=== PATIENT | female | born 1955 | race Caucasian/White ===

== ENCOUNTER 2017-05-06 10:00 | Outpatient (RCR) | payer OTHER, SELFPAY ==
--- NOTE | 2017-04-10 12:00 | HP.PTEVAL ---
Patient's Visit Information NOHEMI LAGUNA is a 62 year old F referred to Physical Therapy by Jean Marie De La Fuente with a diagnosis of CERV FORAMINAL STENOSIS, L ARM PAIN/TRICEP TENDERNESS, POSTUREAL HYPOTENTIO. Date of Evaluation: 04/10/17 Physical Therapist: Blaire Weathers - Visit Plan Frequency: 2-3x /Week Duration: 4-6 Weeks Plan: POSTURE CORRECTION/STRENGTHENING, INSTRUCTION IN APPROPRIATE BODY MECHANICS AND ACTIVITY MODIFICATIONS. CERVICAL ISOMETRICS. CERVICAL MANUAL OR MECHANICAL TX. TRUMAN UE ROM, STRETCHING AND STRENGTHENING. HEP INSTRUCTION. 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 Disability: NO. Present symptoms: LEFT SCAPULA, LEFT NECK, LEFT ARM AND ELBOW, LEFT FOREARMARM AND LEFT HAND NUMBNESS. Present since: ABOUT 5 YEARS BUT LEFT ELBOW MORE RECENT. Pain Scale: WORST 7/10, LEAST 3/10. Currently: SHOULDER BLADE 4/10, ELBOW 4/10. Commenced as a result of: NO APPARENT REASON. Symptoms at onset: SHOULDER BLADE. Worse: USING IPAD, USING A PILLOW, WORK, COMPUTER USE. Better: TRYING TO KEEP ARM STRAIGHT. TRYING NOT TO USE ELBOW. Disturbed sleep: YES - FALLING ASLEEP. Previous history/Previous treatment: PT AND MASSAGE IN 2013. NO CHIRO. NO SURGERY. NO INJECTIONS. AGE 21 LEFT SHOULDER DISLOCATION. AGE 41 FELL AND BROKE LEFT RADIAL HEAD FX AND POSSIBLE TORN MUSCLE. DIZZINESS - POSITIVE. Gait: NORMAL. Accidents: NO. Unexplained weight loss: NO. Imaging: DDD C34. RIGHT FORMAINAL STENOSIS C45, C56. PMH: LOW BACK PAIN. ORTHOSTATIC HYPOTENSION. Recent major surgery: NONE RECENT. OTHER: PATIENT IS LEFT HAND DOMINANT. - Objective Sitting Posture: POOR. Standing Posture: FAIR. Active Correction of posture: WORSE. 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 Sensory deficit: ROM deficit: Reflexes: Dural Signs: Cervical Mvmt Loss: Flex: MIN. Pro: NIL. Ext: MOD. Ret: RJ. RSB: MOD. LSB: MOD. R Rot: MIN TO MOD. L Rot: MOD. Postural strength: FAIR. Palpation: - Goals Goal 1:: DECREASE C/O NECK AND LEFT UE SX'S Goal Time Frame: 4-6 Weeks Goal 2:: IMPROVE LIFTING, PUSHING, PULLING, REACHING, ADL AND WORK FUNCTION Goal Time Frame: 4-6 Weeks Goal 3:: INSTRUCT IN PROPHYLAXIS Goal Time Frame: 4-6 Weeks - Rehabilitation Potential Rehabilitation Potential: Good - Anticipated Interventions Patient/Client Instruction: Educate patient on: Condition, Plan of Care, Risk Factors, Benefits of Fitness Program For the Purpose of:: To improve self management Therapeutic Exercise to Include: Strength training, Body mechanics, Postural training, Flexibilty training, Scapular Strength/Stabilization For the Purpose of:: To improve ability of physical actions for home/community/work/leisure TENS: Yes IF ES: Yes Cryotherapy (ice pack, ice massage): Yes Thermo therapy (hot pack): Yes Ultrasound (thermal/non thermal): Yes Intermittent cervical traction: Yes For the Purpose of:: To decrease pain, To decrease swelling/inflammation Thank you for the opportunity to evaluate your patient. For Medicare and Medicare HMO plans, please review the plan of care and approve it. It will need to be FAXED BACK to us at [phone] for Medicare purposes. Please let me know if there are questions or concerns regarding this plan of care. Physician Signature: Date:
--- NOTE | 2017-05-06 13:15 | HP.PTDCSUM_ITS ---
HP - PT D/C Summary It has been my pleasure to treat NOHEMI LAGUNA under orders from Jean Marie De La Fuente , for the diagnosis of CERV FORAMINAL STENOSIS, L ARM PAIN/TRICEP TENDERNESS, POSTUREAL HYPOTENTIO for a total of 9 visit(s). Discharge Date: 05/06/17 Please see the following information for a summary of their discharge status. - Subjective Subjective: PATIENT REPORTS SHE REALLY ISN'T ANY BETTER OR ANY WORSE OVER-ALL. ABLE TO DO EXERCISE WITH NE OVER-ALL. THE EXERCISES FEEL GOOD WHILE SHE IS DONG THEM. - Pain Upper Trap Pain Intensity (Out of 10): 4 - Overall Improvement % Improvement: 40 - Objective Objective/Function: PATIENT DOES NOT APPEAR TO BE BENEFITING FROM TX. POSITIVE LEFT ROTATOR CUFF TEST AND POSITIVE EPICONDYLITIS TEST LEFT UE. FEELS A LITTLE BETTER AFTER BAND EX'S. REP RET IS - NE. DIFFICULT TO DECIFER BETWEEN NECK, LEFT SHOULDER AND LEFT ELBOW SX'S. MAIN PROBLEM APPEARS TO BE THE LEFT SHOULDER AT THIS TIME. PATIENT MAY BENEFIT FROM MORE IMAGING OF LEFT SHOULDER AND/OR NECK - Goals Goal 1:: DECREASE C/O NECK AND LEFT UE SX'S Goal 2:: IMPROVE LIFTING, PUSHING, PULLING, REACHING, ADL AND WORK FUNCTION Goal 3:: INSTRUCT IN PROPHYLAXIS - Plan Plan: D/C DUE TO LACK OF PROGRESS. PATIENT IS INDEP WITH A HEP THAT GIVES HER TEMPORARY RELIEF. - D/C Information If there are questions or concerns regarding this patient's physical therapy, please feel free to call me at [phone]. Thank you for the referral of this patient. Sincerely, Blaire Weathers
== END 2017-05-06 19:00 | disposition home or self-care (01) ==
LOC: PT 10:00
PROVIDERS: Family Provider Family Medicine; PCP Family Medicine; Visit Provider Family Medicine
DX: M48.02 Spinal stenosis, cervical region (principal); M79.602 Pain in left arm; I95.1 Orthostatic hypotension
CPT/HCPCS: 97012; 97110; 97140; 97162; 97530

== ENCOUNTER → 2017-06-03 08:51 | Outpatient (CLI) | payer OTHER, SELFPAY ==
--- NOTE | 2017-06-03 08:56 | RAD_ITS ---
STUDY: X-RAY - LEFT SHOULDER REASON FOR EXAM: Female, 62 years old. Pain. TECHNIQUE: 3 view(s) of the shoulder. COMPARISON: None. FINDINGS: Normal glenohumeral articulation. Normal acromioclavicular joint. Normal acromion. Normal humeral head and visualized proximal humerus. The soft tissue structures are unremarkable. Normal visualized pulmonary apex. RAD/Shoulder min 2 Views IMPRESSION: Normal x-ray examination of the shoulder. Electronically Signed: Romeo Brownlee MD at 15:00 EST Tel [phone], Service support ,
== END ==
PROVIDERS: Family Provider Family Medicine; PCP Family Medicine; Visit Provider Orthopaedic Surgery
DX: M25.512 Pain in left shoulder (principal)
CPT/HCPCS: 73030

== ENCOUNTER 2017-06-10 09:20 | Outpatient (RCR) | payer OTHER, SELFPAY | END 2017-06-10 19:00 | disposition home or self-care (01) | LOC: PT 09:20 | PROVIDERS: Family Provider Family Medicine; PCP Family Medicine; Visit Provider Orthopaedic Surgery | DX: M25.512 Pain in left shoulder (principal); M77.12 Lateral epicondylitis, left elbow; G56.32 Lesion of radial nerve, left upper limb ==

== ENCOUNTER → 2017-07-22 13:09 | Outpatient (CLI) | payer OTHER, SELFPAY ==
--- NOTE | 2017-07-22 13:20 | MRI_ITS ---
STUDY: MRI CERVICAL SPINE WITHOUT CONTRAST REASON FOR EXAM: Female, 62 years old. Left-sided radiculopathy with hand and arm numbness and pain TECHNIQUE: Standardized fat and water weighted pulse sequences were obtained in the sagittal and axial planes. COMPARISON: None FINDINGS: Normal foramen magnum and brainstem-cervical cord junction. Normal craniovertebral junction. Normal anterior atlantoaxial articulation. Normal odontoid process. Normal cervical lordosis. Normal vertebral bodies and posterior osseous elements. C2-3: Normal endplates. Normal disc height, signal and morphology. Normal central canal and intervertebral neural foramina. C3-4: Disc osteophyte complex and right uncovertebral joint hypertrophy with mild to moderate central canal stenosis and moderate right foraminal stenosis. C4-5: Disc osteophyte complex and bilateral uncovertebral joint hypertrophy with moderate central canal stenosis and moderate to severe bilateral foraminal stenoses. C5-6: Disc osteophyte complex with severe central canal stenosis and severe right and moderate left foraminal stenoses. Mild cord compression. Moderate C6-7: Disc osteophyte complex with mild to moderate central canal stenosis and moderate to severe left and moderate right foraminal stenoses. C7-T1: Normal endplates. Normal disc height, signal and morphology. Normal central canal and intervertebral neural foramina. Normal cervical cord. Normal visualized soft tissue structures. MRI/Spine Cervical (Routine) IMPRESSION: Multilevel degenerative disc disease as described. Significant central canal stenosis with underlying cord compression at the C5-6 level. However, no intrinsic cord signal abnormalities are seen at this time. Severe foraminal stenoses bilaterally at C4-5 and on the right at C5-6. Electronically Signed: Floyd Morales MD at 6:48 EDT Tel , Service support ,
== END ==
PROVIDERS: Family Provider Family Medicine; PCP Family Medicine; Visit Provider Family Medicine
DX: M54.2 Cervicalgia (principal)
CPT/HCPCS: 72141

== ENCOUNTER → 2018-09-24 | Outpatient (CLI) | payer OTHER, SELFPAY ==
[2017-06-03 09:05] VITALS: BMI 26.6
== END | disposition home or self-care (01) ==
LOC: LABSPEC 16:49
PROVIDERS: Visit Provider Obstetrics & Gynecology
DX: N39.0 Urinary tract infection, site not specified (principal)
CPT/HCPCS: 87086; 87088

== ENCOUNTER → 2018-10-01 10:19 | Outpatient (CLI) | payer OTHER, SELFPAY ==
[2018-10-01 10:47] LABS: Absolute Lymphocyte Count 2.07 X10^3/ul (0.83-4.51); Absolute Neutrophil Count 2.5 X10^3/uL (2.0-7.7); Basophil# 0.02 X10^3/uL; Basophil% 0.4 % (0-1); Eosinophil# 0.13 X10^3/uL; Eosinophils% 2.5 % (0-5); Hemoglobin 12.7 g/dl (12.0-15.0); Lymphocyte # 2.07 X10^3/ul (4.0); Lymphocyte % 39.4 % (19-41); Mean Corp Hgb Conc 32.6 g/gl (32-36); Mean Corpuscular Hgb 29.7 pg (27.0-32.0); Mean Corpuscular Volume 91.1 fL (81-99); Monocyte# 0.51 X10^3/uL; Monocyte% 9.7 % (0-10); Neutrophil # 2.52 X10^3/uL (2.7-7.7); Platelet Count 335 K/mm3 (150-450); RBC Distribution Width CV 13.4 % (11.6-14.6); RBC Distribution Width SD 44.2 fl (35.1-43.9); Red Blood Count 4.28 M/mm3 (4.2-5.4); White Blood Count 5.3 K/mm3 (4.4-11.0)
[2018-10-01 10:49] LABS: POSITIVE COUNT NO; POSITIVE DIFFERENTIAL NO; POSITIVE MORPHOLOGY NO
--- NOTE | 2018-10-01 11:05 | CT_ITS ---
STUDY: CT ABDOMEN AND PELVIS WITHOUT CONTRAST REASON FOR EXAM: Female, 63 years old. RADIATION DOSAGE (If Supplied By Facility): CTDIvol = ( 11.05 ) mGy, DLP = ( 541.24 ) mGycm TECHNIQUE: Transaxial images were obtained from the dome of the diaphragm to the symphysis pubis with oral contrast, and without intravenous contrast. Sagittal and coronal images were reconstructed. Individualized dose optimization techniques were used for this CT. COMPARISON: October 10, 2049 FINDINGS: The visualized lung bases are unremarkable. The visualized portions of the heart are within normal limits. Normal liver. Normal gallbladder and extrahepatic biliary system. Normal spleen. Normal pancreas. Normal bilateral adrenal glands. Normal right kidney. Normal left kidney. Normal visualized stomach. Normal small intestine. Normal colon. The appendix is visualized and appears normal. Normal abdominal aorta. Normal inferior vena cava. Normal retroperitoneum. Normal urinary bladder. There is tubal ligation on the left Normal abdominal wall. Normal osseous structures. CT/Abdomen/Pelvis without Cont IMPRESSION: Negative unenhanced CT of the abdomen and pelvis. No dilatation of small bowel in today's examination when compared to the previous study. Electronically Signed: Swetha Greene, at 12:48 EDT Tel , Service support ,
[2018-10-01 11:12] LABS: AST(SGOT) 23 U/L (15-37); Alanine Aminotransfer ALT/SGPT 27 U/L (13-56); Albumin, Serum 3.6 g/dL (3.2-5.0); Alkaline Phosphatase 100 U/L (45-117); Anion Gap 7 (5-15); BUN 7 mg/dL (7-18); BUN/Creat Ratio 9.1 RATIO (10-20); CRP 5.43 mg/L (0.0-3.0); Calcium,Total 9.1 mg/dL (8.5-10.1); Chloride 107 mmol/L (98-107); Creatinine, Serum 0.77 mg/dL (0.55-1.02); EST Glomerular Filtration Rate 81 mL/min (>60); Est Glom Filt Rate - Afr Amer 98 mL/min (>60); Globulin 3.7 g/dL (2.2-4.2); Glucose 97 mg/dL (74-106); Lipase 237 U/L (73-393); Potassium 4.2 mmol/L (3.5-5.1); Protein, Total 7.3 g/dL (6.4-8.2); Sodium Level 142 mmol/L (136-145)
== END ==
PROVIDERS: Family Provider Family Medicine; PCP Family Medicine; Referring Provider Family Medicine; Visit Provider Family Medicine
DX: R19.03 Right lower quadrant abdominal swelling, mass and lump (principal)
CPT/HCPCS: 36415; 74176; 80053; 83690; 85025; 86140

== ENCOUNTER → 2018-10-15 08:06 | Outpatient (CLI) | payer OTHER, SELFPAY ==
--- NOTE | 2018-10-15 08:20 | RAD_ITS ---
STUDY: Air CONTRAST UPPER GI SERIES AND SMALL BOWEL FOLLOW-THROUGH EXAMINATION. REASON FOR EXAM: Female, 63 years old. One month history of abdominal pain and back pain. History of prior small bowel obstructions. FLUOROSCOPY TIME (if supplied): (1:05) minutes/seconds. TECHNIQUE: The patient ingested barium. Multiple images of the esophagus, stomach and duodenum were obtained. Following this, the small bowel follow-through examination was performed. COMPARISON: None. FINDINGS: The esophagus is unremarkable. There is no evidence of obstruction. No mass lesion is seen. The stomach and duodenum are unremarkable. No evidence of ulceration. No mass lesion is present. A small bowel follow-through examination was done obtained. The small bowel transit is normal. No evidence of intrinsic or extrinsic small bowel disease. The terminal ileum is unremarkable. RAD/Upper GI/w Small Bowel IMPRESSION: Unremarkable examination. Electronically Signed: Romeo Brownlee, at 15:03 EDT , Service support ,
== END ==
PROVIDERS: Family Provider Family Medicine; PCP Family Medicine; Referring Provider Family Medicine; Visit Provider Family Medicine
DX: R11.0 Nausea (principal)
CPT/HCPCS: 74249

== ENCOUNTER → 2018-12-17 12:31 | Outpatient (CLI) | payer OTHER, SELFPAY ==
--- NOTE | 2018-12-17 12:32 | BI_ITS ---
MAMMOGRAPHY - BILATERAL SCREENING REASON FOR EXAM: Female, 63 years old. Routine annual screening examination. PERTINENT HISTORY: Non-contributory. Remote left excisional breast biopsy. TECHNIQUE: Digital bilateral breast bigg (3D mammographic acquisition) in the CC and MLO projections. 2-D mediolateral oblique (MLO) and craniocaudad (CC) views of both breasts were obtained. CAD: Full Field Digital Mammography with Computer Added Detection was performed. COMPARISON: Comparison is made with prior study dated August 22, 2016 and February 28, 2015. FINDINGS: Breast Composition: The breasts are almost entirely fatty. There are no dominant masses or suspicious calcifications. No other significant abnormalities are identified. There has been no significant change since the prior study. BI/SCREEN MAMM (CAD) W/BIGG BILAT IMPRESSION: Stable bilateral screening mammogram. Yearly follow-up mammogram recommended. (A) ASSESSMENT CATEGORY: BIRADS Category 1: Negative. A letter regarding these results will be sent to the patient by the facility within 30 days. Approximately 10% of breast cancers are not detected by mammography. A normal mammogram should not delay biopsy of a clinically suspicious abnormality. [id number] Electronically Signed: Romeo Brownlee, at 15:52 EDT , Service support ,
== END ==
PROVIDERS: Family Provider Family Medicine; PCP Family Medicine; Referring Provider Obstetrics & Gynecology; Visit Provider Obstetrics & Gynecology
DX: Z12.31 Encounter for screening mammogram for malignant neoplasm of breast (principal)
CPT/HCPCS: 77063; 77067

== ENCOUNTER → 2019-04-23 15:34 | Outpatient (CLI) | payer OTHER, SELFPAY ==
--- NOTE | 2019-04-23 09:35 | FORE_PTH ---
PATIENT: NOHEMI LAGUNA LOC: [facility] U#:[id number] AGE/SX: 70/F ROOM: RE04/23/[address]: Dr. Brennen Kim MD : [id number] BED: DIS: SPEC #: [id number] RECD: 04/23/19 15:22 STATUS: MARIELY EDUARDA #: [id number] COLEEN: 04/23/19 09:[address]: Brennen Kim DEPT: SURGICAL PATHOLOGY RECD BY: Mia García ENTERED: 04/24/19 09:29 SP TYPE: FOREIGN B ROYER DR: Dr. Jean Marie De La Fuente MD Tissues: FOREIGN BODY Procedures: Surgery Specimen Level IV HEADER OPERATION: Excision foreign body right heel PRE-OP DIAGNOSIS: Foreign body right heel TISSUE SUBMITTED: Right heel tissue MICROSCOPIC DIAGNOSIS Skin of right heel, biopsy: Hyperkeratosis. Minimal chronic inflammation. See comment. AM:anna 04/27/19 COMMENT A foreign body is not present. Polarized light microscopy is negative for polarizable foreign material. Clinical correlation is necessary. MICROSCOPIC DESCRIPTION Slides are reviewed. GROSS DESCRIPTION Received in fixative is one container labeled with the patient's name and designated right heel. The specimen consists of a piece of skin with underlying tissue measuring 1 x 0.4 x 0.5 cm. The specimen is inked, serially sectioned and submitted entirely in one cassette. / SJ:rg 04/24/19 TC:3 CPT: 78870
[2019-04-23 09:47] VITALS: BMI 26.6
== END ==
PROVIDERS: PCP Family Medicine; Referring Provider Surgery; Visit Provider Surgery
DX: S90.851A Superficial foreign body, right foot, initial encounter (principal)
CPT/HCPCS: 88300; 88305

== ENCOUNTER → 2020-03-11 10:24 | Outpatient (CLI) | payer OTHER, SELFPAY ==
[2019-04-23 09:47] VITALS: BMI 26.6
[2020-03-11 12:47] LABS: Absolute Lymphocyte Count 1.77 X10^3/uL (0.83-4.51); Absolute Neutrophil Count 2.8 X10^3/uL (2.0-7.7); Basophil# 0.03 X10^3/uL; Basophil% 0.6 % (0-1); Eosinophil# 0.08 X10^3/uL; Eosinophils% 1.5 % (0-5); Hematocrit 40.8 % (37-47); Lymphocyte # 1.77 X10^3/ul (4.0); Lymphocyte % 33.5 % (19-41); Mean Corp Hgb Conc 31.9 g/dL (32-36); Mean Corpuscular Hgb 29.8 pg (27.0-32.0); Mean Corpuscular Volume 93.6 fL (81-99); Mean Platelet Vol. 11.2 fl (6.2-12.0); Monocyte# 0.56 X10^3/uL; Monocyte% 10.6 % (0-10); NRBC Flagged by Analyzer 0 % (0-5); Neutrophil # 2.83 X10^3/uL (2.7-7.7); Neutrophil % 53.6 % (47-70); Platelet Count 271 K/mm3 (150-450); RBC Distribution Width CV 13.1 % (11.6-14.6); RBC Distribution Width SD 44.9 fl (35.1-43.9); Red Blood Count 4.36 M/mm3 (4.2-5.4); White Blood Count 5.3 K/mm3 (4.4-11.0)
[2020-03-11 13:12] LABS: AST(SGOT) 28 U/L (15-37); Alanine Aminotransfer ALT/SGPT 36 U/L (13-56); Albumin, Serum 3.5 g/dL (3.2-5.0); Alkaline Phosphatase 86 U/L (45-117); Anion Gap 7 (5-15); BUN 11 mg/dL (7-18); BUN/Creat Ratio 13.9 RATIO (10-20); Calcium,Total 8.9 mg/dL (8.5-10.1); Chloride 106 mmol/L (98-107); Creatinine, Serum 0.79 mg/dL (0.55-1.02); EST Glomerular Filtration Rate 78 mL/min (>60); Est Glom Filt Rate - Afr Amer 94 mL/min (>60); Globulin 3.4 g/dL (2.2-4.2); Glucose 91 mg/dL (74-106); Magnesium 2.3 mg/dL (1.6-2.6); Protein, Total 6.9 g/dL (6.4-8.2); Sodium Level 140 mmol/L (136-145); Thyroid Stim Hormone (TSH) 1.46 uIU/mL (0.358-3.74)
[2020-03-14 13:01] LABS: ANTINUCLEAR ANTIBODIES DIRECT Positive (Negative)
[2020-03-14 16:12] LABS: Rheumatoid Factor < 10.0 IU/mL (<15)
== END ==
PROVIDERS: PCP Family Medicine; Referring Provider Family Medicine; Visit Provider Family Medicine
DX: R00.2 Palpitations (principal)
CPT/HCPCS: 36415; 80053; 83735; 84443; 85025; 86038; 86225; 86235; 86431

== ENCOUNTER → 2020-04-06 10:12 | Outpatient (CLI) | payer OTHER, SELFPAY ==
[2020-03-31 10:57] VITALS: BMI 27.4
--- NOTE | 2020-04-06 10:15 | RAD_ITS ---
STUDY: X-RAY CHEST REASON FOR EXAM: Female, 65 years old. DYSPNEA, TACHYCARDIA, CP AND JAW PAIN INTERMITTENTLY X1 YR, POSITIVE [place] TECHNIQUE: PA and lateral views of the chest. COMPARISON: 12/02/2013 FINDINGS: The lungs are clear and expanded. There is no demonstrated pleural abnormality. Normal size heart. Normal mediastinum and christ. Normal visualized pulmonary arteries. Normal visualized aortic arch and descending thoracic aorta. There are diffuse degenerative changes of the visualized thoracic spine. Normal visualized ribs, clavicles, and shoulders. There is no demonstrated abnormality of the visualized soft tissue structures of the upper abdomen. RAD/Chest PA and Lateral IMPRESSION: No acute cardiopulmonary process. Stable exam. Electronically Signed: Dionisio Pepe MD ([place]) at 12:22 EST , Service support ,
== END ==
PROVIDERS: PCP Family Medicine; Referring Provider Internal Medicine Cardiovascular Disease; Visit Provider Internal Medicine Cardiovascular Disease
DX: R00.2 Palpitations (principal); R06.00 Dyspnea, unspecified; R07.9 Chest pain, unspecified; R42 Dizziness and giddiness
CPT/HCPCS: 71046

== ENCOUNTER → 2020-04-06 11:56 | Outpatient (CLI) | payer OTHER, SELFPAY ==
[2019-04-23 09:47] VITALS: BMI 26.6
[2020-03-31 10:57] VITALS: BMI 27.4
--- NOTE | 2020-04-06 11:58 | BI_ITS ---
MAMMOGRAPHY - BILATERAL SCREENING REASON FOR EXAM: Female, 65 years old. Routine annual screening examination. PERTINENT HISTORY: Non-contributory. Remote left excisional breast biopsy. TECHNIQUE: Digital bilateral breast bigg (3D mammographic acquisition) in the CC and MLO projections. 2-D mediolateral oblique (MLO) and craniocaudad (CC) views of both breasts were obtained. CAD: Full Field Digital Mammography with Computer Added Detection was performed. COMPARISON: Comparison is made with prior study dated 12/17/2018 and 08/22/2016 FINDINGS: Breast Composition: The breasts are almost entirely fatty. There are no dominant masses or suspicious calcifications. No other significant abnormalities are identified. There has been no significant change since the prior study. BI/SCREEN MAMM (CAD) W/BIGG BILAT IMPRESSION: Stable bilateral screening mammogram. Yearly follow-up mammogram recommended. (A) ASSESSMENT CATEGORY: BIRADS Category 1: Negative. A letter regarding these results will be sent to the patient by the facility within 30 days. Approximately 10% of breast cancers are not detected by mammography. A normal mammogram should not delay biopsy of a clinically suspicious abnormality. [id number] Electronically Signed: Romeo Brownlee, at 11:08 EST , Service support ,
== END ==
PROVIDERS: PCP Family Medicine; Referring Provider Family Medicine; Visit Provider Family Medicine
DX: Z12.31 Encounter for screening mammogram for malignant neoplasm of breast (principal)
CPT/HCPCS: 77063; 77067

== ENCOUNTER → 2020-04-15 06:11 | Outpatient (CLI) | payer OTHER, SELFPAY ==
[2020-03-31 10:57] VITALS: BMI 27.4
--- NOTE | 2020-04-15 06:22 | ECHOCS_ITS ---
Reason For Study: Dyspnea/SOB Procedure This was a 2D Doppler, Color Flow transthoracic echocardiogram. The study was technically difficult. Contrast injection was performed. Exam performed in department. Left Ventricle Normal LV size. Left ventricular systolic function is normal. The estimated ejection fraction is 65 %. No evidence for diastolic dysfunction. No regional wall motion abnormalities noted. Right Ventricle Normal RV size. Normal systolic function. Atria The left atrium is mildly enlarged. Normal right atrium. No doppler evidence for ASD. Bubble contrast study negative for right to left interatrial shunt. Mitral Valve There is no mitral annular calcification. Normal mitral valve. Mild (1+) mitral valve insufficiency. Tricuspid Valve Normal tricuspid valve. Mild tricuspid valve insufficiency. Right ventricular systolic pressure estimated to be 16 mmHg. Aortic Valve Trisinus/trileaflet aortic valve. Normal aortic valve. Pulmonic Valve The pulmonic valve is not well visualized. Great Vessels Normal sized aortic root. Pericardium/Pleural No pericardial effusion. Medication 22 gauge I.V. with prn adaptor inserted into right arm. Diluted definity 3ml given slow IV push to enhance endocardial definition. Performed a rapid injection of agitated mix of 9 cc saline and 1cc air to assess for atrial septal defect. MMode/2D Measurements & Calculations LVIDd: 5.0 cm IVSd: 0.82 cm LA dimension: 3.4 cm LVIDs: 2.9 cm LVPWd: 0.95 cm RVDd: 3.2 cm FS: 42.0 % LAV(MOD-bp): 55.0 ml LA A4 area: 16.9 cm2 RA A4 area: 15.0 cm2 LAV(MOD-bp) Indexed: 28.8 ml/m2 LAV(MOD-sp2): 62.6 ml LAV(MOD-sp4): 45.4 ml Time Measurements MV dec time: 0.23 sec Doppler Measurements & Calculations MV E max luciano: 70.1 cm/sec Lat Peak E' Luciano: 11.1 cm/sec Med Peak E' Luciano: 10.3 cm/sec MV A max luciano: 52.0 cm/sec E/E' lat: 6.3 E/E' med: 6.8 MV E/A: 1.3 MV V2 max: 63.1 cm/sec MV P1/2t max luciano: 63.4 cm/sec Ao V2 max: 88.0 cm/sec MV max P.6 mmHg MV P1/2t: 62.0 msec Ao max P.1 mmHg MV V2 mean: 34.1 cm/sec MV dec slope: 299.1 cm/sec2 MV mean P.57 mmHg MV V2 VTI: 19.4 cm MVA(P1/2t): 3.5 cm2 LV V1 max: 68.2 cm/sec PA V2 max: 67.3 cm/sec TR max luciano: 183.0 cm/sec LV V1 max P.9 mmHg TR max P.4 mmHg Interpretation Summary The study was technically difficult. Contrast injection was performed. Left ventricular systolic function is normal. The estimated ejection fraction is 65 %. The left atrium is mildly enlarged. Mild (1+) mitral valve insufficiency. Mild tricuspid valve insufficiency. Right ventricular systolic pressure estimated to be 16 mmHg. No evidence for diastolic dysfunction. Ordering Physician: Willam Woodall Referring Physician: Willam Woodall Performed By: Luis Manuel Agarwal RCS
--- NOTE | 2020-04-15 12:05 | STRESSREP_ITS ---
Stress Test Report Date: 04-15-2020 Procedure: Exercise tolerance test/imaging study Indications: Chest pain; shortness of breath/dyspnea on exertion Consent: Per the patient Procedure: The patient exercised on a Marcelino protocol for 6 minutes and 25 seconds completing Stage II and 25 seconds of Stage III achieving a peak heart rate of 157 bpm (100% predicted maximal heart rate) with a peak blood pressure 188/88 mmHg and a peak MET capacity of 7 METs. The baseline ECG demonstrated normal sinus rhythm. The peak exercise ECG demonstrated approximately 0.5 to 1.[address] segment depression in leads II, III, aVF, and V4 through V6 with resolution towards baseline beginning less than 1 minute in recovery. There was a rare PAC during exercise and an isolated PVC in recovery. The functional capacity was considered average. There was slight chest discomfort/dyspnea during exercise with spontaneous improvement in recovery. The examination was discontinued secondary to dyspnea. Impression: 1. Technically adequate (percent predicted maximal heart rate greater than 85%) exercise tolerance test 2. Peak exercise ECG with approximately 0.5 to 1.[address] segment depression in leads II, III, aVF, and V4 through V6 with resolution towards baseline beginning less than 1 minute in recovery 3. There was a rare PAC during exercise and an isolated PVC in recovery 4. Nuclear images pending Myocardial perfusion imaging study: Technique: The patient was injected with 11.4 mCi of technetium 99m Cardiolite and subsequently rest SPECT Cardiolite nuclear imaging was obtained in the horizontal long, vertical long, and short axis views. The patient exercised on a Marcelino protocol for 6 minutes and 25 seconds completing Stage II and 25 seconds of Stage III achieving a peak heart rate of 157 bpm (100% predicted maximal heart rate) with a peak blood pressure 188/88 mmHg and a peak MET capacity of 7 METs. The patient was injected with 34.0 mCi of technetium 99m Cardiolite and subsequently stress SPECT Cardiolite nuclear imaging was obtained in the horizontal long, vertical long, and short axis views. A gated Cardiolite study at peak stress was obtained. Interpretation: Rest and stress SPECT Cardiolite nuclear imaging status post realignment, normalization, and attenuation correction, demonstrates the appearance of relative uniform tracer uptake and myocardial perfusion appearing within normal limits. There is end systolic thickening and brightening. The gated Cardiolite study demonstrates myocardial thickening and inward wall motion. The reported LVEF is 63%. Impression: 1. Rest and stress SPECT Cardiolite nuclear imaging demonstrate relative uniform tracer uptake and myocardial perfusion appearing within normal limits. 2. The gated Cardiolite study reports an LVEF of 63%. This note was generated with [employer] dictation software. It may contain incorrect words, spelling, and punctuation that were not noted in checking the note before signing.
== END ==
PROVIDERS: PCP Family Medicine; Referring Provider Internal Medicine Cardiovascular Disease; Visit Provider Internal Medicine Cardiovascular Disease
DX: R07.9 Chest pain, unspecified (principal); R06.00 Dyspnea, unspecified; R00.2 Palpitations; R42 Dizziness and giddiness; R06.02 Shortness of breath
CPT/HCPCS: 78452; 93017; 93306; A9500; Q9957; A4216; C8929

== ENCOUNTER → 2020-07-11 16:03 | Outpatient (CLI) | payer OTHER, SELFPAY ==
[2020-06-16 13:14] VITALS: BMI 27.6
== END ==
PROVIDERS: PCP Family Medicine; Visit Provider Internal Medicine Rheumatology
DX: R21 Rash and other nonspecific skin eruption (principal); R76.8 Other specified abnormal immunological findings in serum
CPT/HCPCS: 36415; 86038

== ENCOUNTER 2020-10-10 21:42 | Emergency (ER) | payer OTHER, SELFPAY ==
[2020-06-16 13:14] VITALS: BMI 27.6
[2020-10-10 21:42] VITALS: BP 129/86; PULSE 77; RESP 18; TEMP 35.6; O2SAT 96; BMI 28.0
--- NOTE | 2020-10-10 22:07 | CT_ITS ---
STUDY: CT ABDOMEN AND PELVIS WITH CONTRAST REASON FOR EXAM: Female, 65 years old. SBO -- IV PO Contrast RADIATION DOSAGE (If Supplied By Facility): CTDIvol = ( 14.13 ) mGy, DLP = ( 968.55 ) mGycm TECHNIQUE: Transaxial images were obtained from the dome of the diaphragm to the symphysis pubis with oral contrast. Oral and amp; IV Gastrografin and amp; 100mL Isovue-300 was administered. Sagittal and coronal images were reconstructed. Individualized dose optimization techniques were used for this CT. COMPARISON: None. FINDINGS: The visualized lung bases are unremarkable. The visualized portions of the heart are within normal limits. Small cyst in the liver dome measuring 10 mm. Otherwise, unremarkable liver. Normal gallbladder and extrahepatic biliary system. Normal spleen. Normal pancreas. Normal bilateral adrenal glands. Normal right kidney. Normal left kidney. Normal visualized stomach. Multiple loops of small bowel in the central abdomen demonstrating wall thickening with edema as well as mild fluid distention with air-fluid levels. Likely enteritis and less likely obstruction. No evidence of abnormal dilation. There are multiple colonic diverticula consistent with diverticulosis. The appendix is visualized and appears normal. Normal abdominal aorta. Normal inferior vena cava. Normal retroperitoneum. Normal urinary bladder. Normal visualized uterus. Normal abdominal wall. Normal osseous structures. CT/Abdomen/Pelvis WITH Contrast IMPRESSION: Multiple loops of small bowel in the central abdomen demonstrating wall thickening with edema suggesting enteritis. No definite evidence of small bowel obstruction however; however, not fully excluded at this time Electronically Signed: Edson Abbasi DO at 0:42 EDT Tel , Service support ,
[2020-10-10 22:16] LABS: Absolute Neutrophil Count 6.2 X10^3/uL (2.0-7.7); Basophil# 0.03 X10^3/uL; Basophil% 0.3 % (0-1); Eosinophil# 0.12 X10^3/uL; Eosinophils% 1.2 % (0-5); Hemoglobin 12.1 g/dL (12.0-15.0); Lymphocyte % 30.1 % (19-41); Mean Corp Hgb Conc 32.7 g/dL (32-36); Mean Corpuscular Hgb 29.8 pg (27.0-32.0); Mean Corpuscular Volume 91.1 fL (81-99); Mean Platelet Vol. 10.2 fl (6.2-12.0); Monocyte# 0.81 X10^3/uL; Monocyte% 7.9 % (0-10); NRBC Flagged by Analyzer 0 % (0-5); Neutrophil % 60.2 % (47-70); Platelet Count 291 K/mm3 (150-450); RBC Distribution Width CV 13.1 % (11.6-14.6); RBC Distribution Width SD 43.4 fl (35.1-43.9); Red Blood Count 4.06 M/mm3 (4.2-5.4); White Blood Count 10.3 K/mm3 (4.4-11.0)
[2020-10-10 22:34] LABS: AST(SGOT) 26 U/L (15-37); Alanine Aminotransfer ALT/SGPT 38 U/L (13-56); Albumin, Serum 3.5 g/dL (3.2-5.0); Alkaline Phosphatase 95 U/L (45-117); Anion Gap 5 (5-15); BUN 11 mg/dL (7-18); BUN/Creat Ratio 13.2 RATIO (10-20); Calcium,Total 9.1 mg/dL (8.5-10.1); Chloride 108 mmol/L (98-107); Creatinine, Serum 0.83 mg/dL (0.55-1.02); EST Glomerular Filtration Rate 73 mL/min (>60); Est Glom Filt Rate - Afr Amer 88 mL/min (>60); Estimated Creatinine Clearance 66.59 ml/min; Globulin 3.6 g/dL (2.2-4.2); Glucose 94 mg/dL (74-106); Lipase 129 U/L (73-393); Potassium 4.2 mmol/L (3.5-5.1); Protein, Total 7.1 g/dL (6.4-8.2); Sodium Level 140 mmol/L (136-145)
[2020-10-10] MEDS: Ondansetron 4 MG/2 ML Vial IV (22:57)
[2020-10-10] MEDS: Morphine 4 MG/ML Syringe IV (22:57)
[2020-10-10] MEDS: 0.9% Normal Saline 1,000 ML 125 ML IV (22:57)
--- NOTE | 2020-10-10 23:02 | ED.VIS.GI ---
HPI HPI - GI History of Present Illness Chief Complaint: Abd Pain Narrative Narrative: Patient presenting for evaluation secondary to abdominal pain. Patient states that she has a past history of a unilateral nephrectomy, and hernia surgery. Patient does have a past history of bowel obstructions. Patient states that at about 4 PM she started to have symptoms that she was concerned were consistent with a bowel obstruction. She does report that she moved her bowels, but she has had decreased flatus. She has had intermittent waxing and waning periumbilical pain that has no real exacerbating relieving factors. She has had decreased appetite. She denies any fevers. She denies any nausea or vomiting. She denies any other recent illnesses. Review of systems otherwise negative. [facility] Medical History Chest pain Foreign body in soft tissue IBD (inflammatory bowel disease) Overweight (BMI 25.0-29.9) Palpitations Personal history of retained foreign body fully removed (~04/2019) SBO (small bowel obstruction) Vasovagal syncope Home Medications aspirin 325 mg tablet 325 mg PO DAILY #30 tab 06/01/20 [Rx Last Taken Unknown] metoprolol succinate 25 mg tablet,extended release 24 hr 25 mg PO DAILY #30 tab 06/01/20 [Rx Last Taken Unknown] hydrocodone-acetaminophen 1 tab PO Q8H PRN 3 Days #9 tab 10/11/20 [Rx Last Taken Unknown] Allergy/AdvReac Type Severity Reaction Status Date / Time escitalopram [From Lexapro] Allergy Hives,Sedat Verified 10/10/20 21:45 ion Penicillins Allergy Rash Verified 10/10/20 21:45 venlafaxine [From Effexor] AdvReac Constipatio Verified 10/10/20 21:45 n Family History Father CAD (coronary artery disease) Hypertension Mother Heart disease Atrial fibrillation Brother Hypertension Surgical History H/O breast biopsy H/O hemorrhoidectomy History of bladder suspension procedure History of right oophorectomy Social History Smoking Status: Never smoker alcohol intake: current details: occasional substance use type: does not use caffeine: Yes Type: coffee Number of servings: 3 ROS ROS ED Constitutional Constitutional ED: Denies chills or fever(s) ENT ENT ED: Denies sore throat Cardiovascular Cardiovascular: Denies chest pain Respiratory/Chest Respiratory/Chest: Denies cough or dyspnea Gastrointestinal Gastrointestinal: Reports abdominal pain Genitourinary Genitourinary ED: Denies dysuria, hematuria or urinary frequency Musculoskeletal Musculoskeletal: Denies myalgias Integumentary Denies rash Neurologic Neurologic: Denies paresthesias or weakness Psychiatric Psychiatric: Denies depression Endocrine Endocrinology: Denies polyuria Hematologic/Lymphatic Hematologic/Lymphatic: Denies easy bleeding or easy bruising Allergic/Immunologic Allergic/Immunologic ED: Denies urticaria EXAM Physical Exam Const Vital Signs: 10/10/20 21:42 Temperature 96.1 F L Temperature Source Oral Pulse Rate 77 Respiratory Rate 18 Blood Pressure 129/86 H Blood Pressure Mean 100 Pulse Ox 96 Oxygen Delivery Method Room Air Positive well nourished and well developed General Appearance ED: well developed and NAD HEENT normocephalic and atraumatic Eyes EOMs intact bilaterally General Eye ED: Negative for pale conjunctiva or scleral icterus Neck no lymphadenopathy and supple Resp normal respiratory effort and clear to auscultation bilaterally Cardio regular rate, regular rhythm, no murmurs and peripheral pulses 2+ throughout GI non-tender, non-distended and no masses GI Narrative: Epigastric and periumbilical tenderness no guarding or rebound noted. No evidence of increased bowel sounds. Palpation: soft and tender; Negative for guarding, rigid or rebound tenderness present Back/Spine no CVA tenderness Extremity full ROM General Extremety ED: Negative for edema General Extremity: Negative for edema Neuro moves all extremities and no sensory deficits noted Sensorium / Orientation: alert, oriented to person, oriented to place and oriented to time Motor Exam: strength 5/5 throughout Psych mental status grossly normal Skin Rashes: no rashes MDM MDM MDM Narrative Medical decision making narrative: Patient presented secondary to abdominal pain in the setting of a history of small bowel obstructions in the past. IV was established patient was given morphine Zofran as well as IV fluids. CBC does not demonstrate evidence of a leukocytosis or shift, chemistry including liver panel and lipase was found to be unremarkable. CT abdomen and pelvis with p.o. and IV contrast was performed. Per radiology this demonstrates multiple loops of small bowel in the central abdomen demonstrating some wall thickening with edema suggestive more of enteritis. They stated that there was no evidence of small bowel obstruction, although it is not fully excluded at this time. Repeat evaluation of the patient at 0 115 shows her to have some symptomatic improvement. Had a discussion with the patient that her imaging at this time is not indicative of small bowel obstruction. Likewise, the patient does not have a presentation that would seem consistent with a ischemic colitis or other serious etiology that requires admission. Patient is very reliable, she will return if she has worsening symptoms. Patient sees Dr. Kim as her surgeon, I recommended that she call the office there tomorrow for acute follow-up. Patient will be discharged with a short course of [place] for treatment of pain. Patient is discharged in stable condition. Lab Data Labs: Laboratory Results - last 24 hr 10/10/20 10/10/20 22:08 22:08 WBC 10.3 RBC 4.06 L Hgb 12.1 Hct 37.0 MCV 91.1 MCH 29.8 MCHC 32.7 RDW Std Deviation 43.4 RDW Coeff of Charles 13.1 Plt Count 291 MPV 10.2 Immature Gran % (Auto) 0.300 Neut % (Auto) 60.2 Lymph % (Auto) 30.1 [place] % (Auto) 7.9 Eos % (Auto) 1.2 Baso % (Auto) 0.3 Absolute Neuts (auto) 6.2 Absolute Lymphs (auto) 3.10 Nucleated RBC % 0 Sodium 140 Potassium 4.2 Chloride 108 H Carbon Dioxide 27.0 Anion Gap 5 BUN 11 Creatinine 0.83 Estim Creat Clear Calc 66.59 Est GFR (MDRD) Af Amer 88 Est GFR (MDRD) Non-Af 73 BUN/Creatinine Ratio 13.2 Glucose 94 Calcium 9.1 Total Bilirubin 0.50 AST 26 ALT 38 Alkaline Phosphatase 95 Total Protein 7.1 Albumin 3.5 Globulin 3.6 Albumin/Globulin Ratio 1.0 Lipase 129 Radiography Diagnostic Testing: Radiology Impression Abdomen/Pelvis CT 10/10/20 22:07 IMPRESSION: Multiple loops of small bowel in the central abdomen demonstrating wall thickening with edema suggesting enteritis. No definite evidence of small bowel obstruction however; however, not fully excluded at this time Electronically Signed: Edson Abbasi DO at 0:42 EDT Tel , Service support , Discharge Plan Triage Chief Complaint: Abd Pain ED Provider: Eduard Marks Dx/Rx/DC Orders Clinical Impression: Enteritis Instructions: ED Abdominal Pain Unkn Cause Fem Prescriptions: New hydrocodone-acetaminophen 5-325 mg tablet 1 tab PO Q8H PRN (Reason: pain) 3 Days Qty: 9 RF: 0 No Action metoprolol succinate 25 mg tablet extended release 24 hr 25 mg PO DAILY Qty: 30 RF: 6 aspirin 325 mg tablet 325 mg PO DAILY Qty: 30 RF: 6 Primary Care Provider: Jean Marie De La Fuente Referrals: Jean Marie De La Fuente MD [Primary Care Provider] - Brennen Kim MD [STAFF PHYSICIAN] - 1 Day for another exam Disposition Disposition: Home, Self Care
[2020-10-11] MEDS: HYDROcodone Bitartrate/Apap 5/325 Tablet PO (01:25)
[2020-10-11 01:32] VITALS: PULSE 68; RESP 16; O2SAT 98
== END 2020-10-11 02:01 | disposition home or self-care (01) ==
PROVIDERS: Emergency Provider Emergency Medicine; PCP Family Medicine
DX: K52.9 Noninfective gastroenteritis and colitis, unspecified (principal)
CPT/HCPCS: 74177; 80053; 83690; 85025; 96361; 96374; 96375; 99284; J7030; Q9967; J2405

== ENCOUNTER → 2020-10-14 09:06 | Outpatient (CLI) | payer OTHER, SELFPAY ==
[2020-10-12 10:55] VITALS: BMI 28.0
--- NOTE | 2020-10-13 09:04 | RAD_ITS ---
STUDY: X-RAY - ABDOMEN/PELVIS REASON FOR EXAM: Female, 65 years old. Abdominal pain. Screening examination for small bowel examination. TECHNIQUE: Single AP view of the abdomen / pelvis. COMPARISON: None. FINDINGS: Residual contrast is seen in the transverse colon and left hemicolon. RAD/Abdomen Single View IMPRESSION: Residual contrast is seen in the colon. Electronically Signed: Romeo Brownlee MD at 11:00 EDT , Service support ,
--- NOTE | 2020-10-14 09:10 | RAD_ITS ---
PROCEDURE: SMALL BOWEL SERIES DATE OF EXAMINATION: 10/14/2020. INDICATION: Female, 65 years old. Abdominal pain/colitis. PHYSICIAN: Romeo Brownlee M.D. FLUOROSCOPY TIME (if supplied): (0:12) minutes/seconds. 12 images were obtained. TECHNIQUE: Radiographic and fluoroscopic images were taken of the small intestine following the ingestion of barium. COMPARISON: None. FINDINGS: A preliminary supine KUB was obtained. There is an unremarkable bowel gas pattern. Fecal material is present throughout the colon. Phleboliths are present within the pelvis. Tubal ligation clips are seen in the pelvis. The lung bases are unremarkable. The osseous structures are normal. The patient orally ingested approximately 12 ounces of thin barium Normal visualized fundus, body, and antrum of the stomach. Normal duodenal bulb, C-loop, and proximal jejunum. Normal visualized mucosal folds of the jejunum and ileum. There are no demonstrated dilatations, strictures, or masses of the small intestine. There is no mass displacement of the loops of small intestine. There is a normal motor pattern with barium reaching the colon within approximately 60 minutes. Spot films under fluoroscopic observation demonstrated a normal terminal ileum and ileocecal valve. RAD/Small Bowel Series Only IMPRESSION: Normal small bowel series. Electronically Signed: Romeo Brownlee MD at 13:45 EDT , Service support ,
[2020-10-14 10:15] LABS: Erythrocyte Sedimentation Rate 10 mm/hr (0-30)
== END ==
PROVIDERS: PCP Family Medicine; Referring Provider Surgery; Visit Provider Surgery
DX: K52.9 Noninfective gastroenteritis and colitis, unspecified (principal); R10.9 Unspecified abdominal pain
CPT/HCPCS: 36415; 74018; 74250; 85652

== ENCOUNTER → 2020-12-21 14:03 | Outpatient (CLI) | payer MEDICARE, BC, SELFPAY | PROVIDERS: PCP Family Medicine; Visit Provider Internal Medicine Gastroenterology | DX: R10.84 Generalized abdominal pain (principal) | CPT/HCPCS: 36415 ==

== ENCOUNTER → 2021-01-06 12:21 | Outpatient (CLI) | payer MEDICARE, BC, SELFPAY ==
--- NOTE | 2021-01-06 12:31 | CT_ITS ---
STUDY: CT ABDOMEN AND PELVIS WITHOUT CONTRAST REASON FOR EXAM: Female, 66 years old. URINARY RETENTION. Microscopic hematuria and right flank pain. RADIATION DOSAGE (If Supplied By Facility): CTDIvol = ( 14.71 ) mGy, DLP = ( 743.04 ) mGycm TECHNIQUE: Transaxial images were obtained from the dome of the diaphragm to the symphysis pubis without oral contrast, and without intravenous contrast. Sagittal and coronal images were reconstructed. Individualized dose optimization techniques were used for this CT. COMPARISON: Comparison is made with prior study 10/10/2020. FINDINGS: The visualized lung bases are unremarkable. The visualized portions of the heart are within normal limits. Normal liver. Normal gallbladder and extrahepatic biliary system. Normal spleen. Normal pancreas. Normal bilateral adrenal glands. Normal right kidney. Normal left kidney. Normal visualized stomach. Normal small intestine. Normal colon. The appendix is visualized and appears normal. Normal abdominal aorta. Normal inferior vena cava. Normal retroperitoneum. Normal urinary bladder. Calcified phleboliths are seen within the pelvis. There is evidence of prior bilateral tubal ligation. Normal abdominal wall. Osteopenia of the vertebrae. CT/Abdomen/Pelvis without Cont IMPRESSION: No acute abnormality is seen. Electronically Signed: Romeo Brownlee MD at 13:06 EDT , Service support ,
== END ==
PROVIDERS: PCP Family Medicine; Visit Provider Family Medicine
DX: R31.9 Hematuria, unspecified (principal); R10.9 Unspecified abdominal pain; R33.9 Retention of urine, unspecified
CPT/HCPCS: 74176

== ENCOUNTER → 2021-01-10 11:20 | Outpatient (CLI) | payer MEDICARE, BC, SELFPAY ==
--- NOTE | 2021-01-10 11:20 | MRI_ITS ---
MR Abdomen WO/W Contrast 01/10/2021 1:34 PM COMPARISON: CT 10/10/2020 CLINICAL HISTORY: enteritis -- enterography TECHNIQUE: Following oral administration of enteric contrast and administration of glucagon, multiplanar T1 and T2 weighted images along with dynamic post-gadolinium images were obtained through the abdomen and pelvis. FINDINGS: GI Tract: Normal caliber. No wall thickening or mucosal hyperenhancement. No stricture, fistula, or obstruction. No drainable fluid collections. Liver: Unremarkable Gallbladder: Unremarkable Spleen: Unremarkable Pancreas: Unremarkable Adrenal Glands: Unremarkable Kidneys: Unremarkable Bladder: Unremarkable Reproductive organs: Unremarkable Lymphadenopathy: Absent Ascites: Absent Bones: No suspicious lesions MRI/MRI Abd WITH and W/O Contrast IMPRESSION: Unremarkable MR enterography. Electronically Signed: Marco Antonio uZluaga MD at 21:59 EDT Tel , Service support ,
[2021-01-10 12:06] LABS: CREATININE FINGERSTICK 0.9 mg/dL (0.55-1.02); EGFR FINGERSTICK > 60.0000 mL/min (>60)
[2021-01-10 12:56] VITALS: BP 142/77; PULSE 66; RESP 16; O2SAT 100; BMI 27.3
[2021-01-10] MEDS: Glucagon 1 MG/ML Syringe IV (14:16)
== END ==
PROVIDERS: PCP Family Medicine; Referring Provider Internal Medicine Gastroenterology; Visit Provider Internal Medicine Gastroenterology
DX: K52.9 Noninfective gastroenteritis and colitis, unspecified (principal)
CPT/HCPCS: 74183; A9575; A4216; J1610

== ENCOUNTER → 2021-02-27 14:55 | Outpatient (CLI) | payer MEDICARE, BC, SELFPAY ==
--- NOTE | 2021-02-27 15:05 | RAD_ITS ---
STUDY: X-RAY - THORACIC SPINE REASON FOR EXAM: Female, 66 years old. pain -- to be done in 1-2 weeks TECHNIQUE: 3 view(s) of the thoracic spine were obtained. COMPARISON: 01/26/2021 FINDINGS: Normal kyphosis of the thoracic spine. There is no substantial scoliosis. There is demineralization of the thoracic spine with endplate spondylosis. There is multilevel disc space narrowing of the thoracic spine. Stable midthoracic vertebral body compression fracture. The soft tissue structures are unremarkable. RAD/Thoracic Spine 2 Views IMPRESSION: No acute compression fracture. Stable chronic/degenerative changes. Electronically Signed: Dionisio Pepe MD ([place]) at 18:01 EST , Service support ,
== END ==
PROVIDERS: PCP Family Medicine; Referring Provider Physician Assistant; Visit Provider Physician Assistant
DX: M54.6 Pain in thoracic spine (principal)
CPT/HCPCS: 72070

== ENCOUNTER → 2021-03-06 10:32 | Outpatient (CLI) | payer MEDICARE, BC, SELFPAY ==
--- NOTE | 2021-03-06 10:34 | MRI_ITS ---
EXAM: MR THORACIC SPINE WITHOUT INTRAVENOUS CONTRAST CLINICAL INDICATION: pain, injury TECHNIQUE: Multiplanar and multisequence MR images of the thoracic spine without intravenous contrast. This report was created using [employer] report generation technology. COMPARISON: xr 02.27.21 FINDINGS: VERTEBRAE: T6. Abnormal increased T2 signal suggesting an acute on chronic compression fracture. There are no retropulsed fragments. There is no spinal stenosis. T1 to T12: Loss of intervertebral disc height. There is endplate spondylosis of the vertebral body. Normal central canal and intervertebral neuroforamina. There is bilateral facet arthropathy. There is preservation of the normal thoracic kyphosis. No scoliosis. DISCS/SPINAL CANAL/NEURAL FORAMINA: Unremarkable. Normal disc height and morphology. Normal spinal canal and neuroforamina. SPINAL CORD: Unremarkable. Normal in signal and morphology. Normal conus medullaris. SOFT TISSUES: Unremarkable. MRI/Spine Thoracic (Routine) IMPRESSION: T6. Abnormal increased T2 signal suggesting an acute on chronic compression fracture. There are no retropulsed fragments. There is no spinal stenosis. Electronically Signed: Matt Stanton MD at 18:08 EST , Service support ,
== END ==
PROVIDERS: PCP Family Medicine; Visit Provider Orthopaedic Surgery
DX: S22.000A Wedge compression fracture of unspecified thoracic vertebra, initial encounter for closed fracture (principal)
CPT/HCPCS: 72146

== ENCOUNTER 2021-04-12 07:00 | Day surgery (SDC) | payer MEDICARE, BC, SELFPAY ==
--- NOTE | 2021-04-06 12:26 | RAD_ITS ---
INDICATION: chest pain EXAMINATION/TECHNIQUE: X-RAY - XR Chest 2 Views COMPARISON:02/27/2021.. FINDINGS: LINES/DEVICES: None. LUNGS: No consolidation, edema or effusion. No pneumothorax. MEDIASTINUM AND CARDIOVASCULAR STRUCTURES: Cardiac silhouette not enlarged. Central airways and mediastinal contour are unremarkable. BONES AND SOFT TISSUES: Unremarkable. RAD/Chest PA and Lateral IMPRESSION: No radiographic evidence of acute cardiopulmonary disease. Electronically Signed: Henry Wynn MD at 16:23 EST Tel , Service support ,
[2021-04-06 13:00] LABS: Absolute Lymphocyte Count 2.36 X10^3/uL (0.83-4.51); Basophil# 0.03 X10^3/uL; Basophil% 0.4 % (0-1); Eosinophil# 0.09 X10^3/uL; Eosinophils% 1.1 % (0-5); Hematocrit 36.5 % (37-47); Hemoglobin 11.7 g/dL (12.0-15.0); Lymphocyte # 2.36 X10^3/ul (0.83-4.51); Mean Corp Hgb Conc 32.1 g/dL (32-36); Mean Corpuscular Volume 90.6 fL (81-99); Mean Platelet Vol. 10.2 fl (6.2-12.0); Monocyte# 0.66 X10^3/uL; Monocyte% 8.1 % (0-10); NRBC Flagged by Analyzer 0 % (0-5); Neutrophil # 4.98 X10^3/uL (2.7-7.7); Platelet Count 313 K/mm3 (150-450); RBC Distribution Width CV 13.8 % (11.6-14.6); RBC Distribution Width SD 46.5 fl (35.1-43.9); Red Blood Count 4.03 M/mm3 (4.2-5.4); White Blood Count 8.2 K/mm3 (4.4-11.0)
[2021-04-06 13:06] LABS: Prothrombin Time (Protime)PT. 12.4 SECONDS (11.7-14.9)
[2021-04-06 13:07] LABS: Partial Thromboplast Time 28.1 Seconds (24.1-36.2)
[2021-04-06 13:35] LABS: Anion Gap 6 (5-15); BUN 9 mg/dL (7-18); BUN/Creat Ratio 12.2 RATIO (10-20); Calcium,Total 8.9 mg/dL (8.5-10.1); Chloride 107 mmol/L (98-107); Creatinine, Serum 0.74 mg/dL (0.55-1.02); EST Glomerular Filtration Rate 84 mL/min (>60); Est Glom Filt Rate - Afr Amer 102 mL/min (>60); Glucose 93 mg/dL (74-106); Sodium Level 141 mmol/L (136-145)
--- NOTE | 2021-04-10 16:53 | PCM.HP.BLA ---
History and Physical Date of Admission: 04/12/21 [facility] [id number] [place], [place] [id number] OFFICE VISITDate of Service: 02/23/21 MR#:[id number]:[id number]: NOHEMI LAGUNA ANNRep #:[id number] Provider:Armin Fletcher/Sex: 66/F Location:[facility] [place]:Signed HPI HPI History of Present Illness Surgical H&P: Yes Details: This is a 66-year-old white female who presents today for outpatient cardiovascular follow-up based upon concerns of ongoing left upper extremity discomfort and shortness of breath/dyspnea on exertion-concerning for angina pectoris, palpitations, with a history of paroxysmal atrial fibrillation (previously noted on a 30-day outpatient ambulatory event monitor). She has undergone previous noninvasive and invasive valuation as noted below. She has remained on her aspirin therapy and her metoprolol therapy. She believes she may have had 2 brief episodes where she felt her heart rate go up. It is unclear whether this was truly related to atrial fibrillation or not. She did not have any loss of consciousness episodes. She states that when she exerts herself she gets left upper extremity discomfort as well as shortness of breath and dyspnea. She is not necessarily had associated nausea, emesis, or diaphoresis. Again there is been no loss of consciousness. She is also very concerned about the possibility of having CAD similar to her father had. As noted below she has undergone noninvasive studies in the past. She has been noted to have on her most recent exercise tolerance test her ECG portion demonstrating approximately 0.5 to 1.[address] segment depression in leads II, III, aVF and V4 through V6. However her myocardial perfusion study appeared to be unremarkable at the time. Thus she did not proceed with additional invasive evaluation at the time. She did have an ECG in the office. She was noted to remain in sinus rhythm/sinus bradycardia with no acute ECG changes. Intake Vital Signs 02/23/21 15:11 Height 5 ft 7 in Weight: 177 lb BP 112/60 Blood Pressure Location Lt brachial Position Sitting Respiration 16 Pulse 68 Pulse Source Auscultation Intake Visit Reasons: 6 m Supervisor Drying And Winding Required: No Accompanied by: Self Allergies escitalopram [From Lexapro] Allergy (Verified 02/23/21 15:14) Hives,Sedation Penicillins Allergy (Verified 02/23/21 15:14) Rash ciprofloxacin Adverse Reaction (Verified 02/23/21 15:14) Dizziness venlafaxine [From Effexor] Adverse Reaction (Verified 02/23/21 15:14) Constipation Medications aspirin 325 mg tablet 325 mg PO DAILY #30 tab 06/01/20 [Rx Confirmed 02/23/21] metoprolol succinate 25 mg tablet,extended release 24 hr 25 mg PO DAILY #30 tab 01/05/21 [Rx Confirmed 02/23/21] lactobacillus combination no.9 4 billion cell capsule 4,000 mmu cells PO DAILY 02/23/21 [History Confirmed 02/23/21] [facility] Medical History Atrial fibrillation Back pain BCC (basal cell carcinoma), face Cervical stenosis of spine Chest pain Foreign body in soft tissue IBD (inflammatory bowel disease) Overweight (BMI 25.0-29.9) Palpitations Paroxysmal atrial fibrillation Personal history of retained foreign body fully removed (~04/2019) Positive PHOENIX (antinuclear antibody) SBO (small bowel obstruction) Vasovagal syncope Surgical History H/O breast biopsy H/O hemorrhoidectomy History of bladder suspension procedure History of right oophorectomy History of tubal ligation Hx of vein stripping Family History Father CAD (coronary artery disease) Hypertension Atrial fibrillation Arthritis Mother Heart disease Atrial fibrillation Arthritis Brother Hypertension Social History household members: spouse and children housing: house current occupational status: employed current occupation: [employer] de[employer] Smoking Status: Never smoker alcohol intake: current alcohol intake frequency: 0-2 drinks per day substance use type: does not use caffeine: Yes Type: coffee Number of servings: 3 what type of physical activity do you participate in: walking frequency: daily do you feel safe at home: Yes ROS Const Const: Negative for fatigue, weakness, frequent falls, excessive sweating, weight gain or weight loss Eyes Eyes: Negative for transient loss of vision, blurry vision or change in vision ENT ENT: Negative for dizziness or balance problems Cardio Chest Pain: Yes (continues with occasional chest tightness/SOB/pain Lt arm) Character: tightness Onset: exercise Location: mid sternal Duration: brief Relieving: rest Palpitations: Yes (couple episodes) feels like its: fast Edema: None Muscle aches with walking: None Resp Respiratory: Positive for SOB with activity (x2 different spells one goes along with chest tightness; alma upstaiars); Negative for SOB at rest GI GI: Negative vomiting or vomiting blood/hematemesis : Negative for hematuria Musc Musc: Negative for muscle aches/ myalgia, muscle weakness, joint pain or balance problems Skin Skin: Negative non-healing lesions or rash Neuro Neuro: Positive for lightheadedness (with afib); Negative for dizziness, orthostatic symptoms, frequent falls, weakness or blurry vision Jomar Hematologic/Lymphatic: Negative for easy bleeding Endo Endo: Negative for fatigue or excessive sweating Psych Psych: Negative for anxiety or depression Allergy Allergy/Immunology: Negative for hives and Negative for rash Cardiology Exam Const Appearance: cooperative, healthy appearing, comfortable, no acute distress, well developed and well groomed Nutritional Appearance: average body habitus Orientation: alert, awake and oriented x3 Head Head: normal to inspection, normocephalic and atraumatic Ears: hearing grossly normal bilaterally Nose: external nose normal Face and Sinus: face symmetric Eyes Eyelids: eyelids normal Conjunctivae: conjunctivae normal Pupils: PERRL EOM: EOM intact bilaterally Neck Neck: normal visual inspection and full ROM Carotids: normal carotid upstroke Chest Chest inspection: normal inspection of the chest, symmetric chest movement and normal respiratory effort Auscultation: Bilateral: Clear to Auscultation Cardio Palpation: normal PMI Rate: regular rate Rhythm: regular rhythm Heart sounds: S1 normal and S2 normal GI GI: normal to inspection, soft and bowel sounds present Neuro General: patient alert, patient awake, patient oriented x3 and moves all extremities Skin Skin: no rashes or lesions noted Extremities Pulses: Normal: Right Radial Pulse and Left Radial Pulse Lower Extremity Edema: None: Bilateral Psych Psychological: normal affect Supplemental Info Supplemental Information Supplemental Information Echocardiogram: 04-15-2020 Interpretation Summary The study was technically difficult. Contrast injection was performed. Left ventricular systolic function is normal. The estimated ejection fraction is 65 %. The left atrium is mildly enlarged. Mild (1+) mitral valve insufficiency. Mild tricuspid valve insufficiency. Right ventricular systolic pressure estimated to be 16 mmHg. No evidence for diastolic dysfunction. EXERCISE TOLERANCE TEST: 12-03-2013 The patient exercised on a Marcelino protocol for 10 minutes 45 seconds achieving a peak heart rate of 179 beats per minute (109% predicted maximum heart rate) with a peak blood pressure of 180/80 mmHg and a peak MET capacity of approximately 13 METS. The baseline ECG demonstrated normal sinus rhythm. The peak exercise ECG demonstrated somatic/motion artifact with no obvious ECG changes. There was no cardiac dysrhythmias pretest, during exercise, or recovery. The functional capacity was considered good. The patient had no chest discomfort during exercise or recovery. The examination was discontinued secondary to dyspnea. IMPRESSION: 1. Technically adequate (percent predicted maximum heart rate greater than 85%) exercise tolerance test. 2. Peak exercise ECG with somatic/motion artifact with no obvious ECG changes. 3. Nuclear images pending. MYOCARDIAL PERFUSION IMAGING STUDY: TECHNIQUE: The patient was injected with 11.7 mCi of Tc99m Cardiolite and subsequently rest SPECT Cardiolite nuclear imaging was obtained in the horizontal long, vertical long, and short axes views. The patient exercised on a Marcelino protocol for 10 minutes 45 seconds achieving a peak heart rate of 179 beats per minute (109% predicted maximum heart rate) with a peak blood pressure of 180/80 mmHg and a peak MET capacity of approximately 13 METS. The patient was injected with 33.6 mCi of Tc99m Cardiolite and subsequently stress SPECT Cardiolite nuclear imaging was obtained in the horizontal long, vertical long, and short axes views. A gated Cardiolite study at peak stress was obtained. INTERPRETATION: Rest SPECT Cardiolite nuclear imaging demonstrates an element of extracardiac/hepatic and gastrointestinal tracer uptake noted near the inferior segments. This seems to be somewhat less noticeable following stress. Both images demonstrate areas of diminished tracer uptake in portions of the basal interventricular septum/basal inferior segments without significant change. Both demonstrate a small area of subtle decreased tracer uptake near the distal anteroseptal segments, which appears to be somewhat more prominent at rest as opposed to stress. There was end systolic thickening and brightening. The gated Cardiolite study demonstrates myocardial thickening and inward wall motion. The reported LVEF is 61%. The aforementioned changes appear compatible with the effects of imaging through the basal portions of the interventricular septum/cardiac structures as well as shifting soft tissue attenuation/artifact being somewhat more prominent at rest as opposed to stress with no myocardial perfusion changes considered diagnostic for stress induced myocardial ischemia or previous myocardial injury/infarction. IMPRESSION: 1. Rest and stress SPECT Cardiolite nuclear imaging demonstrate myocardial perfusion changes appearing compatible with the effects of imaging through the basal interventricular septum/cardiac structures as well as shifting soft tissue attenuation/artifact being somewhat more prominent at rest as opposed to stress with no myocardial perfusion changes considered diagnostic for stress induced myocardial ischemia or previous myocardial injury/infarction.. 2. The gated Cardiolite study reports an LVEF of 61%. Stress Test Report Date: 04-15-2020 Procedure: Exercise tolerance test/imaging study Indications: Chest pain; shortness of breath/dyspnea on exertion Consent: Per the patient Procedure: The patient exercised on a Marcelino protocol for 6 minutes and 25 seconds completing Stage II and 25 seconds of Stage III achieving a peak heart rate of 157 bpm (100% predicted maximal heart rate) with a peak blood pressure 188/88 mmHg and a peak MET capacity of 7 METs. The baseline ECG demonstrated normal sinus rhythm. The peak exercise ECG demonstrated approximately 0.5 to 1.[address] segment depression in leads II, III, aVF, and V4 through V6 with resolution towards baseline beginning less than 1 minute in recovery. There was a rare PAC during exercise and an isolated PVC in recovery. The functional capacity was considered average. There was slight chest discomfort/dyspnea during exercise with spontaneous improvement in recovery. The examination was discontinued secondary to dyspnea. Impression: 1. Technically adequate (percent predicted maximal heart rate greater than 85%) exercise tolerance test 2. Peak exercise ECG with approximately 0.5 to 1.[address] segment depression in leads II, III, aVF, and V4 through V6 with resolution towards baseline beginning less than 1 minute in recovery 3. There was a rare PAC during exercise and an isolated PVC in recovery 4. Nuclear images pending Myocardial perfusion imaging study: Technique: The patient was injected with 11.4 mCi of technetium 99m Cardiolite and subsequently rest SPECT Cardiolite nuclear imaging was obtained in the horizontal long, vertical long, and short axis views. The patient exercised on a Marcelino protocol for 6 minutes and 25 seconds completing Stage II and 25 seconds of Stage III achieving a peak heart rate of 157 bpm (100% predicted maximal heart rate) with a peak blood pressure 188/88 mmHg and a peak MET capacity of 7 METs. The patient was injected with 34.0 mCi of technetium 99m Cardiolite and subsequently stress SPECT Cardiolite nuclear imaging was obtained in the horizontal long, vertical long, and short axis views. A gated Cardiolite study at peak stress was obtained. Interpretation: Rest and stress SPECT Cardiolite nuclear imaging status post realignment, normalization, and attenuation correction, demonstrates the appearance of relative uniform tracer uptake and myocardial perfusion appearing within normal limits. There is end systolic thickening and brightening. The gated Cardiolite study demonstrates myocardial thickening and inward wall motion. The reported LVEF is 63%. Impression: 1. Rest and stress SPECT Cardiolite nuclear imaging demonstrate relative uniform tracer uptake and myocardial perfusion appearing within normal limits. 2. The gated Cardiolite study reports an LVEF of 63%. Tilt Table: 03-14-2017 - Summary Pre Test Resting HR: 65 - Alert and oriented: Warm and dry Pre Test Resting BP: 132/76 - Alert and oriented: Warm and dry Minimum Test HR: 56 - Alert and oriented: Clammy Maximum Test HR: 101 - Alert and oriented: Clammy Minimum Test BP: 0/0 - Unresponsive Maximum Test BP: 132/82 - And oriented: Warm and dry Reason for Test Termination: Syncope Physician Tilt Table Report - Patient's Physicians Primary Care Physician: Jean Marie De La Fuente Professor Of Nursing: Willam Woodall Indications/Diagnosis: Syncope Procedure Comments: The patient was brought to the tilt table laboratory. The patient was alert and oriented and warm and dry. The resting heart rate was 65 bpm with a resting blood pressure of 132/76 mmHg. The cardiac rhythm was sinus rhythm. The patient was placed in the 70? upright tilt table position for approximately 20 minutes. The patient remained alert and oriented and warm and dry. The minimal heart rate was 76 bpm with a minimal blood pressure of 110/75 mmHg and a maximal heart rate of 84 bpm with a maximal blood pressure of 124/76 mmHg. The cardiac rhythm remained sinus rhythm. The patient complained of cool hands. The patient did not lose consciousness. The patient was placed in the supine position and administered nitroglycerin 0.4 mg sublingual ?1. The patient was returned to the 70? upright tilt table position for approximately 5 minutes. The patient was initially alert and oriented and warm and dry. However the patient subsequently proceeded to lose consciousness. During this time the minimal heart rate was 56 bpm with a minimal blood pressure of being undetectable. The cardiac rhythm demonstrated sinus rhythm with a rare PVC, as well as, the appearance of a transient junctional rhythm with subsequent spontaneous return to sinus rhythm with a rare PAC. The patient was returned to the supine position. The patient was returned to the supine position. The patient was awake and alert and became warm and dry. The patient was monitored with her concluding heart rate of 76 bpm and a concluding blood pressure 110/64 mmHg. The cardiac rhythm remained sinus rhythm. Summary: 70? upright tilt table study status post nitroglycerin sublingual challenge considered positive for reproducible vasovagal/neurocardiogenic (combined cardioinhibitory and vasodepressor) syncope. Labs: LDL Cholesterol 92 mg/dL (0-130) HDL Cholesterol 94 mg/dL (40-) Triglycerides 61 mg/dL (-199) VLDL Cholesterol 12 mg/dL (5-40) Diagnostics: Electrocardiogram Cardiac Tilt Table Test Echocardiogram Stress Test NM Stress Test Chest X-Ray Pulmonary: No Data to Display Assessment and Plan Assessment and Plan (1) Palpitations: Status: Acute Orders: Orders: 12 Lead EKG performed by BMS Today Left Heart Cath/COR/LV Percut Today Basic Metabolic Profile (BMP) Today Partial Thromboplast Time Today Prothrombin Time w/INR Today CBC W/Diff, Automated Today Chest PA and Lateral Today Plan - Dr. Willam Woodall MD: The patient does have intermittent episodes of palpitations. As noted above she believes she has had 2 episodes of the tachycardia sensation that was very brief. It is unclear whether this was truly atrial fibrillation or not. She is going to continue her aspirin therapy and her beta-vivienne therapy at this time. She states she would like to avoid anticoagulant therapy. (2) Chest pain: Status: Acute Qualifiers: Chest pain type: precordial pain Qualified Code(s): R07.2 - Precordial pain Orders: Orders: 12 Lead EKG performed by BMS Today Left Heart Cath/COR/LV Percut Today Basic Metabolic Profile (BMP) Today Partial Thromboplast Time Today Prothrombin Time w/INR Today CBC W/Diff, Automated Today Chest PA and Lateral Today Plan - Dr. Willam Woodall MD: She does have exertional related left arm discomfort and shortness of breath and dyspnea. This is concerning for an angina pectoris equivalent. As she is gone through noninvasive studies including more than one exercise tolerance test, with ongoing symptoms, and no other explanation, it would not be unreasonable to further evaluate her with a diagnostic cardiac catheterization taking into consideration her cardiovascular risk/family history as well. The procedure and risk were discussed with her. She was agreeable to this approach. (3) Paroxysmal atrial fibrillation: Status: Acute Orders: Orders: 12 Lead EKG performed by BMS Today Left Heart Cath/COR/LV Percut Today Basic Metabolic Profile (BMP) Today Partial Thromboplast Time Today Prothrombin Time w/INR Today CBC W/Diff, Automated Today Chest PA and Lateral Today Plan - Dr. Willam Woodall MD: She does have based upon her previous 30-day ambulatory event monitor history of an episode of paroxysmal atrial fibrillation. She has been on aspirin therapy and beta-vivienne therapy. Depending upon her future clinical course and findings she may need to be considered for alteration of medications and/or addition of anticoagulant therapy. Plan Details Other Orders: Orders: Partial Thromboplast Time Today R10.84 Additional Comments: Thank you for allowing me to participate in the care of your patient. Please don't hesitate to call if any issues arise. This note was generated using a voice recognition system and there may be incorrect words, spelling or punctuation that were not noted when reviewing the office note prior to saving. COVID (Procedure Consent) Procedure Criteria Procedure Criteria: Yes Elective The surgeon/proceduralist and patient have discussed in detail the risk of exposure to and/or potential harm posed by the COVID-19 virus with having a surgery/procedure at this time versus the risk of delaying the surgery/procedure. It is not possible to know either the risk of delaying the surgery or procedure or chance of getting an infection with perfect accuracy, but a joint decision was made between the patient and the surgeon/proceduralist to proceed at this time with the scheduled surgery/procedure as indicated on the consent form. Coding Level of Care Code Off vis,est,level 5 Diagnoses Palpitations R00.2 Chest pain R07.2 Chest pain type: precordial pain Paroxysmal atrial fibrillation I48.0 Coding Level of Care Code Off vis,est,level 5 Diagnoses Palpitations R00.2 Chest pain R07.2 Chest pain type: precordial pain Paroxysmal atrial fibrillation I48.0 02/23/21 [id number]<Electronically signed by Willam Woodall MD>Date Willam Villegas Signature:Date (if applicable) CC: Dr. Jean Marie De La Fuente MD ~ Assessment & Plan Addt'l Comments I have re-examined the patient. There are no clinical changes since date of exam
[2021-04-11 07:13] VITALS: BMI 27.7
--- NOTE | 2021-04-12 09:29 | CL.D_ITS ---
Patient Name: NOHEMI LAGUNA Study Date: 04/12/2021 Performing: Willam Woodall MD Ht: 66.92 inches 170 cm : 1955 Wt: 176.37 lbs 80 kg Age: 66 Gender: female BSA: 1.92 PROCEDURE(S) PERFORMED DC01-([id number])LHC/COR/LV CLINICAL PROFILE AND INDICATIONS Indications: Worsening Angina, Suspected CAD Heart Failure: None Stress/Imaging Date: 04/15/2020tress Test with SPECT MPI: Positive Intermediate Risk (abnormal E CG portion / negative myocardial portion) Angina Classification Anginal Classification w/in 2 Weeks: CCS III CAD Presentations: Other: worsening angina CONCLUSIONS Elevated Left Ventricular End Diastolic Pressure Normal LV size, wall motion,and systolic function LVEF: by LV gram 70 % Normal coronary arteries Mitral Valve Insufficiency Mild (partially catheter / PAC-PVC induced) RECOMMENDATIONS Risk factor modification Medical therapy DESCRIPTION OF PROCEDURE The patient arrived to the procedure lab. The risks and benefits of the procedure as well as a full d escription of our services here and current unavailability of surgical backup were fully explained to the patient and/or their significant other prior to the catheterization. The Timeout was completed, verifying the correct patient and procedure. The patient's procedural site was prepped and draped in the usual fashion. Local anesthetic was given subcutaneously to right radial region with Lidocaine 2% . Using a modified Seldinger technique, arterial access was obtained via the right radial artery, a 6 Fr sheath was inserted. Left Coronary Artery selective angiography was performed in multiple views u sing a 5 Fr. 4.0 Brethren catheter. Right Coronary Artery selective angiography was then performed in mu ltiple views using a 5 Fr. 4.0 Brethren catheter. Left Ventriculography was performed in GORDON projection using a 5 Fr. Pigtail catheter. LV to AO pullback pressures were then recorded.The arterial sheath was pulled and a TR Band was applied for hemostasis-14cc air CORONARY ANGIOGRAPHY DOMINANCE: Right Dominant LEFT HEART ASSESSMENT Left Ventricular Ejection Fraction: by LV Gram 70 % Normal LV wall motion Elevated Left Ventricular End Diastolic Pressure LVEDP: 18 mmHg LEFT MAIN: Angiographically normal LEFT ANTERIOR DESCENDING ARTERY: Angiographically normal CIRCUMFLEX ARTERY: Angiographically normal RIGHT CORONARY ARTERY: Angiographically normal VALVE FINDINGS: Mitral Valve Insufficiency - Grade 1 (partially catheter / PAC-PVC induced) AORTIC ROOT: Angiographically normal COMPLICATIONS No Complications PROCEDURE MEDICATIONS Fentanyl 50 mcg IV Versed 1 mg IV Versed 1 mg IV Fentanyl 50 mcg IV Oxygen: 2 L/min via nasal cannula Heparin given IA 04/12/2021 08:52:39 Verapamil 2.5mg, Ntg 100mcgs, 3000 units of Heparin given IA 04/12/2021 08:52:39 SUMMARY OF HEMODYNAMIC DATA Time AIR REST ECG 07:13:29 Art 148/70 (99) 08:41:21 AO 124/75 (95) SA 08:54:57 LV 138/-4, 20 09:01:16 LV 136/-4, 18 09:01:24 LV 132/2, 18 09:02:12 LVp 127/7, 16 09:02:33 AOp 144/79 (108) 09:02:38 Signed By Willam Woodall MD On 04/12/2021 09:28:38 Willam Woodall MD
== END 2021-04-12 23:59 | disposition home or self-care (01) ==
PROVIDERS: PCP Family Medicine; Referring Provider Internal Medicine Cardiovascular Disease; Visit Provider Internal Medicine Cardiovascular Disease
DX: I48.0 Paroxysmal atrial fibrillation (principal); M48.02 Spinal stenosis, cervical region; Z85.828 Personal history of other malignant neoplasm of skin; Z87.19 Personal history of other diseases of the digestive system; Z79.82 Long term (current) use of aspirin; Z79.899 Other long term (current) drug therapy; I34.0 Nonrheumatic mitral (valve) insufficiency
CPT/HCPCS: 36415; 71046; 80048; 85025; 85610; 85730; 93458; 99152; 99153; J7040; C1769; C1894; Q9967

== ENCOUNTER → 2021-08-09 | Outpatient (CLI) | payer MEDICARE, BC, SELFPAY ==
[2021-08-09 08:05] LABS: Anion Gap 5 (5-15); BUN 12 mg/dL (7-18); BUN/Creat Ratio 13.8 RATIO (10-20); Calcium,Total 8.5 mg/dL (8.5-10.1); Chloride 109 mmol/L (98-107); Cholesterol 201 mg/dL (200); Creatinine, Serum 0.87 mg/dL (0.55-1.02); EST Glomerular Filtration Rate 69 mL/min (>60); Est Glom Filt Rate - Afr Amer 84 mL/min (>60); Glucose 98 mg/dL (74-106); High Density Lipoprotein 87 mg/dL; Potassium 3.9 mmol/L (3.5-5.1); Sodium Level 141 mmol/L (136-145); Triglycerides 53 mg/dL; Very Low Density Lipoprotein 11 mg/dL (5-40)
--- NOTE | 2021-08-09 10:52 | BD_ITS ---
STUDY: DUAL ENERGY X-RAY ABSORPTIOMETRY / DXA REASON FOR EXAM: Female, 66 years old. M810. Patient is postmenopausal. TECHNIQUE: Bone Mineral Density (BMD) measurements of lumbar spine and bilateral hips were obtained. COMPARISON: None. FINDINGS: Lumbar Spine (L1-L4): g/cm2 (0.813) / T-score (-2.1) / Z-score (-0.3) Findings are suggestive of osteopenia with a high fracture risk. Left Femur Total: g/cm2 (0.700) / T-score (-2.0) / Z-score (-0.7) Left Femoral Neck: g/cm2 (0.527) / T-score (-2.9) / Z-score (-1.4) Right Femur Total: g/cm2 (0.742) / T-score (-1.6) / Z-score (-0.4) Right Femoral Neck: g/cm2 (0.507) / T-score (-3.1) / Z-score (-1.5) BD/Dexa Bone Density Study IMPRESSION: The patient is considered osteoporotic as outlined below according to World Terence Organization (WHO) criteria with a high fracture risk. Reference Information: The T-score is the number of standard deviations above or below the standard which is normal for young adults at their peak bone mineral density. The World Health Organization (WHO) interprets the T-scores as follows: Above -1 Normal bone density Between -1 and -2.5 Osteopenia Equal to / or below -2.5 Osteoporosis As a practical clinical guideline, osteopenia may be graded as follows: Mild -1 through -1.5 Moderate -1.6 through -2.0 Severe -2.1 through -2.4 The Z-score is the number of standard deviations above or below age-matched controls. A Z-score of less than -1.5 would be considered abnormal. References: 1. NIH Osteoporosis and Related Bone Diseases www osteo.org 2. International Society for Clinical Densitometry www iscd.org 3. National Osteoporosis Foundation www nof.org Electronically Signed: Romeo Brownlee MD at 8:10 EDT ,
== END | disposition home or self-care (01) ==
LOC: OPBD 10:44
PROVIDERS: PCP Family Medicine; Referring Provider Nurse Practitioner Family; Visit Provider Nurse Practitioner Family
DX: M81.0 Age-related osteoporosis without current pathological fracture (principal); Z13.820 Encounter for screening for osteoporosis; Z13.1 Encounter for screening for diabetes mellitus; Z13.220 Encounter for screening for lipoid disorders
CPT/HCPCS: 36415; 77080; 80048; 80061

== ENCOUNTER → 2021-08-21 | Outpatient (CLI) | payer MEDICARE, BC, SELFPAY ==
[2021-08-21 15:19] LABS: Absolute Neutrophil Count 3.7 X10^3/uL (2.0-7.7); Basophil# 0.03 X10^3/uL; Basophil% 0.5 % (0-1); Eosinophil# 0.12 X10^3/uL; Eosinophils% 1.8 % (0-5); Hemoglobin 12.1 g/dL (12.0-15.0); Lymphocyte % 34.7 % (19-41); Mean Corp Hgb Conc 31.8 g/dL (32-36); Mean Corpuscular Hgb 28.7 pg (27.0-32.0); Mean Platelet Vol. 10.7 fl (6.2-12.0); Monocyte% 7.5 % (0-10); NRBC Flagged by Analyzer 0 % (0-5); Neutrophil # 3.65 X10^3/uL (2.7-7.7); Platelet Count 288 K/mm3 (150-450); RBC Distribution Width CV 14.2 % (11.6-14.6); RBC Distribution Width SD 46.8 fl (35.1-43.9); Red Blood Count 4.22 M/mm3 (4.2-5.4); White Blood Count 6.6 K/mm3 (4.4-11.0)
[2021-08-21 15:53] LABS: Anion Gap 6 (5-15); BUN 12 mg/dL (7-18); BUN/Creat Ratio 15.1 RATIO (10-20); Calcium,Total 8.9 mg/dL (8.5-10.1); Chloride 105 mmol/L (98-107); EST Glomerular Filtration Rate 77 mL/min (>60); Est Glom Filt Rate - Afr Amer 93 mL/min (>60); Glucose 137 mg/dL (74-106); Magnesium 2.1 mg/dL (1.6-2.6); Potassium 3.6 mmol/L (3.5-5.1); Sodium Level 139 mmol/L (136-145)
[2021-08-22 08:20] LABS: Vitamin D,25 Hydroxy 52.9 ng/mL
== END | disposition home or self-care (01) ==
LOC: LAB 14:42
PROVIDERS: PCP Family Medicine; Visit Provider Family Medicine
DX: M81.0 Age-related osteoporosis without current pathological fracture (principal); R10.84 Generalized abdominal pain
CPT/HCPCS: 36415; 80048; 82306; 83735; 85025

== ENCOUNTER → 2021-12-27 | Outpatient (CLI) | payer MEDICARE, BC, SELFPAY ==
[2022-01-04 16:17] LABS: HPV APTIMA, High Risk Negative (Negative)
== END | disposition home or self-care (01) ==
PROVIDERS: PCP Family Medicine; Visit Provider Nurse Practitioner Women's Health
DX: Z12.4 Encounter for screening for malignant neoplasm of cervix (principal)
CPT/HCPCS: 87624; 88175; G0145

== ENCOUNTER → 2022-02-07 | Outpatient (CLI) | payer MEDICARE, BC, SELFPAY ==
--- NOTE | 2022-02-07 12:05 | BI_ITS ---
MAMMOGRAPHY - BILATERAL SCREENING REASON FOR EXAM: Female, 67 years old. Routine annual screening examination. PERTINENT HISTORY: Non-contributory. Remote left excisional breast biopsy. TECHNIQUE: Digital bilateral breast bigg (3D mammographic acquisition) in the CC and MLO projections. 2-D mediolateral oblique (MLO) and craniocaudad (CC) views of both breasts were obtained. CAD: Full Field Digital Mammography with Computer Added Detection was performed. COMPARISON: Comparison is made with prior study dated 04/06/2020 and 12/17/2018. FINDINGS: Breast Composition: The breasts are almost entirely fatty. There are no dominant masses or suspicious calcifications. No other significant abnormalities are identified. There has been no significant change since the prior study. BI/SCRN MAMM (CAD)W/BIGG BILAT IMPRESSION: Stable bilateral screening mammogram. Yearly follow-up mammogram recommended. (A) ASSESSMENT CATEGORY: BIRADS Category 1: Negative. A letter regarding these results will be sent to the patient by the facility within 30 days. Approximately 10% of breast cancers are not detected by mammography. A normal mammogram should not delay biopsy of a clinically suspicious abnormality. [id number] Electronically Signed: Romeo Brownlee MD at 12:58 EDT ,
== END | disposition home or self-care (01) ==
LOC: OPBI 12:04
PROVIDERS: PCP Family Medicine; Referring Provider Nurse Practitioner Women's Health; Visit Provider Nurse Practitioner Women's Health
DX: Z12.31 Encounter for screening mammogram for malignant neoplasm of breast (principal)
CPT/HCPCS: 77063; 77067

== ENCOUNTER → 2022-08-15 | Outpatient (CLI) | payer MEDICARE, BC, SELFPAY | END | disposition home or self-care (01) | LOC: CT 14:43 | PROVIDERS: PCP Family Medicine; Referring Provider Family Medicine; Visit Provider Family Medicine | DX: J31.0 Chronic rhinitis (principal); J32.9 Chronic sinusitis, unspecified ==

== ENCOUNTER → 2022-08-22 | Outpatient (CLI) | payer MEDICARE, BC, SELFPAY ==
--- NOTE | 2022-08-22 10:50 | CT_ITS ---
STUDY: CT MAXILLOFACIAL SINUSES REASON FOR EXAM: Female, 67 years old. CHRONIC RHINOSINUSITIS RADIATION DOSAGE (If Supplied By Facility): CTDIvol = ( 33.06 ) mGy, DLP = ( 804.92 ) mGycm TECHNIQUE: The patient was scanned in a multi detector CT scanner. High resolution axial imaging was performed without the administration of intravenous contrast material. Sagittal and coronal images were reconstructed. Individualized dose optimization techniques were used for this CT. COMPARISON: None. FINDINGS: FRONTAL SINUSES: Normal aeration, without mucosal inflammatory disease. ETHMOIDAL SINUSES: Normal aeration, without mucosal inflammatory disease. MAXILLARY SINUSES: Normal aeration, without mucosal inflammatory disease. SPHENOIDAL SINUSES: Normal aeration, without mucosal inflammatory disease. There is patency of the bilateral maxillary infundibuli with normal uncinate processes, ethmoid bullae, and hiatus semilunaris. The visualized osseous structures are normal. The visualized bilateral orbital contents are normal. CT/Sinus/Facial Bone IMPRESSION: Normal CT examination of the maxillofacial sinuses. Electronically Signed: Romeo Brownlee MD at 12:36 EDT ,
== END | disposition home or self-care (01) ==
LOC: CT 10:45
PROVIDERS: PCP Family Medicine; Referring Provider Family Medicine; Visit Provider Family Medicine
DX: J31.0 Chronic rhinitis (principal); J32.9 Chronic sinusitis, unspecified
CPT/HCPCS: 70486

== ENCOUNTER → 2022-08-24 | Outpatient (CLI) | payer MEDICARE, BC, SELFPAY ==
[2022-08-24 07:30] LABS: Absolute Lymphocyte Count 2.45 X10^3/uL (0.83-4.51); Absolute Neutrophil Count 2.9 X10^3/uL (2.0-7.7); Basophil# 0.03 X10^3/uL; Basophil% 0.5 % (0-1); Eosinophil# 0.16 X10^3/uL; Eosinophils% 2.6 % (0-5); Hematocrit 36.4 % (37-47); Hemoglobin 11.8 g/dL (12.0-15.0); Lymphocyte # 2.45 X10^3/ul (0.83-4.51); Lymphocyte % 40.5 % (19-41); Mean Corp Hgb Conc 32.4 g/dL (32-36); Mean Corpuscular Hgb 29.5 pg (27.0-32.0); Mean Platelet Vol. 10.1 fl (6.2-12.0); Monocyte# 0.54 X10^3/uL; Monocyte% 8.9 % (0-10); NRBC Flagged by Analyzer 0 % (0-5); Neutrophil # 2.86 X10^3/uL (2.7-7.7); Neutrophil % 47.3 % (47-70); Platelet Count 271 K/mm3 (150-450); RBC Distribution Width CV 14.2 % (11.6-14.6); RBC Distribution Width SD 48.2 fl (35.1-43.9); White Blood Count 6.1 K/mm3 (4.4-11.0)
[2022-08-24 07:49] LABS: AST(SGOT) 25 U/L (15-37); Alanine Aminotransfer ALT/SGPT 31 U/L (13-56); Albumin, Serum 3.2 g/dL (3.2-5.0); Alkaline Phosphatase 70 U/L (45-117); Anion Gap 4 (5-15); BUN 16 mg/dL (7-18); BUN/Creat Ratio 21.5 RATIO (10-20); Calcium,Total 8.9 mg/dL (8.5-10.1); Chloride 111 mmol/L (98-107); Cholesterol 190 mg/dL (200); Creatinine, Serum 0.74 mg/dL (0.55-1.02); EST Glomerular Filtration Rate 83 mL/min (>60); Est Glom Filt Rate - Afr Amer 100 mL/min (>60); Globulin 3.1 g/dL (2.2-4.2); Glucose 97 mg/dL (74-106); High Density Lipoprotein 87 mg/dL; Magnesium 2.3 mg/dL (1.6-2.6); Potassium 4.3 mmol/L (3.5-5.1); Protein, Total 6.3 g/dL (6.4-8.2); Sodium Level 142 mmol/L (136-145); Triglycerides 46 mg/dL; Very Low Density Lipoprotein 9 mg/dL (5-40)
== END | disposition home or self-care (01) ==
LOC: LAB 07:04
PROVIDERS: PCP Family Medicine; Referring Provider Family Medicine; Visit Provider Family Medicine
DX: R19.7 Diarrhea, unspecified (principal); I48.91 Unspecified atrial fibrillation; Z13.220 Encounter for screening for lipoid disorders
CPT/HCPCS: 36415; 80053; 80061; 83735; 85025

== ENCOUNTER 2022-11-26 16:11 | Outpatient (CLI) | payer MEDICARE, BC, SELFPAY ==
[2022-11-26 16:45] LABS: Absolute Lymphocyte Count 2.43 X10^3/uL (0.83-4.51); Absolute Neutrophil Count 3.3 X10^3/uL (2.0-7.7); Basophil# 0.02 X10^3/uL; Basophil% 0.3 % (0-1); Eosinophil# 0.11 X10^3/uL; Eosinophils% 1.7 % (0-5); Hematocrit 36.5 % (37-47); Hemoglobin 11.9 g/dL (12.0-15.0); Lymphocyte # 2.43 X10^3/ul (0.83-4.51); Lymphocyte % 37.6 % (19-41); Mean Corp Hgb Conc 32.6 g/dL (32-36); Mean Corpuscular Hgb 29.8 pg (27.0-32.0); Mean Corpuscular Volume 91.3 fL (81-99); Mean Platelet Vol. 9.8 fl (6.2-12.0); Monocyte# 0.57 X10^3/uL; Monocyte% 8.8 % (0-10); NRBC Flagged by Analyzer 0 % (0-5); Neutrophil # 3.31 X10^3/uL (2.7-7.7); Neutrophil % 51.3 % (47-70); Platelet Count 295 K/mm3 (150-450); RBC Distribution Width CV 13.9 % (11.6-14.6); RBC Distribution Width SD 46.8 fl (35.1-43.9); White Blood Count 6.5 K/mm3 (4.4-11.0)
[2022-11-26 17:21] LABS: AST(SGOT) 44 U/L (15-37); Alanine Aminotransfer ALT/SGPT 102 U/L (13-56); Albumin, Serum 3.4 g/dL (3.2-5.0); Alkaline Phosphatase 100 U/L (45-117); Anion Gap 4 (5-15); BUN 10 mg/dL (7-18); BUN/Creat Ratio 13.4 RATIO (10-20); Calcium,Total 8.9 mg/dL (8.5-10.1); Chloride 106 mmol/L (98-107); Creatinine, Serum 0.75 mg/dL (0.55-1.02); EST Glomerular Filtration Rate 83 mL/min (>60); Est Glom Filt Rate - Afr Amer 100 mL/min (>60); Ferritin 53 ng/mL (8-252); Globulin 3.5 g/dL (2.2-4.2); Glucose 82 mg/dL (74-106); Potassium 3.5 mmol/L (3.5-5.1); Protein, Total 6.9 g/dL (6.4-8.2); Sodium Level 138 mmol/L (136-145)
[2022-11-26 20:49] LABS: Vitamin B12 270 pg/mL (211-911)
[2022-11-28 15:08] LABS: PROEL- A/G Ratio 1.2 (0.7-1.7); PROEL- Albumin 3.5 g/dL (2.9-4.4); PROEL- Alpha-1 Globulin 0.3 g/dL (0.0-0.4); PROEL- Alpha-2 Globulin 0.8 g/dL (0.4-1.0); PROEL- Gamma Globulin 0.8 g/dL (0.4-1.8); PROEL- Globulin, Total 2.9 g/dL (2.2-3.9); PROEL- TOTAL PROTEIN 6.4 g/dL (6.0-8.5)
== END 2022-11-26 23:59 | disposition home or self-care (01) ==
PROVIDERS: PCP Family Medicine; Referring Provider Family Medicine; Visit Provider Family Medicine
DX: R53.83 Other fatigue (principal)
CPT/HCPCS: 36415; 80053; 82607; 82728; 82746; 84165; 85025

== ENCOUNTER 2022-11-30 12:22 | Outpatient (CLI) | payer MEDICARE, BC, SELFPAY ==
[2022-11-30 15:16] LABS: Homocysteine 9.9 umol/L (3.2-10.7)
[2022-12-05 06:09] LABS: Methylmalonic Acid Bld 142 nmol/L (0-378)
== END 2022-11-30 23:59 | disposition home or self-care (01) ==
LOC: LAB 12:25
PROVIDERS: PCP Family Medicine; Referring Provider Family Medicine; Visit Provider Family Medicine
DX: E53.8 Deficiency of other specified B group vitamins (principal)
CPT/HCPCS: 36415; 83090; 83921

== ENCOUNTER → 2023-07-03 | Outpatient (CLI) | payer MEDICARE, BC, SELFPAY ==
[2023-07-03 17:31] LABS: Erythrocyte Sedimentation Rate 5 mm/hr (0-30)
[2023-07-03 18:10] LABS: ALB/GLOB Ratio 1.1 RATIO (0.9-2.4); AST(SGOT) 16 U/L (15-37); Alanine Aminotransfer ALT/SGPT 21 U/L (13-56); Albumin, Serum 3.5 g/dL (3.2-5.0); Alkaline Phosphatase 71 U/L (45-117); Anion Gap 6 (5-15); BUN 11 mg/dL (7-18); BUN/Creat Ratio 14.9 RATIO (10-20); CRP 3.63 mg/L (0.0-3.0); Chloride 105 mmol/L (98-107); Creatinine, Serum 0.74 mg/dL (0.55-1.02); EST Glomerular Filtration Rate 84 mL/min (>60); Est Glom Filt Rate - Afr Amer 101 mL/min (>60); Ferritin 27 ng/mL (8-252); Free T3 2.1 pg/mL (2.18-3.98); Globulin 3.1 g/dL (2.2-4.2); Glucose 94 mg/dL (74-106); Iron Binding Capacity,Total 310 ug/dL (250-450); LDH 171 U/L (84-246); Potassium 3.8 mmol/L (3.5-5.1); Protein, Total 6.6 g/dL (6.4-8.2); Sodium Level 139 mmol/L (136-145); T4 Free Direct 1.31 ng/dL (0.76-1.46); Thyroid Stim Hormone (TSH) 1.47 uIU/mL (0.358-3.74)
[2023-07-03 18:11] LABS: Progesterone Level < 0.21 ng/mL (See Comment)
[2023-07-12 01:07] LABS: Beef <0.10 kU/L (Class 0); Chocolate <0.10 kU/L (Class 0); Codfish <0.10 kU/L (Class 0); Corn <0.10 kU/L (Class 0); Egg, Whole <0.10 kU/L (Class 0); Milk (Cow) <0.10 kU/L (Class 0); Mussels <0.10 kU/L (Class 0); Peanut <0.10 kU/L (Class 0); Pork <0.10 kU/L (Class 0); Salmon <0.10 kU/L (Class 0); Shrimp <0.10 kU/L (Class 0); Soybean <0.10 kU/L (Class 0); Tuna <0.10 kU/L (Class 0); Wheat <0.10 kU/L (Class 0)
[2023-07-12 05:07] LABS: ACCA 25 units (0-90); ALCA 7 units (0-60); AMCA 8 units (0-100); Albumin 3.4 g/dL (2.9-4.4); Alpha-1-Globulins 0.2 g/dL (0.0-0.4); Alpha-2-Globulins 0.7 g/dL (0.4-1.0); Anti-Parietal Cell AB, QN 2.1 Units (0.0-20.0); Chromogranin A 44.5 ng/mL (0.0-101.8); Cytoplasmic Ab (C-ANCA) <1:20 titer (Neg:<1:20); Endomysial Antibody IgA Negative (Negative); Estrogen, Total, Serum 71 pg/mL (40-244); Gamma Globulin 0.8 g/dL (0.4-1.8); Gastrin, Serum 16 pg/mL (0-115); IgG, Quant 887 mg/dL (586-1602); Immunoglobulin A 151 mg/dL (87-352); Immunoglobulin E 15 IU/mL (6-495); Immunoglobulin G, Subclass 1 528 mg/dL (248-810); Immunoglobulin G, Subclass 2 235 mg/dL (130-555); Immunoglobulin G, Subclass 3 43 mg/dL (15-102); Immunoglobulin G, Subclass 4 11 mg/dL (2-96); Immunoglobulin M 86 mg/dL (26-217); PROEL- TOTAL PROTEIN 6.2 g/dL (6.0-8.5); Perinuclear Ab (P-ANCA) <1:20 titer (Neg:<1:20); QNTFERON TB Mitogen Value > 10.00 IU/mL (.); QNTFERON TB Nil Value 0.06 IU/mL (.); QNTFERON TB1+ Ag Value 0.06 IU/mL (.); QNTFERON TB2+ Ag Value 0.05 IU/mL (.); QNTIFERON TB Positive Criteria Negative (Negative); gASCA 13 units (0-50); t-Transglutaminase IgA <2 U/mL (0-3)
== END | disposition home or self-care (01) ==
LOC: LAB 16:11
PROVIDERS: Referring Provider Internal Medicine Gastroenterology; Visit Provider Internal Medicine Gastroenterology
DX: R10.9 Unspecified abdominal pain (principal); I48.0 Paroxysmal atrial fibrillation; K52.9 Noninfective gastroenteritis and colitis, unspecified; R00.2 Palpitations
CPT/HCPCS: 80053; 82653; 82672; 82728; 82784; 82785; 82787; 82941; 83516; 83550; 83615; 84144; 84165; 84439; 84443; 84481; 85652; 86003; 86005; 86036; 86140; 86255; 86256; 86316; 86334; 86340; 86480; 86671

== ENCOUNTER → 2023-07-04 | Outpatient (CLI) | payer MEDICARE, BC, SELFPAY ==
[2023-07-09 00:06] LABS: Calprotectin, Stool 304 ug/g (0-120)
[2023-07-10 13:08] LABS: Giardia Lamblia, Stool EIA Negative (Negative); Pancreatic Elastase, Fecal 144 (>200)
== END | disposition home or self-care (01) ==
LOC: LAB 09:32 → LABSPEC 09:39
PROVIDERS: Referring Provider Internal Medicine Gastroenterology; Visit Provider Internal Medicine Gastroenterology
DX: K58.9 Irritable bowel syndrome, unspecified (principal)
CPT/HCPCS: 82653; 83630; 83993; 87329

== ENCOUNTER 2023-07-16 12:12 | Day surgery (SDC) | payer MEDICARE, BC, SELFPAY ==
--- NOTE | 2023-07-16 12:33 | HP.PCM_ITS ---
History and Physical Date of Admission: 07/16/23 History of small bowel obstruction with new Dx of inflammatory bowel diseas Details: NOHEMI LAGUNA, is a 68 F who presents to the office today for follow up. Prior workup: ?Colonoscopy 01.17.12?erythema of ascending colon Colonoscopy 07.21.14?prominent ICV, ?ileal prolapse. Remaining exam without acute/chronic concern. Pathology melanosis coli with increased eosin; ICV focal acute colitis with cryptitis and early granulation of impending ulcer [facility] ED 7 with abdominal pain ? concern for SBO that was r/o with radiology. Recommend OV with surgeon. ?CT abd/pel .08.26?hepatic cyst; multiple small bowel loops with wall thickening and edema, likely enteritis WSA OV .10.26 recommending establishment with GI. ?Small bowel Xray 10.14.20?without acute/chronic finding *BGI established 12.16.20 for further investigation of IBD with history of multiple abdominal surgeries and ED visits for abdominal pain. [employer] workup up lupus erythematosus versus discoid lupus without positive diagnosis of either. ?Biochemical 12.21.20?IBD WNL ?CT abd/pel .04.28 (PCP)?without acute/chronic finding ?MREnterography 01.10.21?without acute/chronic finding OV 01.26.21 with ongoing loose stools without urgency of incontinence. Recommend capsule endoscopy with preceding agile capsule.?Start doxycycline OV 3.24- Pt states history of bowel obstructions. States she last had an episode where she though she had an obstruction last January. Here to follow up. States BM are irregular and have changed in diameter. Will have thin formed stools and then sometimes diarrhea. Daily bloating. No nausea or vomiting. ? ? ROS Const Constitutional: No fatigue ENT ENT: No difficulty swallowing Gastro GI: Positive for abdominal pain; No belching, bloating, change in bowel habits, change in stool character, coffee ground emesis, constipation, cramping, diarrhea, heartburn, difficulty swallowing, feeling full early, excessive flatus, incontinent of stools, Vomiting blood/hematemesis, Blood in stool, loose stools, Black,tarry stools, nausea/dyspepsia, pain with swallowing, vomiting or other Musc Musculoskeletal: No joint pain Skin Skin: No yellowing of the eye or itchy eyes Psych Psychiatric: No anxiety and No depression Endo Endocrine: No fatigue Aller/Imm Allergy/Immunologic: No itchy eyes Jomar/Lymp Hematologic/Lymphatic: No easy bleeding or easy bruising Exam Const General: cooperative and comfortable Nutritional Appearance: average body habitus and well nourished [facility] Head: normal to inspection Ears: hearing grossly normal bilaterally Nose: external nose normal Face and sinus: normal facial exam Mouth: oral mucosae normal Throat: posterior oropharynx normal Eyes General: appearance normal, both eyes and all related structures Neck Neck: normal visual inspection Chest Chest palpation & inspection: normal inspection of the chest and normal palpation of entire chest wall Resp Effort & Inspection: normal respiratory effort Auscultation: Bilateral: Clear to Auscultation Cardio Palpation: normal PMI Rate: regular rate Rhythm: regular rhythm GI Inspection: normal to inspection Auscultation: normal bowel sounds Percussion: normal to percussion Palpation: no hepatosplenomegaly Skin General: no rashes or lesions noted Neuro General: patient alert Extrem General: normal to inspection Psych Affect: normal affect Quality Reporting Tobacco Screening ([facility] 138) Smoking Status: Never smoker Assessment and Plan Assessment and Plan (1) Abdominal pain: Status: Acute Qualifiers: Abdominal location: generalized Qualified Code(s): R10.84 - Generalized abdominal pain (2) Enteritis: Status: Acute (3) IBD (inflammatory bowel disease): Plan: NOHEMI LAGUNA, is a 65 F who presents to the office today for surgical follow-up regarding an episode of abdominal pain. The patient was seen in the emergency room on October 10, 2020. She presented with complaints similar to when she had a previous small bowel obstruction. Her most recent obstructive symptoms were 2014. Her current laboratory was unremarkable. A CT scan was obtained suggesting multiple loops of small bowel in the central abdomen demonstrating wall thickening with edema suggesting enteritis. No definitive evidence of small bowel obstruction however cannot be fully excluded. However upon my review of the films there appeared to be loops of very decompressed small bowel in the pelvis. The patient notified me that she felt better after drinking the contrast material and had some diarrhea. She did not require hospitalization was discharged home. Records demonstrate that Dr. Jayson Lakhani did a colonoscopy on her July 21. That suggested mild abnormal appearing ileocecal valve otherwise clinically unremarkable. Random biopsies showed melanosis coli. The ileocecal valve showed focal acute colitis. The patient states she received no treatment at that time. A small bowel follow-through however was obtained at that time and was felt to be normal. She states that for 3 to 4 months she has had looser almost diarrheal stools. No fever chills sweats nausea or vomiting. She states that March 2020 she was evaluated by Dr. De La Fuente was noted to have cardiac arrhythmia determined to be A. fib she has had problems with diffuse joint pain she has had some significant low back and mid back pain. Apparently Dr. Linda Grijalva dermatology has questioned over the years whether she might of had psoriatic arthritis but has never been able to prove it. On July 11, 2020 Dr. Jean Marie De La Fuente obtained an [place] result on the patient which was a speckled pattern high at 1-1 60. The [place] direct was positive. The patient was seen by a split and drum room supervisor who did not feel that she had joint disorder. the findings suggest focal enteritis with mesenteric thickening this is felt to be consistent with a focal inflammatory change. We will perform an upper and lower endoscopy to evaluate the upper or lower GI tract to see if there are any signs of Crohn's disease. Orders: Orders JEWEL + Protein Elect, Serum 07/03/23 K52.9 - Noninfective gastroenteritis and colitis, unspecified, R10.9 - Unspecified abdominal pain Celiac Disease Profile 07/03/23 K52.9 - Noninfective gastroenteritis and colitis, unspecified, R10.9 - Unspecified abdominal pain Ferritin 07/03/23 I48.0 - Paroxysmal atrial fibrillation, K52.9 - Noninfective gastroenteritis and colitis, unspecified, R10.9 - Unspecified abdominal pain Iron Binding Capacity,Total 07/03/23 I48.0 - Paroxysmal atrial fibrillation, K52.9 - Noninfective gastroenteritis and colitis, unspecified, R10.9 - Unspecified abdominal pain LDH 07/03/23 K52.9 - Noninfective gastroenteritis and colitis, unspecified, R10.9 - Unspecified abdominal pain ANCA 07/03/23 K52.9 - Noninfective gastroenteritis and colitis, unspecified, R10.9 - Unspecified abdominal pain Comprehensive Metabolic Profil 07/03/23 K52.9 - Noninfective gastroenteritis and colitis, unspecified, R10.9 - Unspecified abdominal pain CRP 07/03/23 K52.9 - Noninfective gastroenteritis and colitis, unspecified, R10.9 - Unspecified abdominal pain Erythrocyte Sed Rate 07/03/23 K52.9 - Noninfective gastroenteritis and colitis, unspecified, R10.9 - Unspecified abdominal pain Allergen, Food Profile 14 07/03/23 K52.9 - Noninfective gastroenteritis and colitis, unspecified, R10.9 - Unspecified abdominal pain Immunoglobulins G/A/M/E 07/03/23 K52.9 - Noninfective gastroenteritis and colitis, unspecified, R10.9 - Unspecified abdominal pain Stool Lactoferrin/WBC Today K52.9 - Noninfective gastroenteritis and colitis, unspecified, K58.9 - Irritable bowel syndrome without diarrhea, R10.9 - Unspecified abdominal pain Giardia Lamblia, Stool EIA Today K52.9 - Noninfective gastroenteritis and colitis, unspecified, R10.9 - Unspecified abdominal pain IBD Expanded Profile 07/03/23 K52.9 - Noninfective gastroenteritis and colitis, unspecified, R10.9 - Unspecified abdominal pain Thyroid Stim Hormone (TSH) 07/03/23 K52.9 - Noninfective gastroenteritis and colitis, unspecified, R00.2 - Palpitations, R10.9 - Unspecified abdominal pain T4 Free Direct 07/03/23 K52.9 - Noninfective gastroenteritis and colitis, unspecified, R00.2 - Palpitations, R10.9 - Unspecified abdominal pain Free T3 07/03/23 K52.9 - Noninfective gastroenteritis and colitis, unspecified, R10.9 - Unspecified abdominal pain Quantiferon TB-Gold+ 07/03/23 K52.9 - Noninfective gastroenteritis and colitis, unspecified, R10.9 - Unspecified abdominal pain IgG Subclasses 07/03/23 K52.9 - Noninfective gastroenteritis and colitis, unspecified, R10.9 - Unspecified abdominal pain Gastrin, Serum 07/03/23 K52.9 - Noninfective gastroenteritis and colitis, unspecified, R10.9 - Unspecified abdominal pain Anti-Parietal Cell AB, QN 07/03/23 K52.9 - Noninfective gastroenteritis and colitis, unspecified, R10.9 - Unspecified abdominal pain Intrinsic Factor Ab 07/03/23 K52.9 - Noninfective gastroenteritis and colitis, unspecified, R10.9 - Unspecified abdominal pain Estrogen, Total, Serum 07/03/23 K52.9 - Noninfective gastroenteritis and colitis, unspecified, R10.9 - Unspecified abdominal pain Progesterone Level 07/03/23 K52.9 - Noninfective gastroenteritis and colitis, un specified, R10.9 - Unspecified abdominal pain Chromogranin A 07/03/23 K50.00 - Crohn's disease of small intestine without complications, K52.9 - Noninfective gastroenteritis and colitis, unspecified, R10.9 - Unspecified abdominal pain Calprotectin, Stool Today K52.9 - Noninfective gastroenteritis and colitis, unspecified, R10.9 - Unspecified abdominal pain EGD 07/16/23 K52.9 - Noninfective gastroenteritis and colitis, unspecified, R10.9 - Unspecified abdominal pain Colonoscopy 07/16/23 K52.9 - Noninfective gastroenteritis and colitis, unspecified, R10.9 - Unspecified abdominal pain I have examined the patient and the H&P has been reviewed. There are no clinical changes since date of exam.
[2023-07-16 12:36] VITALS: BP 109/60; PULSE 69; RESP 16; TEMP 36.6; O2SAT 97; BMI 29.2
[2023-07-16] MEDS: Lactated Ringers 1,000 ML 15 ML IV (12:39)
--- NOTE | 2023-07-16 13:15 | IMM_PTH ---
PATIENT: NOHEMI LAGUNA LOC: EN U#:[id number] AGE/SX: 68/F ROOM: RE07/16/[address]: Dr. Jun Marin DO : 1955 BED: DIS: 07/16/2023 SPEC #: [id number] RECD: 07/16/23 15:35 STATUS: MARIELY REQ #: [id number] COLEEN: 07/16/23 13:[address]: Jun Marin DEPT: IMMUNOHISTOCHEMISTRY RECD BY: Asaf Stuart ENTERED: 07/16/23 15:36 SP TYPE: IMMUNO OTHR DR: Dr. Jean Marie De La Fuente MD Tissues: B - Stomach, NOS Procedures: H Pylori (initial) PHYSICIAN & INSTITUTION [place] [id number] SPECIMEN INFORMATION: Tissue Source: B- Gastric body Clinical Info: Abdominal pain, Enteritis, Irritable bowel syndrome Specimen Number: [id number] CPT code: 54226 METHODOLOGY: Deparaffinized sections of prefer/formalin-fixed tissue or PAP/DQ stained slides are incubated with monoclonal/polyclonal antibodies/oligonucleotide probes. Localization is made via biotin free immunoperoxidase method. Appropriate controls are performed and reacted as expected. Results on target cell population are indicated in the following table: RESULTS: ANTIBODY / CLONE RESULT Block B H Pylori (polyclonal) negative These tests were developed and their performance characteristics determined by [facility]. They may not have been cleared or approved by the U.S. Food and Drug Administration. The FDA has determined that such clearance or approval is not necessary. The above immunohistochemical/dualISH markers are ordered and reviewed by the Pathologist. INTERPRETATION: B. Gastric body, biopsy: Negative for Helicobacter pylori organisms. CHRISTIANA/ 07/17/23
--- NOTE | 2023-07-16 13:15 | EGD_PTH ---
PATIENT: NOHEMI LAGUNA LOC: EN U#:[id number] AGE/SX: 68/F ROOM: RE07/16/[address]: Dr. Jun Marin DO : 1955 BED: DIS: 07/16/2023 SPEC #: [id number] RECD: 07/16/23 13:56 STATUS: MARIELY REDamian #: [id number] COLEEN: 07/16/23 13:[address]: Jun Marin DEPT: SURGICAL PATHOLOGY RECD BY: Clarita Jackson ENTERED: 07/16/23 14:19 SP TYPE: EGD BIOPSY OT DR: Dr. Jean Marie De La Fuente MD Tissues: A - Duodenum, NOS B - Gastric mucous membrane C - Esophagus, NOS D - Cecum, NOS E - COLON BIOPSY Procedures: Special Stain Group II Surgery Specimen Level IV Alcian Blue/PAS (control) HEADER OPERATION: Colonoscopy with biopsies, EGD with biopsies PRE-OP DIAGNOSIS: Abdominal pain, Enteritis, Inflammatory bowel disease TISSUE SUBMITTED: A- Duodenum biopsy, B- Gastric body biopsy, C- Distal esophagus biopsy, D- Cecal polyp biopsy, E- Hepatic flexure biopsy MICROSCOPIC DIAGNOSIS A. Duodenum, biopsy: Fragments of duodenal mucosa, no pathologic diagnosis. B. Gastric body, biopsy: Mild gastritis. See microscopic description and comment. C. Distal esophagus, biopsy: Fragments of gastroesophageal mucosa with chronic inflammation. Intestinal metaplasia (goblet cell metaplasia) not identified. See comment. D. Cecal polyp, biopsy: Fragments of hyperplastic polyp. E. Hepatic flexure, biopsy: Moderate chronic active colitis. See microscopic description and comment. CHRISTIANA/ 07/17/23 COMMENT B. The results of immunohistochemistry for Helicobacter pylori will be reported separately ([id number]). C. Alcian blue/PAS stain with matched control is used in the evaluation of the specimen. Specimen predominantly consists of gastric mucosa. E. The findings are consistent with inflammatory bowel disease. Correlation with clinical, endoscopic findings and appropriate follow up are necessary. MICROSCOPIC DESCRIPTION Slides are reviewed. B. The specimen shows fragments of gastric mucosa with chronic inflammatory cell infiltrates in the lamina propria consisting of lymphocytes and plasma cells, consistent with mild chronic gastritis. E. Specimen shows fragments of colonic mucosa with focal ulceration, acute and chronic inflammation and granulation tissue reaction, cryptitis and crypt abscesses. Glandular distortion is minimal. Granulomas are not seen. No evidence of dysplasia. GROSS DESCRIPTION A. Received in fixative is one container labeled with the patient's name and designated Duodenum biopsy. The specimen consists of multiple irregular fragments of light west soft tissue that in aggregate measure 1.0 x 0.5 x 0.1 cm. The specimen is totally submitted in one cassette. B. Received in fixative is one container labeled with the patient's name and designated Gastric body biopsy. The specimen consists of multiple irregular fragments of light west soft tissue that in aggregate measure 1.5 x 0.4 x 0.1 cm. The specimen is totally submitted in one cassette. C. Received in fixative is one container labeled with the patient's name and designated Distal esophagus biopsy. The specimen consists of two irregular fragments of light west soft tissue that in aggregate measure 0.8 x 0.4 x 0.1 cm. The specimen is totally submitted in one cassette. D. Received in fixative is one container labeled with the patient's name and designated Cecal polyp biopsy. The specimen consists of multiple irregular fragments of light west soft tissue that in aggregate measure 0.9 x 0.3 x 0.1 cm. The specimen is totally submitted in one cassette. E. Received in fixative is one container labeled with the patient's name and designated Hepatic flexure biopsy. The specimen consists of multiple irregular fragments of light west soft tissue that in aggregate measure 1.0 x 0.5 x 0.1 cm. The specimen is totally submitted in one cassette. Mary Lou 07/16/23 TC:2 CPT:52581a8
[2023-07-16 13:41] VITALS: BP 109/60; BP 87/45; PULSE 57; RESP 16; TEMP 36.5; O2SAT 99
[2023-07-16 13:45] VITALS: BP 109/60; BP 87/54; PULSE 63; RESP 16; O2SAT 99
--- NOTE | 2023-07-16 13:47 | OP.CCLET_ITS ---
07/16/2023 Jean Marie De La Fuente [address] [place] [address] Re : Upper GI endoscopy procedure for Kadie Morales Dear Dr. De La Fuente This procedure was performed on Sunday, July 16, 2023. My impressions and recommendations are as follows: Impressions : - Z-line irregular, 39 cm from the incisors. Biopsied. - Erythematous mucosa in the gastric body. Biopsied. - Erythematous duodenopathy. Biopsied. Recommendations : - Discharge patient to home. - Resume previous diet. - Continue present medications. - Await pathology results. My findings are described in the full procedure note, which is enclosed. If I can be of further assistance, please feel free to contact me at . Sincerely, Jun Marin, 07/16/2023 1:46:58 PM This report has been signed electronically.
--- NOTE | 2023-07-16 13:47 | OP.EGD_ITS ---
Patient Name: Kadie Morales Procedure Date: 07/16/2023 1:06 PM Date of : 1955 Age: 68 Procedure: Upper GI endoscopy Indications: Epigastric abdominal pain Providers: Jun Marin DO Referring MD: Jean Marie De La Fuente Medicines: Monitored Anesthesia Care Patient Profile: This is a 68 year old female. Refer to note in patient chart for documentation of history and physical. Patient has symptoms of chronic epigastric abdominal pain. Complications: No immediate complications. Procedure: Pre-Anesthesia Assessment: - Prior to the procedure, a History and Physical was performed, and patient medications and allergies were reviewed. The patient is competent. The risks and benefits of the procedure and the sedation options and risks were discussed with the patient. All questions were answered and informed consent was obtained. Patient identification and proposed procedure were verified by the physician in the pre-procedure area. Mental Status Examination: alert and oriented. Prophylactic Antibiotics: The patient does not require prophylactic antibiotics. Prior Anticoagulants: The patient has taken no anticoagulant or antiplatelet agents. ASA Grade Assessment: II - A patient with mild systemic disease. After reviewing the risks and benefits, the patient was deemed in satisfactory condition to undergo the procedure. The anesthesia plan was to use monitored anesthesia care (MAC). Immediately prior to administration of medications, the patient was re-assessed for adequacy to receive sedatives. The heart rate, respiratory rate, oxygen saturations, blood pressure, adequacy of pulmonary ventilation, and response to care were monitored throughout the procedure. The physical status of the patient was re-assessed after the procedure. After obtaining informed consent, the endoscope was passed under direct vision. Throughout the procedure, the patient's blood pressure, pulse, and oxygen saturations were monitored continuously. The pediatric colonoscope was introduced through the mouth, and advanced to the second part of duodenum. The upper GI endoscopy was accomplished without difficulty. The patient tolerated the procedure well. Scope In: 1:14:18 PM Scope Out: 1:20:45 PM Total Procedure Duration Time 0 hours 6 minutes 27 seconds Findings: The Z-line was irregular and was found 39 cm from the incisors. Biopsies were taken with a cold forceps for histology. Verification of patient identification for the specimen was done. Estimated blood loss was minimal. Patchy mildly erythematous mucosa without bleeding was found in the gastric body. Biopsies were taken with a cold forceps for histology. Verification of patient identification for the specimen was done. Estimated blood loss was minimal. Biopsies were taken with a cold forceps for Helicobacter pylori testing. Verification of patient identification for the specimen was done. Estimated blood loss was minimal. Patchy mildly erythematous mucosa without active bleeding and with no stigmata of bleeding was found in the duodenal bulb and in the first portion of the duodenum. Biopsies were taken with a cold forceps for histology. Verification of patient identification for the specimen was done. Estimated blood loss was minimal. Impression: - Z-line irregular, 39 cm from the incisors. Biopsied. - Erythematous mucosa in the gastric body. Biopsied. - Erythematous duodenopathy. Biopsied. Recommendation: - Discharge patient to home. - Resume previous diet. - Continue present medications. - Await pathology results. Procedure Code(s): --- Professional --- 03956, Esophagogastroduodenoscopy, flexible, transoral; with biopsy, single or multiple CPT copyright 2021 [employer]. All rights reserved. The codes documented in this report are preliminary and upon computer language coder review may be revised to meet current compliance requirements. Jun Marin DO 07/16/2023 1:46:58 PM This report has been signed electronically. Number of Addenda: 0 Note Initiated On: 07/16/2023 1:06 PM
[2023-07-16 13:50] VITALS: BP 109/60; BP 84/55; PULSE 61; RESP 16; O2SAT 99
--- NOTE | 2023-07-16 13:51 | OP.COLON_ITS ---
Patient Name: Kadie Morales Procedure Date: 07/16/2023 1:20 PM Date of : 1955 Age: 68 Procedure: Colonoscopy Indications: Abdominal pain in the left lower quadrant, Abdominal pain in the left upper quadrant, Abdominal pain in the right lower quadrant, Abdominal pain in the right upper quadrant, Clinically significant diarrhea of unexplained origin Providers: Jun Marin DO Referring MD: Jean Marie De La Fuente Patient Profile: This is a 68 year old female. Refer to note in patient chart for documentation of history and physical. Patient has symptoms of chronic epigastric abdominal pain. Last Colonoscopy: date unknown. Unable to locate last colonoscopy report. Complications: No immediate complications. Procedure: Pre-Anesthesia Assessment: - Prior to the procedure, a History and Physical was performed, and patient medications and allergies were reviewed. The patient is competent. The risks and benefits of the procedure and the sedation options and risks were discussed with the patient. All questions were answered and informed consent was obtained. Patient identification and proposed procedure were verified by the physician in the pre-procedure area. Mental Status Examination: alert and oriented. Prophylactic Antibiotics: The patient does not require prophylactic antibiotics. Prior Anticoagulants: The patient has taken no anticoagulant or antiplatelet agents. ASA Grade Assessment: II - A patient with mild systemic disease. After reviewing the risks and benefits, the patient was deemed in satisfactory condition to undergo the procedure. The anesthesia plan was to use monitored anesthesia care (MAC). Immediately prior to administration of medications, the patient was re-assessed for adequacy to receive sedatives. The heart rate, respiratory rate, oxygen saturations, blood pressure, adequacy of pulmonary ventilation, and response to care were monitored throughout the procedure. The physical status of the patient was re-assessed after the procedure. After I obtained informed consent, the scope was passed under direct vision. Throughout the procedure, the patient's blood pressure, pulse, and oxygen saturations were monitored continuously. The pediatric colonoscope was introduced through the anus and advanced to the terminal ileum. The terminal ileum, ileocecal valve, appendiceal orifice, and rectum were photographed. Scope In: 1:22:12 PM Scope Withdrawal Time 0 hours 9 minutes 21 seconds Scope Out: 1:37:14 PM Total Procedure Duration Time 0 hours 15 minutes 2 seconds Findings: The perianal and digital rectal examinations were normal. A 5 mm polyp was found in the cecum. The polyp was sessile. The polyp was removed with a cold snare. Resection and retrieval were complete. Verification of patient identification for the specimen was done. Estimated blood loss was minimal. The Simple Endoscopic Score for Crohn's Disease was determined based on the endoscopic appearance of the mucosa in the following segments: - Ileum: Findings include no ulcers present, no ulcerated surfaces, no affected surfaces and no narrowings. Segment score: 0. - Right Colon: Findings include large ulcers 0.5 - 2 cm in size, greater than 30% ulcerated surfaces, 50-75% of surfaces affected and multiple narrowings that can be passed. Segment score: 9. - Transverse Colon: Findings include large ulcers 0.5-2 cm in size, less than 10% ulcerated surfaces, less than 50% of surfaces affected and no narrowings. Segment score: 4. - Left Colon: Findings include no ulcers present, no ulcerated surfaces, no affected surfaces and no narrowings. Segment score: 0. - Rectum: Findings include no ulcers present, no ulcerated surfaces, no affected surfaces and no narrowings. Segment score: 0. - Total SES-CD aggregate score: 13. Biopsies were taken with a cold forceps for histology. Verification of patient identification for the specimen was done. Estimated blood loss was minimal. Impression: - One 5 mm polyp in the cecum, removed with a cold snare. Resected and retrieved. - Simple Endoscopic Score for Crohn's Disease: 13, mucosal inflammatory changes secondary to Crohn's disease with colonic involvement. Biopsied. Recommendation: - Discharge patient to home. - Resume previous diet. - Continue present medications. - Await pathology results. - Repeat colonoscopy in 1 year for surveillance based on pathology results. Procedure Code(s): --- Professional --- 20608, Colonoscopy, flexible; with removal of tumor(s), polyp(s), or other lesion(s) by snare technique 40049, 59, Colonoscopy, flexible; with biopsy, single or multiple CPT copyright 2021 [employer]. All rights reserved. The codes documented in this report are preliminary and upon jute bag clipper review may be revised to meet current compliance requirements. Jun Marin DO 07/16/2023 1:50:57 PM This report has been signed electronically. Number of Addenda: 0 Note Initiated On: 07/16/2023 1:20 PM
--- NOTE | 2023-07-16 13:51 | OP.CCLET_ITS ---
07/16/2023 Jean Marie De La Fuente [address] [place] [address] Re : Colonoscopy procedure for Kadie Morales Dear Dr. De La Fuente This procedure was performed on Sunday, July 16, 2023. My impressions and recommendations are as follows: Impressions : - One 5 mm polyp in the cecum, removed with a cold snare. Resected and retrieved. - Simple Endoscopic Score for Crohn's Disease: 13, mucosal inflammatory changes secondary to Crohn's disease with colonic involvement. Biopsied. Recommendations : - Discharge patient to home. - Resume previous diet. - Continue present medications. - Await pathology results. - Repeat colonoscopy in 1 year for surveillance based on pathology results. My findings are described in the full procedure note, which is enclosed. If I can be of further assistance, please feel free to contact me at . Sincerely, Jun Marin, 07/16/2023 1:50:57 PM This report has been signed electronically.
[2023-07-16 13:59] VITALS: BP 109/60; BP 93/55; PULSE 58; RESP 16; TEMP 36.9; O2SAT 97
[2023-07-16 14:12] VITALS: BP 109/60
== END 2023-07-16 14:38 | disposition home or self-care (01) ==
LOC: EN 12:13 → AC 12:13
PROVIDERS: PCP Family Medicine; Referring Provider Family Medicine; Visit Provider Internal Medicine Gastroenterology
PROC: 0DJD8ZZ Inspection of Lower Intestinal Tract, Via Natural or Artificial Opening Endoscopic (ICD-10-PCS; CPT 45378; principal; 2023-07-16 13:10)
DX: K50.00 Crohn's disease of small intestine without complications (principal); K63.5 Polyp of colon; K29.70 Gastritis, unspecified, without bleeding; K21.00 Gastro-esophageal reflux disease with esophagitis, without bleeding; Z79.82 Long term (current) use of aspirin
CPT/HCPCS: 45385; 43239; 45380; 88305; 88313; 88342; J7120; J2405

== ENCOUNTER → 2023-08-26 | Outpatient (CLI) | payer MEDICARE, BC, SELFPAY ==
--- NOTE | 2023-08-26 12:27 | BI_ITS ---
MAMMOGRAPHY - BILATERAL SCREENING 3-D TOMOSYNTHESIS REASON FOR EXAM: Female, 68 years old. SCREENING PERTINENT HISTORY: No significant family history. TECHNIQUE: 2-D mammograms and 3-D Tomosynthesis of the breast (s) were performed. CAD was performed. COMPARISON: 02/07/2022 FINDINGS: The breast composition is composed of scattered fibroglandular density. Scattered benign calcifications are seen. No dense spiculated masses or suspicious microcalcifications are identified. No architectural distortion is identified. There is no skin thickening or retraction. There has been no significant change since the prior study. BI/SCRN MAMM (CAD)W/BIGG BILAT IMPRESSION: No mammographic signs of malignancy. Routine yearly mammograms recommended. ASSESSMENT CATEGORY: BIRADS Category 1: Negative. A letter regarding these results will be sent to the patient by the facility within 30 days. FOLLOW UP RECOMMENDATION: Yearly follow up mammogram recommended. (A) Approximately 10% of breast cancers are not detected by mammography. A normal mammogram should not delay biopsy of a clinically suspicious abnormality. Electronically Signed: Nabil Spicer MD at 14:27 EDT ,
== END | disposition home or self-care (01) ==
LOC: OPBD 12:26
PROVIDERS: PCP Family Medicine; Referring Provider Family Medicine; Visit Provider Family Medicine
DX: Z12.31 Encounter for screening mammogram for malignant neoplasm of breast (principal)
CPT/HCPCS: 77063; 77067

== ENCOUNTER → 2023-08-28 | Outpatient (CLI) | payer MEDICARE, BC, SELFPAY ==
--- NOTE | 2023-08-28 10:12 | BD_ITS ---
STUDY: DUAL ENERGY X-RAY ABSORPTIOMETRY / DXA REASON FOR EXAM: Female, 68 years old. M810 TECHNIQUE: Bone Mineral Density (BMD) measurements of lumbar spine and bilateral hips were obtained. COMPARISON: Comparison is made with prior study of August 09, 2021. FINDINGS: Lumbar Spine (L1-L4): g/cm2 (0.827) / T-score (-2.0) / Z-score (-0.1) Findings are suggestive of osteopenia with a moderate fracture risk. Left Femur Total: g/cm2 (0.753) / T-score (-1.5) / Z-score (-0.2) Left Femoral Neck: g/cm2 (0.551) / T-score (-2.7) / Z-score (-1.0) Right Femur Total: g/cm2 (0.750) / T-score (-1.6) / Z-score (-0.2) Right Femoral Neck: g/cm2 (0.523) / T-score (-2.9) / Z-score (-1.3) The T-Scores on the most recent prior examination were: Lumbar Spine (L1-L4): There has been improvement of bone density since the previous examination. Left Femur Total: which represents an improvement of 7.6%. Right Femur Total: which represents an improvement of 1.1%. BD/Dexa Bone Density Study IMPRESSION: The patient is considered osteoporotic as outlined below according to World [employer] Organization (WHO) criteria with a high fracture risk. There has been improvement of bone density since the previous examination. Reference Information: The T-score is the number of standard deviations above or below the standard which is normal for young adults at their peak bone mineral density. The World Health Organization (WHO) interprets the T-scores as follows: Above -1 Normal bone density Between -1 and -2.5 Osteopenia Equal to / or below -2.5 Osteoporosis As a practical clinical guideline, osteopenia may be graded as follows: Mild -1 through -1.5 Moderate -1.6 through -2.0 Severe -2.1 through -2.4 The Z-score is the number of standard deviations above or below age-matched controls. A Z-score of less than -1.5 would be considered abnormal. References: 1. NIH Osteoporosis and Related Bone Diseases www osteo.org 2. International Society for Clinical Densitometry www iscd.org 3. National Osteoporosis Foundation www nof.org Electronically Signed: Romeo Brownlee MD at 13:38 EDT ,
== END | disposition home or self-care (01) ==
LOC: OPBD 10:11
PROVIDERS: PCP Family Medicine; Referring Provider Family Medicine; Visit Provider Family Medicine
DX: M81.0 Age-related osteoporosis without current pathological fracture (principal)
CPT/HCPCS: 77080

== ENCOUNTER 2023-09-06 10:41 | Outpatient (CLI) | payer MEDICARE, BC, SELFPAY ==
[2023-09-06 10:52] VITALS: BP 127/80; PULSE 58; RESP 16; TEMP 35.9; O2SAT 100; BMI 29.5
[2023-09-06] MEDS: Ustekinumab 390 MG in 0.9% Normal Saline (250mL Bag) 172 ML 250 MG IV (11:39)
[2023-09-06] MEDS: 0.9% NaCl IVPB Med Flush (250 mL) 15 ML IV (11:39)
[2023-09-06] MEDS: 0.9% NaCl Peripheral Flush Adult/Peds IV (11:39)
[2023-09-06 13:08] VITALS: BP 113/68; PULSE 53; RESP 16; TEMP 35.9; O2SAT 98
== END 2023-09-06 23:59 | disposition home or self-care (01) ==
LOC: MEDOUTP 10:42
PROVIDERS: PCP Family Medicine; Referring Provider Internal Medicine Gastroenterology; Visit Provider Internal Medicine Gastroenterology
DX: K50.90 Crohn's disease, unspecified, without complications (principal)
CPT/HCPCS: 96365; 96366; J7050; A4216; J3358

== ENCOUNTER → 2024-02-10 | Outpatient (CLI) | payer MEDICARE, BC, SELFPAY | END | disposition home or self-care (01) | PROVIDERS: PCP Family Medicine; Referring Provider Internal Medicine Gastroenterology; Visit Provider Internal Medicine Gastroenterology | DX: R10.84 Generalized abdominal pain (principal); K52.9 Noninfective gastroenteritis and colitis, unspecified | CPT/HCPCS: 36415 ==

== ENCOUNTER 2024-05-19 08:53 | Day surgery (SDC) | payer MEDICARE, BC, SELFPAY ==
--- NOTE | 2024-05-05 20:21 | PAT.ANE_ITS ---
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 When Was Last Pacemaker Check QUESTION #4 FULL TEXT: You/Your Family Experience fever (hyperthermia) with Anesthesia Last Oral Intake Last Oral intake: Last Oral Intake NPO since Meds taken in AM with sips of water? Meds patient instructed to take am of surgery PONV PONV - customer supply chain analyst: PONV - customer supply chain analyst Female Yes 05/05/24 10:22 HX of Motion Sickness Yes 05/05/24 10:22 HX of N/V After Surgery No 05/05/24 10:22 Non-Smoker Yes 05/05/24 10:22 Duration of Surgery greater Yes 05/05/24 10:22 than 60 minutes Number of Risk Factors 4 05/05/24 10:22 PONV Score Severe Risk 05/05/24 10:22 Height & Weight Height & Weight: Anesthesia: Height & Weight Height 5 ft 7 in 04/18/24 11:45 Respiratory Assessment Respiratory Assessment - customer supply chain analyst: Respiratory Tract Infection Hx - customer supply chain analyst Hx Respiratory Tract Infection No 05/05/24 10:22 STOP Sleep Apnea STOP Sleep Apnea - customer supply chain analyst: STOP Sleep Apnea - customer supply chain analyst Hx Hypertension No 05/05/24 10:22 Hx Sleep Apnea No 05/05/24 10:22 CPAP No 05/05/24 10:22 BIPAP No 05/05/24 10:22 Do you snore loudly (louder No 05/05/24 10:22 than talking or can be heard Do you often feel tired/ No 05/05/24 10:22 fatigued/ sleepy during daytime? Has anyone observed you stop No 05/05/24 10:22 breathing during sleep? STOP Results Negative 05/05/24 10:22 QUESTION #5 FULL TEXT : Do you snore loudly (louder than talking or can be heard through closed doors)? 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 Specify any problems Hx of Preganancy in last 3 No 05/05/24 10:22 Months Nurse Filling Out Transfusion VCHRISTIN 05/05/24 10:22 & Questions: Date: 05/05/24 05/05/24 10:22 Time: 10:24 05/05/24 10:22 Patient unable to answer at this time (ie. confused, unrespo /Reproduction History /Reproductive History - customer supply chain analyst: /Reproductive Hx- customer supply chain analyst Hx Now Gestational Age (in weeks): EDC: Hx Hx Para [facility] Medical History (Updated 05/05/24 @ 10:22 by Tabitha Posey) History of Crohn's disease Wears contact lenses Wears glasses Alcohol use Arthritis Injury of back Gastric reflux Non-smoker History of Holter monitoring History of echocardiogram History of stress test Cardiology follow-up encounter Paroxysmal atrial fibrillation Cervical stenosis of spine Positive [place] (antinuclear antibody) BCC (basal cell carcinoma), face Atrial fibrillation Back pain SBO (small bowel obstruction) Chest pain Palpitations Foreign body in soft tissue Personal history of retained foreign body fully removed (~04/2019) Vasovagal syncope IBD (inflammatory bowel disease) Overweight (BMI 25.0-29.9) Home Medications ?Medication ?Instructions ?Recorded ?Last Taken ?Type cholecalciferol (vitamin D3) 125 125 mcg PO DAILY 08/25/21 07/15/23 History mcg (5,000 unit) capsule aspirin 81 mg capsule 81 mg PO DAILY 07/12/23 07/11/23 History atenolol 25 mg tablet 25 mg PO DAILY #90 tabs 11/27/23 Unknown Rx ascorbic acid (vitamin C) 500 mg 500 mg PO DAILY 05/05/24 Unknown History tablet (C-500) calcium 600 mg (as 1 tab PO DAILY 05/05/24 Unknown History carbonate)-vitamin D3 5 mcg (200 unit) tablet (Calcium 600 + D(3)) cyanocobalamin (vitamin B-12) 1,000 mcg PO DAILY 05/05/24 Unknown History 1,000 mcg tablet (Vitamin B-12) famotidine 20 mg tablet (Acid 40 mg PO DAILY 05/05/24 Unknown History Controller) ustekinumab 90 mg/mL subcutaneous 90 mg subcut .Q8 WEEKS 05/05/24 Unknown History syringe (Stelara) Allergy/AdvReac Type Severity Reaction Status Date / Time escitalopram (From Lexapro) Allergy Hives,Sedat Verified 05/05/24 10:13 ion Penicillins Allergy Rash Verified 05/05/24 10:13 meperidine (From Demerol) AdvReac Mild Nausea Verified 05/05/24 10:13 ciprofloxacin AdvReac Dizziness Verified 05/05/24 10:13 venlafaxine (From Effexor) AdvReac Constipatio Verified 05/05/24 10:13 n Family History Father CAD (coronary artery disease) Hypertension Atrial fibrillation Arthritis Mother Heart disease Atrial fibrillation Arthritis Brother Hypertension Surgical History (Updated 05/05/24 @ 10:22 by Tabitha Posey) History of esophagogastroduodenoscopy (EGD) Hx of colonoscopy History of left heart catheterization (LHC) (~04/12/21) History of tubal ligation Hx of vein stripping History of right oophorectomy H/O hemorrhoidectomy History of bladder suspension procedure H/O breast biopsy Social History household members: spouse and children housing: house current occupational status: employed current occupation: [employer] de[employer]. Smoking Status: Never smoker alcohol intake: current alcohol intake frequency: 0-2 drinks per day substance use type: does not use caffeine: Yes Type: coffee Number of servings: 3 what type of physical activity do you participate in: walking frequency: daily do you feel safe at home: Yes Audit: Pertinent Findings Pertinent Findings EKG Perinent findings: February 23, 2021. Sinus bradycardia at 55 bpm Stress test pertinent findings: April 15, 2020. Ejection fraction is 63%. No ischemia or infarct noted on studies. Echo (EF%) pertinent findings: April 2020. Ejection fraction 65%. Right ventricular systolic pressure is 16 mmHg. No aortic stenosis is noted. Heart catheterization pertinent findings: April 12, 2021. Left ventricular ejection fraction is 70%. Normal coronary arteries. Consult pertinent findings: March 17, 2024. Erik MUNOZ 1. Paroxysmal atrial fibrillation-patient has not had any recent episodes of atrial fibrillation. She will continue her atenolol and aspirin for. She is aware that if she has any recurrence then she would need anticoagulation. 2. Chest pain-pain is atypical probably related to the vomiting the night before. Heart cath from 2021 was reviewed. It was normal. Recommendation Anesthesia Recommendation Anesthesia recommendation: OPTIMIZED for anesthesia
[2024-05-19] VITALS (9 sets, daily range): BP systolic 96–129; BP diastolic 66–82; PULSE 69–79; RESP 16; TEMP 35.8–36.2; O2SAT 96–100; BMI 29.3
--- NOTE | 2024-05-19 08:54 | EKG12_ITS ---
Test Reason : PREOP Blood Pressure : */* mmHG Vent. Rate : 62 BPM Atrial Rate : 62 BPM P-R Int : 142 ms QRS Dur : 88 ms QT Int : 416 ms P-R-T Axes : 29 15 -6 degrees QTcB Int : 422 ms Normal sinus rhythm Normal ECG When compared with ECG of 10-Oct-2014 02:35, No significant change was found Confirmed by Eduard Maravilla ([id number]), television news video editor DAVID VÁZQUEZ ([id number]) on 05/21/2024 8:01:52 AM Referred By: Marco Antonio Tapia Confirmed By: Eduard Maravilla
[2024-05-19] MEDS: 0.9% Normal Saline (1000mL) 1,000 ML 15 ML IV (09:26)
[2024-05-19 09:39] LABS: Anion Gap 2 (5-15); BUN 11 mg/dL (7-18); BUN/Creat Ratio 14.5 RATIO (10-20); Calcium,Total 9.2 mg/dL (8.5-10.1); Chloride 109 mmol/L (98-107); Creatinine, Serum 0.76 mg/dL (0.55-1.02); EST Glomerular Filtration Rate 81 mL/min (>60); Est Glom Filt Rate - Afr Amer 98 mL/min (>60); Glucose 95 mg/dL (74-106); Potassium 3.9 mmol/L (3.5-5.1); Sodium Level 141 mmol/L (136-145)
--- NOTE | 2024-05-19 09:44 | PCM.PRE.AN2 ---
ASA Classification* ASA Classification ASA Classification: 3 Assessment & Plan Anesthesia* Anesthesia Assessment Anesthesia Assessment: Discussed sedation and/or anesthesia options, risks, benefits, and alternatives with patient/parents/legal guardian/POA. Questions invited. The patient/parents/legal guardian/POA seems to understand and agrees to proceed with anesthesia plan. Reviewed the physical assessment, medical history, allergy history and patient home medications list prior to surgery/procedure/anesthetic and documented any changes. Performed airway and anesthesia risk assessments. Anesthesia Type Anesthesia Type: General History Source History Obtained from:: Patient and Chart Anesthesia Focused Assessment* Temperature: 97.1 F Pulse Rate: 69 Blood Pressure: 129/78 Respiratory Rate: 16 Pulse Ox: 97 Oxygen Delivery Method: Room Air Airway Assessment Mouth opens: 2 cm Mallampati Score: IV Teeth Condition: Intact Neck Range of motion (ROM): Full ROM Focused Labs Anesthesia Preop lab: CBC WBC 6.5 K/mm3 (4.4-11.0) 11/26/22 16:15 11/26/22 RBC 4.00 M/mm3 (4.2-5.4) L 11/26/22 16:15 11/26/22 Hgb 11.9 g/dL (12.0-15.0) L 11/26/22 16:15 11/26/22 Hct 36.5 % (37-47) L 11/26/22 16:15 11/26/22 Plt Count 295 K/mm3 (150-450) 11/26/22 16:15 11/26/22 CHEMISTRY Potassium 3.9 mmol/L (3.5-5.1) 05/19/24 09:10 05/19/24 Sodium 141 mmol/L (136-145) 05/19/24 09:10 05/19/24 Magnesium 2.3 mg/dL (1.6-2.6) 08/24/22 07:07 08/24/22 BUN 11 mg/dL (7-18) 05/19/24 09:10 05/19/24 Creatinine 0.76 mg/dL (0.55-1.02) 05/19/24 09:10 05/19/24 Glucose 95 mg/dL (74-106) 05/19/24 09:10 05/19/24 TSH 1.47 uIU/mL (0.358-3.74) 07/03/23 16:43 07/03/23 COAG PT 12.4 SECONDS (11.7-14.9) 04/06/21 12:17 04/06/21 Pre-Assessment Diagnosis/Proposed Procedure Planned Operative Procedure(s): (L) Excision, Lesion Left Ear, frozen section with skin graft Anesthesia History 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 When Was Last Pacemaker Check QUESTION #4 FULL TEXT: You/Your Family Experience fever (hyperthermia) with Anesthesia Last Oral Intake Last Oral intake: Last Oral Intake NPO since 19:30 05/19/24 09:20 Meds taken in AM with sips of Yes 05/19/24 09:20 water? 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 Female Yes 05/05/24 10:22 HX of Motion Sickness Yes 05/05/24 10:22 HX of N/V After Surgery No 05/05/24 10:22 Non-Smoker Yes 05/05/24 10:22 Duration of Surgery greater Yes 05/05/24 10:22 than 60 minutes Number of Risk Factors 4 05/05/24 10:22 PONV Score Severe Risk 05/05/24 10:22 Height & Weight Height & Weight: Anesthesia: Height & Weight Height 5 ft 7 in 05/19/24 09:20 Weight: 85 kg 05/19/24 09:20 Body Mass Index (BMI) 29.3 05/19/24 09:20 Respiratory Assessment Respiratory Assessment - 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 Has anyone observed you stop No 05/05/24 10:22 breathing during sleep? STOP Results Negative 05/05/24 10:22 QUESTION #5 FULL TEXT : Do you snore loudly (louder than talking or can be heard through closed doors)? 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 Specify any problems Hx of Preganancy in last 3 No 05/05/24 10:22 Months Nurse Filling Out Transfusion VCHRISTIN 05/05/24 10:22 & Questions: Date: 05/05/24 05/05/24 10:22 Time: 10:24 05/05/24 10:22 Patient unable to answer at this time (ie. 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: /Reproductive Hx- bottle capping machine operator Hx Now Gestational Age (in weeks): EDC: Hx Hx Para Hx Section SAB Active Medications Active Medications: Current Medications Generic Name Dose Route Start Last Admin Trade Name Freq PRN Reason Stop Dose Admin Sodium Chloride 1,000 mls @ 15 mls/hr 05/19/24 09:25 05/19/24 09:26 IV 05/24/24 22:44 15 mls/hr .Q48H ALLISON Administration Protocol [facility] Medical History History of Crohn's disease Wears contact lenses Wears glasses Alcohol use Arthritis Injury of back Gastric reflux Non-smoker History of Holter monitoring History of echocardiogram History of stress test Cardiology follow-up encounter Paroxysmal atrial fibrillation Cervical stenosis of spine Positive [place] (antinuclear antibody) BCC (basal cell carcinoma), face Atrial fibrillation Back pain SBO (small bowel obstruction) Chest pain Palpitations Foreign body in soft tissue Personal history of retained foreign body fully removed (~04/2019) Vasovagal syncope IBD (inflammatory bowel disease) Overweight (BMI 25.0-29.9) Home Medications ?Medication ?Instructions ?Recorded ?Last Taken ?Type cholecalciferol (vitamin D3) 125 125 mcg PO DAILY 08/25/21 07/15/23 History mcg (5,000 unit) capsule aspirin 81 mg capsule 81 mg PO DAILY 07/12/23 07/11/23 History atenolol 25 mg tablet 25 mg PO DAILY #90 tabs 11/27/23 05/19/24 Rx ascorbic acid (vitamin C) 500 mg 500 mg PO DAILY 05/05/24 Unknown History tablet (C-500) calcium 600 mg (as 1 tab PO DAILY 05/05/24 Unknown History carbonate)-vitamin D3 5 mcg (200 unit) tablet (Calcium 600 + D(3)) cyanocobalamin (vitamin B-12) 1,000 mcg PO DAILY 05/05/24 Unknown History 1,000 mcg tablet (Vitamin B-12) famotidine 20 mg tablet (Acid 40 mg PO DAILY 05/05/24 Unknown History Controller) ustekinumab 90 mg/mL subcutaneous 90 mg subcut .Q8 WEEKS 05/05/24 Unknown History syringe (Stelara) Allergy/AdvReac Type Severity Reaction Status Date / Time escitalopram (From Lexapro) Allergy Hives,Sedat Verified 05/19/24 09:19 ion Penicillins Allergy Rash Verified 05/19/24 09:19 meperidine (From Demerol) AdvReac Mild Nausea Verified 05/19/24 09:19 ciprofloxacin AdvReac Dizziness Verified 05/19/24 09:19 venlafaxine (From Effexor) AdvReac Constipatio Verified 05/19/24 09:19 n Family History Father CAD (coronary artery disease) Hypertension Atrial fibrillation Arthritis Mother Heart disease Atrial fibrillation Arthritis Brother Hypertension Surgical History History of esophagogastroduodenoscopy (EGD) Hx of colonoscopy History of left heart catheterization (LHC) (~04/12/21) History of tubal ligation Hx of vein stripping History of right oophorectomy H/O hemorrhoidectomy History of bladder suspension procedure H/O breast biopsy Social History household members: spouse and children housing: house current occupational status: employed current occupation: [employer] Smoking Status: Never smoker alcohol intake: current alcohol intake frequency: 0-2 drinks per day substance use type: does not use caffeine: Yes Type: coffee Number of servings: 3 what type of physical activity do you participate in: walking frequency: daily do you feel safe at home: Yes Review of Systems (Anesthesia) ROS Narrative System reviewed and no additional complaints, except as documented.
--- NOTE | 2024-05-19 10:30 | LES_PTH ---
PATIENT: NOHEMI LAGUNA LOC: [facility] [place] U#:[id number] AGE/SX: 69/F ROOM: RE05/19/[address]: Dr. Marco Antonio Tapia MD : [id number] BED: DIS: 05/19/2024 SPEC #: [id number] RECD: 05/19/24 11:52 STATUS: MARIELY LERNER #: [id number] COLEEN: 05/19/24 10:[address]: Marco Antonio Tapia DEPT: SURGICAL PATHOLOGY RECD BY: Asaf Stuart ENTERED: 05/19/24 11:54 SP TYPE: Lesion OTHR DR: Dr. Jean Marie De La Fuente MD Tissues: A - Skin of external ear, NOS Procedures: Frozen Section (charge) Surgery Specimen Level IV HEADER OPERATION: Excision, lesion left ear, frozen section with skin graft PRE-OP DIAGNOSIS: Basal cell carcinoma of skin of left ear TISSUE SUBMITTED: Left ear mass for frozen section FROZEN SECTION DIAGNOSIS Left ear mass, excisional biopsy: Negative for carcinoma. Changes consistent with previous biopsy site. Case has been reviewed in consultation with Dr. Wood who concurs with the above diagnosis. IDC:TURNER GANT 05/19/2024 MICROSCOPIC DIAGNOSIS Left ear mass, excisional biopsy: Negative for carcinoma. Dermal chronic inflammation and changes consistent with previous biopsy site. CHRISTIANAVivek 05/20/2024 MICROSCOPIC DESCRIPTION Slides are reviewed. GROSS DESCRIPTION Received fresh for frozen section diagnosis labeled with the patient's name is a specimen designated Left ear mass. The specimen consists of a round piece of west-white skin measuring 0.5 x 0.5 x 0.1cm. The specimen is inked, bisected and submitted for frozen section diagnosis in one cassette. 05/19/2024 TC:3 CPT:12432,64776
--- NOTE | 2024-05-19 10:59 | DCINST_ITS ---
Discharge Instructions Diet Discharge Diet: No restrictions DC O2, CPAP, BIPAP needs Home O2 Discharge instructions: No Dressing / Incision Discharge Activity: Return to Normal Activity Dressing / Incision Call your doctor if your incision/area has: Increased Pain/ Swelling Additional Dressing/Incision Instructions:: keep ear dressing dry. mupirocin oi ntment to neck incision three times daily Follow Up Care Please Follow Up With: Marco Antonio Tapia MD When: 1 week Test Results: Test results from this visit will be discussed in further detail at your follow- up appointment, if applicable. Discharge Plan Admission Attending Provider: Marco Antonio Tapia Primary Care Provider: Jean Marie De La Fuente Instructions Print Language: American Discharge Orders/Prescriptions Prescriptions: No Action cholecalciferol (vitamin D3) 125 mcg (5,000 unit) capsule 125 mcg PO DAILY aspirin 81 mg capsule 81 mg PO DAILY calcium carbonate-vitamin D3 [Calcium 600 + D(3)] 600 mg-5 mcg (200 unit) tablet 1 tab PO DAILY famotidine [Acid Controller] 20 mg tablet 40 mg PO DAILY ascorbic acid (vitamin C) [C-500] 500 mg tablet 500 mg PO DAILY cyanocobalamin (vitamin B-12) [Vitamin B-12] 1,000 mcg tablet 1,000 mcg PO DAILY Stelara 90 mg/mL syringe 90 mg subcut .Q8 WEEKS Patient Comments: LAST DOSE 04/17/23 atenolol 25 mg tablet 25 mg PO DAILY Qty: 90 3RF Referrals / Follow Up: Jean Marie De La Fuente MD [Primary Care Provider] - Disposition Disposition (needs filled in before D/C Order can be placed): Home, Self Care
--- NOTE | 2024-05-19 11:01 | OP.PCM_ITS ---
Problems Associated Problem List Diagnoses (1) Basal cell carcinoma, ear: Operative Report (Standard) Operative Information Date of Procedure: 05/19/24 Pre-Operative Diagnosis: basal cell carcinoma, left pinna Post-Operative Diagnosis: basal cell carcinoma, left pinna Surgery/Procedure Performed: 1. excision left ear basal cell carcinoma, 1x1 cm 2. full thickness skin graft, neck; 1x1 cm budget examiner: No Type of Anesthesia: General RN Documented Start/Stop Times: Operation Date: 05/19/24 10:35 Case Time Into Pre-Op 05/19/24 09:00 Out of Pre-Op 05/19/24 10:52 Procedure Start Time: 11:03 Procedure Stop Time: 12:30 Select all DRAINS/GRAFTS/IMPLANTS that apply: None Estimated Blood Loss: 0 Specimen collected: Yes Description of specimen(s) removed: left ear lesion Description of surgery: on the day of the procedure, after appropriate informed consent was obtained, the patient was brought to the operating room and placed in supine position on the operating table. she was placed under general anesthesia by the anesthesiologist. the tube was secured, the eyes were taped. the left ear and neck were prepped and draped in sterile fashion. the macular lesion was roughly 1cm x 1cm. this was in the inferior leobardo cavum. this was injected with lidocaine/epinephrine. the lesion was excised in full with a twenty-nine palms blade. this was sent for frozen section. this was an area of previous biopsy-proven basal cell carcinoma. pathologic analysis was reportedly negative for any carcinoma. given this, additional margins were not taken. the defect was 1cm x 1cm. the left neck was injected with lidocaine/epinephrine, and a 1 x 1 cm elliptical graft was taken with a twenty-nine palms blade. the surrounding tissue was undermined with an iris scissor, and closed with 4-0 vicryl and 5-0 fast gut. the graft was inserted into the defect and sutured with 4-0 PDS and 5-0 fast gut. the patient was awoken from anesthesia and transferred to the PACU in stable condition. Surgical Findings: n/a Complications Complications: No
[2024-05-19] MEDS: Lidocaine 1% /Epi 1:100 (20ml) 20 ML Vial (11:32)
[2024-05-19] MEDS: Mupirocin Ointment 22gm Tube 1 APPLIC (11:33)
--- NOTE | 2024-05-19 12:23 | PCM.POST.ANE ---
Anesthesia: Postop Eval I Current Vital Signs Temperature: 97.1 F Pulse Rate: 79 Blood Pressure: 96/82 Respiratory Rate: 16 Pulse Ox: 100 Oxygen Delivery Method: Room Air Assessment Airway patent: Yes Spontaneous unlabored respirations: Yes Mental status: Awake and Calm nausea: No Vomiting: No Anesthesia Complication: No Fluid Hydration Crystalloid volume administer (ml): 1,000 Total IV fluid infused: 1,000 Progress Note Anesthesia document: Postop Eval 1 completed: Yes
[2024-05-19] MEDS: HYDROcodone Bitartrate/Apap 5/325 Tablet PO (13:12)
--- NOTE | 2024-05-19 13:21 | POSTOPAN2_ITS ---
Anesthesia Postop Eval I Sum Postop Eval Completion status Anesthesia document: Postop Eval 1 completed: Yes Anesthesia Postop Eval I Summary Anesthesia Postop Eval I Summary: Anesthesia Postop Eval I: Assessment Summary Airway patent Yes 05/19/24 12:23 [email or web address] Spontaneous unlabored Yes 05/19/24 12:23 [email or web address] respirations Mental status Awake,Calm 05/19/24 12:23 [email or web address] nausea No 05/19/24 12:23 [email or web address] Vomiting No 05/19/24 12:23 [email or web address] Anesthesia Postop Eval I: Fluid Summary Crystalloid volume administer 1,000 05/19/24 12:23 [email or web address] (ml) Colloids volume administered ( ml) Blood Product volume administered (ml) Total IV fluid infused 1,000 05/19/24 12:23 [email or web address] Anesthesia Postop Eval I: Summary Notes Anesthesia Complication No 05/19/24 12:23 [email or web address] Anesthesia Complication Comment: Post-operative progress note Anesthesia: Postop Eval II Evaluation Mental status: Awake and Calm Pain Level: 1 nausea: No Vomiting: No Complications Anesthesia Complication: No
--- NOTE | 2024-05-19 13:21 | PCM.POSTANE2 ---
Anesthesia Postop Eval I Sum Postop Eval Completion status Anesthesia document: Postop Eval 1 completed: Yes Anesthesia Postop Eval I Summary Anesthesia Postop Eval I Summary: Anesthesia Postop Eval I: Assessment Summary Airway patent Yes 05/19/24 12:23 STRATEGIC PARTNERSHIP [email or web address] Spontaneous unlabored Yes 05/19/24 12:23 STRATEGIC PARTNERSHIP MANAGER.[email or web address] respirations Mental status Awake,Calm 05/19/24 12:23 STRATEGIC PARTNERSHIP MANAGER.[email or web address] nausea No 05/19/24 12:23 STRATEGIC PARTNERSHIP MANAGER.[email or web address] Vomiting No 05/19/24 12:23 STRATEGIC PARTNERSHIP MANAGER.[email or web address] Anesthesia Postop Eval I: Fluid Summary Crystalloid volume administer 1,000 05/19/24 12:23 STRATEGIC PARTNERSHIP MANAGER.GDOTT (ml) Colloids volume administered ( ml) Blood Product volume administered (ml) Total IV fluid infused 1,000 05/19/24 12:23 STRATEGIC PARTNERSHIP MANAGER.[email or web address] Anesthesia Postop Eval I: Summary Notes Anesthesia Complication No 05/19/24 12:23 STRATEGIC PARTNERSHIP MANAGER.[email or web address] Anesthesia Complication Comment: Post-operative progress note Anesthesia: Postop Eval II Evaluation Mental status: Awake and Calm Pain Level: 1 nausea: No Vomiting: No Complications Anesthesia Complication: No
== END 2024-05-19 14:04 | disposition home or self-care (01) ==
LOC: SDC 08:53 → AC 08:53
PROVIDERS: PCP Family Medicine; Referring Provider Otolaryngology; Visit Provider Otolaryngology
PROC: (CPT 69145; principal; 2024-05-19 10:25)
DX: H61.892 Other specified disorders of left external ear (principal); K21.9 Gastro-esophageal reflux disease without esophagitis; Z79.899 Other long term (current) drug therapy
CPT/HCPCS: 69145; 15260; 00120; 80048; 88305; 88331; 93005; J2405

== ENCOUNTER → 2024-08-04 | Outpatient (CLI) | payer MEDICARE, BC, SELFPAY ==
--- NOTE | 2024-08-05 13:46 | STRESSREP_ITS ---
Stress Test Report Date: 08/04/2024 Procedure: Exercise tolerance test/imaging study Indications: Atrial fibrillation, chest pain Consent: Per the patient Procedure: The patient exercised on a Marcelino protocol for 6 minutes achieving a peak heart rate of 160 bpm (105% predicted maximal heart rate) with a peak blood pressure 178/88 mmHg and a peak MET capacity of 7 METs. The baseline ECG demonstrated normal sinus rhythm. The peak exercise ECG demonstrated upsloping ST depressions in the inferior and lateral leads. No evidence of significant ischemia.. EKG during recovery revealed no significant ischemic changes [There were no cardiac dysrhythmias pretest, during exercise, or recovery]. The functional capacity was considered normal for age. There was [no complaint of chest discomfort during exercise or recovery]. The examination was discontinued secondary to achieving target heart rate. Impression: 1. Technically adequate (percent predicted maximal heart rate greater than 85%) exercise tolerance test 2. Stress test is negative for exercise-induced EKG changes of ischemia 3. The test test is negative for exercise-induced chest pain 4. Functional capacity is normal for age 5. Nuclear images pending Myocardial perfusion imaging study: Technique: The patient was injected with 11.9 mCi of technetium 99m Cardiolite and subsequently rest SPECT Cardiolite nuclear imaging was obtained in the horizontal long, vertical long, and short axis views. The patient exercised on a Marcelino protocol. Please see above for details. The patient was injected with 33.9 mCi of technetium 99m Cardiolite and subsequently stress SPECT Cardiolite nuclear imaging was obtained in the horizontal long, vertical long, and short axis views. A gated Cardiolite study at peak stress was obtained. Interpretation: Rest and stress SPECT Cardiolite nuclear imaging status post realignment, normalization, and attenuation correction, demonstrates no evidence of significant ischemia or infarction. The gated Cardiolite study demonstrates no significant regional wall motion abnormalities. The reported LVEF is greater than 70%. Impression: 1. There is no evidence of significant ischemia or infarction. 2. The gated Cardiolite study reports an LVEF of greater than 70%. This note was generated with [employer] / [employer] software. It may contain incorrect words, spelling, and punctuation that were not noted in checking the note before signing.
== END | disposition home or self-care (01) ==
LOC: CVS 06:01
PROVIDERS: PCP Family Medicine; Referring Provider Physician Assistant Medical; Visit Provider Physician Assistant Medical
DX: I48.0 Paroxysmal atrial fibrillation (principal); R07.2 Precordial pain; R00.2 Palpitations
CPT/HCPCS: 78452; 93017; A9500; A4216

== ENCOUNTER → 2024-09-25 | Outpatient (CLI) | payer MEDICARE, BC, SELFPAY | END | disposition home or self-care (01) | PROVIDERS: PCP Family Medicine; Referring Provider Internal Medicine Gastroenterology; Visit Provider Internal Medicine Gastroenterology | DX: K52.9 Noninfective gastroenteritis and colitis, unspecified (principal); Z87.19 Personal history of other diseases of the digestive system | CPT/HCPCS: 36415 ==

== ENCOUNTER → 2024-10-07 | Outpatient (CLI) | payer MEDICARE, BC, SELFPAY ==
--- NOTE | 2024-10-07 11:57 | RAD_ITS ---
PROCEDURE: HIP, UNI W/ PELVIS 2-3 VIEWS 10/07/2024 REASON FOR EXAM: L HIP PAIN TECHNIQUE: HIP, UNI W/ PELVIS 2-3 VIEWS COMPARISON: None FINDINGS: Bones: Bones are demineralized. No demonstrated fracture Joints: Mild age consistent hip and SI joint arthrosis Soft tissues: Evidence of previous tubal ligation, lucent centered phleboliths within the pelvis Other: RAD/HIP, UNI W/ Pelvis 2-3 Views IMPRESSION: Age consistent degenerative changes, no acute findings Reading Location: [id number]
== END | disposition home or self-care (01) ==
LOC: RAD 11:49
PROVIDERS: PCP Family Medicine; Referring Provider Family Medicine; Visit Provider Family Medicine
DX: M16.12 Unilateral primary osteoarthritis, left hip (principal)
CPT/HCPCS: 73502

== ENCOUNTER → 2024-11-04 | Outpatient (CLI) | payer MEDICARE, BC, SELFPAY ==
--- NOTE | 2024-11-04 12:28 | BI_ITS ---
EXAM: SCRN MAMM (CAD)W/BIGG BILAT DATE: 11/04/2024 CLINICAL HISTORY: F, Age 69 y/o , ANNUAL SCREENING TECHNIQUE: SCRN MAMM (CAD)W/BIGG BILAT COMPARISON: Prior exam(s) dated 08/26/2023, 02/07/2022, 12/17/2018. FINDINGS: TISSUE DENSITY: The breasts are almost entirely fatty. Bilateral Breast Mammographic Findings: No significant masses, calcifications or other abnormalities are identified. BI/SCRN MAMM (CAD)W/BIGG BILAT IMPRESSION: There is no mammographic evidence of malignancy. OVERALL FINAL ASSESSMENT BI-RADS 1: NEGATIVE. RECOMMENDATION: Routine annual follow-up in 1 Year A letter with findings and recommendations will be mailed to the patient. Reading Location: [id number]
--- OUTSIDE RECORDS SUMMARY | 2024-11-04 20:33 | XMS RPT_ITS | CCD ---
Author Organization [facility] Care Team Providers Care Category Specialist Name Role Phone Wesley Leyva DO Unavailable Dr. Cheryle De La Fuente Primary Care Provider Dr. Cheryle De La Fuente Referring Provider 1([facility])[phone] Hitesh BREAUX, WILLAC Beatriz Attending Provider Cheryle De La Fuente MD Primary Care Provider Dr. Cheryle De La Fuente Primary Care Provider [phone]([facility])[phone] Dr. Cheryle De La Fuente Referring Provider Erik MALDONADO, PA Richelle Mesa Attending Provider Richelle Valencia (Pa) Unavailable Cheryle De La Fuente MD Primary Care Provider [phone] Cheryle De La Fuente Referring Provider [phone] Dr. Jnu Marin Attending Provider Dr. Jun Marin Other Provider Dr. Cheryle De La Fuente Primary Care Provider Dr. Cheryle De La Fuente MD Primary Care Provider Dr. Cheryle De La Fuente MD Referring Provider Telma Doan Attending Provider Willie VERMA, Dr. Bernard Attending Provider Dr. Marco Antonio Tapia MD Referring Provider Dr. Eduard Maravilla MD Attending Provider Skip VERMA, Dr. Bello Referring Provider [phone] Richelle Isidro Attending Provider [phone] Richelle Isidro Referring Provider [phone] Richelle Isidro Other Provider [phone] Lidya VERMA, Dr. Jenkins Attending Provider Sudhakar VERMA, Dr. Aj Primary Care Provider Taiwo VERMA, Dr. Chapa Attending Provider Richelle Isidro Referring Provider [phone] Sudhakar VERMA, Dr. Aj Referring Provider Friend , Dr. Barahona Attending Provider Friend DO, Dr. Barahona Referring Provider Richelle Valencia PA-C Unavailable Sudhakar VERMA, Cheryle Garcia Primary Care Provider [phone] Eduard Maravilla Unavailable [phone] Sudhakar VERMA, Dr. Aj Attending Provider JOSE GARCIA Attending Unavailable FABIANMOHAN HARDEN S Referring Unavailable DE LA FUENTE, CHERYLE A Primary Care Unavailable Sudhakar, Cheryle Primary Care Unavailable Richelle Valencia Attending Unavailabl Richelle Kiser Referring Unavailabl e De La Fuente, Cheryle Primary Care Unavailable De La Fuente, Cheryle Referring Unavailable De La Fuente, Cheryle Attending Unavailable De La Fuente, Cheryle Primary Care Unavailable FriendJun Attending Unavailable Sudhakar, Cheryle Primary Care Unavailable Richelle Valencia Referring Unavailabl e Gregory Bose Attending Unavailabl e Richelle Valencia Consulting Unavailabl e De La Fuente, Cheryle Referring Unavailable FriendJun Attending Unavailable De La Fuente, Cheryle Primary Care Unavailable De La Fuente, Cheryle Primary Care Unavailable De La Fuente, Cheryle Referring Unavailable FriendJun Attending Unavailable De La Fuente, Cheryle Referring Unavailable FriendJun Attending Unavailable De La Fuente, Cheryle Primary Care Unavailable De La Fuente, Cheryle Primary Care Unavailable De La Fuente, Cheryle Referring Unavailable Telma Tran Attending Unavailable De La Fuente, Cheryle Referring Unavailable Richelle Valencia Attending Unavailabl e De La Fuente, Cheryle Primary Care Unavailable De La Fuente, Cheryle Primary Care Unavailable Richelle Valencia Referring UnavailEduard Walton Attending Unavailable De La Fuente, Cheryle Primary Care Unavailable Eduard Maravilla Attending Unavailable Ace Valdivia Referring Unavailable Gregory Bose Attending Unavailabl e De La Fuente, Cheryle Primary Care Unavailable Richelle Valencia Attending Unavailabl Richelle Kiser Referring Unavailabl e De La Fuente, Cheryle Primary Care Unavailable Friend, Jun Referring Unavailable Friend, Jun Attending Unavailable De La Fuente, Cheryle Primary Care Unavailable De La Fuente, Cheryle Referring Unavailable De La Fuente, Cheryle Attending Unavailable Friend, Jun Referring Unavailable Friend, Jun Attending Unavailable De La Fuente, Cheryle Primary Care Unavailable Marco Antonio Tapia Referring Unavailabl Marco Antonio Spears Attending Unavailabl e De La Fuente, Cheryle Primary Care Unavailable Allergies Allergy Classification Reported Allergen(s) Allergy Type Date of Onset Reaction(s) Facility (1 source) penicillin drug allergy 08-20-19 18 [facility] Work Phone: (1 source) TREE; Translations: [TREE] allergy to substance 08-20-19 18 [facility] Work Phone: (1 source) HAY FEVER; Translations: [HAY FEVER] allergy to substance 08-20-19 18 [facility] Work Phone: (1 source) PLANT POLLEN; Translations: [PLANT POLLEN] allergy to substance 08-20-19 18 [facility] Work Phone: (15 sources) Ciprofloxacin Drug Allergy 03-20-20 21 Dizziness [facility] (15 sources) Escitalopram Drug Allergy 03-20-20 21 Hives,Sedation [facility] (20 sources) Penicillins; Translations: [PENICILLINS] Allergy to substance 11-24-19 05 Rash [facility] (15 sources) venlafaxine Drug Allergy 03-20-20 21 Drug-induced constipation with proper administration [facility] (5 sources) Meperidine Drug Allergy 07-16-19 24 Nausea [facility] (1 source) Ciprofloxacin Drug Allergy 05-19-19 25 [facility] Repository (1 source) Escitalopram Drug Allergy 05-19-19 [facility] Repository (1 source) Meperidine Drug Allergy 05-19-19 [facility] Repository (1 source) venlafaxine Drug Allergy 05-19-19 [facility] Repository Medications Current Medications Medication Drug Class(es) Dates Sig (Normalized) Sig (Original) amoxicillin 875 mg oral tablet (2 sources) Penicillin-class Antibacterial Start: 10-06-2024 take 1 tablet by mouth twice daily amoxicillin (AMOXIL) 875 mg tablet Take 875 mg by mouth two times a day. 10/06/2024 Active ascorbic acid 500 mg oral tablet (4 sources) Vitamin C Start: 05-05-2024 take 1 tablet by mouth once daily Ascorbic Acid (Vitamin C) (C-500) 500 mg tablet Active 500 mg PO DAILY May 05, 2024 1:00am aspirin 81 mg oral tablet (20 sources) Nonsteroidal Anti-inflammatory Drug Start: 07-12-2023 take 1 capsule by mouth once daily Aspirin 81 mg capsule Active 81 mg PO DAILY July 12, 2023 12:00am Start: 06-01-2020 End: 10-08-2024 take 325 mg by mouth once daily Aspirin Active 325 MG PO DAILY June 01, 2020 1:00am Start: 08-19-2017 End: 11-05-2022 ASPIRIN LOW DOSE 81 MG TABS 1 tablet daily ASPIRIN [id number] Tana Erickson CHET Start: 12-02-2013 End: 04-23-2019 take 1 tablet by mouth once daily Aspirin 81 MG tablet,chewable Discontinued 81 mg PO DAILY@0800 December 02, 2013 12:00am April 23, 2019 10:46am take 1 tablet by jada th once daily aspirin, enteric coated (ASPIRIN, ENTERIC COATED) 81 mg EC tablet Take 81 mg by mouth once daily. Active Comment on above: Take 81 mg by mouth once daily. Take 325 mg by mouth once daily. atenolol 50 mg oral tablet (20 sources) beta-Adrenergic Vivienne Start: 08-05-2024 take 1 tablet by mouth once daily atenolol (TENORMIN) 50 mg tablet Take 50 mg by mouth once daily. 08/05/2024 Active Start: 09-27-2022 End: 10-07-2024 take 1 tablet by mouth once daily Atenolol 25 mg tablet Discontinued 25 mg PO DAILY 90 3 November 27, 2023 11:42am August 05, 2024 5:02pm Comment on above: Take 25 mg by mouth once daily. calcium carbonate 1500 mg / cholecalciferol 200 unt oral tablet (4 sources) Vitamin D Start: 05-05-19 Calcium Carbonate-Vitamin D3 (Calcium 600 + D(3)) 600 mg-5 mcg (200 unit) tablet Active 1 {tbl} PO DAILY May 05, 2024 1:00am calcium citrate 950 mg oral tablet (2 sources) take 950 mg by mouth once daily CALCIUM CITRATE PO Take 950 mg by mouth once daily. Active cholecalciferol 0.125 mg oral capsule (14 sources) Vitamin D Start: 08-26-19 take 1 capsule by mouth once daily Cholecalciferol (Vitamin D3) 125 mcg (5,000 unit) capsule Active 125 ug PO DAILY August 25, 2021 12:00am Start: 08-19-2017 VITAMIN D3 CAP S 2 capsules daily CHOLECALCIFEROL CAPS [id number] Tana Erickson LPN famotidine 20 mg oral tablet (15 sources) Histamine-2 Receptor Antagonist Start: 05-05-2024 End: 09-21-2024 Famotidine (Acid Controller) 20 mg tablet Active 40 mg PO DAILY as needed September 21, 2024 8:12am Start: 01-08-2024 End: 05-05-2024 take 1 tablet by mouth once daily Famotidine 20 mg tablet Discontinued 20 mg PO daily March 17, 2024 1:00am May 05, 2024 11:14am fluocinolone acetonide 0.1 mg/ml topical oil (2 sources) Corticosteroid Start: 10-06-2024 Fluocinolone-Shower Cap 0.01 % oil 10/06/2024 Active iron,carbonyl/asco rbic acid (VITRON-C PO) (2 sources) take 1000 mg by mouth once daily iron,carbonyl/ascorbic acid (VITRON-C PO) Take 1,000 mg by mouth once daily. Active ketoconazole 20 mg/ml topical cream (2 sources) Azole Antifungal Start: 10-06-2024 ketoconazole (NIZORAL) 2 % cream 10/06/2024 Active Lactobacillus Combination No.9 (Adult 50 Plus Probiotic) 4 billion cell capsule (10 sources) Start: 02-23-2021 take 4 capsules by mouth once daily Lactobacillus Combination No.9 (Adult 50 Plus Probiotic) 4 billion cell capsule Active 4000 MMU CELLS PO DAILY February 23, 2021 4:15pm administer with a meal Start: 02-23-2021 take 4 capsules by m outh once daily Lactobacillus Combination No.9 (Adult 50 Plus Probiotic) 4 billion cell capsule Active 4000 MMU CELLS PO DAILY February 23, 2021 1:00am administer with a meal 24 hr metFORMIN hydrochloride 500 mg extended release oral tablet (2 sources) Biguanide Start: 10-06-2024 take 1 tablet by mouth once daily at breakfast metFORMIN ER (GLUCOPHAGE XR) 500 mg 24 hr tablet Take 1,000 mg by mouth daily with breakfast. 10/06/2024 Active triamcinolone acetonide 1 mg/ml topical cream (2 sources) Corticosteroid Start: 10-06-2024 triamcinolone acetonide (KENALOG) 0.1 % cream 10/06/2024 Active 1 ml ustekinumab 90 mg/ml prefilled syringe (14 sources) Interleukin-12 Antagonist, Interleukin-23 Antagonist Start: 05-05-2024 End: 08-07-2024 Ustekinumab (Stelara) 90 mg/mL syringe Active 90 mg SC .Q8 WEEKS 1 6 August 07, 2024 6:54am Start: 07-25-2023 End: 05-05-2024 take 390 mg intravenously once Ustekinumab (Stelara) 1 30 mg/26 mL solution Discontinued 390 mg IV ONE TIME July 25, 2023 12:00am May 05, 2024 11:16am 390 mg intravenously; Infuse 390mg by IV route one time vitamin b12 1 mg oral tablet (11 sources) Vitamin B12 Start: 05-05-2024 take 1 tablet by mouth once daily Cyanocobalamin (Vitamin B-12) (Vitamin B-12) 1,000 mcg tablet Active 1000 ug PO DAILY May 05, 2024 1:00am Start: 07-12-2023 End: 03-17-2024 take 1 tablet by mouth once daily Cyanocobalamin (Vitamin B-12) (Vitamin B-12) 50 mcg tablet Discontinued 50 ug PO DAILY July 12, 2023 12:00am March 17, 2024 10:05am Cyanocobalamin 1 ,000 mcg subl Dissolve 1 tablet under the tongue daily at bedtime. Active Completed/Discontinued Medications Medication Drug Class(es) Dates Sig (Normalized) Sig (Original) acetaminophen 500 mg oral tablet (15 sources) Start: 10-10-2014 End: 03-29-2020 take 1 tablet by mouth every six hours as needed for pain Acetaminophen 500 MG tablet Discontinued 500 mg PO EVERY 6 HOURS NEEDED as needed for Pain 20 0 October 10, 2014 12:00am March 29, 2020 12:02pm acetaminophen 325 mg / HYDROcodone bitartrate 5 mg oral tablet (15 sources) Opioid Agonist Start: 10-11-2020 End: 01-26-2021 Hydrocodone-Acetami nophen 5-325 mg tablet Discontinued 1 {tbl} PO Q8H as needed for pain 9 3 0 October 11, 2020 January 26, 2021 9:23am Abdominal pain Unspecified abdominal pain Start: 10-11-2020 End: 01-26-2021 take 1 tablet by mouth every eight hours Hydrocodone-Acetaminophen Discontinued 1 TABLET PO Q8H 9 3 October 11, 2020 January 26, 2021 9:23am acetaminophen 325 mg / oxyCODONE hydrochloride 2.5 mg oral tablet (15 sources) Opioid Agonist Start: 10-10-2014 End: 04-23-2019 Oxycodone-Acetaminophen 1 EA CH tablet Discontinued 1 {tbl} PO EVERY 6 HOURS NEEDED as needed for Pain October 10, 2014 12:00am April 23, 2019 10:46am Start: 10-10-2014 End: 04-23-2019 take 1 tablet by mouth every six hours as needed Oxycodone-Acetaminophen Discontinued 1 TABLET PO EVERY 6 HOURS NEEDED October 10, 2014 12:00am April 23, 2019 10:46am alendronic acid 70 mg oral tablet (15 sources) Bisphosphonate Start: 11-01-2022 End: 10-07-2024 take 1 tablet by mouth every week alendronate (FOSAMAX) 70 mg tablet Take 70 mg by mouth one time a week. 11/01/2022 10/07/2024 Discontinued (Course of therapy completed) Start: 08-25-2021 End: 12-27-2021 take 1 tablet by mouth every week Alendronate (Fosamax) 70 mg tablet Discontinued 70 mg PO EVERY WEEK August 25, 2021 12:00am December 27, 2021 3:08pm Comment on above: Take 70 mg by mouth one time a week. ALPRAZolam 1 mg oral tablet (2 sources) Benzodiazepine Start: End: ALPRAZolam (XANAX) 1 mg tablet 11/04/2022 10/07/2024 Discontinued (Course of therapy completed) atenolol 100 mg / chlorthalidone 25 mg oral tablet (1 source) Thiazide-like Diuretic, beta-Adrenergic Vivienne Start: End: Atenolol-Chlorthali done 100-25 mg per tablet azithromycin 250 mg oral tablet (4 sources) Macrolide Antimicrobial Start: End: Azithromycin 250 mg tablet Discontinued 0 PO .COMPLEX 6 0 April 18, 2024 1:00am May 05, 2024 11:15am For 250 mg dose pack: take 500 mg today (day 1), then 250 mg for 4 days (days 2-5) PO budesonide 3 mg delayed release oral capsule (12 sources) Corticosteroid Start: End: take 2 capsules by mouth once daily Budesonide 3 mg capsule,delayed,ext end.release Discontinued 6 mg PO DAILY 60 5 October 26, 2023 10:33am March 17, 2024 10:05am cholecalciferol 5000 unt / folic acid 1 mg oral tablet (1 source) Vitamin D End: vitamin D3-folic acid 125 mcg (5,000 unit)-1 mg tab 10/08/2024 Discontinued (Other) Coconut Oil (2 sources) End: coconut oiL 1,000 mg cap 10/07/2024 Discontinued (Course of therapy completed) coconut oiL 1,00 0 mg cap doxycycline hyclate 100 mg oral capsule (15 sources) Tetracycline-class Drug Start: 01-26-2021 End: 02-23-2021 take 1 capsule by mouth twice daily Doxycycline Hyclate 100 mg capsule Discontinued 100 mg PO TWICE A DAY 60 0 January 26, 2021 12:00am February 23, 2021 4:15pm ergocalciferol, vitamin D2, (VITAMIN D2 ORAL) (2 sources) End: 10-07-2024 ergocalciferol, vitamin D2, (VITAMIN D2 ORAL) 10/07/2024 Discontinued (Course of therapy completed) ergocalciferol, vitamin D2, (VITAMIN D2 ORAL) fluticasone propionate 0.05 mg/actuat metered dose nasal spray (15 sources) Corticosteroid Start: 03-29-2020 End: 03-31-2020 take 50 ug nasal route once daily Fluticasone Propionate (Allergy Relief (Fluticasone)) 50 mcg/actuation spray,suspension Discontinued 1 NMA INTRANASAL DAILY March 29, 2020 1:00am March 31, 2020 11:57am administer into each nostril Start: 03-29-2020 End: 03-31-2020 take 1 spray(s) nasal route once daily Fluticasone Propionate (Allergy Relief (Fluticasone)) 50 mcg/actuation spray,suspension Discontinued 1 SPRAY INTRANASAL DAILY March 29, 2020 1:00am March 31, 2020 11:57am administer into each nostril Lactobacillus Combination No .4 (11 sources) Start: 12-02-2013 End: 04-23-2019 Lactobacillus Combination No .4 Discontinued 1 EACH PO DAILY December 02, 2013 1:47pm April 23, 2019 10:47am Start: 12-02-2013 End: 04-23-2019 Lactobacillus Combination No .4 Discontinued 1 EACH PO DAILY December 02, 2013 12:00am April 23, 2019 10:47am Lactobacillus Combination No.4 1 EACH capsule (4 sources) Start: 12-02-2013 End: 04-23-2019 take 1 capsule by mouth once daily Lactobacillus Combination No.4 1 EACH capsule Discontinued 1 NMA PO DAILY December 02, 2013 12:00am April 23, 2019 10:47am 24 hr metoprolol succinate 25 mg extended release oral tablet (20 sources) beta-Adrenergi c Vivienne Start: 06-01-2020 End: 11-05-2022 take 1 tablet by mouth once daily Metoprolol Succinate 25 mg tablet extended release 24 hr Discontinued 0 .ROUTE .COMPLEX 90 3 September 25, 2021 12:37pm September 27, 2022 11:26am TAKE 1 TAB BY MOUTH DAILY Comment on above: Take 25 mg by mouth once daily. MULTIPLE VITAMINS-MINERALS (1 source) Start: 08-19-2017 MULTIVITAMIN A DULTS 50+ TABS 1 tablet daily MULTIPLE VITAMINS-MINERALS [id number] Tana Brashersaro [employer] Multivitamins,Therap eutic (15 sources) Start: 12-02-2013 End: 03-29-2020 take 1 tablet by mouth once daily Multivitamins,Therap eutic Discontinued 1 TABLET PO DAILY December 02, 2013 1:47pm March 29, 2020 12:02pm Start: 12-02-2013 End: 03-29-2020 Multivitamins,Therapeutic Di scontinued 1 {tbl} PO DAILY December 02, 2013 12:00am March 29, 2020 12:02pm Start: 12-02-2013 End: 03-29-2020 take 1 tablet by mouth once daily Multivitamins,Therapeutic Discontinued 1 TABLET PO DAILY December 02, 2013 12:00am March 29, 2020 12:02pm OMEGA-3 FATTY ACIDS CAPS (1 source) Start: 08-19-2017 FISH OIL TRIPL E STRENGTH CAPS 1 capsule daily OMEGA-3 FATTY ACIDS CAPS [id number] Tana Erickson [facility] Ruby-3 Fatty Acids-Fish Oil (11 sources) Start: 12-02-2013 End: 04-23-2019 Ruby-3 Fatty Acids-Fish Oil Discontinued 1 EACH PO DAILY December 02, 2013 1:47pm April 23, 2019 10:46am Start: 12-02-2013 End: 04-23-2019 Ruby-3 Fatty Acids-Fish Oil Discontinued 1 EACH PO DAILY December 02, 2013 12:00am April 23, 2019 10:46am Ruby-3 Fatty Acids-Fish Oil 1 EACH capsule (4 sources) Start: 12-02-2013 End: 04-23-2019 Ruby-3 Fatty Acids-Fish Oil 1 EACH capsule Discontinued 1 NMA PO DAILY December 02, 2013 12:00am April 23, 2019 10:46am oxyCODONE hydrochloride 5 mg oral tablet (15 sources) Opioid Agonist Start: 01-26-2021 End: 02-23-2021 Oxycodone 5 mg tablet Discontinued 0 PO As Directed 0 January 26, 2021 12:00am February 23, 2021 4:15pm take 1-2 tablets PO as directed; Start: 01-26-2021 End: 02-23-2021 Oxycodone Discontinued 0 PO As Directed January 26, 2021 12:00am February 23, 2021 4:15pm take 1-2 tablets PO as directed; Problems Active Problems Problem Classification Problem Date Documented Da te Episodic/Chronic Cardiac dysrhythmias (20 sources) Paroxysmal atrial fibrillation; Translations: [Paroxysmal atrial fibrillation] Onset: 11-02-2022 02-08-2021 Chronic Cardiac dysrhythmias (20 sources) Palpitations; Translations: [Palpitations] Onset: 11-02-2022 03-29-2020 Episodic Noninfectious gastroenteritis (20 sources) Enteritis of small intestine; Translations: [Noninfective gastroenteritis and colitis, unspecified] Onset: 07-02-2011 10-11-2020 Episodic Nonspecific chest pain (16 sources) Chest pain; Translations: [Chest pain, unspecified] Onset: 08-24-2024 03-31-2020 Episodic Osteoarthritis (1 source) Unilateral primary osteoarthritis, left hip; Translations: [Unilateral primary osteoarthritis, left hip] Onset: 10-13-2024 Chronic Other fractures (15 sources) Compression fracture of thoracic spine; Translations: [Wedge compression fracture of unspecified thoracic vertebra, initial encounter for closed fracture] 03-03-2021 Episodic Other gastrointestinal disorders (6 sources) History of Crohns disease; Translations: [Personal history of other diseases of the digestive system] 09-21-2024 Episodic Other gastrointestinal disorders (1 source) Personal history of other diseases of the digestive system; Translations: [Personal history of other diseases of the digestive system] Onset: 09-21-2024 Episodic Other screening for suspected conditions (not mental disorders or infectious disease) (1 source) Encounter for screening mammogram for malignant neoplasm of breast; Translations: [Encounter for screening mammogram for malignant neoplasm of breast] Onset: 10-31-2024 Episodic Residual codes; unclassified (15 sources) H/O: Peripheral vascular disease procedure; Translations: [Other specified postprocedural states] 02-08-2021 Episodic Unclassified (4 sources) Reflux; Translations: [Reflux] 02-16-2014 Past or Other Problems Problem Classification Problem Date Documented Da te Episodic/Chronic Abdominal pain (20 sources) Abdominal pain; Translations: [Unspecified abdominal pain] Onset: 03-10-2024 10-12-2020 Episodic Chronic obstructive pulmonary disease and bronchiectasis (6 sources) Bronchitis; Translations: [Bronchitis, not specified as acute or chronic] Onset: 04-18-2024 04-18-2024 Episodic Gastrointestinal hemorrhage (3 sources) Rectal hemorrhage; Translations: [Hemorrhage of anus and rectum] Onset: 01-07-2009 Resolved: 11-02-2022 01-07-2009 Episodic Genitourinary symptoms and ill-defined conditions (2 sources) Female stress incontinence; Translations: [Stress incontinence (female) (male)] Onset: 06-29-2008 Resolved: 04-24-2010 04-24-2010 Chronic Intestinal obstruction without hernia (4 sources) Partial obstruction of small bowel; Translations: [Partial intestinal obstruction, unspecified as to cause] Onset: 10-12-2014 10-12-2014 Episodic Menstrual disorders (3 sources) Irregular periods; Translations: [Irregular menstruation, unspecified] Onset: 06-29-2008 Resolved: 11-02-2022 06-29-2008 Chronic Other and unspecified benign neoplasm (4 sources) History of polyp of colon; Translations: [Personal history of colonic polyps] Onset: 06-08-2011 06-08-2011 Episodic Other diseases of bladder and urethra (2 sources) Other specified disorders of urethra; Translations: [Urethrocele] Onset: 08-02-2009 Resolved: 04-24-2010 04-24-2010 Episodic Other female genital disorders (3 sources) 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; Translations: [Benign endometrial hyperplasia] Onset: 06-29-2008 Resolved: 11-02-2022 06-29-2008 Chronic Other non-epithelial cancer of skin (6 sources) Basal cell carcinoma of ear; Translations: [Basal cell carcinoma of skin of unspecified ear and external auricular canal] Onset: 06-02-2024 05-19-2024 Episodic Other skin disorders (3 sources) Sebaceous cyst of skin; Translations: [Sebaceous cyst] Onset: 04-09-2009 Resolved: 11-02-2022 04-09-2009 Episodic Residual codes; unclassified (6 sources) Other specified personal risk factors, not elsewhere classified; Translations: [Other specified personal history presenting hazards to health] Onset: 11-02-2022 11-02-2022 Episodic Spondylosis; intervertebral disc disorders; other back problems (4 sources) Spinal stenosis in cervical region; Translations: [Spinal stenosis, cervical region] Onset: 08-22-2017 08-22-2017 Episodic Unclassified (1 source) Problem Results Test Name Value Interpretation Reference Range Facility [facility] 10-13-2024 [facility] Telephone ([facility]) -------- KADIE LAGUNA ([id number]) 1955 F Date Time Provider Department 10/13/24 JOSE GARCIA During your visit today, we recorded the following information about you: Jose Garcia MD 10/13/2024 12:40 PM Signed ----- Message from Bertha Lerner sent at 10/13/2024 11:44 AM EDT ----- Regarding: RE: echocardiogram She has not had an echo done since 2020, I asked [facility] if they would be willing to order one since she would have it done there (she works there at the [employer] [employer]). Nicci stated she is not due to come back until March for a [address] Maravilla. If you can order the echo, I will let Kadie know and have her schedule it. ----- Message ----- From: Jose Garcia MD Sent: 10/08/2024 8:46 PM EDT To: Bertha Marks Subject: echocardiogram I saw Ms. Laguna today 10/08/2024 and she stated she had recent echocardiogram with [facility]. Cannot find that in the records sent. Can you contact [facility] and ask for the echocardiogram report to be sent? If she has not had one in the past year then I need one completed. I do have the recent cardiac stress test, but I need the echocardiogram to determine if she has substantial LVH that would contraindicate treatment with flecainide that we are considering. Thanks Jose Oscar MD 10/13/2024 12:42 PM Signed [facility] Electrophysiology (EP) Order placed for echocardiogram. Jose Garcia MD October 13, 2024 12:40 PM AlvaroBertha burnham 10/13/2024 2:11 PM Signed Spoke with patient and informed her about the echo order. Patient will call and schedule at [facility] and have results faxed Bertha Marks Allergies As of Date: 10/13/2024 Noted Allergy Reaction PENICILLINS 11/23/2004 2 - Rash Date Reviewed: 10/08/2024 Reviewed by: Jose Garcia MD - Fully Assessed Reason for Visit: Treatment Planning [881] Primary Visit Diagnosis:Paroxysmal atrial fibrillation (HCC) [I48.0] Other Visit Diagnosis:Palpitations [R00.2] Order(s):ECHO [305334] Order #: [id number]: 1 FUTURE Prescriptions as of 10/13/2024 - aspirin, enteric coated (ASPIRIN, ENTERIC COATED) 81 mg EC tablet Take 81 mg by mouth once daily. - atenolol (TENORMIN) 50 mg tablet Take 50 mg by mouth once daily. - metFORMIN ER (GLUCOPHAGE XR) 500 mg 24 hr tablet Take 1,000 mg by mouth daily with breakfast. - ustekinumab (STELARA) 90 mg/mL syringe Inject 90 mg subcutaneously every 8 weeks. - Cyanocobalamin 1,000 mcg subl Dissolve 1 tablet under the tongue daily at bedtime. - CALCIUM CITRATE PO Take 950 mg by mouth once daily. - iron,carbonyl/ascorbic acid (VITRON-C PO) Take 1,000 mg by mouth once daily. - amoxicillin (AMOXIL) 875 mg tablet Take 875 mg by mouth two times a day. - Fluocinolone-Shower Cap 0.01 % oil - ketoconazole (NIZORAL) 2 % cream - triamcinolone acetonide (KENALOG) 0.1 % cream Problem List As Of Date 10/13/2024 Noted Resolved Simple endometrial hyperplasia without atypia [*06/29/2008 11/02/2022 Female stress incontinence [N39.3] 06/29/2008 04/24/2010 Irregular menstrual cycle [N92.6] 06/29/2008 11/02/2022 Rectal bleeding [K62.5] 01/07/2009 11/02/2022 Sebaceous cyst [L72.3] 04/09/2009 11/02/2022 Urethrocele [N36.8] 08/02/2009 04/24/2010 Personal history of colonic polyps [Z86.0100] 06/08/2011 Colitis, acute [K52.9] 07/02/2011 Reflux [OVT1273] Partial small bowel obstruction (HCC) [K56.600] 10/12/2014 Inflammatory bowel disease [K52.9] 11/02/2022 Diagnosed: 11/02/2022 Palpitations [R00.2] 11/02/2022 Diagnosed: 11/02/2022 Spinal stenosis in cervical region [M48.02] 08/22/2017 Diagnosed: 11/02/2022 Paroxysmal atrial fibrillation (HCC) [I48.0] 11/02/2022 At risk for stroke [Z91.89] 11/02/2022 Encounter Status:Closed by JOSE GARCIA on 10/13/24 [facility] 10-08-2024 CNOV Office Visit (KONSTANTIN PAULB) -------- KADIE LAGUNA ([id number]) 1955 F Date Time Provider Department 10/08/24 9:00 AM JOSE GARCIAARDPOEmelyn During your visit today, we recorded the following information about you: Pulse Blood pressure Weight Height 66/minute 127/77 83.5 kg 1.676 m Jose Garcia MD 10/08/2024 8:53 PM Signed PRIMARY CARE PHYSICIAN: Cheryle De La Fuente ([facility]) [place] [place] [address] [place] [address] Patient Care Team: Cheryle De La Fuente MD as PCP - General (Family Medicine) Richelle Valencia PA-C as Physician Energy Project Engineer (Pulmonary and Critical Care Medicine) Eduard Maravilla as Specialty Epic Application Coordinator (Cardiology) CHIEF COMPLAINT: Follow up for arrhythmia HISTORY OF PRESENT ILLNESS: Ms. Laguna is a 69 year old female who presents today for a cardiovascular medicine follow-up visit. Recording using ambient AI software for draft documentation of the visit was discussed with the patient/authorized patient admitting representative; all questions welcomed and answered. Patient/authorized patient admitting representative agreed to proceed History from previous notes, edited as needed and/or generated by dictation with use of AI.: Patient Overview: Ms. Laguna has a history of intermittent palpitations that began in 2020. She was referred to Dr. Garcia of [facility] in October 2022 for evaluation of her symptoms, which included irregular heartbeats, chest and jaw pain, tightness in the chest, and lightheadedness. In 2021, cardiac catheterization did not reveal significant coronary artery disease. She was initially treated with metoprolol, which was discontinued due to ineffectiveness, and then with atenolol, but she continued to experience symptoms every couple of weeks or once a month. She was diagnosed with paroxysmal atrial fibrillation, with cardiac monitoring in April 2020 revealing at least one self-limited episode of atrial fibrillation with rapid ventricular response. During the October 2022 office visit, a detailed discussion about treatment options for her arrhythmia symptoms took place. She was determined to have intermediate or borderline risk for stroke from atrial fibrillation due to two soft risk factors: female gender and age between 65 and 74 years. This allowed for a decision between treatment with oral anticoagulation therapy or not. Ms. Laguna decided to avoid anticoagulation therapy. She reported partial relief with atenolol and discussed antiarrhythmic drug therapy and catheter ablation but decided to continue with atenolol and consider an increased dose if symptoms worsened. She is now referred back to Dr. Garcia for evaluation due to worsening symptoms attributable to arrhythmia. Diagnostic Results: - Cardiac monitoring (July 23, 2024 - August 18, 2024): Revealed sinus rhythm and episodes of SVT. - Cardiac catheterization (2021): No significant coronary artery disease. - Cardiac monitoring (April 2020): At least one self-limited episode of atrial fibrillation with rapid ventricular response. - Nuclear stress testing 08/04/2024: Exercise stress test of study revealed 6 minutes on Marcelino protocol achieving a peak heart rate 160 bpm which was 105% of maximum predicted heart rate. Nuclear images revealed no evidence for ischemia or infarction. Items for Follow-Up Today: - Evaluation of symptomatic arrhythmia by Dr. Garcia. Interim History Dr. Garcia 10/08/2024: The patient is a 69-year-old female with a history of paroxysmal atrial fibrillation, presenting for evaluation of worsening arrhythmia symptoms. The patient reports a history of intermittent palpitations beginning around 2020. She was referred to an national account representative in October 2022 for evaluation. At that time, she described episodes of irregular heartbeats, chest and jaw pain, chest tightness, and lightheadedness. Cardiac catheterization in 2021 did not reveal significant CAD. Cardiac monitoring in April 2020 revealed at least one self-limited episode of atrial fibrillation with RVR. She was diagnosed with paroxysmal atrial fibrillation and determined to have an intermediate or borderline risk for stroke due to female gender and age between 65 and 74 years. She decided to avoid anticoagulation therapy and continued with atenolol, considering an increased dose if symptoms worsened. She reports that her episodes have become more severe, frequent, and prolonged. They usually start with dizziness, followed by palpitations, chest pain, and jaw pain. Cardiac monitoring from 07/23/2024 to 08/18/2024 revealed sinus rhythm and episodes of SVT. She has a family history of CAD. She denies any personal history of CAD. She also has a history of Crohn's disease, diagnosed about a year ago, and is currently on Stelara injections. She reports new- (more content not included)... Normal [facility] ECG B/O W INTERP (MED OFFICE )on 10-08-2024 Interpretation and review of laboratory results Normal [facility] Sinus bradycardia 55 bpm; normal conduction intervals (NY 132 ms, QRS 88 ms); QTc 411 ms [facility] HIP, UNI W/ Pelvis 2-3 Views on 10-07-2024 HIP, UNI W/ Pelvis 2-3 Views [facility] Imaging Services [address] [place], [place] [address] HIP, UNI W/ Pelvis 2-3 Views MR#: [id number] Acct: [id number] Name: KADIE LAGUNA Rep #: [id number] : 1955 F 69 From: Adebayo Thakkar MD PCP: Dr. Cheryle De La Fuente MD Status: REG CLI Study: HIP, UNI W/ Pelvis 2-3 Views Date of Exam: 06/02 Exam# [id number] Ordering Dr: Cheryle De La Fuente MD PROCEDURE: HIP, UNI W/ PELVIS 2-3 VIEWS 10/07/2024 REASON FOR EXAM: L HIP PAIN TECHNIQUE: HIP, UNI W/ PELVIS 2-3 VIEWS COMPARISON: None FINDINGS: Bones: Bones are demineralized. No demonstrated fracture Joints: Mild age consistent hip and SI joint arthrosis Soft tissues: Evidence of previous tubal ligation, lucent centered phleboliths within the pelvis Other: RAD/HIP, UNI W/ Pelvis 2-3 Views IMPRESSION: Age consistent degenerative changes, no acute findings Reading Location: [facility] CC: Dr. Cheryle De La Fuente MD Manager Managed Care: Signed Normal [facility] [id number] 10-02-2024 [facility] Misc. COMMENT Normal . [facility] Comment on above: Order Comment: [id number] Stelera levels Result Comment: Test Ordered: [id number] Ustekinumab Drug + Antibody Ustekinumab 6.3 ug/mL ES Reference Range: . Quantitation Limit: <0.1 ug/mL Results of 0.1 ug/mL or higher indicate detection of ustekinumab. COMMENTS: - Induction levels in Crohn's Disease: - Patients who received IV 130 mg or 6 mg/kg had median trough concentrations of 2.1 ug/mL and 6.4 ug/mL, respectively, at week 8 in UNITI trials.(1) - Maintenance levels: - Of UNITI patients with trough levels greater than 1.1 ug/mL, about 80% achieved clinical remission (HBI < 5) and about 50% attained CRP normalization.(2) - Higher maintenance concentrations, greater than 4.5 ug/mL (achieved with q8wk or q4wk dosing after SQ induction), may be necessary for endoscopic response (SES-CD score reduction >=50%).(3) - Trough levels predictive of mucosal healing and fistula healing have yet to be determined. - In plaque psoriasis, median trough ustekinumab concentrations were 0.4 ug/mL at weeks 14 and 28 (ranging from undetectable to 3.6 ug/mL).(4) Although PASI50 responders had higher trough concentrations than non- responders in a study of 76 patients, a definitive therapeutic target range for psoriasis has yet to be established.(5) - As with other biologics, the optimal drug concentration depends upon patient-specific factors including co- morbidities, disease and desired therapeutic endpoint - This ustekinumab drug assay measures the free fraction of ustekinumab (antibody-unbound ustekinumab) when serum anti-ustekinumab antibodies are present. Anti-Ustekinumab Antibody <40 ng/mL ES Reference Range: . Quantitation Limit: < 40 ng/mL Results of 40 ng/mL or higher indicate detection of anti- ustekinumab antibodies. COMMENTS: - This anti-ustekinumab antibody assay is drug-tolerant, i.e. the detection of anti-ustekinumab antibodies is not impeded by the presence of ustekinumab in serum. - All positive anti-ustekinumab antibody results are verified by a confirmatory test. - The concomitant free ustekinumab drug concentration (reported above) is the pharmacodynamically active drug when anti-ustekinumab antibodies are present. - Serial measurements over time may be helpful to assess the impact of immunogenicity on the free drug level. - In the IM-UNITI trial, the incidence of anti-ustekinumab antibodies in Crohn's Disease at 1 year was 2.3%.(1) - In psoriasis, anti-ustekinumab antibodies occurred in 4-6% of patients.(6) References: 1. Dashawn LernerJ, et al. Gastroenterology 2016;150(4):S408. 2. Dashawn Lerner et al. P007 Exposure-Response to SC Ustekinumab in Moderate - Severe Crohn's Disease: Results from the IM-UNITI Maintenance Study. Advances in AIBD. January 2017. 3. Steventadouglas R, et al. Clin Gastroenterol Hepatol 2017;15: 6978-1635. 4. Dee SP et al. Br J Dermatol;2015:173;855-857. 5. Lindsay H, et al. PLOS ONE DOI;10:1371/journal.pone.8150547. 6. Jesus Brooks et al. Br J Dermatol 2014;170:261-273. These tests were developed and their performance characteristics determined by [employer]. They have not been cleared or approved by the Food and Drug Administration. However, both drug and anti-drug antibody assays have been developed and validated in accordance with FDA Guidance for Industry documents: Bioanalytical Method Validation (2013) and Assay Development and Validation for Immunogenicity Testing of Therapeutic Protein Products (2016). Performed at: [facility] [address] [place] [id number] Supervisor Food Checkers And Cashiers: Javed Pritchard MD, Phone: [phone] Performed at: [address] [id number] Supervisor Food Checkers And Cashiers: Toni Whitt PhD, Phone: [phone] Performed By: #### L 3410.9992 #### [facility] [address]. [place], [place], [address] Gastroenterology Visit Repor ton 09-21-2024 Gastroenterology Visit Report [facility] Gastroenterology [address] [place] [address] OFFICE VISIT Date of Service: 09/21/24 MR#: [id number] Acct: [id number] Name: KADIE LAGUNA MEAGHAN Rep #: [id number] : 1955 Provider: Jun Marin DO Age/Sex: 69/F Location[facility] Status: Signed Intake Vital Signs 03/17/24 09:02 05/19/24 09:20 09/21/24 08:24 Height 5 ft 6 in 5 ft 7 in 5 ft 7 in Weight: 188 lb 6 oz BMI 29.5 Intake Visit Reasons: 6 M FU Allergies escitalopram (From Lexapro) Allergy (Verified 05/19/24 09:19) Hives,Sedation Penicillins Allergy (Verified 05/19/24 09:19) Rash meperidine (From Demerol) Adverse Reaction (Mild, Verified 05/19/24 09:19) Nausea ciprofloxacin Adverse Reaction (Verified 05/19/24 09:19) Dizziness venlafaxine (From Effexor) Adverse Reaction (Verified 05/19/24 09:19) Constipation Medications ???Medication ???Instructions ???Recorded ???Confirmed ???Type cholecalciferol (vitamin D3) 125 125 mcg PO DAILY 08/25/21 09/21/24 History mcg (5,000 unit) capsule aspirin 81 mg capsule 81 mg PO DAILY 07/12/23 09/21/24 H istory ascorbic acid (vitamin C) 500 mg 500 mg PO DAILY 05/05/24 09/21/24 History tablet (C-500) calcium 600 mg (as 1 tab PO DAILY 05/05/24 09/21/24 H istory carbonate)-vitamin D3 5 mcg (200 unit) tablet (Calcium 600 + D(3)) cyanocobalamin (vitamin B-12) 1,000 mcg PO DAILY 05/05/24 History 1,000 mcg tablet (Vitamin B-12) atenolol 50 mg tablet 50 mg PO DAILY #90 tabs 08/05/24 0 09/21/24 Rx ustekinumab 90 mg/mL subcutaneous 90 mg subcut .Q8 WEEKS #1 mL 06/0209/21/24 Rx syringe (Stelara) famotidine 20 mg tablet (Acid 40 mg PO DAILY PRN 09/21/24 History Controller) Have you fallen in the past year?: No PFSH Medical History (Updated 09/21/24 @ 08:[address] Barahona Friend, DO) SVT (supraventricular tachycardia) History of Crohn's disease Wears contact lenses Wears glasses Alcohol use Arthritis Injury of back Gastric reflux Non-smoker History of Holter monitoring History of echocardiogram History of stress test Cardiology follow-up encounter Paroxysmal atrial fibrillation Cervical stenosis of spine Positive [place] (antinuclear antibody) BCC (basal cell carcinoma), face Atrial fibrillation Back pain SBO (small bowel obstruction) Chest pain Palpitations Foreign body in soft tissue Personal history of retained foreign body fully removed ( 04/2019) Vasovagal syncope IBD (inflammatory bowel disease) Overweight (BMI 25.0-29.9) Surgical History History of esophagogastroduodenosco py (EGD) Hx of colonoscopy History of left heart catheterization (LHC) ( 04/12/21) History of tubal ligation Hx of vein stripping History of right oophorectomy H/O hemorrhoidectomy History of bladder suspension procedure H/O breast biopsy Family History Father CAD (coronary artery disease) Hypertension Atrial fibrillation Arthritis Mother Heart disease Atrial fibrillation Arthritis Brother Hypertension Social History household members: spouse and children housing: house current occupational status: employed 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 Smoking Status: Never smoker alcohol intake: current alcohol intake frequency: 0-2 drinks per day substance use type: does not use caffeine: Yes Type: coffee Number of servings: 3 what type of physical activity do you participate in: walking frequency: daily do you feel safe at home: Yes HPI HPI Details: KADIE LAGUNA, is a 69 F who presents to the office today for follow up. Prior workup: ?Col onoscopy 01.17.12???erythema of ascending colon Colonoscopy 15???prominent ICV, ?ileal prolapse. Remaining exam without acute/chronic concern. Pathology melanosis coli with increased eosin; ICV focal acute colitis with cryptitis and early granulation of impending ulcer [employer] ED 7.09.26 with abdominal pain ??? concern for SBO that was r/o with radiology. Recommend OV with surgeon. ?CT abd/pel 7.08.26???hepatic cyst; multiple small bowel loops with wall thickening and edema, likely enteritis [facility] OV 7.10.26 recommending establishment with GI. ?Sma ll bowel Xray 10.14.20???without acute/chronic finding *BGI established 9.10.21 for further investigation of IBD with history of multiple abdominal surgeries and ED visits for abdominal pain. Cupola Patcher workup up lupus erythematosus versus discoid lupus without positive diagnosis of either. ? (more content not included)... Normal [facility] Cardiovascular stress test r eportOrdered By: Gregory Bose on 08-05-2024 Study report [facility] Services [address] [place] [address] MR#: [id number] Acct: [id number] Name: KADIE LAGUNA MEAGHAN Rep #: [id number] : 1955 69 From: Gregory colmenares MD Primary Care: Dr. Cheryle De La Fuente MD Status: REG CLI Referring Dr: Richelle Valencia Sex : F C Stress Test Report Date: 08/04/2024 Procedure: Exercise tolerance test/imaging study Indications: Atrial fibrillation, chest pain Consent: Per the patient Procedure: The patient exercised on a Marcelino protocol for 6 minutes achieving a peak heart rate of 160 bpm (105% predicted maximal heart rate) with a peak blood pressure 178/88 mmHg and a peak MET capacity of 7 METs. The baseline ECG demonstrated normal sinus rhythm. The peak exercise ECG demonstrated upsloping ST depressions in the inferior and lateral leads. No evidence of significant ischemia.. EKG during recovery revealed no significant ischemic changes [There were no cardiac dysrhythmias pretest, during exercise, or recovery]. The functional capacity was considered normal for age. There was [no complaint of chest discomfort during exercise or recovery]. The examination was discontinued secondary to achieving target heart rate. Impression: 1. Technically adequate (percent predicted maximal heart rate greater than 85%)exercise tolerance test 2. Stress test is negative for exercise-induced EKG changes of ischemia 3. The test test is negative for exercise-induced chest pain 4. Functional capacity is normal for age 5. Nuclear images pending Myocardial perfusion imaging study: Technique: The patient was injected with 11.9 mCi of technetium 99m Cardiolite and subsequently rest SPECT Cardiolite nuclear imaging was obtained in the horizontal long, vertical long, and short axis views. The patient exercised on aBruce protocol. Please see above for details. The patient was injected with 33.9 mCi of technetium 99m Cardiolite and subsequently stress SPECT Cardiolite nuclear imaging was obtained in the horizontal long, vertical long, and short axis views. A gated Cardiolite study at peak stress was obtained. Interpretation: Rest and stress SPECT Cardiolite nuclear imaging status post realignment, normalization, and attenuation correction, demonstrates no evidence of significant ischemia or infarction. The gated Cardiolite study demonstrates no significant regional wall motion abnormalities. The reported LVEF is greater than 70%. Impression: 1. There is no evidence of significant ischemia or infarction. 2. The gated Cardiolite study reports an LVEF of greater than 70%. This note was generated with [employer] software. It may contain incorrectwords, spelling, and punctuation that were not noted in checking the note beforesigning. 08/05/24 1403 Date _ Gregory Bose MD CC: Dr. Cheryle De La Fuente MD; JOEL Silva ~ Date Dictated: 08/05/24 1346 Date Transcribed: 08/05/24 134 Manager Managed Care: NN Signed [facility] Work Phone: Stress Reporton 08-05-2024 Stress Report [facility] [address] [place] [address] MR#: [id number] Acct: [id number] Name: KADIE LAGUNA MEAGHAN Rep #: [id number] : 1955 69 From: Gregory Bose MD Primary Care: Dr. Cheryle De La Fuente MD Status: R EG CLI Referring Dr: Richelle Valencia Sex: F C Stress Test Report Date: 08/04/2024 Procedure: Exercise tolerance test/imaging study Indications: Atrial fibrillation, chest pain Consent: Per the patient Procedure: The patient exercised on a Marcelino protocol for 6 minutes achieving a peak heart rate of 160 bpm (105% predicted maximal heart rate) with a peak blood pressure 178/88 mmHg and a peak MET capacity of 7 METs. The baseline ECG demonstrated normal sinus rhythm. The peak exercise ECG demonstrated upsloping ST depressions in the inferior and lateral leads. No evidence of significant ischemia.. EKG during recovery revealed no significant ischemic changes [There were no cardiac dysrhythmias pretest, during exercise, or recovery]. The functional capacity was considered normal for age. There was [no complaint of chest discomfort during exercise or recovery]. The examination was discontinued secondary to achieving target heart rate. Impression: 1. Technically adequate (percent predicted maximal heart rate greater than 85%) exercise tolerance test 2. Stress test is negative for exercise-induced EKG changes of ischemia 3. The test test is negative for exercise-induced chest pain 4. Functional capacity is normal for age 5. Nuclear images pending Myocardial perfusion imaging study: Technique: The patient was injected with 11.9 mCi of technetium 99m Cardiolite and subsequently rest SPECT Cardiolite nuclear imaging was obtained in the horizontal long, vertical long, and short axis views. The patient exercised on a Marcelino protocol. Please see above for details. The patient was injected with 33.9 mCi of technetium 99m Cardiolite and subsequently stress SPECT Cardiolite nuclear imaging was obtained in the horizontal long, vertical long, and short axis views. A gated Cardiolite study at peak stress was obtained. Interpretation: Rest and stress SPECT Cardiolite nuclear imaging status post realignment, normalization, and attenuation correction, demonstrates no evidence of significant ischemia or infarction. The gated Cardiolite study demonstrates no significant regional wall motion abnormalities. The reported LVEF is greater than 70%. Impression: 1. There is no evidence of significant ischemia or infarction. 2. The gated Cardiolite study reports an LVEF of greater than 70%. This note was generated with [employer] software. It may contain incorrect words, spelling, and punctuation that were not noted in checking the note before signing. 08/05/24 1403 Date Gregory Bose MD CC: Dr. Cheryle De La Fuente MD; JOEL Silva Date Dictated: 04/30/25 1346 Date Transcribed: 08/05/241345 Manager Managed Care: JOHNSON Signed Normal [facility] 12 Lead EKGon 05-19-2024 12 Lead EKG [facility] Cardiovascular Services [address] [place] [address] 12 Lead EKG 05/19/24 0900 MR#: [id number] Acct: [id number] Name: KADIE LAGUNA Rep #: [id number] : 1955 69 From: Eduard Maravilla MD Attending Dr: Dr. Marco Antonio Tapia MD Statu s: DEP SD Ordering Dr: Ace Valdivia MD Date: 05/19/24 Location: [facility] [place] Sex: F C Admitted: Test Reason : PREOP Blood Pressure : */* mmHG Vent. Rate : 62 BPM Atrial Rate : 62 BPM P-R Int : 142 ms QRS Dur : 88 ms QT Int : 416 ms P-R-T Axes : 29 15 -6 degrees QTcB Int : 422 ms Normal sinus rhythm Normal ECG When compared with ECG of 10-Oct-2014 02:35, No significant change was found Confirmed by Eduard Maravilla ([id number]), research editor DAVID VÁZQUEZ ([id number]) on 05/21/2024 8:01:52 AM Referred By: Marco Antonio Tapia Confirmed By: Eduard Maravilla 05/21/24 0801 Date Eduard Maravilla MD CC: Dr. Ace Valdivia MD; Dr. Marco Antonio Tapia MD; Dr. Cheryle De La Fuente MD Signed Normal [facility] Basic Metabolic Profile (BMP )on 05-19-2024 BUN/CRE 14.5 RATIO Normal 10-20 [facility] Comment on above: Performed By: #### P FSC #### [facility] [address] [place], [address] CA,Total 9.2 mg/dL Normal 8.5-10.1 [facility] Comment on above: Performed By: #### P FSC #### [facility] [address] [place], [address] Chloride [Moles/Vol] 109 mmol/L High 98-107 [facility] Comment on above: Performed By: #### P FSC #### [facility] [address] [place], [address] CO2 [Moles/Vol] 29.0 mmol/L Normal 21.0-32.0 [facility] Comment on above: Performed By: #### P FSC #### [facility] [address] [place], [address] Creatinine [Mass/Vol] 0.76 mg/dL Normal 0.55-1.02 [facility] Comment on above: Result Comment: The validity of the calculated GFR GFRAA in patients over 70 years has not been determined. Clinical correlation is essential. Performed By: #### P FSC #### [facility] [address] [place], [address] ECRCL 75.40 ml/min Normal [facility] Comment on above: Performed By: #### P FSC #### [facility] [address] [place], [address] EST GFR - AA 98 mL/min Normal >60 [facility] Comment on above: Result Comment: Afri can [place]ese GFR Calc Performed By: #### P FSC #### [facility] [address] [place], [address] GAP 2 Low 5-15 [facility] Comment on above: Performed By: #### P FSC #### [facility] [address] [place], [address] GFR/1.73 sq M.predicted among non-blacks MDRD (S/P/Bld) [Vol rate/Area] 81 mL/min/{1.73_m2} Normal >60 [facility] Comment on above: Result Comment: Non- GFR Calc Performed By: #### P FSC #### [facility] [address] [place], [address] Glucose [Mass/Vol] 95 mg/dL Normal 74-106 [facility] Comment on above: Performed By: #### P FSC #### [facility] [address] [place], [address] Potassium [Moles/Vol] 3.9 mmol/L Normal 3.5-5.1 [facility] Comment on above: Performed By: #### P FSC #### [facility] [address] [place], [address] Sodium [Moles/Vol] 141 mmol/L Normal 136-145 [facility] Comment on above: Performed By: #### P FSC #### [facility] [address] [place], [address] Urea nitrogen [Mass/Vol] 11 mg/dL Normal 7-18 [facility] Comment on above: Performed By: #### P FSC #### [facility] [address] [place], [address] Blood urea nitrogen (BUN)/cr eatinine ratioOrdered By: Marco Antonio Tapia on 05-19-2024 Urea nitrogen/Creatinine [Mass ratio] 14.5 mg/mg 10-20 [facility] Carbon dioxide measurementOr dered By: Marco Antonio Tapia on 05-19-2024 CO2 [Moles/Vol] 29.0 mmol/L 21.0-32.0 [facility] Chloride measurementOrdered By: Marco Antonio Tapia on 05-19-2024 Chloride [Moles/Vol] 109 mmol/L High 98-107 [facility] Discharge Instructionon 05-09 Discharge Instruction [facility] Medical Records Department [address] [place] [address] Instructions for Home/Discharge Instructions 05/19/24 1059 MR#: [id number] Acct: [id number] Name: KADIE LAGUNA Rep #: [id number] : 1955 69 From: Marco Antonio Tapia MD PCP: Dr. Cheryle De La Fuente MD Status:REG [facility] Discharge Instructions Diet Discharge Diet: No restrictions DC O2, CPAP, BIPAP needs Home O2 Discharge instructions: No Dressing / Incision Discharge Activity: Return to Normal Activity Dressing / Incision Call your doctor if your incision/area has: Increased Pain/ Swelling Additional Dressing/Incision Instructions:: keep ear dressing dry. mupirocin ointment to neck incision three times daily Follow Up Care Please Follow Up With: Marco Antonio Tapia MD When: 1 week Test Results: Test results from this visit will be discussed in further detail at your follow-up appointment, if applicable. Discharge Plan Admission Attending Provider: Marco Antonio Tapia Primary Care Provider: Cheryle De La Fuente Instructions Print Language: Angolan Discharge Orders/Prescriptions Prescriptions: No Action cholecalciferol (vitamin D3) 125 mcg (5,000 unit) capsule 125 mcg PO DAILY aspirin 81 mg capsule 81 mg PO DAILY calcium carbonate-vitamin D3 [Calcium 600 + D(3)] 600 mg-5 mcg (200 unit) tablet 1 tab PO DAILY famotidine [Acid Controller] 20 mg tablet 40 mg PO DAILY ascorbic acid (vitamin C) [C-500] 500 mg tablet 500 mg PO DAILY cyanocobalamin (vitamin B-12) [Vitamin B-12] 1,000 mcg tablet 1,000 mcg PO DAILY Stelara 90 mg/mL syringe 90 mg subcut .Q8 WEEKS Patient Comments: LAST DOSE 04/17/23 atenolol 25 mg tablet 25 mg PO DAILY Qty: 90 3RF Referrals / Follow Up: Cheryle De La Fuente MD [Primary Care Provider] - Disposition Disposition (needs filled in before D/C Order can be placed): Home, Self Care 05/19/24 1101 Marco Antonio Tapia MD CC: Dr. Cheryle De La Fuente MD Signed Normal [facility] Frozen Section (charge)on Frozen Section (charge) -------- Patient Age/Sex Location Account Attending Physician LUZ ELENAKADIE ANN 69/F [facility] [id number] Moshe Patton Specimen: [id number] Received: 05/19/24 Status: MARIELY Jameson Num: [id number] Spec Type: Lesion Subm Dr: Dr. Marco Antonio Tapia MD HEADER OPERATION: Excision, lesion left ear, frozen section with skin graft PRE-OP DIAGNOSIS: Basal cell carcinoma of skin of left ear TISSUE SUBMITTED: Left ear mass for frozen section FROZEN SECTION DIAGNOSIS Left ear mass, excisional biopsy: Negative for carcinoma. Changes consistent with previous biopsy site. Case has been reviewed in consultation with Dr. Wood who concurs with the above diagnosis. IDC:TURNER VILLEDA.mr 05/19/2024 MICROSCOPIC DIAGNOSIS Left ear mass, excisional biopsy: Negative for carcinoma. Dermal chronic inflammation and changes consistent with previous biopsy site. SJ.mr 05/20/2024 MICROSCOPIC DESCRIPTION Slides are reviewed. GROSS DESCRIPTION Received fresh for frozen section diagnosis labeled with the patient's name is a specimen designated Left ear mass. The specimen consists of a round piece of west-white skin measuring 0.5 x 0.5 x 0.1cm. The specimen is inked, bisected and submitted for frozen section diagnosis in one cassette. CHRISTIANA.mr 05/19/2024 TC:3 [facility]:[id number] Patient Age/Sex Location Account Attending Physician KADIE LAGUNA 69/F [facility] [id number] Moshe Patton Signed (signature on file) Dr. Larry Mustafa MD 05/20/24 1050 Normal [facility] Comment on above: Performed By: #### P FSC #### [facility] [address] [place], [address] Glomerular filtration rate ( GFR) estimationOrdered By: Marco Antonio Tapia on 05-19-2024 GFR/1.73 sq M.predicted among non-blacks MDRD (S/P/Bld) [Vol rate/Area] 81 mL/min/{1.73_m2} >60 [facility] Comment on above: Non- GFR Calc Glucose measurementOrdered B y: Marco Antonio Tapia on 05-19-2024 Glucose [Mass/Vol] 95 mg/dL 74-106 [facility] MR/POSTOP.ANEon 05-19-2024 MR/POSTOP.[facility] Medical Records Department [address] [place] [address] Anesthesia Postop Eval I 05/19/24 1223 MR#: [id number] Acct: [id number] Name: KADIE LAGUNA MEAGHAN Rep #: [id number] : 1955 69 From: Francisca Concepcion PCP: Dr. Cheryle De La Fuente MD Status:REG SDC Y Race: C Location: [place] [address] Anesthesia: Postop Eval I Current Vital Signs Temperature: 97.1 F Pulse Rate: 79 Blood Pressure: 96/82 Respiratory Rate: 16 Pulse Ox: 100 Oxygen Delivery Method: Room Air Assessment Airway patent: Yes Spontaneous unlabored respirations: Yes Mental status: Awake and Calm nausea: No Vomiting: No Anesthesia Complication: No Fluid Hydration Crystalloid volume administer (ml): 1,000 Total IV fluid infused: 1,000 Progress Note Anesthesia document: Postop Eval 1 completed: Yes 05/19/24 1223 Date Francisca Wheelerigner Signature: Date CC: Signed Normal [facility] MR/[id number] 05-19-2024 MR/POSTOPAN2 [facility] Medical Records Department [address] [facility] [place] [address] Anesthesia Postop Eval II 05/19/24 1321 MR#: [id number] Acct: [id number] Name: KADIE LAGUNA MEAGHAN Rep #: [id number] : 1955 69 From: Ace Valdivia MD PCP: Dr. 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 SURGEON.GDOTT Spontaneous unlabored Yes 05/19/24 12:23 OPHTHALMIC SURGEON.GDOTT respirations Mental status Awake,Calm 05/19/24 12:23 OPHTHALMIC SURGEON.GDOTT nausea No 05/19/24 12:23 OPHTHALMIC SURGEON.GDOTT Vomiting No 05/19/24 12:23 OPHTHALMIC SURGEON.GDOTT Anesthesia Postop Eval I: Fluid Summary Crystalloid volume administer 1,000 05/19/24 12:23 OPHTHALMIC SURGEON.GDOTT (ml) Colloids volume administered ( ml) Blood Product volume administered (ml) Total IV fluid infused 1,000 05/19/24 12:23 OPHTHALMIC SURGEON.GDOTT Anesthesia Postop Eval I: Summary Notes Anesthesia Complication No 05/19/24 12:23 OPHTHALMIC SURGEON.GDOTT Anesthesia Complication Comment: Post-operative progress note Anesthesia: Postop Eval II Evaluation Mental status: Awake and Calm Pain Level: 1 nausea: No Vomiting: No Complications Anesthesia Complication: No 05/19/24 1322 Date Ace Kancherla MD Cosigner Signature: Date CC: Signed Normal [facility] Operative Reporton 5 Operative Report [facility] Medical Records Department [address] [place] [address] Operative Report 05/19/24 1101 MR#: [id number] Acct: [id number] Name: KADIE LAGUNA Rep #: [id number] : 1955 69 From: Marco Antonio Tapia MD PCP: Dr. Cheryle De La Fuente MD Status:[facility] Location: [place] [address] Problems Associated Problem List Diagnoses (1) Basal cell carcinoma, ear: Operative Report (Standard) Operative Information Date of Procedure: 05/19/24 Pre-Operative Diagnosis: basal cell carcinoma, left pinna Post-Operative Diagnosis: basal cell carcinoma, left pinna Surgery/Procedure Performed: 1. excision left ear basal cell carcinoma, 1x1 cm 2. full thickness skin graft, neck; 1x1 cm dedicated intermodal truck driver: No Type of Anesthesia: General RN Documented Start/Stop Times: Operation Date: 05/19/24 10:35 Case Time Into Pre-Op 05/19/24 09:00 Out of Pre-Op 05/19/24 10:52 Procedure Start Time: 11:03 Procedure Stop Time: 12:30 Select all DRAINS/GRAFTS/IMPLANTS that apply: None Estimated Blood Loss: 0 Specimen collected: Yes Description of specimen(s) removed: left ear lesion Description of surgery: on the day of the procedure, after appropriate informed consent was obtained, the patient was brought to the operating room and placed in supine position on the operating table. she was placed under general anesthesia by the anesthesiologist. the tube was secured, the eyes were taped. the left ear and neck were prepped and draped in sterile fashion. the macular lesion was roughly 1cm x 1cm. this was in the inferior leobardo cavum. this was injected with lidocaine/epinephrine. the lesion was excised in full with a ramona blade. this was sent for frozen section. this was an area of previous biopsy-proven basal cell carcinoma. pathologic analysis was reportedly negative for any carcinoma. given this, additional margins were not taken. the defect was 1cm x 1cm. the left neck was injected with lidocaine/epinephrine, and a 1 x 1 cm elliptical graft was taken with a ramona blade. the surrounding tissue was undermined with an iris scissor, and closed with 4-0 vicryl and 5-0 fast gut. the graft was inserted into the defect and sutured with 4-0 PDS and 5-0 fast gut. the patient was awoken from anesthesia and transferred to the PACU in stable condition. Surgical Findings: n/a Complications Complications: No 05/19/24 1301 Cosigner Signature (if applicable): CC: Dr. Marco Antonio Tapia MD; Dr. Cheryle De La Fuente MD Signed Normal [facility] Potassium measurementOrdered By: Marco Antonio Tapia on 05-19-2024 Potassium [Moles/Vol] 3.9 mmol/L 3.5-5.1 [facility] Serum anion gap measurementO rdered By: Marco Antonio Tapia on 05-19-2024 Anion gap [Moles/Vol] 2 mmol/L Low 5-15 [facility] Serum or plasma calcium blair urement (mass/volume)Ordered By: Marco Antonio Tapia on 05-19-2024 Calcium [Mass/Vol] 9.2 mg/dL 8.5-10.1 [facility] Serum or plasma creatinine m easurement (mass/volume)Ordered By: Marco Antonio Tapia on 05-19-2024 Creatinine [Mass/Vol] 0.76 mg/dL 0.55-1.02 [facility] Comment on above: The validity of the calculated GFR & GFRAA in patients over 70 years has not been determined. Clinical correlation is essential. Serum or plasma urea nitroge n measurement (mass/volume)Ordered By: Marco Antonio Tapia on 05-19-2024 Urea nitrogen [Mass/Vol] 11 mg/dL 7-18 [facility] Sodium levelOrdered By: Radha Tapia on 05-19-2024 Sodium [Moles/Vol] 141 mmol/L 136-145 [facility] MR/LINon 05-05-2024 MR/PAT.[facility] Medical Records Department [address] [place] [address] PAT - Anesthesia 05/05/242020 MR#: [id number] Acct: [id number] Name: KADIE LAGUNA Rep #: [id number] : 1955 69 From: Ace Valdivia MD PCP: Dr. 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 When Was Last Pacemaker Check QUESTION #4 FULL TEXT: You/Your Family Experience fever (hyperthermia) with Anesthesia Last Oral Intake Last Oral intake: Last Oral Intake NPO since Meds taken in AM with sips of water? 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 Has anyone observed you stop No 05/05/24 10:22 breathing during sleep? STOP Results Negative 05/05/24 10:22 QUESTION #5 FULL TEXT : Do you snore loudly (louder than talking or can be heard through closed doors)? 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 Specify any problems Hx of Preganancy in last 3 No 05/05/24 10:22 Months Nurse Filling Out Transfusion VCHRISTIN 05/05/24 10:22 Questions: Date: 05/05/24 05/05/24 10:22 Time: 10:24 05/05/24 10:22 Patient unable to answer at this time (ie. 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 main battle tank Hx Now Gestational Age (in weeks): EDC: Hx Hx Para Hx Section SAB COUNTS INCLUDE 234 BEDS AT THE [facility] Medical History (Updated 05/05/24 @ 10:22 by Tabitha Posey) History of Crohn's disease Wears contact lenses Wears glasses Alcohol use Arthritis Injury of back Gastric reflux Non-smoker History of Holter monitoring History of echocardiogram History of stress test Cardiology follow-up encounter Paroxysmal atrial fibrillation Cervical stenosis of spine Positive PHOENIX (antinuclear antibody) BCC (basal cell carcinoma), face Atrial fibrillation Back pain SBO (small bowel obstruction) Chest pain Palpitations Foreign body in soft tissue Personal history of retained foreign body fully removed ( 04/2019) Vasovagal syncope IBD (inflammatory bowel disease) Overweight (BMI 25.0-29.9) Home Medications ???Medication ???Instructions ???Recorded ???Last Taken ???Type cholecalciferol (vitamin D3) 125 125 mcg PO DAILY 08/25/21 07/15/23 History mcg (5,000 unit) capsule aspirin 81 mg capsu (more content not included)... Normal [facility] Urgent Care Visit Reporton 0 04-18-2024 Urgent Care Visit Report [facility] [address] [place] [address] OFFICE VISIT Date of Service: 04/18/24 MR#: [id number] Acct: [id number] Name: KADIE LAGUNA MEAGHAN Rep #: [id number] : 1955 Provider: YAHAIRA Tran Age/Sex: 69/F Location[facility] Status: Signed Intake Vital Signs 03/17/24 09:02 04/18/24 11:45 Height 5 ft 6 in 5 ft 7 in Weight: 189 lb 189 lb 6 oz BMI 30.4 29.6 BP 132/88 H 128/80 H Blood Pressure Location Lt brachial Lt brachial Position Sitting Sitting Respiration 18 16 Pulse 71 84 Pulse Source Monitor NIBP Temp 98.3 F Temp Source Oral Pulse Oximetry (%) 98 Intake Visit Reasons: Cough Chief Complaint: cough, drainage [employer] Required: No Is patient in pain?: No Allergies escitalopram (From Lexapro) Allergy (Verified 04/18/24 11:46) Hives,Sedation Penicillins Allergy (Verified 04/18/24 11:46) Rash meperidine (From Demerol) Adverse Reaction (Mild, Verified 04/18/24 11:46) Nausea ciprofloxacin Adverse Reaction (Verified 04/18/24 11:46) Dizziness venlafaxine (From Effexor) Adverse Reaction (Verified 04/18/24 11:46) Constipation Medications ???Medication ???Instructions ???Recorded ???Confirmed ???Type cholecalciferol (vitamin D3) 125 125 mcg PO DAILY 08/25/21 04/18/24 History mcg (5,000 unit) capsule aspirin 81 mg capsule 81 mg PO DAILY 07/12/23 04/18/24 History ustekinumab 130 mg/26 mL 390 mg IV X1 07/25/23 04/18/24 History intravenous solution (Stelara) atenolol 25 mg tablet 25 mg PO DAILY #90 tabs 11/27/23 04/18/24 Rx famotidine 20 mg tablet 20 mg PO QDAY 03/17/24 04/18/24 History azithromycin 250 mg tablet See Rx Instructions PO .COMPLEX #6 04/18/24 04/18/24 Rx tabs Is last menstrual period known: No Post menopausal: Yes Patient : No Have you fallen in the past year?: No Nurse's Note: cough, drainage for over 2 weeks without resolve. denies SOLIS, BA, fever, ST. cough worse at noc. COUNTS INCLUDE 234 BEDS AT THE [facility] Medical History Wears contact lenses Wears glasses Alcohol use Arthritis Injury of back Gastric reflux Non-smoker History of Holter monitoring History of echocardiogram History of stress test Cardiology follow-up encounter Paroxysmal atrial fibrillation Cervical stenosis of spine Positive PHOENIX (antinuclear antibody) BCC (basal cell carcinoma), face Atrial fibrillation Back pain SBO (small bowel obstruction) Chest pain Palpitations Foreign body in soft tissue Personal history of retained foreign body fully removed ( 04/2019) Vasovagal syncope IBD (inflammatory bowel disease) Overweight (BMI 25.0-29.9) Surgical History History of left heart catheterization (LHC) ( 04/12/21) History of tubal ligation Hx of vein stripping History of right oophorectomy H/O hemorrhoidectomy History of bladder suspension procedure H/O breast biopsy Family History Father CAD (coronary artery disease) Hypertension Atrial fibrillation Arthritis Mother Heart disease Atrial fibrillation Arthritis Brother Hypertension Social History household members: spouse and children housing: house current occupational status: employed 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 Smoking Status: Never smoker alcohol intake: current alcohol intake frequency: 0-2 drinks per day substance use type: does not use caffeine: Yes Type: coffee Number of servings: 3 what type of physical activity do you participate in: walking frequency: daily do you feel safe at home: Yes HPI HPI Chief Complaint: cough, drainage Details: KADIE LAGUNA, is a 69 F who presents to the office today for cough -sx started 2 wks ago -sx nagging drainage cough- yellow mucous, + runny nose and congestion, denies ST, body aches or ST, no fever or chills, denies headaches or facial pressure -denies hx asthma or copd -non smoker -tried so far advil cold and sinus, mucinex, nyquil, aleve ROS Const Constitutional: Positive for other (ROS negative x6 except what was placed in HPI) Exam Const General: cooperative, comfortable and no acute distress Orientation: alert, awake and oriented x3 HENMT Head: normal to inspection and normocephalic Ears: hearing grossly normal bilaterally, external ears normal and TM's normal bilaterally Nose: external nose normal and other (+ congestion and rhinorrhea. Mild erythema and swelling) Face and sinus: normal facial exam, sinuses nontender and face symmetric Mouth: oral mucosae normal, lip normal, tongue normal, oropharynx normal and moist mucous membranes Throat: posterior oropharynx normal, (more content not included)... Normal [facility] Gastroenterology Visit Repor ton 04-06-2024 Gastroenterology Visit Report [facility] [address] [place] [address] OFFICE VISIT Date of Service: 04/06/24 MR#: [id number] Acct: [id number] Name: KADIE LAGUNA MEAGHAN Rep #: [id number] : 1955 Provider: Jun Marin, Age/Sex: 69/F Location[facility] Status: Signed Intake Vital Signs 10/03/23 08:53 03/17/24 09:02 Height 5 ft 6 in 5 ft 6 in Weight: 189 lb BMI 30.4 BP 132/88 H Blood Pressure Location Lt brachial Position Sitting Respiration 18 Pulse 71 Pulse Source Monitor Pulse Oximetry (%) 98 Intake Visit Reasons: 3 M FU Allergies escitalopram (From Lexapro) Allergy (Verified 03/17/24 09:03) Hives,Sedation Penicillins Allergy (Verified 03/17/24 09:03) Rash meperidine (From Demerol) Adverse Reaction (Mild, Verified 03/17/24 09:03) Nausea ciprofloxacin Adverse Reaction (Verified 03/17/24 09:03) Dizziness venlafaxine (From Effexor) Adverse Reaction (Verified 03/17/24 09:03) Constipation Medications ???Medication ???Instructions ???Recorded ???Confirmed ???Type cholecalciferol (vitamin D3) 125 125 mcg PO DAILY 08/25/21 04/06/24 History mcg (5,000 unit) capsule aspirin 81 mg capsule 81 mg PO DAILY 07/12/23 04/06/24 History ustekinumab 130 mg/26 mL 390 mg IV X1 07/25/23 04/06/24 History intravenous solution (Stelara) atenolol 25 mg tablet 25 mg PO DAILY #90 tabs 11/27/23 04/06/24 Rx famotidine 20 mg tablet 20 mg PO QDAY 03/17/24 04/06/24 History Have you fallen in the past year?: No PFSH Medical History Wears contact lenses Wears glasses Alcohol use Arthritis Injury of back Gastric reflux Non-smoker History of Holter monitoring History of echocardiogram History of stress test Cardiology follow-up encounter Paroxysmal atrial fibrillation Cervical stenosis of spine Positive PHOENIX (antinuclear antibody) BCC (basal cell carcinoma), face Atrial fibrillation Back pain SBO (small bowel obstruction) Chest pain Palpitations Foreign body in soft tissue Personal history of retained foreign body fully removed ( 04/2019) Vasovagal syncope IBD (inflammatory bowel disease) Overweight (BMI 25.0-29.9) Surgical History History of left heart catheterization (LHC) ( 04/12/21) History of tubal ligation Hx of vein stripping History of right oophorectomy H/O hemorrhoidectomy History of bladder suspension procedure H/O breast biopsy Family History Father CAD (coronary artery disease) Hypertension Atrial fibrillation Arthritis Mother Heart disease Atrial fibrillation Arthritis Brother Hypertension Social History household members: spouse and children housing: house current occupational status: employed 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 Smoking Status: Never smoker alcohol intake: current alcohol intake frequency: 0-2 drinks per day substance use type: does not use caffeine: Yes Type: coffee Number of servings: 3 what type of physical activity do you participate in: walking frequency: daily do you feel safe at home: Yes HPI HPI Details: KADIE LAGUNA, is a 69 F who presents to the office today for follow up. Prior workup: ?Col onoscopy 01.17.12???erythema of ascending colon Colonoscopy 07.21.14???prominent ICV, ?ileal prolapse. Remaining exam without acute/chronic concern. Pathology melanosis coli with increased eosin; ICV focal acute colitis with cryptitis and early granulation of impending ulcer [employer] ED 10.11.20 with abdominal pain ??? concern for SBO that was r/o with radiology. Recommend OV with surgeon. ?CT abd/pel 7.08.26???hepatic cyst; multiple small bowel loops with wall thickening and edema, likely enteritis WSA OV .10.26 recommending establishment with GI. ?Sma ll bowel Xray 10.14.20???without acute/chronic finding *BGI established 12.16.20 for further investigation of IBD with history of multiple abdominal surgeries and ED visits for abdominal pain. Cupola Patcher workup up lupus erythematosus versus discoid lupus without positive diagnosis of either. ?Bio chemical 12.21.20???IBD WNL ?CT abd/pel 01.06.21 (PCP)???without acute/chronic finding ?MRE nterography 01.10.21???without acute/chronic finding OV 01.26.21 with ongoing loose stools without urgency of incontinence. Recommend capsule endoscopy with preceding agile capsule.???Start doxycycline OV 07.03.23- Pt stat (more content not included)... Normal [facility] Cardiology Visit Reporton Cardiology Visit Report [facility]. [address] [place] [address] OFFICE VISIT Date of Service: 03/17/24 MR#: [id number] Acct: [id number] Name: KADIE LAGUNA MEAGHAN Rep #: [id number] : 1955 Provider: JOEL Dowd Age/Sex: 69/F [place] [facility] Status: Signed HPI HPI History of Present Illness Details: Anabel Laguna is a 69-year-old female that presents here today for a cardiovascular follow-up. She has a history of paroxysmal atrial fibrillation. She did see EP, since her Afib was not frequent, he did not feel that she needed an ablation at this time. She was recently diagnosed with Chrons. Pt notes that last week she had an episode of chest pain. She did call the squad. Telemetery was NSR. She was recovering from vomiting the night before. She has not had any episodes of Afib. She does not have any worsening symptoms of shortness of breath. She does not have any orthopnea. She denies PND. She does not have any symptoms of congestive heart failure. She does not have any lightheadedness or dizziness. She does not have any near-syncope or syncope. She does not have any lower extremity edema. She does not have any symptoms of claudication. Intake Vital Signs 10/03/23 08:53 03/17/24 09:02 Height 5 ft 6 in 5 ft 6 in Weight: 187 lb 189 lb BMI 30.2 30.4 BP 133/81 H 132/88 H Blood Pressure Location Lt brachial Lt brachial Position Sitting Sitting Respiration 18 18 Pulse 69 71 Pulse Source Monitor Monitor Pulse Oximetry (%) 99 98 Intake Visit Reasons: 6 M FU [employer] Required: No Is patient in pain?: No Allergies escitalopram (From Lexapro) Allergy (Verified 03/17/24 09:03) Hives,Sedation Penicillins Allergy (Verified 03/17/24 09:03) Rash meperidine (From Demerol) Adverse Reaction (Mild, Verified 03/17/24 09:03) Nausea ciprofloxacin Adverse Reaction (Verified 03/17/24 09:03) Dizziness venlafaxine (From Effexor) Adverse Reaction (Verified 03/17/24 09:03) Constipation Medications ???Medication ???Instructions ???Recorded ???Confirmed ???Type cholecalciferol (vitamin D3) 125 125 mcg PO DAILY 08/25/21 03/17/24 History mcg (5,000 unit) capsule aspirin 81 mg capsule 81 mg PO DAILY 07/12/23 03/17/24 History ustekinumab 130 mg/26 mL 390 mg IV X1 07/25/23 03/17/24 History intravenous solution (Stelara) atenolol 25 mg tablet 25 mg PO DAILY #90 tabs 11/27/23 03/17/24 Rx famotidine 20 mg tablet 20 mg PO QDAY 03/17/24 03/17/24 History Have you fallen in the past year?: No PFSH Medical History Wears contact lenses Wears glasses Alcohol use Arthritis Injury of back Gastric reflux Non-smoker History of Holter monitoring History of echocardiogram History of stress test Cardiology follow-up encounter Paroxysmal atrial fibrillation Cervical stenosis of spine Positive PHOENIX (antinuclear antibody) BCC (basal cell carcinoma), face Atrial fibrillation Back pain SBO (small bowel obstruction) Chest pain Palpitations Foreign body in soft tissue Personal history of retained foreign body fully removed ( 04/2019) Vasovagal syncope IBD (inflammatory bowel disease) Overweight (BMI 25.0-29.9) Surgical History History of left heart catheterization (LHC) ( 04/12/21) History of tubal ligation Hx of vein stripping History of right oophorectomy H/O hemorrhoidectomy History of bladder suspension procedure H/O breast biopsy Family History Father CAD (coronary artery disease) Hypertension Atrial fibrillation Arthritis Mother Heart disease Atrial fibrillation Arthritis Brother Hypertension Social History household members: spouse and children housing: house current occupational status: employed 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 Smoking Status: Never smoker alcohol intake: current alcohol intake frequency: 0-2 drinks per day substance use type: does not use caffeine: Yes Type: coffee Number of servings: 3 what type of physical activity do you participate in: walking frequency: daily do you feel safe at home: Yes ROS Const Const: Positive for weight gain; Negative for fatigue, weakness or headache(s) Eyes Eyes: Negative for blind spots, loss of peripheral vision or transient loss of vision ENT ENT: Negative for headache(s), dizziness, Nosebleed/epistaxis or balance problems Cardio Chest Pain: Yes Palpitations: No Edema: None Muscle aches with walking: None Resp Respiratory: Negative for SOB with activity, SOB at rest or SOB orthopnea SOB lying down GI GI: Positive for blo (more content not included)... Normal [facility] Miscellaneous Lab Procedureo n 03-02-2024 MISC LAB TEST Normal [facility] Comment on above: Order Comment: Comme nts: Stelara levels [facility] [id number] Stelara levels SER/FZ Result Comment: Scan yair image report available in EMR Performed By: #### P FSC #### [facility] [address] [place], [place], [id number] Gastroenterology Visit Repor ton 01-03-2024 Gastroenterology Visit Report [facility]enter[facility] [address] [place] [address] OFFICE VISIT Date of Service: 01/03/24 MR#: [id number] Acct: [id number] Name: KADIE LAGUNA Rep #: [id number] : 1955 Provider: Jun Marin DO Age/Sex: 68/F [place] [facility] [place]: Signed Intake Vital Signs 10/03/23 08:53 Height 5 ft 6 in Weight: 187 lb BMI 30.2 BP 133/81 H Blood Pressure Location Lt brachial Position Sitting Respiration 18 Pulse 69 Pulse Source Monitor Pulse Oximetry (%) 99 Intake Visit Reasons: 3 M FU Allergies escitalopram (From Lexapro) Allergy (Verified 10/03/23 08:53) Hives,Sedation Penicillins Allergy (Verified 10/03/23 08:53) Rash meperidine (From Demerol) Adverse Reaction (Mild, Verified 10/03/23 08:53) Nausea ciprofloxacin Adverse Reaction (Verified 10/03/23 08:53) Dizziness venlafaxine (From Effexor) Adverse Reaction (Verified 10/03/23 08:53) Constipation Medications ???Medication ???Instructions ???Recorded ???Confirmed ???Type cholecalciferol (vitamin D3) 125 125 mcg PO DAILY 08/25/21 01/03/24 History mcg (5,000 unit) capsule aspirin 81 mg capsule 81 mg PO DAILY 07/12/23 01/03/24 History cyanocobalamin (vitamin B-12) 50 50 mcg PO DAILY 07/12/23 01/03/24 History mcg tablet (Vitamin B-12) ustekinumab 130 mg/26 mL 390 mg IV X1 07/25/23 01/03/24 History intravenous solution (Stelara) budesonide 3 mg 6 mg (2 x 3 mg) PO DAILY #60 caps 10/26/23 01/03/24 Rx capsule,delayed,extended release atenolol 25 mg tablet 25 mg PO DAILY #90 tabs 11/27/23 01/03/24 Rx Have you fallen in the past year?: No PFSH Medical History Wears contact lenses Wears glasses Alcohol use Arthritis Injury of back Gastric reflux Non-smoker History of Holter monitoring History of echocardiogram History of stress test Cardiology follow-up encounter Paroxysmal atrial fibrillation Cervical stenosis of spine Positive PHOENIX (antinuclear antibody) BCC (basal cell carcinoma), face Atrial fibrillation Back pain SBO (small bowel obstruction) Chest pain Palpitations Foreign body in soft tissue Personal history of retained foreign body fully removed ( 04/2019) Vasovagal syncope IBD (inflammatory bowel disease) Overweight (BMI 25.0-29.9) Surgical History History of left heart catheterization (LHC) ( 04/12/21) History of tubal ligation Hx of vein stripping History of right oophorectomy H/O hemorrhoidectomy History of bladder suspension procedure H/O breast biopsy Family History Father CAD (coronary artery disease) Hypertension Atrial fibrillation Arthritis Mother Heart disease Atrial fibrillation Arthritis Brother Hypertension Social History household members: spouse and children housing: house current occupational status: employed 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 Smoking Status: Never smoker alcohol intake: current alcohol intake frequency: 0-2 drinks per day substance use type: does not use caffeine: Yes Type: coffee Number of servings: 3 what type of physical activity do you participate in: walking frequency: daily do you feel safe at home: Yes HPI HPI Details: KADIE LAGUNA, is a 68 F who presents to the office today for follow up. Prior workup: ?Col onoscopy 01.17.12???erythema of ascending colon Colonoscopy 07.21.14???prominent ICV, ?ileal prolapse. Remaining exam without acute/chronic concern. Pathology melanosis coli with increased eosin; ICV focal acute colitis with cryptitis and early granulation of impending ulcer [facility] ED 7..21 with abdominal pain ??? concern for SBO that was r/o with radiology. Recommend OV with surgeon. ?CT abd/pel .08.26???hepatic cyst; multiple small bowel loops with wall thickening and edema, likely enteritis WSA OV 10.12.20 recommending establishment with GI. ?Sma ll bowel Xray 10.14.20???without acute/chronic finding *BGI established 12.16.20 for further investigation of IBD with history of multiple abdominal surgeries and ED visits for abdominal pain. Cupola Patcher workup up lupus erythematosus versus discoid lupus without positive diagnosis of either. ?Bio chemical 12.21.20???IBD WNL ?CT abd/pel 01.06.21 (PCP)???without acute/chronic finding ?MRE nterography 01.10.21???without acute/chronic finding OV 01.26.21 with ongoing loose (more content not included)... Normal [facility] Giardia lamblia ag stool EIA Ordered By: Jun Friend on 07-04-2023 G. lamblia Ag IA Ql (Stl) Negative Negative [facility] Comment on above: Performed at: [facility] - [facility] [address] [id number] Director: Conor Velez MD, Phone: [phone] at: - [facility] [address] [place] [id number] Director: Toni Whitt PhD, Phone: [phone] No Panel InformationOrdered By: Jun Marin on 07-04-2023 Stool Calprotectin 304 ug/g 0-120 [facility] Comment on above: Concentration Interp retation Follow-Up< 5 - 50 ug/g Normal None>50 -120 ug/g Borderline Re-evaluate in 4-6 weeks >120 ug/g Abnormal Repeat as clinically indicatedPerformed at: - [facility] [id number] Director: Conor Velez MD, Phone: [phone] Stool lactoferrin detection by immunoassayOrdered By: Jun Marin on 07-04-2023 Lactoferrin IA Ql (Stl) [facility] Stool pancreatic elastase me asurement (mass/mass)Ordered By: Jun Marin on 07-04-2023 Elastase.pancreatic (Stl) [Mass/Mass] 144 >200 [facility] Comment on above: Result Units: ug Suzy st./g Severe Pancreatic Insufficiency: <100 Moderate Pancreatic Insufficiency: 100 - 200 Normal: >200 Albumin Elph [Mass/Vol]Order ed By: Jun Marin on 07-03-2023 Albumin [Mass/Vol] 3.4 g/dL 2.9-4.4 [facility] Basophil percentageOrdered B y: Jun Marin on 07-03-2023 Bilirubin [Mass/Vol] 0.40 mg/dL 0.20-1.00 [facility] Comment on above: For patients on eltr ombopag therapy, use of Dimension [place] TBIL is not recommended. Chloride [Moles/Vol] 105 mmol/L 98-107 [facility] Glucose [Mass/Vol] 94 mg/dL 74-106 [facility] LDH [Catalytic activity/Vol] 171 U/L 84-246 [facility] Potassium [Moles/Vol] 3.8 mmol/L 3.5-5.1 [facility] Protein [Mass/Vol] 6.6 g/dL 6.4-8.2 [facility] Sodium [Moles/Vol] 139 mmol/L 136-145 [facility] Chitobioside IgA antibody as sayOrdered By: Jun Marin on 07-03-2023 Chitobioside IgA IA Qn 25 units 0-90 [facility] Comment on above: Negative: <80 Equivo maribeth: 80-90 Positive: >90 Chocolate IgE serumOrdered B y: Jun Marin on 07-03-2023 Chocolate IgE Qn (S) <0.10 kU/L Class 0 [facility] Erythrocyte sedimentation ra teOrdered By: Jun Marin on 07-03-2023 ESR (Bld) [Velocity] 5 mm/h 0-30 [facility] Interpretation of serum or p lasma protein pattern by immunofixation (narrative resultOrdered By: Jun Marin on 07-03-2023 Protein Fractions Immunofixation Srini [Interp] Not Observed g/dL Not Observed [facility] - Chemistry and C hemistry - challengeOrdered By: Jun Marin on 07-03-2023 Albumin/Globulin [Mass ratio] 1.1 {ratio} 0.9-2.4 [facility] ALP [Catalytic activity/Vol] 71 U/L 45-117 [facility] ALT [Catalytic activity/Vol] 21 U/L 13-56 [facility] CO2 [Moles/Vol] 28.0 mmol/L 21.0-32.0 [facility] Ferritin [Mass/Vol] 27 ng/mL 8-252 [facility] Globulin (S) [Mass/Vol] 3.1 g/dL 2.2-4.2 [facility] Urea nitrogen/Creatinine [Mass ratio] 14.9 mg/mg 10-20 [facility] - Miscellaneous t estsOrdered By: Jun Marin on 07-03-2023 Laboratory comment Srini (Report) Comment . [facility] Comment on above: Pattern is not sugge stive of Inflammatory Bowel Disease Service comment (Unsp spec) [Interp] Comment . [facility] Comment on above: Levels of Specific I gE Class Description of Class ----- < 0.10 0 Negative 0.10 - 0.31 0/I Equivocal/Low 0.32 - 0.55 I Low 0.56 - 1.40 II Moderate 1.41 - 3.90 III High 3.91 - 19.00 IV Very High 19.01 - 100.00 V Very High >100.00 Very High Laminaribioside carbohydrate IgG antibody assayOrdered By: Jun Marin on 07-03-2023 Laminaribioside IgG IA Qn 7 units 0-60 [facility] Comment on above: Negative:<55 Equivoc al: 55-60 Positive: >60 No Panel InformationOrdered By: Jun Marin on 07-03-2023 Addendum Document Comment . [facility] Comment on above: Protein electrophore sis scan will follow via computer,mail, or paleology professor delivery. Atypical p-ANCA <1:20 titer Neg:<1:20 [facility] Comment on above: *Additional results available. Contact laboratory/see report*The atypical pANCA pattern has been observed in asignificant percentage of patients with ulcerative colitis,primary sclerosing cholangitis and autoimmune hepatitis. C-Reactive Protein Extended Range 3.63 mg/L 0.0-3.0 [facility] Comment on above: C-Reactive Protein ( CRP) provides useful information for thediagnosis, therapy and monitoring of inflammatory processesand associated diseases. For the evaluation of Relative Riskfor Cardiovascular Disease, a High Sensitivity CRP (HSCRP)should be ordered. Endomysial IgA Antibody Negative Negative [facility] Estimated GFR (MDRD) Amer 101 mL/min >60 [facility] Comment on above: GFR Calc Estimated GFR (MDRD) Non-Af Amer 84 mL/min >60 [facility] Comment on above: Non- GFR Calc Free Triiodothyronine (T3) pg/dL 2.1 pg/mL 2.18-3.98 [facility] Immunoglobulin E 15 IU/mL 6-495 [facility] Immunoglobulin G4 11 mg/dL 2-96 [facility] Immunoglobulin M 86 mg/dL 26-217 [facility] Intrinsic Factor Antibody 1.0 AU/mL 0.0-1.1 [facility] Mussel Allergen IgE Antibody <0.10 kU/L Class 0 [facility] Saccharomyces cerevisiae (Sarahi)IgG 13 units 0-50 [facility] Comment on above: Negative: <45 Equivo maribeth: 45-50 Positive: >50 Shrimp Allergen <0.10 kU/L Class 0 [facility] Total Iron Binding Capacity 310 ug/dL 250-450 [facility] Qualitative QuantiFERON-TB g old in tube testOrdered By: Jun Marin on 07-03-2023 M. tuberculosis tuberculin stim IFN-g Ql (Bld) 0.06 IU/mL . [facility] Serum IgG subclass 1 measure ment (mass/volume)Ordered By: Jun Marin on 07-03-2023 IgG subclass 1 (S) [Mass/Vol] 528 mg/dL 248-810 [facility] Serum IgG subclass 2 measure ment (mass/volume)Ordered By: Jun Marin on 07-03-2023 IgG subclass 2 (S) [Mass/Vol] 235 mg/dL 130-555 [facility] Serum IgG subclass 3 measure ment (mass/volume)Ordered By: Jun Marin on 07-03-2023 IgG subclass 3 (S) [Mass/Vol] 43 mg/dL 15-102 [facility] Serum [id number] measu rement by electrophoresisOrdered By: Jun Marin on 07-03-2023 Alpha 1 globulin Elph [Mass/Vol] 0.2 g/dL 0.0-0.4 [facility] Alpha 1 globulin Elph [Mass/Vol] 0.7 g/dL 0.4-1.0 [facility] Serum beef IgE antibody assa y (units/volume)Ordered By: Jun Marin on 07-03-2023 Beef IgE Qn (S) <0.10 kU/L Class 0 [facility] Serum classic neutrophil cyt oplasmic antibody assay (units/volume)Ordered By: Jun Marin on 07-03-2023 Neutrophil cytoplasmic Ab.classic Qn (S) <1:20 titer Neg:<1:20 [facility] Serum codfish IgE antibody a ssay (units/volume)Ordered By: Jun Marin on 07-03-2023 Codfish IgE Qn (S) <0.10 kU/L Class 0 [facility] Serum corn IgE antibody assa y (units/volume)Ordered By: Jun Marin on 07-03-2023 Dysart IgE Qn (S) <0.10 kU/L Class 0 [facility] Serum cow milk IgE antibody assay (units/volume)Ordered By: Jun Marin on 07-03-2023 Cow milk IgE Qn (S) <0.10 kU/L Class 0 [facility] Serum globulin measurement ( mass/volume)Ordered By: Jun Marin on 07-03-2023 Globulin (S) [Mass/Vol] 2.8 g/dL 2.2-3.9 [facility] Serum or plasma IgA measurem ent (mass/volume)Ordered By: Jun Marin on 07-03-2023 IgA [Mass/Vol] 151 mg/dL 87-352 [facility] Serum or plasma IgG measurem ent (mass/volume)Ordered By: Jun Marin on 07-03-2023 IgG [Mass/Vol] 887 mg/dL [id number] [facility] IgG [Mass/Vol] Not Reportable [facility] Serum or plasma beta globuli n measurement by electrophoresis (mass/volume)Ordered By: Jun Marin on 07-03-2023 Beta globulin Elph [Mass/Vol] 1.0 g/dL 0.7-1.3 [facility] Serum or plasma calcium blair urement (mass/volume)Ordered By: Jun Marin on 07-03-2023 Calcium [Mass/Vol] 9.0 mg/dL 8.5-10.1 [facility] Serum or plasma creatinine m easurement (mass/volume)Ordered By: Jun Marin on 07-03-2023 Creatinine [Mass/Vol] 0.74 mg/dL 0.55-1.02 [facility] Comment on above: The validity of the calculated GFR & GFRAA in patients over 70 years has not been determined. Clinical correlation is essential. Serum or plasma estrogen karol surement (mass/volume)Ordered By: Jun Marin on 07-03-2023 Estrogen [Mass/Vol] 71 pg/mL 40-244 [facility] Comment on above: Prepubertal < 40 Fem pia Cycle: 1-10 Days 16 - 328 11-20 Days 34 - 501 21-30 Days 48 - 350 Post-Menopausal 40 - 244Performed at: [facility] [place], [place] [id number] Director: Toni Whitt PhD, Phone: [phone] at: [facility] [address] [place], [place] [id number] Director: Conor Velez MD, Phone: [phone] Serum or plasma gamma globul in measurement by electrophoresis (mass/volume)Ordered By: Jun Marin on 07-03-2023 Gamma globulin Elph [Mass/Vol] 0.8 g/dL 0.4-1.8 [facility] Serum or plasma gastrin blair urement (mass/volume)Ordered By: Jun Marin on 07-03-2023 Gastrin [Mass/Vol] 16 pg/mL 0-115 [facility] Comment on above: Siemens Immulite 200 0 Immunochemiluminometric assay (ICMA)Values obtained with different assay methods or kits cannotbe used interchangeably. Results cannot be interpreted asabsolute evidence of the presence or absence of malignantdisease. Serum or plasma immunoelectr ophoresis interpretation (nominal result)Ordered By: Jun Marin on 07-03-2023 Interpretation IEP [Interp] Comment . [facility] Comment on above: No monoclonality det ected. Serum or plasma mannobioside IgG antibody assay by immunoassay (units/volume)Ordered By: Jun Marin on 07-03-2023 Mannobioside IgG IA Qn 8 units 0-100 [facility] Comment on above: Negative: <90 Equivo maribeth: 90-100 Positive: >100 This test was developed and its performance characteristics determined by [facility]. It has not been cleared or approved by the Food and Drug Administration. The FDA has determined that such clearance or approval is not necessary. Serum or plasma progesterone measurement (mass/volume)Ordered By: Jun Marin on 07-03-2023 Progesterone [Mass/Vol] ng/mL See Comment [facility] Comment on above: Progesterone Referen ce Table: UNITS Female: Follicular 0.15 - 1.40 ng/mL Luteal 3.34 - 25.56 ng/mL Mid-luteal 4.44 - 28.03 ng/mL Postmenopausal 0.0 - 0.73 ng/mL : 1st Trimester 11.22 - 90.00 ng/mL 2nd Trimester 25.55 - 89.40 ng/mL 3rd Trimester 48.40 -422.50 ng/mL Serum or plasma thyroid stim ulating hormone (TSH) measurement (units/volume)Ordered By: Jun Marin on 07-03-2023 TSH Qn 1.47 uIU/mL 0.358-3.74 [facility] Serum or plasma urea nitroge n measurement (mass/volume)Ordered By: Jun Marin on 07-03-2023 Urea nitrogen [Mass/Vol] 11 mg/dL 7-18 [facility] Serum parietal cell antibody assay (units/volume)Ordered By: Jun Marin on 07-03-2023 Parietal cell Ab Qn (S) 2.1 Units 0.0-20.0 [facility] Comment on above: Negative 0.0 - 20.0 Equivocal 20.1 - 24.9 Positive >24.9Parietal Cell Antibodies are found in 90% of patientswith pernicious anemia and 30% of first degreerelatives with pernicious anemia. Serum peanut IgE antibody as say (units/volume)Ordered By: Jun Marin on 07-03-2023 Peanut IgE Qn (S) <0.10 kU/L Class 0 [facility] Serum perinuclear neutrophil cytoplasmic antibody titer by immunofluorescenceOrdered By: Jun Marin on 07-03-2023 Neutrophil cytoplasmic Ab.perinuclear IF (S) [Titer] <1:20 titer Neg:<1:20 [facility] Comment on above: The presence of posi tive fluorescence exhibiting P-ANCA orC-ANCA patterns alone is not specific for the diagnosis ofWegener's Granulomatosis (WG) or microscopic polyangiitis.Decisions about treatment should not be based solely onANCA IFA results. The [employer]CA [employer] Consensusrecommends follow up testing of positive sera with both [place]-3 and MPO-ANCA enzyme immunoassays. As many as 5% serumsamples are positive only by EIA. Ref. AM J Clin [id number];111:507-513. Serum pork IgE antibody assa y (units/volume)Ordered By: Jun Marin on 07-03-2023 Pork IgE Qn (S) <0.10 kU/L Class 0 [facility] Serum salmon IgE antibody as say (units/volume)Ordered By: Jun Marin on 07-03-2023 [place] IgE Qn (S) <0.10 kU/L Class 0 [facility] Serum soybean IgE antibody a ssay (units/volume)Ordered By: Jun Marin on 07-03-2023 Soybean IgE Qn (S) <0.10 kU/L Class 0 [facility] Serum tissue transglutaminas e IgA antibody assay (units/volume)Ordered By: Jun Marin on 07-03-2023 tTG IgA Qn (S) <2 U/mL 0-3 [facility] Comment on above: Negative 0 - 3 Weak Positive 4 - 10 Positive >10 Tissue Transglutaminase (tTG) has been identified as the endomysial antigen. Studies have demonstr- ated that endomysial IgA antibodies have over 99% specificity for gluten sensitive enteropathy. Serum tuna IgE antibody assa y (units/volume)Ordered By: Jun Marin on 07-03-2023 Tuna IgE Qn (S) <0.10 kU/L Class 0 [facility] Serum wheat IgE antibody ass ay (units/volume)Ordered By: Jun Marin on 07-03-2023 [place] IgE Qn (S) <0.10 kU/L Class 0 [facility] Serum whole egg IgE antibody assay (units/volume)Ordered By: Jun Marin on 07-03-2023 Whole [place] IgE Qn (S) <0.10 kU/L Class 0 [facility] Comment on above: Performed at: [address] [id number] Director: Conor Velez MD, Phone: [phone] Thin prep Papanicolaou smear with manual screeningOrdered By: Jun Marin on 07-03-2023 Thin prep Papanicolaou smear with manual screening 3.5 g/dL 3.2-5.0 [facility] Thin prep Papanicolaou smear with manual screening 16 U/L 15-37 [facility] Thin prep Papanicolaou smear with manual screening 6 5-15 [facility] Thin prep Papanicolaou smear with manual screening 1.31 ng/dL 0.76-1.46 [facility] Thin prep Papanicolaou smear with manual screening 44.5 ng/mL 0.0-101.8 [facility] Comment on above: Chromogranin A perfo rmed by [employer] KRYPTORmethodologyValues obtained with different assay methods or kits cannotbe used interchangeably. Thin prep Papanicolaou smear with manual screening 1.3 0.7-1.7 [facility] Thin prep Papanicolaou smear with manual screening Comment . [facility] Comment on above: QuantiFERON-TB Gold Plus is a qualitative indirect test forM tuberculosis infection (including disease) and isintended for use in conjunction with risk assessment,radiography, and other medical and diagnostic evaluations.The QuantiFERON-TB Gold Plus result is determined bysubtracting the Nil value from either TB antigen (Ag)value. The Mitogen tube serves as a control for the test. Thin prep Papanicolaou smear with manual screening 0.05 IU/mL . [facility] Thin prep Papanicolaou smear with manual screening 0.06 IU/mL . [facility] Thin prep Papanicolaou smear with manual screening > 10.00 IU/mL . [facility] Thin prep Papanicolaou smear with manual screening Negative Negative [facility] Comment on above: No response to M tub erculosis antigens detected.Infection with M tuberculosis is unlikely, but high riskindividuals should be considered for additional testing(ATS/IDSA/CDC Clinical Practice Guidelines, 2017). Thereference range is an Antigen minus Nil result of <0.35IU/mL.The specimen received for QuantiFERON testing was incubatedby the ordering institution. Specific procedures outlinedin our Directory of Services and in the package insert forthe QuantiFERON Gold (In Tube) test must be followed toenable for proper stimulation of cells for the productionof interferon gamma. Chemiluminescence immunoassaymethodology Total protein bloodOrdered B y: Jun Marin on 07-03-2023 Protein [Mass/Vol] 6.2 g/dL 6.0-8.5 [facility] No Panel InformationOrdered By: Cheryle De La Fuente on 11-30-2022 Homocysteine 9.9 umol/L 3.2-10.7 [facility] Serum or plasma methylmalona te measurement (moles/volume)Ordered By: Cheryle De La Fuente on 11-30-2022 Methylmalonate [Moles/Vol] 142 nmol/L 0-378 [facility] Comment on above: Performed at: [address] [id number] Director: Conor Velez MD, Phone: [phone] Absolute lymphocyte countOrd ered By: Cheryle De La Fuente on 11-26-2022 Lymphocytes Auto (Unsp spec) [#/Vol] 2.43 10*3/uL 0.83-4.51 [facility] Basophil percentageOrdered B y: Cheryle De La Fuente on 11-26-2022 Basophils/100 WBC (Bld) 0.3 % 0-1 [facility] Bilirubin [Mass/Vol] 0.30 mg/dL 0.20-1.00 [facility] Comment on above: For patients on eltr ombopag therapy, use of [place] TBIL is not recommended. Chloride [Moles/Vol] 106 mmol/L 98-107 [facility] Eosinophils/100 WBC (Bld) 1.7 % 0-5 [facility] Glucose [Mass/Vol] 82 mg/dL 74-106 [facility] Neutrophils (Bld) [#/Vol] 3.3 10*3/uL 2.0-7.7 [facility] Neutrophils/100 WBC (Bld) 51.3 % 47-70 [facility] Potassium [Moles/Vol] 3.5 mmol/L 3.5-5.1 [facility] Protein [Mass/Vol] 6.9 g/dL 6.4-8.2 [facility] Sodium [Moles/Vol] 138 mmol/L 136-145 [facility] WBC (Bld) [#/Vol] 6.5 10*3/uL 4.4-11.0 [facility] Blood erythrocytes count (nu mber/volume)Ordered By: Cheryle De La Fuente on 11-26-2022 RBC (Bld) [#/Vol] 4.00 10*6/uL 4.2-5.4 [facility] Blood hemoglobin measurement (mass/volume)Ordered By: Cheryle De La Fuente on 11-26-2022 Hemoglobin (Bld) [Mass/Vol] 11.9 g/dL 12.0-15.0 [facility] Blood lymphocytes/100 leukoc ytesOrdered By: Cheryle De La Fuente on 11-26-2022 Lymphocytes/100 WBC (Bld) 37.6 % 19-41 [facility] Blood monocytes/100 leukocyt esOrdered By: Cheryle De La Fuente on 11-26-2022 Monocytes/100 WBC (Bld) 8.8 % 0-10 [facility] Blood platelet mean volumeOr dered By: Cheryle De La Fuente on 11-26-2022 Platelet mean volume (Bld) [Entitic vol] 9.8 fL 6.2-12.0 [facility] Determination of erythrocyte mean corpuscular volume (MCV)Ordered By: Cheryle De La Fuente on 11-26-2022 MCV (RBC) [Entitic vol] 91.3 fL 81-99 [facility] Hematocrit Auto (Bld) [Volum e fraction]Ordered By: Cheryle De La Fuente on 11-26-2022 Hematocrit (Bld) [Volume fraction] 36.5 % 37-47 [facility] Laboratory - Chemistry and C hemistry - challengeOrdered By: Cheryle De La Fuente on 11-26-2022 Albumin [Mass/Vol] 3.5 g/dL 2.9-4.4 [facility] ALP [Catalytic activity/Vol] 100 U/L 45-117 [facility] ALT [Catalytic activity/Vol] 102 U/L 13-56 [facility] CO2 [Moles/Vol] 28.0 mmol/L 21.0-32.0 [facility] Cobalamin (Vitamin B12) [Mass/Vol] 270 pg/mL 211-911 [facility] Globulin (S) [Mass/Vol] 3.5 g/dL 2.2-4.2 [facility] Urea nitrogen/Creatinine [Mass ratio] 13.4 mg/mg 10-20 [facility] Laboratory - Hematology and Cell countsOrdered By: Cheryle De La Fuente on 11-26-2022 Erythrocyte distribution width (RBC) [Entitic vol] 46.8 fL 35.1-43.9 [facility] Erythrocyte distribution width (RBC) [Ratio] 13.9 % 11.6-14.6 [facility] Immature granulocytes/100 WBC (Bld) 0.300 % 0.0-0.9 [facility] Comment on above: IG% - Immature Granu locytes (promyelocytes, myelocytes and metamyelocytes) > 1% indicates that a LEFT SHIFT is Present. MCH (RBC) [Entitic mass] 29.8 pg 27.0-32.0 [facility] Nucleated RBC/100 WBC (Bld) [Ratio] 0 % 0-5 [facility] MCHC Auto (RBC) [Mass/Vol]Or dered By: Cheryle De La Fuente on 11-26-2022 MCHC (RBC) [Mass/Vol] 32.6 g/dL 32-36 [facility] No Panel InformationOrdered By: Cheryle De La Fuente on 11-26-2022 Addendum Document Comment . [facility] Comment on above: The SPE pattern appe ars unremarkable. Evidence ofmonoclonal protein is not apparent.Performed at: [employer] [id number] Director: Toni Whitt PhD, Phone: [phone] Ckyef-2-Aotzuijzn 0.3 g/dL 0.0-0.4 [facility] Mkxzr-2-Zwinshgjv 0.8 g/dL 0.4-1.0 [facility] Estimated GFR (MDRD) Amer 100 mL/min >60 [facility] Comment on above: GFR Calc Estimated GFR (MDRD) Non-Af Amer 83 mL/min >60 [facility] Comment on above: Non- GFR Calc Gamma Globulins 0.8 g/dL 0.4-1.8 [facility] Platelets bldOrdered By: Torri De La Fuente on 11-26-2022 Platelets (Bld) [#/Vol] 295 10*3/uL 150-450 [facility] Protein Fractions Elph [Inte rp]Ordered By: Cheryle De La Fuente on 11-26-2022 Protein Fractions [Interp] Comment . [facility] Comment on above: Protein electrophore sis scan will follow via computer,mail, or paleology professor delivery. Serum albumin to globulin ra dylon by protein electrophoresisOrdered By: Cheryle De La Fuente on 11-26-2022 Albumin/Globulin Elph [Mass ratio] 1.2 0.7-1.7 [facility] Serum globulin measurement ( mass/volume)Ordered By: Cheryle De La Fuente on 11-26-2022 Globulin (S) [Mass/Vol] 2.9 g/dL 2.2-3.9 [facility] Serum or plasma albumin blair urement (mass/volume)Ordered By: Cheyrle De La Fuente on 11-26-2022 Albumin [Mass/Vol] 3.4 g/dL 3.2-5.0 [facility] Serum or plasma albumin/glob ulin mass ratioOrdered By: Cheryle De La Fuente on 11-26-2022 Albumin/Globulin [Mass ratio] 1.0 {ratio} 0.9-2.4 [facility] Serum or plasma beta globuli n measurement by electrophoresis (mass/volume)Ordered By: Cheryle De La Fuente on 11-26-2022 Beta globulin Elph [Mass/Vol] 1.0 g/dL 0.7-1.3 [facility] Serum or plasma calcium blair urement (mass/volume)Ordered By: Cheryle De La Fuente on 11-26-2022 Calcium [Mass/Vol] 8.9 mg/dL 8.5-10.1 [facility] Serum or plasma creatinine m easurement (mass/volume)Ordered By: Cheryle De La Fuente on 11-26-2022 Creatinine [Mass/Vol] 0.75 mg/dL 0.55-1.02 [facility] Comment on above: The validity of the calculated GFR & GFRAA in patients over 70 years has not been determined. Clinical correlation is essential. Serum or plasma ferritin karol surement (mass/volume)Ordered By: Cheryle De La Fuente on 11-26-2022 Ferritin [Mass/Vol] 53 ng/mL 8-252 [facility] Serum or plasma folate measu rement (mass/volume)Ordered By: Cheryle De La Fuente on 11-26-2022 Folate [Mass/Vol] 10.40 ng/mL 3.1-55.4 [facility] Serum or plasma urea nitroge n measurement (mass/volume)Ordered By: Cheryle De La Fuente on 11-26-2022 Urea nitrogen [Mass/Vol] 10 mg/dL 7-18 [facility] Thin prep Papanicolaou smear with manual screeningOrdered By: Cheryle De La Fuente on 11-26-2022 Thin prep Papanicolaou smear with manual screening 44 U/L 15-37 [facility] Thin prep Papanicolaou smear with manual screening 4 5-15 [facility] Thin prep Papanicolaou smear with manual screening See comment [facility] Comment on above: NOT OBSERVED Total protein bloodOrdered B y: Cheryle De La Fuente on 11-26-2022 Protein [Mass/Vol] 6.4 g/dL 6.0-8.5 [facility] Absolute lymphocyte countOrd ered By: Dr. De La Fuente on 08-24-2022 Lymphocytes Auto (Unsp spec) [#/Vol] 2.45 10*3/uL 0.83-4.51 [facility] Basophil percentageOrdered B y: Dr. De La Fuente on 08-24-2022 Basophils/100 WBC (Bld) 0.5 % 0-1 [facility] Bilirubin [Mass/Vol] 0.30 mg/dL 0.20-1.00 [facility] Comment on above: For patients on eltr ombopag therapy, use of [place] TBIL is not recommended. Chloride [Moles/Vol] 111 mmol/L 98-107 [facility] Cholesterol [Mass/Vol] 190 mg/dL <200 [facility] Comment on above: <200 mg/dL Desirable 200-240 mg/dL Borderline >240 mg/dL High Risk Eosinophils/100 WBC (Bld) 2.6 % 0-5 [facility] Glucose [Mass/Vol] 97 mg/dL 74-106 [facility] Neutrophils (Bld) [#/Vol] 2.9 10*3/uL 2.0-7.7 [facility] Neutrophils/100 WBC (Bld) 47.3 % 47-70 [facility] Potassium [Moles/Vol] 4.3 mmol/L 3.5-5.1 [facility] Protein [Mass/Vol] 6.3 g/dL 6.4-8.2 [facility] Sodium [Moles/Vol] 142 mmol/L 136-145 [facility] Triglyceride [Mass/Vol] 46 mg/dL <199 [facility] Comment on above: The drugs N-Acetylcy steine and Metamizole may falsely depress this assay.Serum Triglycerides Reference Interval Normal <150 mg/dL Borderline high 150 - 199 mg/dL High 200 - 499 mg/dL Very High > or = 500 mg/dL WBC (Bld) [#/Vol] 6.1 10*3/uL 4.4-11.0 [facility] Blood erythrocytes count (nu mber/volume)Ordered By: Dr. De La Fuente on 08-24-2022 RBC (Bld) [#/Vol] 4.00 10*6/uL 4.2-5.4 [facility] Blood hemoglobin measurement (mass/volume)Ordered By: Dr. De La Fuente on 08-24-2022 Hemoglobin (Bld) [Mass/Vol] 11.8 g/dL 12.0-15.0 [facility] Blood lymphocytes/100 leukoc ytesOrdered By: Dr. De La Fuente on 08-24-2022 Lymphocytes/100 WBC (Bld) 40.5 % 19-41 [facility] Blood monocytes/100 leukocyt esOrdered By: Dr. De La Fuente on 08-24-2022 Monocytes/100 WBC (Bld) 8.9 % 0-10 [facility] Blood platelet mean volumeOr dered By: Dr. De La Fuente on 08-24-2022 Platelet mean volume (Bld) [Entitic vol] 10.1 fL 6.2-12.0 [facility] Determination of erythrocyte mean corpuscular volume (MCV)Ordered By: Dr. De La Fuente on 08-24-2022 MCV (RBC) [Entitic vol] 91.0 fL 81-99 [facility] Hematocrit Auto (Bld) [Volum e fraction]Ordered By: Dr. De La Fuente on 08-24-2022 Hematocrit (Bld) [Volume fraction] 36.4 % 37-47 [facility] Laboratory - Chemistry and C hemistry - challengeOrdered By: Dr. De La Fuente on 08-24-2022 ALP [Catalytic activity/Vol] 70 U/L 45-117 [facility] ALT [Catalytic activity/Vol] 31 U/L 13-56 [facility] CO2 [Moles/Vol] 27.0 mmol/L 21.0-32.0 [facility] Globulin (S) [Mass/Vol] 3.1 g/dL 2.2-4.2 [facility] Magnesium [Mass/Vol] 2.3 mg/dL 1.6-2.6 [facility] Urea nitrogen/Creatinine [Mass ratio] 21.5 mg/mg 10-20 [facility] Laboratory - Hematology and Cell countsOrdered By: Dr. De La Fuente on 08-24-2022 Erythrocyte distribution width (RBC) [Entitic vol] 48.2 fL 35.1-43.9 [facility] Erythrocyte distribution width (RBC) [Ratio] 14.2 % 11.6-14.6 [facility] Immature granulocytes/100 WBC (Bld) 0.200 % 0.0-0.9 [facility] Comment on above: IG% - Immature Granu locytes (promyelocytes, myelocytes and metamyelocytes) > 1% indicates that a LEFT SHIFT is Present. MCH (RBC) [Entitic mass] 29.5 pg 27.0-32.0 [facility] Nucleated RBC/100 WBC (Bld) [Ratio] 0 % 0-5 [facility] MCHC Auto (RBC) [Mass/Vol]Or dered By: Dr. De La Fuente on 08-24-2022 MCHC (RBC) [Mass/Vol] 32.4 g/dL 32-36 [facility] No Panel InformationOrdered By: Dr. De La Fuente on 08-24-2022 Estimated GFR (MDRD) Amer 100 mL/min >60 [facility] Comment on above: GFR Calc Estimated GFR (MDRD) Non-Af Amer 83 mL/min >60 [facility] Comment on above: Non- GFR Calc Platelets bldOrdered By: Dr. De La Fuente on 08-24-2022 Platelets (Bld) [#/Vol] 271 10*3/uL 150-450 [facility] Serum or plasma albumin blair urement (mass/volume)Ordered By: Dr. De La Fuente on 08-24-2022 Albumin [Mass/Vol] 3.2 g/dL 3.2-5.0 [facility] Serum or plasma albumin/glob ulin mass ratioOrdered By: Dr. De La Fuente on 08-24-2022 Albumin/Globulin [Mass ratio] 1.0 {ratio} 0.9-2.4 [facility] Serum or plasma calcium blair urement (mass/volume)Ordered By: Dr. De La Fuente on 08-24-2022 Calcium [Mass/Vol] 8.9 mg/dL 8.5-10.1 [facility] Serum or plasma cholesterol in HDL measurement (mass/volume)Ordered By: Dr. De La Fuente on 08-24-2022 Cholesterol in HDL [Mass/Vol] 87 mg/dL >40 [facility] Comment on above: The drugs N-Acetylcy steine and Metamizole may falsely depress this assay. Reference Range HDL <40 mg/dL Low HDL Cholesterol HDL >or= 60 mg/dL High HDL Cholesterol Serum or plasma cholesterol in VLDL measurement (mass/volume)Ordered By: Dr. De La Fuente on 08-24-2022 Cholesterol in VLDL [Mass/Vol] 9 mg/dL 5-40 [facility] Serum or plasma creatinine m easurement (mass/volume)Ordered By: Dr. De La Fuente on 08-24-2022 Creatinine [Mass/Vol] 0.74 mg/dL 0.55-1.02 [facility] Comment on above: The validity of the calculated GFR & GFRAA in patients over 70 years has not been determined. Clinical correlation is essential. Serum or plasma low density lipoprotein (LDL) cholesterol measurement (mass/volume)Ordered By: Dr. De La Fuente on 08-24-2022 Cholesterol in LDL [Mass/Vol] 94 mg/dL 0-130 [facility] Serum or plasma urea nitroge n measurement (mass/volume)Ordered By: Dr. De La Fuente on 08-24-2022 Urea nitrogen [Mass/Vol] 16 mg/dL 7-18 [facility] Thin prep Papanicolaou smear with manual screeningOrdered By: Dr. De La Fuente on 08-24-2022 Thin prep Papanicolaou smear with manual screening 25 U/L 15-37 [facility] Thin prep Papanicolaou smear with manual screening 4 5-15 [facility] Absolute lymphocyte counton 08-21-2021 Lymphocytes Auto (Unsp spec) [#/Vol] 2.30 10*3/uL 0.83-4.51 [facility] Work Phone: Basophil percentageon 2021 Basophils/100 WBC (Bld) 0.5 % 0-1 [facility] Work Phone: Chloride [Moles/Vol] 105 mmol/L 98-107 [facility] Work Phone: Eosinophils/100 WBC (Bld) 1.8 % 0-5 [facility] Work Phone: Glucose [Mass/Vol] 137 mg/dL 74-106 [facility] Work Phone: Comment on above: Fasting Glucose resu lt greater than or equal to 126 mg/dL suggests DIABETES MELLITUS per A.D.A. criteria. Neutrophils (Bld) [#/Vol] 3.7 10*3/uL 2.0-7.7 [facility] Work Phone: Neutrophils/100 WBC (Bld) 55.0 % 47-70 [facility] Work Phone: Potassium [Moles/Vol] 3.6 mmol/L 3.5-5.1 [facility] Work Phone: Sodium [Moles/Vol] 139 mmol/L 136-145 [facility] Work Phone: WBC (Bld) [#/Vol] 6.6 10*3/uL 4.4-11.0 [facility] Work Phone: Blood erythrocytes count (nu mber/volume)on 08-21-2021 RBC (Bld) [#/Vol] 4.22 10*6/uL 4.2-5.4 [facility] Work Phone: Blood hemoglobin measurement (mass/volume)on 08-21-2021 Hemoglobin (Bld) [Mass/Vol] 12.1 g/dL 12.0-15.0 [facility] Work Phone: Blood lymphocytes/100 leukoc yteson 08-21-2021 Lymphocytes/100 WBC (Bld) 34.7 % 19-41 [facility] Work Phone: Blood monocytes/100 leukocyt eson 08-21-2021 Monocytes/100 WBC (Bld) 7.5 % 0-10 [facility] Work Phone: Blood platelet mean volumeon 08-21-2021 Platelet mean volume (Bld) [Entitic vol] 10.7 fL 6.2-12.0 [facility] Work Phone: [phone] Determination of erythrocyte mean corpuscular volume (MCV)on 08-21-2021 MCV (RBC) [Entitic vol] 90.0 fL 81-99 [facility] Work Phone: [phone] Hematocrit Auto (Bld) [Volum e fraction]on 08-21-2021 Hematocrit (Bld) [Volume fraction] 38.0 % 37-47 [facility] Work Phone: [phone] Laboratory - Chemistry and C hemistry - challengeon 08-21-2021 CO2 [Moles/Vol] 28.0 mmol/L 21.0-32.0 [facility] Work Phone: [phone] Magnesium [Mass/Vol] 2.1 mg/dL 1.6-2.6 [facility] Work Phone: [phone] Urea nitrogen/Creatinine [Mass ratio] 15.1 mg/mg 10-20 [facility] Work Phone: [phone] Laboratory - Hematology and Cell countson 08-21-2021 Erythrocyte distribution width (RBC) [Entitic vol] 46.8 fL 35.1-43.9 [facility] Work Phone: [phone] Erythrocyte distribution width (RBC) [Ratio] 14.2 % 11.6-14.6 [facility] Work Phone: [phone] Immature granulocytes/100 WBC (Bld) 0.500 % 0.0-0.9 [facility] Work Phone: [phone] Comment on above: IG% - Immature Granu locytes (promyelocytes, myelocytes and metamyelocytes) > 1% indicates that a LEFT SHIFT is Present. MCH (RBC) [Entitic mass] 28.7 pg 27.0-32.0 [facility] Work Phone: Nucleated RBC/100 WBC (Bld) [Ratio] 0 % 0-5 [facility] Work Phone: [phone] MCHC Auto (RBC) [Mass/Vol]on 08-21-2021 MCHC (RBC) [Mass/Vol] 31.8 g/dL 32-36 [facility] Work Phone: No Panel Informationon 08-21 Estimated GFR (MDRD) Amer 93 mL/min >60 [facility] Work Phone: Comment on above: GFR Calc Estimated GFR (MDRD) Non-Af Amer 77 mL/min >60 [facility] Work Phone: Comment on above: Non- GFR Calc Vitamin D 25-Hydroxy 52.9 ng/mL [facility] Work Phone: Comment on above: Vitamin D 25(OH) Sta tus Range Deficiency <20 ng/mL (50nmol/L) Insufficiency 20 - 30 ng/mL (50 - 75 nmol/L) Sufficiency 30 - 100 ng/mL (75 - 250 nmol/L) Toxicity >100 ng/mL (>250 nmol/L) Platelets bldon 08-21-2021 Platelets (Bld) [#/Vol] 288 10*3/uL 150-450 [facility] Work Phone: Serum or plasma calcium blair urement (mass/volume)on 08-21-2021 Calcium [Mass/Vol] 8.9 mg/dL 8.5-10.1 [facility] Work Phone: Serum or plasma creatinine m easurement (mass/volume)on 08-21-2021 Creatinine [Mass/Vol] 0.80 mg/dL 0.55-1.02 [facility] Work Phone: Comment on above: The validity of the calculated GFR & GFRAA in patients over 70 years has not been determined. Clinical correlation is essential. Serum or plasma urea nitroge n measurement (mass/volume)on 08-21-2021 Urea nitrogen [Mass/Vol] 12 mg/dL 7-18 [facility] Work Phone: Thin prep Papanicolaou smear with manual screeningon 08-21-2021 Thin prep Papanicolaou smear with manual screening 6 5-15 [facility] Work Phone: Basophil percentageon 2021 Chloride [Moles/Vol] 109 mmol/L 98-107 [facility] Work Phone: [phone] Cholesterol [Mass/Vol] 201 mg/dL <200 [address] [facility] Work Phone: Comment on above: <200 mg/dL Desirable 200-240 mg/dL Borderline >240 mg/dL High Risk Glucose [Mass/Vol] 98 mg/dL 74-106 [facility] Work Phone: [phone] Potassium [Moles/Vol] 3.9 mmol/L 3.5-5.1 [address] [facility] Work Phone: [phone] Sodium [Moles/Vol] 141 mmol/L 136-145 [facility] Work Phone: [phone] Triglyceride [Mass/Vol] 53 mg/dL [facility] Work Phone: Comment on above: The drugs N-Acetylcy steine and Metamizole may falsely depress this assay.Serum Triglycerides Reference Interval Normal <150 mg/dL Borderline high 150 - 199 mg/dL High 200 - 499 mg/dL Very High > or = 500 mg/dL Laboratory - Chemistry and C hemistry - challengeon 08-09-2021 CO2 [Moles/Vol] 27.0 mmol/L 21.0-32.0 [facility] Work Phone: Urea nitrogen/Creatinine [Mass ratio] 13.8 mg/mg 10-20 [facility] Work Phone: No Panel Informationon 08-09 Estimated GFR (MDRD) Amer 84 mL/min >60 [facility] Work Phone: Comment on above: GFR Calc Estimated GFR (MDRD) Non-Af Amer 69 mL/min >60 [facility] Work Phone: [phone] Comment on above: Non- GFR Calc Serum or plasma calcium blair urement (mass/volume)on 08-09-2021 Calcium [Mass/Vol] 8.5 mg/dL 8.5-10.1 [facility] Work Phone: [phone] Serum or plasma cholesterol in HDL measurement (mass/volume)on 05-04-2022 Cholesterol in HDL [Mass/Vol] 87 mg/dL [facility] Work Phone: Comment on above: The drugs N-Acetylcy steine and Metamizole may falsely depress this assay. Reference Range HDL <40 mg/dL Low HDL Cholesterol HDL >or= 60 mg/dL High HDL Cholesterol Serum or plasma cholesterol in VLDL measurement (mass/volume)on 08-09-2021 Cholesterol in VLDL [Mass/Vol] 11 mg/dL 5-40 [facility] Work Phone: Serum or plasma creatinine m easurement (mass/volume)on 08-09-2021 Creatinine [Mass/Vol] 0.87 mg/dL 0.55-1.02 [facility] Work Phone: Comment on above: The validity of the calculated GFR & GFRAA in patients over 70 years has not been determined. Clinical correlation is essential. Serum or plasma low density lipoprotein (LDL) cholesterol measurement (mass/volume)on 08-09-2021 Cholesterol in LDL [Mass/Vol] 103 mg/dL 0-130 [facility] Work Phone: Serum or plasma urea nitroge n measurement (mass/volume)on 08-09-2021 Urea nitrogen [Mass/Vol] 12 mg/dL 7-18 [facility] Work Phone: Thin prep Papanicolaou smear with manual screeningon 08-09-2021 Thin prep Papanicolaou smear with manual screening 5 5-15 [facility] Work Phone: CNOVon 07-01-2020 CNOV Office Visit (RAFFY ) -------- KADIE LAGUNA ([id number]) 1955 F Date Time Provider Department 07/01/20 2:00 PM PAUL PERRIN During your visit today, we recorded the following information about you: Temperature Pulse Blood pressure Weight 98.2 degrees 61/minute 121/76 79.4 kg Height 1.702 m Paul Perrin MD 07/01/2020 3:08 PM Signed On 07/01/2020, I had the pleasure of seeing Kadie Laguna at the [facility]. Kadie Laguna was referred by Dr. Cheryle De La Fuente for an opinion and advice regarding positive PHOENIX. My findings and final recommendations will be communicated to the requesting health care provider by way of the shared medical record for internal providers or letter via the [employer] for external providers. Chief complaint: Positive PHOENIX, rash HPI: To review, Kadie Laguna is a 65 year old female (Dee) - Had been seeing dermatology for skin issues which started several years ago. With rashes occurring s/p sun exposure. 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 Biologics discussed but she's been reluctant, diagnosis not clear. 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 This particular rash was not biopsied by derm. Topicals didn't help. Prednisone PO per Dr. Fabian did help in Jan. - Saw PCP due to episodes of irregular heart beat. Routine labs done. - Today, reports increased low back pain improved with activity, worse in morning. With chronic L scapular pain that goes down the L arm, MRI with cervical stenosis. Sometimes knee pain. No pain in the wrists, knuckles, ankles or toes - No current rash (chronic redness of knee creases). - No hair loss, Raynaud's, muscle weakness or mouth sores - Morning stiffness of the back x1 hour - Takes nothing for the pain. PAST MEDICAL HISTORY Diagnosis Date - Cystocele, midline - Female stress incontinence - PMH - PAST MEDICAL HISTORY OF HEMORRHOIDS - PMH - PAST MEDICAL HISTORY OF LEFT THYROID NODULE - PMH - PAST MEDICAL HISTORY OF ANXIETY/STRESS resolved - Reflux - Simple endometrial hyperplasia without atypia 2006 - Small bowel obstruction (HCC) Heart disease PAST SURGICAL HISTORY Procedure Laterality Date - COLONOSCOPY W/BX 06-21-11 - COLONOSCOPY W/BX 01-17-12 - COLONS W/REM POLYP HT BX 02-03-09 - LIGATE FALLOPIAN TUBE Tubal ligation - PAST SURGICAL HISTORY OF HEMORRHOIDECTOMY - PAST SURGICAL HISTORY OF 1992 RT. OOPHORECTOMY - PAST SURGICAL HISTORY OF 1995 LT .BREAST BX. - PAST SURGICAL HISTORY OF 2004 Thyroid BX- benign - REM LESION TRUNK,ARM, LEG <0.5 CM 04/09/09 Exc. left upper back sae cyst - S TVT DEVICE [id number] 12/30/2009 Bladder sling - STAB PHLEBECTOMY VARICOSE VEINS >20 08/2012 left ALLERGIES Allergen Reactions - Penicillins Rash MEDICATIONS: Current Outpatient Medications Medication Sig - metoprolol succinate ER (TOPROL XL) 25 mg 24 hr tablet Take 25 mg by mouth once daily. - Aspirin 81 mg Tab Take 81 mg by mouth once daily. No current facility-administered medications for this visit. FAMILY HISTORY Problem Relation Age of Onset - Heart Maternal Grandmother - Alzheimer's Disease Maternal Aunt - Diabetes Maternal Aunt - Colon Cancer Paternal Aunt - Heart Father - Heart Mother No known autoimmune disease per patient SOCIAL HISTORY: Lives in [place] with spouse. 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 Son and daughter live in [place] Tobacco use: None Alcohol use: 1 drink/week Drug use: None Review of Systems CONSTITUTION: Positive for: Recent weight change Negative for: Fever HEENT: Positive for: Dry mouth Negative for: Nosebleeds, Mouth sores and Trouble swallowing RESPIRATORY: Positive for: Cough Negative for: Shortness of breath, Pain with breathing and Coughing up blood GASTROINTESTINAL: Negative for: Melena, Heartburn and Abdominal pain MUSCULOSKELETAL: Positive for: Myalgias and Morning Joint Stiffness Negative for: Arthralgias, Muscle weakness and Joint swelling NEUROLOGICAL: Negative for: Headaches, Numbness and Memory loss SKIN: Positive for: Rash, Sun Sensitive Rash and Skin changes Negative for: Hair loss and Nail changes EYES: Positive for: Eye dryness CARDIOVASCULAR: Negative for: Chest pain and Leg swelling GENITOURINARY: Negative for: Dysuria and Hematuria HEMATOLOGIC/LYMPHATIC: Negative for: Swollen glands PHYSICAL EXAM: VITALS: Blood pressure 121/76, pulse 61, temperature 36.8 ?C (98.2 ?F), temperature source Temporal, height 170.2 cm (5' 7), weight 79.4 kg (175 lb), last menstrual period 05/19/2010. CONSTITUTIONAL: Well-appearing, in NAD. SKIN: Subtle mild erythema over the ches (more content not included)... Normal [facility] Clinical Summary: HMSPatient IDon 08-22-2017 OOP Invalid Interpretation Code [facility] Work Phone: Clinical Summary: Scanned RO S Summaryon 08-22-2017 endocrine ROS Denies Invalid Interpretation Code [facility] Work Phone: genitourinary review of systems, E&M Denies Invalid Interpretation Code [facility] Work Phone: Lymphocytes Denies Invalid Interpretation Code [facility] Work Phone: Review of Systems Neurologic comment Numbness,Tingling Invalid Interpretation Code [facility] Work Phone: ROS cardiovascular E&M Denies Invalid Interpretation Code [facility] Work Phone: ROS ENT E&M Denies Invalid Interpretation Code [facility] Work Phone: ROS gastrointestinal E&M Denies Invalid Interpretation Code [facility] Work Phone: ROS general E&M Denies Invalid Interpretation Code [facility] Work Phone: ROS Musculoskeletal comments Pain,Stiffness Invalid Interpretation Code [facility] Work Phone: ROS musculoskeletal E&M Complains Invalid Interpretation Code [facility] Work Phone: ROS neurological E&M Complains Invalid Interpretation Code [facility] Work Phone: ROS psychiatric E&M Denies Invalid Interpretation Code [facility] Work Phone: ROS pulmonary E&M Denies Invalid Interpretation Code [facility] Work Phone: ROS skin E&M Denies Invalid Interpretation Code [facility] Work Phone: Office Visit: New - 1st visi t with practice, Rm: 41on 08-22-2017 NEGATED: Highlighted rowDocumentation of current medications (procedure) Done Invalid Interpretation Code [facility] Work Phone: NEGATED: Highlighted rowMRI (magnetic resonance imaging) history of the neck on 07/22/2017 at [facility] Invalid Interpretation Code [facility] Work Phone: ECG B/O W INTERP (MED OFFICE ) [facility] Vital Signs Date Time Vital Sign Value Performing Clinician Facility 10-08-2024 09:01-0400 Body height 167.6 cm Jose Garcia MD Work Phone: [facility] 10-08-2024 09:01-0400 Body mass index (BMI) [Ratio] 29.7 kg/m2 Jose Garcia MD Work Phone: [facility] 10-08-2024 09:01-0400 Body weight 83.46 kg Jose Garcia MD Work Phone: [facility] 10-08-2024 09:01-0400 Diastolic blood pressure 77 mm[Hg] Jose Garcia MD Work Phone: [facility] 10-08-2024 09:01-0400 Heart rate 66 /min Jose Garcia MD Work Phone: [facility] 10-08-2024 09:01-0400 SaO2% (BldA) [Mass fraction] 96 % Jose Garcia MD Work Phone: [facility] 10-08-2024 09:01-0400 Systolic blood pressure 127 mm[Hg] Jose Garcia MD Work Phone: [facility] 09-21-2024 08:24-0400 Body height 170.[address] Cheryle De La Fuente MD Work Phone: [facility] 09-21-2024 08:24-0400 Body mass index (BMI) [Ratio] 29.5 kg/m2 Dr. Cheryle De La Fuente MD Work Phone: 1(876)361-249657 [place] [address] 09-21-2024 08:24-0400 Body weight 85.[address] Cheryle De La Fuente MD Work Phone: 4([phone])310-692662 [place] [address] 05-19-2024 12:45-0500 Body temperature 96.5 [degF] Dr. Cheryle De La Fuente MD Work Phone: 9(832)146-976862 [place] [address] 05-19-2024 12:45-0500 Diastolic blood pressure 73 mm[Hg] Dr. Cheryle De La Fuente MD Work Phone: 3(588)254-312662 [place] [address] 05-19-2024 12:45-0500 Heart rate 70 /min Dr. Cheryle De La Fuente MD Work Phone: 5([phone])261-632462 [place] [address] 05-19-2024 12:45-0500 Respiratory rate 16 /min Dr. Cheryle De La Fuente MD Work Phone: 2(898)882-088362 [place] [address] 05-19-2024 12:45-0500 SaO2% (BldA) [Mass fraction] 99 % Dr. Cheryle De La Fuente MD Work Phone: 1(990)770-721262 [place] [address] 05-19-2024 12:45-0500 Systolic blood pressure 122 mm[Hg] Dr. Cheryle De La Fuente MD Work Phone: 3([phone])347-115162 [place] [address] 05-19-2024 09:20-0500 Body height 170.[address] Cheryle De La Fuente MD Work Phone: 8(452)703-903762 [place] [address] 05-19-2024 09:20-0500 Body mass index (BMI) [Ratio] 29.3 kg/m2 Dr. Cheryle De La Fuente MD Work Phone: 8(246)512-031962 [place] [address] 05-19-2024 09:20-0500 Body weight [address] Cheryle De La Fuente MD Work Phone: 9(655)044-042562 [place] [address] 04-18-2024 11:45-0500 Body mass index (BMI) [Ratio] 29.6 kg/m2 Dr. Cheryle De La Fuente MD Work Phone: 4(080)126-463762 [place] [address] 04-18-2024 11:45-0500 Body temperature 98.3 [degF] Dr. Cheryle De La Fuente MD Work Phone: [facility] 04-18-2024 11:45-0500 Body weight 85.[address] Cheryle De La Fuente MD Work Phone: [facility] 04-18-2024 11:45-0500 Diastolic blood pressure 80 mm[Hg] Dr. Cheryle De La Fuente MD Work Phone: 2(967)697-290557 [place] [address] 04-18-2024 11:45-0500 Heart rate 84 /min Dr. Cheryle De La Fuente MD Work Phone: 4([phone])056-990557 [place] [address] 04-18-2024 11:45-0500 Respiratory rate 16 /min Dr. Cheryle De La Fuente MD Work Phone: 0(388)019-303662 [place] [address] 04-18-2024 11:45-0500 Systolic blood pressure 128 mm[Hg] Dr. Cheryle De La Fuente MD Work Phone: 7([phone])059-554107 [address] 07-16-2023 13:59-0400 Body temperature 98.4 [degF] Dr. Cheryle De La Fuente Work Phone: [facility] 07-16-2023 13:59-0400 Diastolic blood pressure 55 mm[Hg] Dr. Cheryle De La Fuente Work Phone: 0([phone])355-494907 [address] 07-16-2023 13:59-0400 Heart rate 58 /min Dr. Cheryle De La Fuente Work Phone: [facility] 07-16-2023 13:59-0400 Respiratory rate 16 /min Dr. Cheryle De La Fuente Work Phone: [facility] 07-16-2023 13:59-0400 SaO2% (BldA) [Mass fraction] 97 % Dr. Cheryle De La Fuente Work Phone: [facility] 07-16-2023 13:59-0400 Systolic blood pressure 93 mm[Hg] Dr. Cheryle De La Fuente Work Phone: [facility] 07-16-2023 12:36-0400 Body height 167.[address] Cheryle De La Fuente Work Phone: [facility] 07-16-2023 12:36-0400 Body mass index (BMI) [Ratio] 29.2 kg/m2 Dr. Cheryle De La Fuente Work Phone: [facility] 07-16-2023 12:36-0400 Body weight [address] Cheryle De La Fuente Work Phone: [facility] 11-05-2022 15:04-0400 Body height 167.6 cm Jose Garcia MD Work Phone: [facility] 11-05-2022 15:04-0400 Body weight 81.65 kg Jose Garcia MD Work Phone: [facility] 11-05-2022 15:04-0400 Diastolic blood pressure 79 mm[Hg] Jose Garcia MD Work Phone: [facility] 11-05-2022 15:04-0400 Heart rate 57 /min Jose Garcia MD Work Phone: [facility] 11-05-2022 15:04-0400 Respiratory rate 18 /min Jose Garcia MD Work Phone: [facility] 11-05-2022 15:04-0400 SaO2% (BldA) [Mass fraction] 99 % Jose Garcia MD Work Phone: [facility] 11-05-2022 15:04-0400 Systolic blood pressure 125 mm[Hg] Jose Garcia MD Work Phone: [facility] 09-27-2022 11:27-0400 Body height 170.[address] Cheryle De La Fuente Work Phone: [facility] 09-27-2022 11:26-0400 Body mass index (BMI) [Ratio] 28 kg/m2 Dr. Cheryle De La Fuente Work Phone: [facility] 09-27-2022 11:26-0400 Body weight 81.[address] Cheryle De La Fuente Work Phone: [facility] 09-27-2022 11:26-0400 Diastolic blood pressure 81 mm[Hg] Dr. Cheryle De La Fuente Work Phone: [facility] 09-27-2022 11:26-0400 Heart rate 80 /min Dr. Cheryle De La Fuente Work Phone: [facility] 09-27-2022 11:26-0400 Respiratory rate 18 /min Dr. Cheryle De La Fuente Work Phone: [facility] 09-27-2022 11:26-0400 SaO2% (BldA) [Mass fraction] 100 % Dr. Cheryle De La Fuente Work Phone: [facility] 09-27-2022 11:26-0400 Systolic blood pressure 134 mm[Hg] Dr. Cheryle De La Fuente Work Phone: [facility] 12-27-2021 15:10-0400 Body height 170.[address] Cheryle De La Fuente Work Phone: [facility] Work Phone: NEGATED: Highlighted [id number] 13:27-0400 BMI (Body Mass Index) 26.41 kg/m2 Pamella Leonestine [employer] [facility] Work Phone: NEGATED: Highlighted [id number] 13:27-0400 BP Diastolic 85 mm[Hg] Pamella Winklestine [employer] [facility] Work Phone: NEGATED: Highlighted [id number] 13:27-0400 BP Systolic 135 mm[Hg] Pamella Winklestine [employer] [facility] Work Phone: NEGATED: Highlighted [id number] 13:27-0400 Height 170.18 cm Pamella Winklestine [employer] [facility] Work Phone: NEGATED: Highlighted [id number] 13:27-0400 Height 170 cm Pamella Winklestine [employer] [facility] Work Phone: NEGATED: Highlighted [id number] 13:27-0400 Pulse (Heart Rate) 63 /min Pamella Winklestine [employer] [facility] Work Phone: NEGATED: Highlighted [id number] 13:27 Weight 76.2 kg Pamella Cleaning LPN [facility] Work Phone: NEGATED: Highlighted [id number] 13:270 Weight 76 kg Pamella Cleaning LPN [facility] Work Phone: Encounters Encounter Date Encounter Type Care Provider Facility Start: 12-10-2024 ambulatory Cheryle De La Fuente Facility:[facility] Start: 11-04-2024 ambulatory Cheryle De La Fuente Facility:[facility] Start: 10-13-2024 End: 10-13-2024 Telephone encounter Jose Garcia MD Work Phone: [facility] Comment on above: Treatment Planning Start: 10-08-2024 End: 10-08-2024 Office outpatient visit 25 minutes Jose Garcia MD Work Phone: [facility] [place] Comment on above: Paroxysmal atrial fi brillation (HCC) (Primary Dx); At risk for stroke; Palpitations; Supraventricular tachycardia (HCC) Start: 10-08-2024 End: 10-08-2024 ambulatory JOSE GARCIA Facility:[facility] Start: 10-07-2024 End: 10-07-[address] Cheryle De La Fuente MD Work Phone: -Radiology [facility] Start: 10-07-2024 End: 10-07-[address] Cheryle De La Fuente MD -Radiology [facility] Work Phone: Start: 10-07-2024 End: 10-07-2024 ambulatory Cheryle De La Fuente Facility:[facility] Start: 09-25-2024 End: 09-25-[address] Cheryle De La Fuente MD Work Phone: -Laboratory Start: 09-25-2024 End: 09-25-2024 Patient encounter procedure Jun Marin DO -Laboratory Work Phone: Start: 09-25-2024 End: 09-25-2024 ambulatory Cheryle [place] Facility:[facility] Start: 09-21-2024 End: 09-21-2024 Patient encounter procedure Jun Marin DO -[facility] Work Phone: Start: 09-21-2024 End: 09-21-[address] Cheryle De La Fuente MD Work Phone: [facility] Work Phone: Start: 08-05-2024 ambulatory [facility] Facility:[facility] Start: 08-05-2024 Non-patient / Non-visit Dr. Gregory Bose MD -[facility] Start: 08-04-2024 End: 08-04-[address] Cheryle De La Fuente MD Work Phone: [facility] Work Phone: Start: 08-04-2024 End: 08-04-2024 Patient encounter procedure Richelle MALDONADO -Cardiovascular Services Work Phone: Start: 08-04-2024 End: 08-04-2024 ambulatory [facility] Facility:[facility] Start: 07-23-2024 Registered Referred Richelle MALDONADO -Cardiovascular Services Work Phone: Start: 07-23-2024 [facility] Facility:[facility] Start: 07-23-2024 Non-patient / Non-visit Dr. Eduard Maravilla MD -[facility] Work Phone: Start: 05-19-2024 End: 05-19-2024 Non-patient / Non-visit Dr. Eduard Maravilla MD -[facility] Work Phone: Start: 05-19-2024 End: 05-19-2024 Admission to same day surgery center Dr. Marco Antonio Tapia MD -[facility] Start: 05-19-2024 End: 05-19-2024 ambulatory Marco Antonio Tapia Facility:[facility] Start: 04-18-2024 End: 04-18-2024 Patient encounter procedure Telma [facility]ED [facility] Work Phone: Start: 04-18-2024 End: 04-18-2024 ambulatory Cheryle De La Fuente Facility:[facility] Start: 04-06-2024 End: 04-06-2024 ambulatory Cheryle De La Fuente Facility:[facility] Start: 03-17-2024 End: 03-17-2024 ambulatory Cheryle De La Fuente Facility:[facility] Start: 02-10-2024 End: 02-10-2024 ambulatory Jun Marin Facility:[facility] Start: 01-03-2024 End: 01-03-2024 ambulatory Cheryle De La Fuente Facility:[facility] Start: 07-16-2023 Non-patient / Non-visit Dr. Cheryle De La Fuente Work Phone: [facility] Start: 07-16-2023 End: 07-16-2023 Admission to same day surgery center Dr. Cheryle De La Fuente Work Phone: [facility]-Endoscopy Work Phone: Start: 07-16-2023 End: 07-16-[address] Cheryle De La Fuente Work Phone: [facility] Work Phone: Start: 07-04-2023 End: 07-04-[address] Cheryle De La Fuente Work Phone: [facility] Work Phone: Start: 07-04-2023 End: 07-04-[address] Cheryle De La Fuente Work Phone: [facility]-Laboratory, Specimen Work Phone: Start: 07-03-2023 End: 07-03-[address] Cheryle De La Fuente Work Phone: [facility] Work Phone: Start: 07-03-2023 End: 07-03-[address] Cheryle De La Fuente Work Phone: [facility] Work Phone: Start: 07-03-2023 End: 07-03-[address] Cheryle De La Fuente Work Phone: [facility] Work Phone: Start: 11-30-2022 End: 11-30-[address] Cheryle De La Fuente Work Phone: [facility] Work Phone: Start: 11-30-2022 End: 11-30-[address] Cheryle De La Fuente Work Phone: [facility] Work Phone: Start: 11-26-2022 End: 11-26-[address] Cheryle De La Fuente Work Phone: [facility] Work Phone: Start: 11-26-2022 End: 11-26-[address] Cheryle De La Fuente Work Phone: [facility]Labor[facility] Work Phone: Start: 11-05-2022 End: 11-05-2022 Patient encounter procedure Jose Garcia MD Work Phone: [facility] [place] Comment on above: Paroxysmal atrial fi brillation (HCC) (Primary Dx); At risk for stroke; Palpitations Start: 10-04-2022 Chart abstracting Vijaya Tello MA [facility] [place] Start: 09-27-2022 End: 09-27-[address] Cheryle De La Fuente Work Phone: [facility] Work Phone: Start: 08-24-2022 End: 08-24-[address] Cheryle De La Fuente Work Phone: [facility] Work Phone: Start: 08-24-2022 End: 08-24-2022 Patient encounter procedure [facility] Start: 08-22-2022 End: 08-22-2022 ambulatory [facility] Work Phone: Start: 08-22-2022 End: 08-22-2022 Patient encounter procedure [facility] Start: 08-15-2022 End: 08-15-2022 ambulatory [facility] Work Phone: Start: 08-15-2022 End: 08-15-2022 Patient encounter procedure [facility]-Cat Scan, [facility] Start: 12-27-2021 End: 12-27-[address] Cheryle De La Fuente Work Phone: [facility] Work Phone: Start: 12-27-2021 End: 12-27-[address] Cheryle De La Fuente Work Phone: [facility]-Laboratory, Specimen Start: 12-27-2021 End: 12-27-[address] Cheryle De La Fuente Work Phone: [facility] Start: 08-21-2021 End: 08-21-2021 Patient encounter procedure [facility] Start: 08-09-2021 End: 08-09-2021 Patient encounter procedure [facility] Bone Densitometry Start: 08-22-2017 End: 08-27-2017 Patient encounter procedure Wesley Josefina Leyva Work Phone: [facility] Work Phone: Procedures Date Procedure Procedure Detail Performing Clinician Start: 10-08-2024 Ecg routine ecg w/least 12 lds w/i&r Jose Garcia MD Work Phone: Start: 10-07-2024 Plain x-ray of pelvis and lower extremity Dr. Cheryle De La Fuente MD Work Phone: Start: 09-25-[address] Cheryle De La Fuente MD Work Phone: Comment on above: Test Ordered: [id number] Ustekinumab Drug + AntibodyUstekinumab 6.3 ug/mL ES Reference Range: .Quantitation Limit: <0.1 ug/mLResults of 0.1 ug/mL or higher indicate detection ofustekinumab.COMMENTS: - Induction levels in Crohn's Disease: - Patients who received IV 130 mg or 6 mg/kg had median trough concentrations of 2.1 ug/mL and 6.4 ug/mL, respectively, at week 8 in UNITI trials.(1)- Maintenance levels: - Of UNITI patients with trough levels greater than 1.1 ug/mL, about 80% achieved clinical remission (HBI < 5) and about 50% attained CRP normalization.(2) - Higher maintenance concentrations, greater than 4.5 ug/mL (achieved with q8wk or q4wk dosing after SQ induction), may be necessary for endoscopic response (SES-CD score reduction >=50%).(3) - Trough levels predictive of mucosal healing and fistula healing have yet to be determined.- In plaque psoriasis, median trough ustekinumab concentrations were 0.4 ug/mL at weeks 14 and 28 (ranging from undetectable to 3.6 ug/mL).(4) Although PASI50 responders had higher trough concentrations than non- responders in a study of 76 patients, a definitive therapeutic target range for psoriasis has yet to be established.(5)- As with other biologics, the optimal drug concentration depends upon patient-specific factors including co- morbidities, disease and desired therapeutic endpoint- This ustekinumab drug assay measures the free fraction of ustekinumab (antibody-unbound ustekinumab) when serum anti-ustekinumab antibodies are present.Anti-Ustekinumab Antibody <40 ng/mL ES Reference Range: .Quantitation Limit: < 40 ng/mLResults of 40 ng/mL or higher indicate detection of anti-ustekinumab antibodies.COMMENTS:- This anti-ustekinumab antibody assay is drug-tolerant, i.e. the detection of anti-ustekinumab antibodies is not impeded by the presence of ustekinumab in serum.- All positive anti-ustekinumab antibody results are verified by a confirmatory test.- The concomitant free ustekinumab drug concentration (reported above) is the pharmacodynamically active drug when anti-ustekinumab antibodies are present.- Serial measurements over time may be helpful to assess the impact of immunogenicity on the free drug level.- In the IM-UNITI trial, the incidence of anti-ustekinumab antibodies in Crohn's Disease at 1 year was 2.3%.(1)- In psoriasis, anti-ustekinumab antibodies occurred in 4-6% of patients.(6)References:1. Dashawn HERNANDES et al. Gastroenterology 2016;150(4):S408.2. Dashawn Lerner et al. P007 Exposure-Response to SC Ustekinumab in Moderate - Severe Crohn's Disease: Results from the IM-UNITI Maintenance Study. Advances in AIBD. January 2017.3. Cosmo Bass et al. Clin Gastroenterol Hepatol 2017;15: 7194-4997.4. Dee SP, et al. Br J Dermatol;2015:173;855-857.5. Lindsay H, et al. PLOS ONE DOI;10:1371/journal.pone.4133456.6. Lee L, et al. Br J Dermatol 2014;170:261-273.These tests were developed and their performancecharacteristics determined by [employer]. They have not beencleared or approved by the Food and Drug Administration.However, both drug and anti-drug antibody assays have beendeveloped and validated in accordance with FDA Guidance forIndustry documents: Bioanalytical Method Validation (2013)and Assay Development and Validation for ImmunogenicityTesting of Therapeutic Protein Products (2016).Performed at: [employer] [facility] [address] [id number] Director: Javed Pritchard MD, Phone: [phone] at: [facility] [id number] Director: Toni Whitt PhD, Phone: [phone] Start: 08-04-2024 Radionuclide imaging of perfusion of myocardium under exercise stress Dr. Cheryle De La Fuente MD Work Phone: Start: 05-19-[address] Cheryle De La Fuente MD Work Phone: Start: 05-19-2024 Measurement of renal function Dr. Cheryle doe MD Work Phone: Comment on above: GFR Calc Start: 07-16-[address] Cheryle De La Fuente Work Phone: Start: 07-04-[address] Cheryle De La Fuente Work Phone: Start: 11-05-2022 Ecg routine ecg w/least 12 lds w/i&r Jose Garcia MD Work Phone: Start: 08-22-2022 CT of face Start: 08-09-2021 Dual energy X-ray absorptiometry Start: 08-22-2017 End: 08-27-2017 Blood pressure within normal parameters - no follow-up required Wesley Leyva DO Work Phone: Start: 08-22-2017 End: 08-27-2017 BMI documented as above normal parameters - follow-up documented Wesley Leyva DO Work Phone: Start: 08-22-2017 End: 08-22-2017 CERVICAL COLLAR SERPENTINE (BREG) Wesley Leyva DO Work Phone: Start: 08-22-2017 End: 08-27-2017 Current medications documented Wesley Kothari ller DO Work Phone: Start: 08-22-2017 End: 08-27-2017 Pain assessment documented as positive - follow-up documented Wesley Leyva DO Work Phone: Start: 08-22-2017 End: 08-27-2017 Tobacco non-user Wesley Leyva DO Work Phone: Start: 02-28-2015 Mammography Vijaya Tello MA Start: 07-22-2014 Colonoscopy Vijaya Tello MA Start: 11-06-2010 Lipid 1996 panel - Serum or Plasma Jimmy Garcia MD Work Phone: H/O: tubal ligation History of t ubal ligation Plan of Treatment Date Care Activity Detail Author Start: 01-30-2027 Urine microalbumin profile [facility] Start: 12-07-2024 Influenza vaccination Influenza Vaccine (#1) [facility] Start: 05-19-2024 Anesthesia external middle & inner ear w/bx nos ANESTH EAR SURGERY [facility] Start: 05-19-2024 Excision soft tis lesion external auditory canal REMOVE EAR CANAL LESION(S) [facility] Start: 05-19-2024 Fth/gft free w/direct closure n/e/e/l 20 sq cm/< FTH/GFT FR N/E/E/L 20 SQCM/< [facility] Start: 05-19-2024 Patient discharge [facility] Start: 04-08-2024 Advance Directive Discussion Advance Directive Discussion [facility] Start: 12-08-2023 Covid-19 Vaccine ( season) Covid-19 Vaccine ( season) [facility] Start: 07-16-2023 Patient discharge [facility] Start: 07-04-2023 Elastase.pancreatic [Presence] in Stool [facility] Start: 07-04-2023 Giardia lamblia Ag [Presence] in Stool by Immunoassay [facility] Start: 07-03-2023 Antibody to gastric parietal cell measurement [facility] Start: 07-03-2023 Celiac disease screen [facility] Start: 07-03-2023 Estrogen [Mass/volume] in Serum or Plasma [facility] Start: 07-03-2023 Gastrin [Mass/volume] in Serum or Plasma [facility] Start: 07-03-2023 IgG subclass panel [Mass/volume] - Serum [facility] Start: 07-03-2023 Immunoglobulin measurement [facility] Start: 07-03-2023 In-vitro immunologic test [facility] Start: 07-03-2023 Intrinsic factor blocking Ab [Units/volume] in Serum [facility] Start: 07-03-2023 Serum immunofixation [facility] Start: 07-03-2023 [facility] Start: 12-07-2022 Influenza vaccination [facility] Start: 11-30-2022 Methylmalonate measurement [facility] Start: 09-27-2022 Patient referral [facility] Work Phone: Start: 04-08-2022 ADVANCE DIRECTIVE DISCUSSION ADVANCE DIRECTIVE DISCUSSION [facility] Start: 04-08-2022 DEPRESSION ASSESSMENT DEPRESSION ASSESSMENT [facility] Start: 12-27-2021 Liquid based cervical cytology screening [facility] Work Phone: Start: 04-05-2021 COVID-19 VACCINE (4 - Moderna series) COVID-19 VACCINE (4 - Moderna series) [facility] Start: 01-04-2021 BONE DENSITY BONE DENSITY [facility] Start: 01-04-2021 PNEUMOCOCCAL: 65+ (1 - PCV) PNEUMOCOCCAL: 65+ (1 - PCV) [facility] Start: 01-04-2021 Screening for osteoporosis Bone Density Screening [facility] Start: 12-07-2020 Medicare Annual Wellness Visit Medicare Annual Wellness Visit [facility] Start: 06-29-2020 COVID-19 VACCINE (3 - Booster for Moderna series) COVID-19 VACCINE (3 - Booster for Moderna series) [facility] Start: 07-23-2019 Colonoscopy COLONOSCOPY [facility] Start: 07-23-2019 COLORECTAL CANCER SCREENING COLORECTAL CANCER SCREENING [facility] Start: 07-23-2019 Screening for malignant neoplasm of colon [facility] Start: 02-29-2016 Mammography MAMMOGRAM [facility] Start: 02-29-2016 Screening for malignant neoplasm of breast Mammogram Screening [facility] Start: 01-14-2016 DIABETES SCREEN DIABETES SCREEN [facility] Start: 01-14-2016 Diabetes Screening Diabetes Screening [facility] Start: 2016 RSV Vaccine (1 - Risk 60-74 years 1-dose series) RSV Vaccine (1 - Risk 60-74 years 1-dose series) [facility] Start: 11-07-2015 Lipid panel Lipid Screening [facility] Start: 11-07-2015 LIPID SCREEN LIPID SCREEN [facility] Start: 04-24-2011 Screening for malignant neoplasm of cervix Cervical Cancer Screening [facility] Start: 01-04-2006 SHINGRIX VACCINE (1 of 2) SHINGRIX VACCINE (1 of 2) [facility] Start: 01-04-2001 COLOGUARD (FIT-DNA) COLOGUARD (FIT-DNA) [facility] Start: 01-04-[address] COLONOGRAPHY [facility] Start: 01-04-2001 FECAL OCCULT BLOOD FECAL OCCULT BLOOD [facility] Start: 01-04-2001 Screening for malignant neoplasm of colon [facility] Start: 01-04-2001 SIGMOIDOSCOPY SIGMOIDOSCOPY [facility] Start: 01-04-1975 Urine microalbumin profile DTAP,TDAP,TD (1 - Tdap) [facility] Start: 01-04-1974 Anxiety Screening Anxiety Screening [facility] Start: 01-04-1974 Depression Screening Depression Screening [facility] Start: 01-04-1974 HEPATITIS C SCREENING HEPATITIS C SCREENING [facility] Start: 01-04-1974 Hepatitis C screening Hepatitis C Screening [facility] Albumin [Moles/volum e] in Serum or Plasma [facility] Albumin/Globulin ratio [facility] Beef IgE Ab [Units/v olume] in Serum [facility] Chocolate IgE Ab [Units/volume] in Serum [facility] Codfish IgE Ab [Units/volume] in Serum [facility] Colonoscopy [facility] Compre electrophysio logic arrhythmia induction (EP STUDY) COM ELECTOPHYS EVAL W INSERT REPO ELEC CATH W INDUC ARHYTHM W RT ATRIAL VENT HIS BUN PACE RECOR Paroxysmal atrial fibrillation (HCC) Supraventricular tachycardia (HCC) [facility] Dysart IgE Ab [Units/v olume] in Serum [facility] Cow milk IgE Ab [Units/volume] in Serum [facility] End: 10-13-2025 Echocardiography ECHO Cardiology Routine Paroxysmal atrial fibrillation (HCC) Palpitations 1 Occurrences starting 10/13/2024 until 10/13/2025 [facility] Work Phone: Comment on above: 1 Occurrences starting 10/13/2024 until 10/13/2025 Electrophoresis: [id number] [facility] Electrophoresis: amari ma globulin [facility] Ephys evl trnsptl tx atrial fib isolat pulm vein COMPRE EP EVAL ABLTJ ATR FIB PULM VEIN ISOLATION Paroxysmal atrial fibrillation (HCC) Supraventricular tachycardia (HCC) [facility] Globulin measurement [facility] IgA [Mass/volume] in Serum or Plasma [facility] IgE [Units/volume] i n Serum or Plasma [facility] IgG [Mass/volume] in Serum or Plasma [facility] IgG subclass 1 [Mass/volume] in Serum [facility] IgG subclass 2 [Mass/volume] in Serum [facility] IgG subclass 3 [Mass/volume] in Serum [facility] IgG subclass 4 [Mass/volume] in Serum [facility] IgM [Mass/volume] in Serum or Plasma [facility] Mycobacterium tuberc ulosis tuberculin stimulated gamma interferon [Presence] in Blood [facility] Neutrophil cytoplasm ic Ab.classic [Units/volume] in Serum [facility] P-ANCA measurement [facility] Path report.final Dx Spec [facility] Work Phone: Patient referral [facility] Work Phone: Peanut IgE Ab [Units/volume] in Serum [facility] Pork IgE Ab [Units/v olume] in Serum [facility] Procedure [facility] Protein electrophore sis panel - Serum or Plasma [facility] [place] IgE Ab [Units/volume] in Serum [facility] Shrimp IgE Ab [Units/volume] in Serum [facility] Soybean IgE Ab [Units/volume] in Serum [facility] Tissue transglutamin ase IgA Ab [Units/volume] in Serum [facility] Tuna IgE Ab [Units/v olume] in Serum [facility] Wheat IgE Ab [Units/volume] in Serum [facility] Whole Egg IgE Ab [Units/volume] in Serum [facility] Work Phone: [facility] Immunizations Immunization Date Immunization Notes Care Provider [facility] 01-27-2024 influenza, seasonal, injectable, preservative free Dr. Cheryle De La Fuente MD Work Phone: [facility] 01-27-2024 influenza virus vaccine, unspecified formulation Jose Garcia MD Work Phone: [facility] 01-24-2023 Covid (Spikevax) Dr. Cheryle [facility] Work Phone: [facility] 01-24-2023 influenza, injectabl e, quadrivalent, preservative free Dr. Cheryle De La Fuente Work Phone: [facility] 08-09-2022 pneumococcal (PCV20) vaccine, 20 valent (PREVNAR 20) Jose Garcia MD Work Phone: [facility] Work Phone: 01-08-2022 influenza, injectabl e, quadrivalent, preservative free Dr. Cheryle De La Fuente Work Phone: [facility] 01-08-2022 influenza, seasonal, injectable [facility] 09-08-2021 zoster vaccine recombinant Jose Garcia MD Work Phone: [facility] Work Phone: 06-16-2021 zoster vaccine recombinant Jose Garcia MD Work Phone: [facility] Work Phone: 02-16-2021 influenza, injectabl e, quadrivalent, preservative free Dr. Cheryle De La Fuente Work Phone: [facility] 02-16-2021 influenza, seasonal, injectable [facility] 02-16-2021 influenza, seasonal, injectable, preservative free Jose Garcia MD Work Phone: [facility] Work Phone: 02-08-2021 Covid (Moderna) [facility] 06-08-2020 Human Papillomavirus 9-valent vaccine Jose Garcia MD Work Phone: [facility] Work Phone: 05-04-2020 Covid (Moderna) [facility]06[facility] 02-29-2020 influenza, injectabl e, quadrivalent, preservative free Dr. Cheryle De La Fuente Work Phone: [facility] 02-29-2020 influenza, seasonal, injectable [facility] 02-29-2020 influenza, seasonal, injectable, preservative free Jose Garcia MD Work Phone: [facility] Work Phone: 06-08-2019 Human Papillomavirus 9-valent vaccine Jose Garcia MD Work Phone: [facility] Work Phone: 01-27-2019 influenza, injectabl e, quadrivalent, preservative free Dr. Cheryle De La Fuente Work Phone: [facility] 01-27-2019 influenza, seasonal, injectable [facility] 01-27-2019 influenza, seasonal, injectable, preservative free Jose Garcia MD Work Phone: [facility] Work Phone: 01-20-2018 influenza, injectabl e, quadrivalent, preservative free Dr. Cheryle De La Fuente Work Phone: [facility] 01-20-2018 influenza, seasonal, injectable [facility] 01-20-2018 influenza, seasonal, injectable, preservative free Jose Garcia MD Work Phone: [facility] Work Phone: 01-30-2017 tetanus toxoid, redu micheal diphtheria toxoid, and acellular pertussis vaccine, adsorbed Jose Garcia MD Work Phone: [facility] Work Phone: 01-24-2017 hepatitis A vaccine, pediatric/adolescent dosage, 2 dose schedule Jose Garcia MD Work Phone: [facility] Work Phone: 01-24-2017 meningococcal polysaccharide (groups A, C, Y and W-135) diphtheria toxoid conjugate vaccine (MCV4P) Jose Garcia MD Work Phone: [facility] Work Phone: 01-21-2017 influenza, injectabl e, quadrivalent, preservative free Dr. Cheryle De La Fuente Work Phone: [facility] 01-21-2017 influenza, seasonal, injectable [facility] 01-21-2017 influenza, seasonal, injectable, preservative free Jose Garcia MD Work Phone: [facility] Work Phone: 12-12-2016 zoster vaccine, live Jose Garcia MD Work Phone: [facility] Work Phone: 01-23-2016 influenza, injectabl e, quadrivalent, preservative free Dr. Cheryle De La Fuente Work Phone: [facility] 01-23-2016 influenza, seasonal, injectable [facility] 01-23-2016 influenza, seasonal, injectable, preservative free Jose Garcia MD Work Phone: [facility] Work Phone: 12-21-2015 hepatitis A vaccine, pediatric/adolescent dosage, 2 dose schedule Jose Garcia MD Work Phone: [facility] Work Phone: 2015 influenza, injectabl e, quadrivalent, preservative free Dr. Cheryle De La Fuente Work Phone: [facility] 2015 influenza, seasonal, injectable [facility] 2015 influenza, seasonal, injectable, preservative free Jose Garcia MD Work Phone: [facility] Work Phone: 12-31-2013 influenza, injectabl e, quadrivalent, preservative free Dr. Cheryle De La Fuente Work Phone: [facility] 12-31-2013 influenza, seasonal, injectable [facility] 12-31-2013 influenza, seasonal, injectable, preservative free Jose Garcia MD Work Phone: [facility] Work Phone: 02-05-2013 Influenza virus vaccine [facility] 02-05-2013 influenza, seasonal, injectable Jose Garcia MD Work Phone: [facility] Work Phone: 02-05-2013 influenza, seasonal, injectable, preservative free Jose Garcia MD Work Phone: [facility] Work Phone: 05-20-2012 measles, mumps and rubella virus vaccine Jose Garcia MD Work Phone: [facility] Work Phone: 03-24-2012 diphtheria, tetanus toxoids and acellular pertussis vaccine Jose Garcia MD Work Phone: [facility] Work Phone: 03-24-2012 measles, mumps and rubella virus vaccine Jose Garcia MD Work Phone: [facility] Work Phone: 03-24-2012 varicella virus vaccine Vinicio Garcia MD Work Phone: [facility] Work Phone: 01-08-2011 varicella virus vaccine Vinicio Garcia MD Work Phone: [facility] Work Phone: 03-24-2010 measles, mumps and rubella virus vaccine Jose Garcia MD Work Phone: [facility] Work Phone: 11-25-2009 diphtheria, tetanus toxoids and acellular pertussis vaccine Jose Garcia MD Work Phone: [facility] Work Phone: 11-25-2009 haemophilus influenz ae type b vaccine, PRP-T conjugate Jose Garcia MD Work Phone: [facility] Work Phone: 11-25-2009 hepatitis B vaccine, pediatric or pediatric/adolescent dosage Jose Garcia MD Work Phone: [facility] Work Phone: 11-25-2009 poliovirus vaccine, inactivated Jose Garcia MD Work Phone: [facility] Work Phone: 11-25-2009 varicella virus vaccine Vinicio Garcia MD Work Phone: [facility] Work Phone: 01-31-2009 novel [id number], preservative-free, injectable Jose Garcia MD Work Phone: [facility] Work Phone: 2006 diphtheria, tetanus toxoids and acellular pertussis vaccine Jose Garcia MD Work Phone: [facility] Work Phone: 2006 haemophilus influenz ae type b vaccine, PRP-T conjugate Jose Garcia MD Work Phone: [facility] Work Phone: 2006 pneumococcal conjuga te vaccine, 13 valent Jose Garcia MD Work Phone: [facility] Work Phone: 2006 poliovirus vaccine, inactivated Jose Garcia MD Work Phone: [facility] Work Phone: 09-27-2005 haemophilus influenz ae type b vaccine, PRP-T conjugate Jose Garcia MD Work Phone: [facility] Work Phone: 09-27-2005 hepatitis B vaccine, pediatric or pediatric/adolescent dosage Jose Garcia MD Work Phone: [facility] Work Phone: 09-27-2005 pneumococcal conjuga te vaccine, 13 valent Jose Garcia MD Work Phone: [facility] Work Phone: 09-27-2005 poliovirus vaccine, inactivated Jose Garcia MD Work Phone: [facility] Work Phone: 07-14-2005 hepatitis B vaccine, pediatric or pediatric/adolescent dosage Jose Garcia MD Work Phone: [facility] Work Phone: No information available. Pamella Cleaning LPN [facility] [place] [facility] Work Phone: Payers Date Payer Category Payer Self-pay [id number] 2020 [facility] DICARE SUPPLEMENT [id number] 2020 Medicare [id number] 2020 Unknown ANTHEM ANTHEM ME DICARE SUPPLEMENT [id number] 2020-Present [phone] [address] [place] [address] Indemnity [id number] 2020 Medicare [id number] 2020 Unknown [id number] 2014 Unknown [id number] Unknown [id number]. 462 Unknown [id number] [id number]. 462 Unknown [id number] [id number]. 462 Unknown [id number] [id number]. 462 Unknown [id number] [id number]. 462 Unknown [id number] [id number]. 462 Unknown [id number] [id number]. 462 Unknown [id number] [id number]. 462 Unknown [id number] [id number]. 462 Unknown [id number] 2.16840.1.039730.3.579.2. 462 Unknown [id number] 2.16840.1.171745.3.579.2. 462 Unknown [id number] [id number]. 462 Unknown [id number] [id number]. 462 Unknown [id number] [id number]. 462 Unknown [id number] [id number]. 462 Unknown [id number] [id number]. 462 Unknown [id number]. 462 Social History Date Type Detail Facility Start: 04-12-2021 End: 07-12-2023 Assertion Unknown if ever smoked [facility] [place] [facility] Work Phone: Start: 12-02-2013 None [facility] Start: 12-02-2013 Spouse/ Signif icant Other [facility] Start: 12-02-2013 Non-smoker [facility] Start: 1955 Sex Assigned At Female W [facility] Start: 05-15-2011 End: 05-05-2024 Tobacco smoking status NHIS Never smoked tobacco [facility] Start: 05-15-2011 Tobacco use and exposure Smokeless tobacco non-user [facility] Start: 10-04-2022 End: 10-08-2024 Alcohol intake Current drinker of alcohol (finding) [facility] Start: 10-04-2022 End: 11-05-2022 Alcohol intake [facility] Work Phone: Start: 10-04-2022 Alcohol Comment [facility]2 [facility] Start: 1955 Sex Assigned At Not on file [facility] Start: 05-01-2020 End: 11-05-2022 Tobacco use panel [facility] Work Phone: Adult Depression Screening Assessment 0 [facility] Work Phone: Goals Date Patient Goal Desired Activity /State Personal health goal Functional Status Date Assessment Result Facility 09-07-2014 Are you deaf, or do you have serious difficulty hearing No 09/07/2014 2:57 PM EDT Elena Solis LPN No [facility] 09-07-2014 Are you blind, or do you have serious difficulty seeing, even when wearing glasses No 09/07/2014 2:57 PM EDT Elena Solis LPN No [facility] 09-07-2014 Do you have serious difficulty walking or climbing stairs No 09/07/2014 2:57 PM EDT Elena Solis LPN No [facility] 09-07-2014 Do you have difficul ty dressing or bathing No 09/07/2014 2:57 PM EDT Elena Solis LPN No [facility] 09-07-2014 Because of a physica l, mental, or emotional condition, do you have difficulty doing errands alone such as visiting a physician's office or shopping No 09/07/2014 2:57 PM EDT Elena Solis LPN No [facility] Mental Status Date Assessment Result Facility 05-19-2024 Cognitive function Touch/Shaking [facility] Work Phone: 05-19-2024 Cognitive function Patient Orialeksandr tation Person;Place;Time [facility] Work Phone: 07-16-2023 Cognitive function Touch/Shaking;Light [place] in [facility] Work Phone: 09-07-2014 Because of a physica l, mental, or emotional condition, do you have serious difficulty concentrating, remembering, or making decisions No 09/07/2014 2:57 PM EDT Elena Solis LPN No [facility] Clinical Notes 08-02-2009 to 10-13-2024 Telephone Encounter - Bertha Marks - 10/13/2024 2:09 PM EDTTelephone Encounter - Bertha Marks - 10/13/2024 2:09 PM EDTTelephone Encounter - Jose Garcia MD - 10/13/2024 12:40 PM EDT Note Date & Type Note Facility 10-13-2024 Telephone encounter Note Spoke with patient and informed her about the echo order. Patient will call and schedule at [facility] and have results faxed Bertha Marks [facility] 10-13-2024 Miscellaneous Notes Spoke with patient and informed her about the echo order. Patient will call and schedule at [facility] and have results faxed Bertha Marks [facility] General Electrophysiology (EP) Order placed for echocardiogram. Jose Garcia MD October 13, 2024 12:40 PM ----- Message from Bertha Lerner sent at 10/13/2024 11:44 AM EDT ----- Regarding: RE: echocardiogram She has not had an echo done since 2020, I asked [facility] if they would be willing to order one since she would have it done there (she works there at the [employer]). Nicci stated she is not due to come back until March for a [address] Maravilla. If you can order the echo, I will let Kadie know and have her schedule it. ----- Message ----- From: Jose Garcia MD Sent: 10/08/2024 8:46 PM EDT To: Bertha Marks Subject: echocardiogram I saw Ms. Laguna today 10/08/2024 and she stated she had recent echocardiogram with [facility]. Cannot find that in the records sent. Can you contact [facility] and ask for the echocardiogram report to be sent? If she has not had one in the past year then I need one completed. I do have the recent cardiac stress test, but I need the echocardiogram to determine if she has substantial LVH that would contraindicate treatment with flecainide that we are considering. Светлана Chang documented in this encounter [facility] 10-13-2024 Telephone encounter Note [facility] General Electrophysiology (EP) Order placed for echocardiogram. Jose Garcia MD October 13, 2024 12:40 PM [facility] 10-13-2024 Telephone encounter Note ----- Message from Bertha Lerner sent at 10/13/2024 11:44 AM EDT ----- Regarding: RE: echocardiogram She has not had an echo done since 2020, I asked [facility] if they would be willing to order one since she would have it done there (she works there at the [employer]). Nicci stated she is not due to come back until March for a [address] up [address] Maravilla. If you can order the echo, I will let Kadie know and have her schedule it. ----- Message ----- From: Jose Garcia MD Sent: 10/08/2024 8:46 PM EDT To: Bertha Marks Subject: echocardiogram I saw Ms. Laguna today 10/08/2024 and she stated she had recent echocardiogram with [facility]. Cannot find that in the records sent. Can you contact [facility] and ask for the echocardiogram report to be sent? If she has not had one in the past year then I need one completed. I do have the recent cardiac stress test, but I need the echocardiogram to determine if she has substantial LVH that would contraindicate treatment with flecainide that we are considering. Thanks Bernardo [facility] 10-08-2024 Instructions Jose Garcia MD - 10/08/2024 10:11 AM EDT We discussed your heart rhythm concerns: - You have a history of paroxysmal atrial fibrillation and recent episodes of supraventricular tachycardia (SVT), confirmed by cardiac monitoring from July to August 2024. These episodes are now more frequent, prolonged, and severe, with symptoms including dizziness, palpitations, chest pain, and jaw pain. - We reviewed treatment options, including: - Ablation procedure: I will place a request to schedule this procedure. It may take several months to be scheduled, and you will be contacted closer to the procedure date. The procedure involves using catheters to identify and treat the source of your arrhythmia. It typically requires an overnight hospital stay, with restrictions on heavy lifting or vigorous activity for one week afterward. - Medication: I am considering prescribing flecainide, a heart rhythm medication, to help suppress your arrhythmia. I will review your most recent echocardiogram or request a new one if needed to ensure this medication is safe for you. If appropriate, I will prescribe flecainide at a starting dose of 50 mg twice daily. I will communicate with your doctors at the [facility] regarding this plan. - In the meantime, continue taking atenolol 50 mg once daily and aspirin 81 mg daily as previously prescribed. Let me know if your symptoms worsen or become unmanageable before the ablation or medication adjustments. We discussed your fatigue: - Fatigue may be related to your beta vivienne (atenolol) or your Crohn s disease. Reducing or discontinuing beta blockers after the ablation may help alleviate fatigue. We discussed your Crohn s disease: - You are currently on Stelara injections and have a follow-up appointment on November 12 for upper and lower endoscopies. Your Crohn s appears to be under good control, with no abdominal pain but some bowel issues. Next steps: - Await scheduling for the ablation procedure. You may not hear from the scheduling team for several months, but rest assured you are in the queue. - I will review your echocardiogram and communicate with your care team to determine if flecainide is a safe option for you. If so, I will send the prescription to your pharmacy. - Continue your current medications and monitor your symptoms. Notify me if your symptoms worsen or if you experience any new concerns. Please contact our office if you have any questions or if your symptoms change. documented in this encounter [facility] 10-08-2024 History of Present illness Narrative PRIMARY CARE PHYSICIAN: Cheryle SierraAníbal) [address] [place] [id number] Patient Care Team: Cheryle De La Fuente MD as PCP - General (Family Medicine) Richelle Valencia PA-C as Physician Energy Project Engineer (Pulmonary and Critical Care Medicine) Eduard Maravilla as Specialty Epic Application Coordinator (Cardiology) CHIEF COMPLAINT: Follow up for arrhythmia HISTORY OF PRESENT ILLNESS: Ms. Laguna is a 69 year old female who presents today for a cardiovascular medicine follow-up visit. Recording using ambient AI software for draft documentation of the visit was discussed with the patient/authorized patient admitting representative; all questions welcomed and answered. Patient/authorized patient admitting representative agreed to proceed History from previous notes, edited as needed and/or generated by dictation with use of AI.: Patient Overview: Ms. Laguna has a history of intermittent palpitations that began in 2020. She was referred to Dr. Garcia of [facility] in October 2022 for evaluation of her symptoms, which included irregular heartbeats, chest and jaw pain, tightness in the chest, and lightheadedness. In 2021, cardiac catheterization did not reveal significant coronary artery disease. She was initially treated with metoprolol, which was discontinued due to ineffectiveness, and then with atenolol, but she continued to experience symptoms every couple of weeks or once a month. She was diagnosed with paroxysmal atrial fibrillation, with cardiac monitoring in April 2020 revealing at least one self-limited episode of atrial fibrillation with rapid ventricular response. During the October 2022 office visit, a detailed discussion about treatment options for her arrhythmia symptoms took place. She was determined to have intermediate or borderline risk for stroke from atrial fibrillation due to two soft risk factors: female gender and age between 65 and 74 years. This allowed for a decision between treatment with oral anticoagulation therapy or not. Ms. Laguna decided to avoid anticoagulation therapy. She reported partial relief with atenolol and discussed antiarrhythmic drug therapy and catheter ablation but decided to continue with atenolol and consider an increased dose if symptoms worsened. She is now referred back to Dr. Garcia for evaluation due to worsening symptoms attributable to arrhythmia. Diagnostic Results: - Cardiac monitoring (July 23, 2024 - August 18, 2024): Revealed sinus rhythm and episodes of SVT. - Cardiac catheterization (2021): No significant coronary artery disease. - Cardiac monitoring (April 2020): At least one self-limited episode of atrial fibrillation with rapid ventricular response. - Nuclear stress testing 08/04/2024: Exercise stress test of study revealed 6 minutes on Marcelino protocol achieving a peak heart rate 160 bpm which was 105% of maximum predicted heart rate. Nuclear images revealed no evidence for ischemia or infarction. Items for Follow-Up Today: - Evaluation of symptomatic arrhythmia by Dr. Garcia. Interim History Dr. Garcia 10/08/2024: The patient is a 69-year-old female with a history of paroxysmal atrial fibrillation, presenting for evaluation of worsening arrhythmia symptoms. The patient reports a history of intermittent palpitations beginning around 2020. She was referred to an national account representative in October 2022 for evaluation. At that time, she described episodes of irregular heartbeats, chest and jaw pain, chest tightness, and lightheadedness. Cardiac catheterization in 2021 did not reveal significant CAD. Cardiac monitoring in April 2020 revealed at least one self-limited episode of atrial fibrillation with RVR. She was diagnosed with paroxysmal atrial fibrillation and determined to have an intermediate or borderline risk for stroke due to female gender and age between 65 and 74 years. She decided to avoid anticoagulation therapy and continued with atenolol, considering an increased dose if symptoms worsened. She reports that her episodes have become more severe, frequent, and prolonged. They usually start with dizziness, followed by palpitations, chest pain, and jaw pain. Cardiac monitoring from 07/23/2024 to 08/18/2024 revealed sinus rhythm and episodes of SVT. She has a family history of CAD. She denies any personal history of CAD. She also has a history of Crohn's disease, diagnosed about a year ago, and is currently on Stelara injections. She reports new-onset fatigue and is unsure if it is related to her Crohn's disease or beta vivienne use. She denies abdominal pain but notes bowel issues. She is scheduled for a recheck on November 12 with upper and lower endoscopies. She has an allergy to penicillin and is currently taking amoxicillin, which she started yesterday. She reports feeling itchy and plans to contact her prescribing clinician. She is also on atenolol 50 mg once daily, which was recently increased from 25 mg, and aspirin 81 mg daily. I have confirmed and edited as necessary, the PFSH and ROS obtained by others. PAST MEDICAL HISTORY Diagnosis Date At risk for stroke Back pain BCC (basal cell carcinoma) Cervical stenosis of spine Crohn's disease (HCC) Cystocele, midline Female stress incontinence IBD (inflammatory bowel disease) Overweight (BMI 25.0-29.9) Palpitations Paroxysmal atrial fibrillation (HCC) PMH - PAST MEDICAL HISTORY OF HEMORRHOIDS PMH - PAST MEDICAL HISTORY OF LEFT THYROID NODULE PMH - PAST MEDICAL HISTORY OF ANXIETY/STRESS resolved Reflux SBO (small bowel obstruction) (HCC) Simple endometrial hyperplasia without atypia 04/08/2006 Small bowel obstruction (HCC) Vasovagal syncope PAST SURGICAL HISTORY Procedure Laterality Date COLONOSCOPY W/BIOPSY SINGLE/MULTIPLE 06/21/2011 COLONOSCOPY W/BIOPSY SINGLE/MULTIPLE 01/17/2012 COLSC FLX W/REMOVAL LESION BY HOT BX FORCEPS 02/03/2009 ECHO 04/15/2020 LEFT HEART CATH,PERCUTANEOUS Left 04/12/2021 no CAD LIG/TRNSXJ FLP TUBE ABDL/VAG APPR UNI/BI Tubal ligation PAST SURGICAL HISTORY OF HEMORRHOIDECTOMY PAST SURGICAL HISTORY OF 04/08/1992 RT. OOPHORECTOMY PAST SURGICAL HISTORY OF 04/08/1995 LT .BREAST BX. PAST SURGICAL HISTORY OF 04/08/2004 Thyroid BX- benign REM LESION TRUNK,ARM, LEG <0.5 CM 04/09/2009 Exc. left upper back sae cyst S TVT DEVICE [id number] 12/30/2009 Bladder sling STAB PHLEBECTOMY VARICOSE VEINS >20 08/06/2012 left STRESS TEST 04/15/2020 SOCIAL HISTORY Social History Tobacco Use Smoking status: Never Smokeless tobacco: Never Substance Use Topics Alcohol use: Yes Alcohol/week: 3.0 standard drinks of alcohol Types: 2 Standard drinks or equivalent, 1 Cans of Beer (12oz) per week Comment: 0-2 daily Drug use: No FAMILY HISTORY Problem Relation Age of Onset Arrhythmia Mother tachycardia ? atrial fibrillation Arthritis Mother Arrhythmia Father ? diagnosis Hypertension Father Arthritis Father Coronary Artery Disease Father had a couple coronary stents Hypertension Brother No Known Problems Brother Heart Maternal Grandmother Alzheimer's Disease Maternal Aunt Diabetes Maternal Aunt Colon Cancer Paternal Aunt ALLERGIES: ALLERGIES Allergen Reactions Penicillins Rash MEDICATIONS: aspirin, enteric coated (ASPIRIN, ENTERIC COATED) 81 mg EC tablet Take 81 mg by mouth once daily. atenolol (TENORMIN) 50 mg tablet Take 50 mg by mouth once daily. metFORMIN ER (GLUCOPHAGE XR) 500 mg 24 hr tablet Take 1,000 mg by mouth daily with breakfast. ustekinumab (STELARA) 90 mg/mL syringe Inject 90 mg subcutaneously every 8 weeks. Cyanocobalamin 1,000 mcg subl Dissolve 1 tablet under the tongue daily at bedtime. CALCIUM CITRATE PO Take 950 mg by mouth once daily. iron,carbonyl/ascorbic acid (VITRON-C PO) Take 1,000 mg by mouth once daily. amoxicillin (AMOXIL) 875 mg tablet Take 875 mg by mouth two times a day. Fluocinolone-Shower Cap 0.01 % oil ketoconazole (NIZORAL) 2 % cream triamcinolone acetonide (KENALOG) 0.1 % cream Review of Systems Constitutional: Positive for malaise/fatigue. Negative for chills and fever. Respiratory: Positive for shortness of breath. Negative for cough, hemoptysis and sputum production. Cardiovascular: Positive for chest pain and palpitations. Negative for orthopnea, claudication, leg swelling and PND. Gastrointestinal: Negative for abdominal pain, blood in stool, melena, nausea and vomiting. Genitourinary: Negative for dysuria, flank pain and hematuria. Musculoskeletal: Negative for falls. Skin: Positive for itching (she reports beginnings of itching and rash since starting amoxicillin, has PCN allergy) and rash. Neurological: Positive for dizziness. Negative for focal weakness, seizures and loss of consciousness. PHYSICAL EXAMINATION: BP 127/77 Pulse 66 Ht 5' 6 (1.68m) Wt 184 lb (83.5kg) SpO2 96% LMP 05/19/2010 BMI 29.71 kg/(m^2). Physical Exam Vitals reviewed. Constitutional: General: She is not in acute distress. Appearance: Normal appearance. HENT: Head: Normocephalic and atraumatic. Cardiovascular: Rate and Rhythm: Regular rhythm. Bradycardia present. Pulmonary: Effort: Pulmonary effort is normal. No respiratory distress. Breath sounds: Normal breath sounds. No wheezing, rhonchi or rales. Musculoskeletal: Cervical back: Neck supple. Skin: General: Skin is warm and dry. Neurological: General: No focal deficit present. Mental Status: She is alert and oriented to person, place, and time. Psychiatric: Mood and Affect: Mood normal. Behavior: Behavior normal. Thought Content: Thought content normal. CARDIOVASCULAR MEDICINE TESTING: Electrocardiogram: Sinus bradycardia 55 bpm; normal conduction intervals (NY 132 ms, QRS 88 ms); QTc 411 ms I have personally reviewed the Electrocardiogram. I spent a total of 50 minutes on the date of the service which included preparing to see the patient, [id number] patient care, completing clinical documentation, obtaining and/or reviewing separately obtained history, performing a medically appropriate examination, counseling and educating the patient/family/caregiver, ordering medications, tests, or procedures, communicating with other HCPs (not separately reported), independently interpreting results (not separately reported), communicating results to the patient/family/caregiver, and care coordination (not separately reported). 1. Paroxysmal atrial fibrillation (HCC) - ICD9: 427.31, ICD10: I48.0 (primary diagnosis) 2. At risk for stroke - ICD9: V15.89, ICD10: Z91.89 3. Palpitations - ICD9: 785.1, ICD10: R00.2 4. Supraventricular tachycardia (HCC) - ICD9: 427.89, ICD10: I47.10 CHADS2-Vasc Score Breakdown 2 Total Score 1 Female 1 Age 65-74 years old IMPRESSION: 1. Paroxysmal atrial fibrillation (HCC) (I48.0) Supraventricular tachycardia (HCC) (I47.10) Patient has a history of paroxysmal atrial fibrillation and recent episodes of supraventricular tachycardia (SVT) documented on cardiac monitoring from 07/23/2024 to 08/18/2024. Previous cardiac catheterization in 2021 did not reveal significant coronary artery disease. Current symptoms include dizziness, palpitations, chest pain, and jaw pain, which have become more frequent and prolonged. Patient has been on atenolol 50 mg daily with partial relief. Discussed potential antiarrhythmic drug therapy and catheter ablation. - Consider initiation of antiarrhythmic drug flecainide 50 mg twice daily after confirming eligibility with recent echocardiogram findings. Need to obtain report of recent echocardiogram. - Schedule atrial fibrillation catheter ablation procedure; which also would consist of EP study to evaluate for other forms of SVT such as atrial flutter, AVNRT, AVRT. Patient informed about the procedure details, including sedation/anesthesia, catheter insertion, and post-procedure care. - Communicate with Richelle Valencia and the [facility] regarding the treatment plan. 2. At risk for stroke (Z91.89) Patient has intermediate risk for stroke due to female gender and age between 65 and 74 years. Currently on aspirin 81 mg daily. Previous discussions about anticoagulation therapy were declined by the patient. - Continue aspirin 81 mg daily. For the catheter ablation procedure we would need to have her on oral anticoagulation therapy for at least 1 week prior to the procedure and for a couple of weeks after the procedure. - Reassess stroke risk and anticoagulation therapy need after ablation procedure. 3. Palpitations (R00.2) Palpitations are part of the symptomatic presentation of paroxysmal atrial fibrillation and SVT. Symptoms have worsened in frequency and duration. - Addressed with initiation of flecainide and scheduling of catheter ablation. - Monitor symptom relief with new medication regimen. PLAN AND RECOMMENDATIONS: See above. Schedule atrial fibrillation catheter ablation and also EP study to evaluate for inducible SVT that might also need to be targeted with ablation. Considering flecainide as short term treatment strategy while she awaits scheduling of the catheter ablation procedure. The recent nuclear stress test and also previous cardiac catheterization are reassuring that she is candidate for flecainide from that standpoint, but I need echocardiogram that has been completed in the past year to document she does not have more than moderate degree of LVH that would contraindicate flecainide. Will have my office contact [facility], as patient believes she had echocardiogram recently. If she has not had an echocardiogram recently then I would need for her to have one completed by [facility] as soon as possible. I had a detailed discussion with Ms. Laguna regarding my evaluation and recommendations. After our discussion, Ms. Laguna expressed her understanding and I answered all her questions to her apparent satisfaction. INFORMED CONSENT The risks, benefits and anticipated outcomes of the procedure, the risks and benefits of the alternatives to the procedure and the roles and tasks of the personnel to be involved were discussed with the patient. Consent for the procedure and agreement to proceed has been obtained. I verify that I personally obtained the consent. Return for office will call to schedule procedure. Jose Garcia MD 10/08/2024 Medical Decision Making: Problems: Moderate: 1+ chronic illnesses with change Data: Unique source(s) for external note(s) reviewed: 1 Unique test result(s) reviewed: 3+ Unique test(s) ordered: 1 Risk: Moderate: Moderate risk from testing/treatment, Drug management and Decision on minor surgery w/ risk factors Medical Decision Making Level: 4 - Moderate documented in this encounter [facility] 10-08-2024 Note HNO ID: [id number] Author: JOSE GARCIA MD Service: ? Author Type: Physician Type: Progress Notes Filed: 10/08/2024 20:53 Note Text: PRIMARY CARE PHYSICIAN: Cheryle De La Fuente ([facility]) [address] [facility] [address] [place] [address] Patient Care Team: Cheryle De La Fuente MD as PCP - General (Family Medicine) Richelle Valencia PA-C as Physician Energy Project Engineer (Pulmonary and Critical Care Medicine) Eduard Maravilla as Specialty Epic Application Coordinator (Cardiology) CHIEF COMPLAINT: Follow up for arrhythmia HISTORY OF PRESENT ILLNESS: Ms. Laguna is a 69 year old female who presents today for a cardiovascular medicine follow-up visit. Recording using ambient AI software for draft documentation of the visit was discussed with the patient/authorized patient admitting representative; all questions welcomed and answered. Patient/authorized patient admitting representative agreed to proceed History from previous notes, edited as needed and/or generated by dictation with use of AI.: Patient Overview: Ms. Laguna has a history of intermittent palpitations that began in 2020. She was referred to Dr. Garcia of [facility] in October 2022 for evaluation of her symptoms, which included irregular heartbeats, chest and jaw pain, tightness in the chest, and lightheadedness. In 2021, cardiac catheterization did not reveal significant coronary artery disease. She was initially treated with metoprolol, which was discontinued due to ineffectiveness, and then with atenolol, but she continued to experience symptoms every couple of weeks or once a month. She was diagnosed with paroxysmal atrial fibrillation, with cardiac monitoring in April 2020 revealing at least one self-limited episode of atrial fibrillation with rapid ventricular response. During the October 2022 office visit, a detailed discussion about treatment options for her arrhythmia symptoms took place. She was determined to have intermediate or borderline risk for stroke from atrial fibrillation due to two soft risk factors: female gender and age between 65 and 74 years. This allowed for a decision between treatment with oral anticoagulation therapy or not. Ms. Laguna decided to avoid anticoagulation therapy. She reported partial relief with atenolol and discussed antiarrhythmic drug therapy and catheter ablation but decided to continue with atenolol and consider an increased dose if symptoms worsened. She is now referred back to Dr. Garcia for evaluation due to worsening symptoms attributable to arrhythmia. Diagnostic Results: - Cardiac monitoring (July 23, 2024 - August 18, 2024): Revealed sinus rhythm and episodes of SVT. - Cardiac catheterization (2021): No significant coronary artery disease. - Cardiac monitoring (April 2020): At least one self-limited episode of atrial fibrillation with rapid ventricular response. - Nuclear stress testing 08/04/2024: Exercise stress test of study revealed 6 minutes on Marcelino protocol achieving a peak heart rate 160 bpm which was 105% of maximum predicted heart rate. Nuclear images revealed no evidence for ischemia or infarction. Items for Follow-Up Today: - Evaluation of symptomatic arrhythmia by Dr. Garcia. Interim History Dr. Garcia 10/08/2024: The patient is a 69-year-old female with a history of paroxysmal atrial fibrillation, presenting for evaluation of worsening arrhythmia symptoms. The patient reports a history of intermittent palpitations beginning around 2020. She was referred to an national account representative in October 2022 for evaluation. At that time, she described episodes of irregular heartbeats, chest and jaw pain, chest tightness, and lightheadedness. Cardiac catheterization in 2021 did not reveal significant CAD. Cardiac monitoring in April 2020 revealed at least one self-limited episode of atrial fibrillation with RVR. She was diagnosed with paroxysmal atrial fibrillation and determined to have an intermediate or borderline risk for stroke due to female gender and age between 65 and 75 years. She decided to avoid anticoagulation therapy and continued with atenolol, considering an increased dose if symptoms worsened. She reports that her episodes have become more severe, frequent, and prolonged. They usually start with dizziness, followed by palpitations, chest pain, and jaw pain. Cardiac monitoring from 07/23/2024 to 08/18/2024 revealed sinus rhythm and episodes of SVT. She has a family history of CAD. She denies any personal history of CAD. She also has a history of Crohn's disease, diagnosed about a year ago, and is currently on Stelara injections. She reports new-onset fatigue and is unsure if it is related to her Crohn's disease or beta vivienne use. She denies abdominal pain but notes bowel issues. She is scheduled for a recheck on November 12 with upper and lower endoscopies. She has an allergy to penicillin and is currently taking am (more content not included)... [facility] 10-07-2024 Radiology Diagnostic study note [facility] Imaging Services [address] [place] [address] HIP, UNI W/ Pelvis 2-3 Views MR#: [id number] Acct: [id number] Name: KADIE LAGUNA Rep #: [id number] : 1955 F 69 From: Tremaine Thakkar MD PCP: Dr. Cheyrle De La Fuente MD Status: REG CLI Study:HIP, UNI W/ Pelvis 2-3 Views Date of Ex am: 10/07/24 Exam# [id number] Ordering Dr: Trent De La Fuente MD PROCEDURE: HIP, UNI W/ PELVIS 2-3 VIEWS 10/07/2024 REASON FOR EXAM: L HIP PAIN TECHNIQUE: HIP, UNI W/ PELVIS 2-3 VIEWS COMPARISON: None FINDINGS: Bones: Bones are demineralized. No demonstrated fracture Joints: Mild age consistent hip and SI joint arthrosis Soft tissues: Evidence of previous tubal ligation, lucent centered phleboliths within the pelvis Other: RAD/HIP, UNI W/ Pelvis 2-3 Views IMPRESSION: Age consistent degenerative changes, no acute findings Reading Location: [id number] CC: Dr. Cheryle De La Fuente MD ~ Manager Managed Care: Signed [facility] 09-21-2024 Evaluation note Diagnosis Onset Date Resolution Abdominal pain acute September 21, 2024 8:02am Enteritis acute September 21 8:02am History of Crohn's disease acute September 21, 2024 8:02am [facility] Work Phone: 1(608) 883-893001-11-2025 Evaluation note* Diagnosis Onset Date Resolution Status Admit Date Bronchitis acute April 18, 2024 11:37am Basal cell carcinoma, ear acute May 19, 2024 8:53am [facility] Work Phone: 1(696) 187-951904-09-2024 History and physical note Author Jun Friend [facility] July 16, 2023 12:34pm Note Date/Time July 16, 2023 12:3 4pm [facility] Medical Records Department [address] [place] [address] History & Physical Exam 07/16/23 1233 MR#: [id number] Acct: [id number] Name: KADIE LAGUNA MEAGHAN Rep #:[id number] : 1955 68 From: Jun Marin DO PCP: Dr. Cheryle De La Fuente MD Status:[facility] Location: [place] [address] History and Physical Date of Admission: 07/16/23 History of small bowel obstruction with new Dx of inflammatory bowel diseas Details: KADIE LAGUNA, is a 68 F who presents to the office today for follow up. Prior workup: ?Colonoscopy 01.17.12?erythema of ascending colon Colonoscopy 07.21.14?prominent ICV, ?ileal prolapse. Remaining exam without acute/chronic concern. Pathology melanosis coli with increased eosin; ICV focal acute colitis with cryptitis and early granulation of impending ulcer [facility] ED 7..21 with abdominal pain ? concern for SBO that was r/o with radiology.Recommend OV with surgeon. ?CT abd/pel 7.5.21?hepatic cyst; multiple small bowel loops with wall thickening and edema, likely enteritis [facility] OV 7..21 recommending establishment with GI. ?Small bowel Xray 7..?without acute/chronic finding *BGI established .. for further investigation of IBD with history of multiple abdominal surgeries and ED visits for abdominal pain. Cupola Patcher workup up lupus erythematosus versus discoid lupus without positive diagnosis ofeither. ?Biochemical 9.15.?IBD WNL ?CT abd/pel 10..21 (PCP)?without acute/chronic finding ?MREnterography 01.10.21?without acute/chronic finding OV 01.26.21 with ongoing loose stools without urgency of incontinence. Recommendcapsule endoscopy with preceding agile capsule.?Start doxycycline OV 07.03.23- Pt states history of bowel obstructions. States she last had an episode where she though she had an obstruction last January. Here to follow up.States BM are irregular and have changed in diameter. Will have thin formed stools and then sometimes diarrhea. Daily bloating. No nausea or vomiting. ? ? ROS Const Constitutional: No fatigue ENT ENT: No difficulty swallowing Gastro GI: Positive for abdominal pain; No belching, bloating, change in bowel habits, change in stool character, coffeeground emesis, constipation, cramping, diarrhea, heartburn, difficulty swallowing, feeling full early, excessive flatus, incontinent of stools, Vomiting blood/hematemesis, Blood in stool, loose stools, Black,tarry stools, nausea/dyspepsia, pain with swallowing, vomiting or other Musc Musculoskeletal: No joint pain Skin Skin: No yellowing of the eye or itchy eyes Psych Psychiatric: No anxiety and No depression Endo Endocrine: No fatigue Aller/Imm Allergy/Immunologic: No itchy eyes Jomar/Lymp Hematologic/Lymphatic: No easy bleeding or easy bruising Exam Const General: cooperative and comfortable Nutritional Appearance: average body habitus and well nourished [facility] Head: normal to inspection Ears: hearing grossly normal bilaterally Nose: external nose normal Face and sinus: normal facial exam Mouth: oral mucosae normal Throat: posterior oropharynx normal Eyes General: appearance normal, both eyes and all related structures Neck Neck: normal visual inspection Chest Chest palpation & inspection: normal inspection of the chest and normal palpation of entire chest wall Resp Effort & Inspection: normal respiratory effort Auscultation: Bilateral: Clear to Auscultation Cardio Palpation: normal PMI Rate: regular rate Rhythm: regular rhythm GI Inspection: normal to inspection Auscultation: normal bowel sounds Percussion: normal to percussion Palpation: no hepatosplenomegaly Skin General: no rashes or lesions noted Neuro General: patient alert Extrem General: normal to inspection Psych Affect: normal affect Quality Reporting Tobacco Screening ([facility] 138) Smoking Status: Never smoker Assessment and Plan Assessment and Plan (1) Abdominal pain: Status: Acute Qualifiers: Abdominal location: generalized Qualified Code(s): R10.84 - Generalizedabdominal pain (2) Enteritis: Status: Acute (3) IBD (inflammatory bowel disease): Plan: KADIE LAGUNA, is a 65 F who presents to the office today for surgical follow-up regarding an episode of abdominal pain. The patient was seen in the emergency room on October 10, 2020. She presented with complaints similar to when she had a previous small bowel obstruction. Her most recent obstructive symptoms were 2014. Her current laboratory was unremarkable. A CT scan was obtained suggesting multiple loops of small bowel in the central abdomen demonstrating wall thickening with edema suggesting enteritis. No definitive evidence of small bowel obstruction however cannot be fully excluded. However upon my review of the films there appeared to be loops of very decompressed small bowel in the pelvis. The patient notified me that she felt better after drinking the contrast material and had some diarrhea. She did not require hospitalization was discharged home. Records demonstrate that Dr. Jayson Lakhani did a colonoscopy on her July 21. That suggested mild abnormal appearing ileocecal valve otherwise clinically unremarkable. Random biopsies showed melanosis coli. The ileocecal valve showed focal acute colitis. The patient states she received no treatment at that time. A small bowel follow-through however was obtained at that time and was felt to be normal. She states that for 3 to 4 months she has had looser almost diarrheal stools. No fever chills sweats nausea or vomiting. She states that March 2020 she was evaluated by Dr. De La Fuente was noted to have cardiac arrhythmia determined to Heydi. fib she has had problems with diffuse joint pain she has had some significantlow back and mid back pain. Apparently Dr. Linda Grijalva dermatology has questioned over the years whether she might of had psoriatic arthritis but has never been able to prove it. On July 11, 2020 Dr. Cheryle De La Fuente obtained an PHOENIX result on the patient which was a speckled pattern high at 1-1 60. The PHOENIX direct was positive. The patient was seen by a gear hobber who did not feel that she had joint disorder. the findings suggest focal enteritis with mesenteric thickening this is felt qian consistent with a focal inflammatory change. We will perform an upper and lower endoscopy to evaluate the upper or lower GI tract to see if there are any signs of Crohn's disease. Orders: Orders JEWEL + Protein Elect, Serum 07/03/23 K52.9 - Noninfective gastroenteritis and colitis, unspecified, R10.9 - Unspecified abdominal pain Celiac Disease Profile 07/03/23 K52.9 - Noninfective gastroenteritis and colitis, unspecified, R10.9 - Unspecified abdominal pain Ferritin 07/03/23 I48.0 - Paroxysmal atrial fibrillation, K52.9 - Noninfective gastroenteritis and colitis, unspecified, R10.9 - Unspecified abdominal pain Iron Binding Capacity,Total 07/03/23 I48.0 - Paroxysmal atrial fibrillation, K52.9 - Noninfective gastroenteritis and colitis, unspecified, R10.9 - Unspecified abdominal pain LDH 07/03/23 K52.9 - Noninfective gastroenteritis and colitis, unspecified, R10.9 - Unspecified abdominal pain ANCA 07/03/23 K52.9 - Noninfective gastroenteritis and colitis, unspecified, R10.9 - Unspecified abdominal pain Comprehensive Metabolic Profil 07/03/23 K52.9 - Noninfective gastroenteritis andcolitis, unspecified, R10.9 - Unspecified abdominal pain CRP 07/03/23 K52.9 - Noninfective gastroenteritis and colitis, unspecified, R10.9 - Unspecified abdominal pain Erythrocyte Sed Rate 07/03/23 K52.9 - Noninfective gastroenteritis and colitis, unspecified, R10.9 - Unspecified abdominal pain Allergen, Food Profile 14 07/03/23 K52.9 - Noninfective gastroenteritis and colitis, unspecified, R10.9 - Unspecified abdominal pain Immunoglobulins G/A/M/E 07/03/23 K52.9 - Noninfective gastroenteritis and colitis, unspecified, R10.9 - Unspecified abdominal pain Stool Lactoferrin/WBC Today K52.9 - Noninfective gastroenteritis and colitis, unspecified, K58.9 - Irritable bowel syndrome without diarrhea, R10.9 - Unspecified abdominal pain Giardia Lamblia, Stool EIA Today K52.9 - Noninfective gastroenteritis and colitis, unspecified, R10.9 - Unspecified abdominal pain IBD Expanded Profile 07/03/23 K52.9 - Noninfective gastroenteritis and colitis, unspecified, R10.9 - Unspecified abdominal pain Thyroid Stim Hormone (TSH) 07/03/23 K52.9 - Noninfective gastroenteritis and colitis, unspecified, R00.2 - Palpitations, R10.9 - Unspecified abdominal pain T4 Free Direct 07/03/23 K52.9 - Noninfective gastroenteritis and colitis, unspecified, R00.2 - Palpitations, R10.9 - Unspecified abdominal pain Free T3 07/03/23 K52.9 - Noninfective gastroenteritis and colitis, unspecified, R10.9 - Unspecified abdominal pain Quantiferon TB-Gold+ 07/03/23 K52.9 - Noninfective gastroenteritis and colitis, unspecified, R10.9 - Unspecified abdominal pain IgG Subclasses 07/03/23 K52.9 - Noninfective gastroenteritis and colitis, unspecified, R10.9 - Unspecified abdominal pain Gastrin, Serum 07/03/23 K52.9 - Noninfective gastroenteritis and colitis, unspecified, R10.9 - Unspecified abdominal pain Anti-Parietal Cell AB, QN 07/03/23 K52.9 - Noninfective gastroenteritis and colitis, unspecified, R10.9 - Unspecified abdominal pain Intrinsic Factor Ab 07/03/23 K52.9 - Noninfective gastroenteritis and colitis, unspecified, R10.9 - Unspecified abdominal pain Estrogen, Total, Serum 07/03/23 K52.9 - Noninfective gastroenteritis and colitis, unspecified, R10.9 - Unspecified abdominal pain Progesterone Level 07/03/23 K52.9 - Noninfective gastroenteritis and colitis, unspecified, R10.9 - Unspecified abdominal pain Chromogranin A 07/03/23 K50.00 - Crohn's disease of small intestine without complications, K52.9 - Noninfective gastroenteritis and colitis, unspecified, R10.9 - Unspecified abdominal pain Calprotectin, Stool Today K52.9 - Noninfective gastroenteritis and colitis, unspecified, R10.9 - Unspecified abdominal pain EGD 07/16/23 K52.9 - Noninfective gastroenteritis and colitis, unspecified, R10.9 - Unspecified abdominal pain Colonoscopy 07/16/23 K52.9 - Noninfective gastroenteritis and colitis, unspecified, R10.9 - Unspecified abdominal pain I have examined the patient and the H&P has been reviewed. There are no clinicalchanges since date of exam. 07/16/23 1234 <Electronically signed by Jun Marin DO> Cosigner Signature (if applicable): CC: Dr. Cheryle De La Fuente MD; Jun Marin DO~ Signed [facility] Work Phone: 1(433) 152-994604-09-[address] [facility] 07-16-[address] [facility]04-09-2024 Procedure note [facility]04-09-[address] [facility] 11-05-2022 History of Present illness Narrative* Jose Garcia MD - 11/05/2022 3:20 PM EDT PRIMARY CARE PHYSICIAN: Cheryle De La Fuente ([facility]) [address] [place] [address] REFERRING PHYSICIAN: Richelle Valencia, PAC ([facility]) [address] [place] [phone] Patient Care Team: Cheryle De La Fuente MD as PCP - General (Family Medicine) Richelle Valencia ([place]) as Physician Energy Project Engineer (Pulmonary and Critical Care Medicine) Mohan Le as Specialty Epic Application Coordinator (Cardiology) CHIEF COMPLAINT: Evaluation for arrhythmia HISTORY OF PRESENT ILLNESS: Ms. Laguna is a 67 year old female who presents today for evaluation of arrhythmia, referred by [facility]. She began experiencing symptoms suggestive of arrhythmia about one or 2 years ago. She describes spells during which she would experience irregular heartbeats, chest/jaw pain, tightness in the chest, and lightheadedness. She did undergo evaluation including cardiac catheterization in 2021, this did not reveal significant coronary artery disease. She was treated with metoprolol, she recalls that it did not help with her symptoms so she stopped taking it in late 2021. She was then treated with atenolol, but has still been experiencing episodes of the described symptoms. The episodes occur once every couple of weeks, about once a month. Some episodes are short, lasting only a few minutes. At some point she was diagnosed with paroxysmal atrial fibrillation, brief episodes. She did wear a residential monitor April 2020, this revealed at least one brief episode of atrial fibrillation with rapid ventricular response. She denies shortness of breath, orthopnea, PND, syncope. I have confirmed and edited as necessary, the PFSH and ROS obtained by others. PAST MEDICAL HISTORY Diagnosis Date At risk for stroke Back pain BCC (basal cell carcinoma) Cervical stenosis of spine Cystocele, midline Female stress incontinence IBD (inflammatory bowel disease) Overweight (BMI 25.0-29.9) Palpitations Paroxysmal atrial fibrillation (HCC) PMH - PAST MEDICAL HISTORY OF HEMORRHOIDS PMH - PAST MEDICAL HISTORY OF LEFT THYROID NODULE PMH - PAST MEDICAL HISTORY OF ANXIETY/STRESS resolved Reflux SBO (small bowel obstruction) (HCC) Simple endometrial hyperplasia without atypia 04/08/2006 Small bowel obstruction (HCC) Vasovagal syncope PAST SURGICAL HISTORY Procedure Laterality Date COLONOSCOPY W/BIOPSY SINGLE/MULTIPLE 06/21/2011 COLONOSCOPY W/BIOPSY SINGLE/MULTIPLE 01/17/2012 COLSC FLX W/REMOVAL LESION BY HOT BX FORCEPS 02/03/2009 ECHO 04/15/2020 LEFT HEART CATH,PERCUTANEOUS Left 04/12/2021 LIG/TRNSXJ FLP TUBE ABDL/VAG APPR UNI/BI Tubal ligation PAST SURGICAL HISTORY OF HEMORRHOIDECTOMY PAST SURGICAL HISTORY OF 04/08/1992 RT. OOPHORECTOMY PAST SURGICAL HISTORY OF 04/08/1995 LT .BREAST BX. PAST SURGICAL HISTORY OF 04/08/2004 Thyroid BX- benign REM LESION TRUNK,ARM, LEG <0.5 CM 04/09/2009 Exc. left upper back sae cyst S TVT DEVICE [id number] 12/30/2009 Bladder sling STAB PHLEBECTOMY VARICOSE VEINS >20 08/06/2012 left STRESS TEST 04/15/2020 SOCIAL HISTORY Social History Tobacco Use Smoking status: Never Smokeless tobacco: Never Substance Use Topics Alcohol use: Yes Alcohol/week: 2.5 standard drinks of alcohol Types: 2 Standard drinks or equivalent, 1 Cans of Beer (12oz) per week Comment: 0-2 daily Drug use: No FAMILY HISTORY Problem Relation Age of Onset Arrhythmia Mother tachycardia ? atrial fibrillation Arthritis Mother Arrhythmia Father ? diagnosis Hypertension Father Arthritis Father Coronary Artery Disease Father had a couple coronary stents Hypertension Brother No Known Problems Brother Heart Maternal Grandmother Alzheimer's Disease Maternal Aunt Diabetes Maternal Aunt Colon Cancer Paternal Aunt ALLERGIES: ALLERGIES Allergen Reactions Penicillins Rash MEDICATIONS: alendronate (FOSAMAX) 70 mg tablet Take 70 mg by mouth one time a week. ALPRAZolam (XANAX) 1 mg tablet atenolol (TENORMIN) 25 mg tablet Take 25 mg by mouth once daily. aspirin 325 mg tablet Take 325 mg by mouth once daily. coconut oiL 1,000 mg cap ergocalciferol, vitamin D2, (VITAMIN D2 ORAL) REVIEW OF SYSTEMS: Review of Systems Constitutional: Positive for malaise/fatigue. Negative for chills and fever. Respiratory: Negative for cough, hemoptysis, sputum production, shortness of breath and wheezing. Cardiovascular: Positive for chest pain and palpitations. Negative for orthopnea, claudication, legswelling and PND. Gastrointestinal: Negative for abdominal pain, blood in stool, melena, nausea and vomiting. Genitourinary: Negative for hematuria. Musculoskeletal: Negative for falls. Skin: Negative for rash. Neurological: Positive for dizziness. Negative for focal weakness, seizures and loss of consciousness. PHYSICAL EXAMINATION: BP 125/79 Pulse 57 Resp 18 Ht 5' 6 (1.68m) Wt 180 lb (81.6kg) SpO2 99[room air]% LMP 05/19/2010 BMI 29.07 kg/(m^2). Physical Exam Vitals reviewed. Constitutional: General: She is not in acute distress. Appearance: Normal appearance. HENT: Head: Normocephalic and atraumatic. Cardiovascular: Rate and Rhythm: Normal rate and regular rhythm. Heart sounds: Normal heart sounds, S1 normal and S2 normal. No murmur heard. No friction rub. Pulmonary: Effort: Pulmonary effort is normal. No respiratory distress. Breath sounds: Normal breath sounds. No wheezing, rhonchi or rales. Musculoskeletal: Cervical back: Neck supple. Right lower leg: No edema. Left lower leg: No edema. Skin: General: Skin is warm and dry. Neurological: General: No focal deficit present. Mental Status: She is alert and oriented to person, place, and time. Psychiatric: Mood and Affect: Mood normal. Behavior: Behavior normal. Thought Content: Thought content normal. CARDIOVASCULAR MEDICINE TESTING: Electrocardiogram: Sinus rhythm 60 bpm; normal conduction intervals (NY 140 ms, QRS 94 ms); QTc 448ms I have personally reviewed the Electrocardiogram. ASSESSMENT/PLAN: 1. Paroxysmal atrial fibrillation (HCC) - ICD9: 427.31, ICD10: I48.0 (primary diagnosis) 2. At risk for stroke - ICD9: V15.89, ICD10: Z91.89 3. Palpitations - ICD9: 785.1, ICD10: R00.2 CHADS2-Vasc Score Breakdown 2 Total Score 1 Female 1 Age 65-74 years old IMPRESSION: Ms. Laguna has a history of intermittent palpitations, cardiac monitoring a couple of years ago documented at least one brief episode of what might be atrial fibrillation/flutter. She did not haverelief of symptoms with metoprolol, but she has been doing reasonably well with atenolol. I had a detailed discussion with Ms. Laguna regarding arrhythmia in general, and the management options for arrhythmia including atrial fibrillation or variants such as atrial flutter. I did discuss with her that there is stroke risk with such arrhythmia, her risk is intermediate given the AYH2NZ2-ZGQo score --- her particular risk factors are female gender and age, which have more recently been considered intermediate or borderline risk, different than having a score of two points with more hard riskfactors such as HTN or DM. So with this degree of risk, it is reasonable to consider not treating with oral anticoagulation therapy, this is a discussion between physician and patient, and it seems that so far the decision has been to avoid anticoagulation therapy --- this seems reasonable. Treatment for suppression of the arrhythmia is almost entirely based upon alleviation of excessively bothersome symptoms. She has achieved partial relief with beta-vivienne medication (atenolol), there is room if necessary to increase the dose if she requires better control of symptoms. Another option wouldbe antiarrhythmic drug therapy, the options would not be substantially limited given the absence ofcardiomyopathy, more than moderate degree of LVH, or such. Another option would be catheter ablation, but we really have not documented frequent or prolonged episodes of atrial fibrillation/flutter. I think if we were considering advanced treatment strategies such as antiarrhythmic drug therapy or catheter ablation we should repeat cardiac monitoring to document more substantial arrhythmia. For now, if she finds that her symptoms are tolerable with just beta-vivienne therapy, she could just karyn nue with that treatment strategy. I had a detailed discussion with Ms. Laguna regarding my evaluation and recommendations. After our discussion, Ms. Laguna expressed her understanding and I answered all her questions to her apparent satisfaction. She will likely just continue with the atenolol for now, perhaps consider an increased dose if she experiences bothersome symptoms. PLAN AND RECOMMENDATIONS: Continue with current plan of care from EP standpoint. Follow up with [facility]. Return if symptoms worsen or fail to improve. Jose Garcia MD 11/05/2022 Medical Decision Making: Problems: Moderate: New problem with uncertain prognosis Data: Unique source(s) for external note(s) reviewed: 1 Unique test result(s) reviewed: 3+ Unique test(s) ordered: 1 Risk: Moderate: Moderate risk from testing/treatment, Drug management and Decision on minor surgery w/ risk factors Medical Decision Making Level: 4 - Moderate [facility]* Dale Soria LPN - 11/05/2022 3:08 PM EDT Intermitted chest discomfort, SOB, lightheaded, palpitations. Dale Soria LPN documented [facility] NoteHNO ID: [id number] Author: Paul Perrin Service: ? Author Type: Physician Type: Progress Notes Filed: 07/19/2020 10:34 AM Note Text: *07/11/20 labs from [facility]- +PHOENIX 1:160 speckled pattern [facility]03-26-2021 NoteHNO ID: [id number] Author: Paul Perrin Service: ? Author Type: Physician Type: Progress Notes Filed: 07/01/2020 3:08 PM Note Text: On 07/01/2020, I had the pleasure of seeing Kadie Laguna at the [facility]. Kadie Laguna was referred by Dr. Cheryle De La Fuente for an opinion and advice regarding positive PHOENIX. My findings and final recommendations will be communicated to the requesting health care provider by way of the shared medical record for internal providers or letter via the [employer] for external providers. Chief complaint: Positive PHOENIX, rash HPI: To review, Kadie Laguna is a 65 year old female (Dee) - Had been seeing dermatology for skin issues which started several years ago. With rashes occurring s/p sun exposure. 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 Biologics discussed but she's been reluctant, diagnosis not clear. 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 This particular rash was not biopsied by derm. Topicals didn't help. Prednisone PO per Dr. Fabian did help in Jan. - Saw PCP due to episodes of irregular heart beat. Routine labs done. - Today, reports increased low back pain improved with activity, worse in morning. With chronic L scapular pain that goes down the L arm, MRI with cervical stenosis. Sometimes knee pain. No pain in the wrists, knuckles, ankles or toes - No current rash (chronic redness of knee creases). - No hair loss, Raynaud's, muscle weakness or mouth sores - Morning stiffness of the back x1 hour - Takes nothing for the pain. PAST MEDICAL HISTORY Diagnosis Date - Cystocele, midline - Female stress incontinence - PMH - PAST MEDICAL HISTORY OF HEMORRHOIDS - PMH - PAST MEDICAL HISTORY OF LEFT THYROID NODULE - PMH - PAST MEDICAL HISTORY OF ANXIETY/STRESS resolved - Reflux - Simple endometrial hyperplasia without atypia 2006 - Small bowel obstruction (HCC) Heart disease PAST SURGICAL HISTORY Procedure Laterality Date - COLONOSCOPY W/BX 06-21-11 - COLONOSCOPY W/BX 01-17-12 - COLONS W/REM POLYP HT BX 02-03-09 - LIGATE FALLOPIAN TUBE Tubal ligation - PAST SURGICAL HISTORY OF HEMORRHOIDECTOMY - PAST SURGICAL HISTORY OF 1992 RT. OOPHORECTOMY - PAST SURGICAL HISTORY OF 1995 LT .BREAST BX. - PAST SURGICAL HISTORY OF 2004 Thyroid BX- benign - REM LESION TRUNK,ARM, LEG <0.5 CM 04/09/09 Exc. left upper back sae cyst - S TVT DEVICE [id number] 12/30/2009 Bladder sling - STAB PHLEBECTOMY VARICOSE VEINS >20 08/2012 left ALLERGIES Allergen Reactions - Penicillins Rash MEDICATIONS: Current Outpatient Medications Medication Sig - metoprolol succinate ER (TOPROL XL) 25 mg 24 hr tablet Take 25 mg by mouth once daily. - Aspirin 81 mg Tab Take 81 mg by mouth once daily. No current facility-administered medications for this visit. FAMILY HISTORY Problem Relation Age of Onset - Heart Maternal Grandmother - Alzheimer's Disease Maternal Aunt - Diabetes Maternal Aunt - Colon Cancer Paternal Aunt - Heart Father - Heart Mother No known autoimmune disease per patient SOCIAL HISTORY: Lives in [place] with spouse. 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 Son and daughter live in [place] Tobacco use: None Alcohol use: 1 drink/week Drug use: None Review of Systems CONSTITUTION: Positive for: Recent weight change Negative for: Fever HEENT: Positive for: Dry mouth Negative for: Nosebleeds, Mouth sores and Trouble swallowing RESPIRATORY: Positive for: Cough Negative for: Shortness of breath, Pain with breathing and Coughing up blood GASTROINTESTINAL: Negative for: Melena, Heartburn and Abdominal pain MUSCULOSKELETAL: Positive for: Myalgias and Morning Joint Stiffness Negative for: Arthralgias, Muscle weakness and Joint swelling NEUROLOGICAL: Negative for: Headaches, Numbness and Memory loss SKIN: Positive for: Rash, Sun Sensitive Rash and Skin changes Negative for: Hair loss and Nail changes EYES: Positive for: Eye dryness CARDIOVASCULAR: Negative for: Chest pain and Leg swelling GENITOURINARY: Negative for: Dysuria and Hematuria HEMATOLOGIC/LYMPHATIC: Negative for: Swollen glands PHYSICAL EXAM: VITALS: Blood pressure 121/76, pulse 61, temperature 36.8 ?C (98.2 ?F), temperature source Temporal, height 170.2 cm (5' 7), weight 79.4 kg (175 lb), last menstrual period 05/19/2010. CONSTITUTIONAL: Well-appearing, in NAD. SKIN: Subtle mild erythema over the chest (sun exposed area). Periungual erythema of the fingers. No alopecia. No sclerodactyly, calcinosis, telangiectasias, digital ulcers, or skin thickening. NAILFOLD CAPILLARY EXAM: Capillaries with mild tortuosity without capillary dilation or dropout. EYES: No scleral icterus or conjunctiv (more content not included)...[facility]04-27-2010 History of Past illness Narrative* Problem Noted Date Resolved Date Urethrocele(618.03) 08/02/2009 04/24/2010 Female stress incontinence 06/29/200804/24 documented as of this encounter (statuses as of 10/05/2022) [facility]04[facility] History of Past illness Narrative* Problem Noted Date Diagnosed Date Resolved Date Urethrocele(618.03) 08/02/2009 04/24/19 11 Sebaceous cyst 04/09/2009 11/02/2022 Rectal bleeding 01/07/2009 11/02/2022 Simple endometrial hyperplasia without atypia 06/30/19 09 11/02/2022 Female stress incontinence 06/29/2008 0 04/24/2010 Irregular menstrual cycle 06/29/2008 documented as of this encounter (statuses as of 11/13/2022) [facility] noteNo assessment information availableWAvita [facility] Work Phone: evaluation note* Diagnosis Onset Date Resolution Status Encounter for routine gynecological examination noneactive [facility] Work Phone: evaluation note* Diagnosis Onset Date Resolution Status Paroxysmal atrial fibrillation acute [facility] Work Phone: evaluation note* Diagnosis Paroxysmal atrial fibrillation (HCC)- Primary Atrial fibrillation At risk for stroke Other specified personal history presenting hazards to health Palpitations documented in this encounter [facility] note* Diagnosis Onset Date Resolution Status Abdominal pain acute Enteritis acute [facility] Work Phone: evaluation note* Diagnosis Onset Date Resolution Status Admit Date Enteritis acute September 21 8:02am History of Crohn's disease acute September 21, 2024 8:02am [facility] Work Phone: Evalujnkof note* Diagnosis Paroxysmal atrial fibrillation (HCC)- Primary Atrial fibrillation At risk for stroke Other specified personal history presenting hazards to health Palpitations Supraventricular tachycardia (HCC) Other specified cardiac dysrhythmias documented [facility] this [facility]* Diagnosis Paroxysmal atrial fibrillation (HCC)- Primary Atrial fibrillation Palpitations [facility]* Electrophysiology Location: None Selected [facility] Work Phone: Reason for referral (narrative)No reason for referral information availableWAvita [facility] Work Phone: Instructions Instruction Description Start Date CompletedPatient advised to follow-up with Primary Care Physician for BMI management. Advance Directives No Advanced Directives Records Found Advance Directive Response Recorded Date/ Time Advance Directives Yes April 12, 2021 8:13am Living Will Yes April 12 8:13am Power of Manager Brand Yes April 12 8:13am Advance Directive Response Recorded Date/ Time Name of Medical Power of Manager Brand MILAGRO SIMS T July 12, 2023 12:02pm Advance Directives Yes April 12, 2021 8:13am Living Will Yes July 12, 2023 12:02pm Power of Manager Brand Yes July 11 12:02pm Advance Directive Response Recorded Date/ Time Living Will Yes May 05 11:22am Do you have a Healthcare Pow er of Manager Brand? Yes May 05, 2024 11:22am Name of Medical Power of Manager Brand MILAGRO SIMS T May 05, 2024 11:22am Advance Directives Yes April 12, 2021 8:13am Advance Directive Response Recorded Date/ Time Advance Directives Yes April 12, 2021 8:13am Assessments There may be information available, but it has not been provided by the sender. Review of System There may be information available, but it has not been provided by the sender. 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 Reason for Visit Paroxysmal atrial fi brillation Chief Complaint FU Reason for Visit Abdominal pain Enteritis Chief Complaint Admit Date Cough April 18, 2024 1 1:37am Excision, Lesion Left Ear, frozen sectio n with ski May 19, 2024 8:53am PREOP May 19, 2024 9:00am cp/palps July 23, 2024 1:2 9pm PALPITATIONS, CHEST PAIN August 04 6:00am PALPITATIONS, CHEST PAIN August 05 1:46pm Reason for Visit Admit Date Bronchitis April 18, 2024 1 1:37am Basal cell carcinoma, ear May 19, 2024 8:53am Chief Complaint Admit Date 30 DAY HOLTER July 23, 2024 9:0 0am cp/palps July 23, 2024 1:2 9pm PALPITATIONS, CHEST PAIN August 04 6:00am PALPITATIONS, CHEST PAIN August 05 1:46pm 6 M FU September 21, 2024 8:02 am Reason for Visit Admit Date Enteritis September 21, 2024 8:02 am History of Crohn's disease September 21 8:02am Reason for Visit Admit Date Abdominal pain September 21, 2024 8:02 am Enteritis September 21, 2024 8:02 am History of Crohn's disease September 21 8:02am Additional Source Comments INFORMATION SOURCE (unrecogn ized section and content) DATE CREATED AUTHOR 05/24/2021 [facility] DATE CREATED AUTHOR AUTHOR'S ORGANIZ ATION 10/17/2024 [facility] DATE CREATED AUTHOR AUTHOR'S ORGANIZ ATION 10/31/2024 [facility] Goals (unrecognized section and content) Goals may be documented in a n alternate sectionGoals may be documented in an alternate sectionGoals may be documented in an alternate sectionGoals may be documented in an alternate sectionGoals may be documented in an alternate sectionGoals may be documented in an alternate sectionGoals may be documented in an alternate sectionGoals may be documented in an alternate sectionGoals may be documented in an alternate sectionGoals may be documented in an alternate sectionGoals may be documented in an alternate sectionGoals may be documented in an alternate sectionGoals may be documented in an alternate section Care Teams (unrecognized sec tion and content) Team Status: Active Member Role Status Dates Dr. Cheryle De La Fuente MD Primary Care Provider Active Team Status: Active Member Role Status Dates Dr. Cheryle De La Fuente MD Primary Care Provider Active Start: July 23, 2024 Dr. Eduard Maravilla MD Attending Provider Active Start: July 23, 2024 Richelle Valencia PA, PA Referring Provider Active Start: July 23, 2024 Team Status: Active Member Role Status Dates Dr. Cheryle De La Fuente MD Primary Care Provider Active Start: July 23, 2024 Richelle Valencia PA, PA Attending Provider Active Start: July 23, 2024 Richelle Valencia PA, PA Referring Provider Active Start: July 23, 2024 Team Status: Inactive Member Role Status Dates Dr. Cheryle De La Fuente MD Primary Care Provider Active Start: August 04, 2024 End: August 04, 2024 Richelle Valencia PA, PA Attending Provider Active Start: August 04, 2024 End: August 04, 2024 Richelle Valencia PA, PA Referring Provider Active Start: August 04, 2024 End: August 04, 2024 Team Status: Active Member Role Status Dates Dr. Cheryle De La Fuente MD Primary Care Provider Active Start: August 05, 2024 Richelle MALDONADO, PA Referring Provider Active Start: August 05, 2024 Richelle Valencia PA, PA Other Provider Active Start: August 05, 2024 Dr. Gregory Bose MD Attending Provider Activ e Start: August 05, 2024 Team Status: Inactive Member Role Status Dates Dr. Cheryle De La Fuente MD Primary Care Provider Active Start: September 21, 2024 End: September 21, 2024 Dr. Cheryle De La Fuente MD Referring Provider Active St art: September 21, 2024 End: September 21, 2024 Dr. Jun Marin DO Attending Provider Active Start: September 21, 2024 End: September 21, 2024 Team Status: Active Member Role Status Dates Dr. Cheryle De La Fuente MD Family Provider Active Dr. Cheryle De La Fuente MD Primary Care Provider Active Team Status: Inactive Member Role Status Dates Dr. Cheryle De La Fuente MD Primary Care Provide r, Attending Provider, Referring Provider Active Team Status: Inactive Member Role Status Dates Dr. Cheryle De La Fuente MD Primary Care Provider, Attending Roger salas Active Cheryle MARTIN MD Referring Provider Active Team Status: Active Member Role Status Dates Dr. Cheryle De La Fuente MD Primary Care Provide r, Attending Provider, Referring Provider Active Category Specialist Relationship Specialty Start Date End Date Cheryle De La Fuente MD PCP - General Family Medicine 05/11/11 Team Status: Inactive Member Role Status Dates Dr. Cheryle De La Fuente MD Primary Care Provider, Referring P rovider Active Richelle Valencia PA, PA Attending Provider Active Category Specialist Relationship Specialty Start Date End Date Cheryle De La Fuente MD [address] [place] [address] PCP - General Family Medicine 11/02/22 Richelle Valencia (Pa) [address] [place] [address] Physician Energy Project Engineer Pulmonary and Critical Care Medicine 11/02/22 Mohan Le [address] [place], [place] [id number] Specialty Epic Application Coordinator Cardiology 11/05/22 Team Status: Active Member Role Status Dates Dr. Cheryle De La Fuente MD Family Provider Active Team Status: Inactive Member Role Status Dates Dr. Cheryle De La Fuente MD Referring Provider Active Dr. Jun Marin DO Attending Provider Active Team Status: Active Member Role Status Dates Dr. Jun Marin DO Attending Provider, Referring Provider Active Team Status: Inactive Member Role Status Dates Dr. Jun Marin DO Attending Provider, Referring Provider Active Team Status: Active Member Role Status Dates Dr. Jun Marin DO Attending Provider, Other Prov ider Active Dr. Cheryle De La Fuente MD Primary Care Provider, Referring P rovider Active Team Status: Inactive Member Role Status Dates Dr. Jun Marin DO Attending Provider Active Dr. Cheryle De La Fuente MD Primary Care Provider, Referring P rovider Active Team Status: Inactive Member Role Status Dates Dr. Cheryle De La Fuente MD Primary Care Provider Active Start: April 18, 2024 End: April 18, 2024 Dr. Cheryle De La Fuente MD Referring Provider Active St art: April 18, 2024 End: April 18, 2024 YAHAIRA Dey Attending Provider Active Start: April 18, 2024 End: April 18, 2024 Team Status: Inactive Member Role Status Dates Dr. Cheryle De La Fuente MD Primary Care Provider Active Start: May 19, 2024 End: May 19, 2024 Dr. Marco Antonio Tapia MD Attending Provider Activ e Start: May 19, 2024 End: May 19, 2024 Dr. Marco Antonio Tapia MD Referring Provider Activ e Start: May 19, 2024 End: May 19, 2024 Team Status: Active Member Role Status Dates Dr. Cheryle De La Fuente MD Primary Care Provider Active Start: May 19, 2024 End: May 19, 2024 Dr. Eduard Maravilla MD Attending Provider Active Start: May 19, 2024 End: May 19, 2024 Dr. Ace Valdivia MD Referring Provider Active Start: May 19, 2024 End: May 19, 2024 Team Status: Active Member Role/Relationship Status Dates Dr. Cheryle De La Fuente MD Primary Care Provider Active Team Status: Active Member Role/Relationship Status Dates Dr. Cheryle De La Fuente MD Primary Care Provider Active Start: July 23, 2024 Dr. Eduard Maravilla MD Attending Provider Active Start: July 23, 2024 Richelle Valencia PA, PA Referring Provider Active Start: July 23, 2024 Team Status: Active Member Role/Relationship Status Dates Dr. Cheryle De La Fuente MD Primary Care Provider Active Start: July 23, 2024 Richelle Valencia PA, PA Attending Provider Active Start: July 23, 2024 Richelle Valencia PA, PA Referring Provider Active Start: July 23, 2024 Team Status: Inactive Member Role/Relationship Status Dates Dr. Cheryle De La Fuente MD Primary Care Provider Active Start: August 04, 2024 End: August 04, 2024 Richelle Valencia PA, PA Attending Provider Active Start: August 04, 2024 End: August 04, 2024 Richelle Valencia PA, PA Referring Provider Active Start: August 04, 2024 End: August 04, 2024 Team Status: Active Member Role/Relationship Status Dates Dr. Cheryle De La Fuente MD Primary Care Provider Active Start: August 05, 2024 Richelle Valencia PA, PA Referring Provider Active Start: August 05, 2024 Richelle Valencia PA, PA Other Provider Active Start: August 05, 2024 Dr. Gregory Bose MD Attending Provider Activ e Start: August 05, 2024 Team Status: Inactive Member Role/Relationship Status Dates Dr. Cheryle De La Fuente MD Primary Care Provider Active Start: September 21, 2024 End: September 21, 2024 Dr. Cheryle De La Fuente MD Referring Provider Active St art: September 21, 2024 End: September 21, 2024 Dr. Jun Marin DO Attending Provider Active Start: September 21, 2024 End: September 21, 2024 Team Status: Inactive Member Role/Relationship Status Dates Dr. Cheryle De La Fuente MD Primary Care Provider Active Start: September 25, 2024 End: September 25, 2024 Dr. Jun Marin DO Attending Provider Active Start: September 25, 2024 End: September 25, 2024 Dr. Jun Marin DO Referring Provider Active Start: September 25, 2024 End: September 25, 2024 Category Specialist Relationship Specialty Start Date End Date Cheryle De La Fuente MD [address] [place] [address] PCP - General Family Medicine 11/02/22 Richelle Valencia PA-C [address] [place], [place] [id number] Physician Energy Project Engineer Pulmonary and Critical Care Medicine 11/02/22 Eduard Maravilla [address] [place], [place] [id number] Specialty Epic Application Coordinator Cardiology 10/08/24 Team Status: Inactive Member Role/Relationship Status Dates Dr. Cheryle De La Fuente MD Primary Care Provider Active Start: October 07, 2024 End: October 07, 2024 Dr. Cheryle De La Fuente MD Attending Provider Active St art: October 07, 2024 End: October 07, 2024 Dr. Cheryle De La Fuente MD Referring Provider Active St art: October 07, 2024 End: October 07, 2024 Category Specialist Relationship Specialty Start Date End Date Cheryle De La Fuente MD [address] [place], [place] [address] PCP - General Family Medicine 11/02/22 Richelle Valencia PA-C [address] [place], [place] [address] Physician Energy Project Engineer Pulmonary and Critical Care Medicine 11/02/22 Eduard Maravilla [address] [place], [place] [id number] Specialty Epic Application Coordinator Cardiology 10/08/24 Source Comments (unrecognize d section and content) In the event this informatio n is protected by the Federal Confidentiality of Alcohol and Drug Abuse Patient Records regulations: The Federal rules restrict any use of the information to criminally investigate or prosecute any alcohol or drug abuse patient.[facility] the event this information is protected by the Federal Confidentiality of Alcohol and Drug Abuse Patient Records regulations: The Federal rules restrict any use of the information to criminally investigate or prosecute any alcohol or drug abuse patient.[facility] HospitalIn the event this information is protected by the Federal Confidentiality of Alcohol and Drug Abuse Patient Records regulations: The Federal rules restrict any use of the information to criminally investigate or prosecute any alcohol or drug abuse patient.[facility] Hospital[facility] the event this information is protected by the Federal Confidentiality of Alcohol and Drug Abuse Patient Records regulations: The Federal rules restrict any use of the information to criminally investigate or prosecute any alcohol or drug abuse patient.[facility] Reason for Visit (unrecogniz ed section and content) Reason Comments New Patient Evaluation PAF Reason Comments Cardiology Follow Up [facility] requests follow up/PAF Reason Onset Date Comments Treatment Planning 10/13/2024 FOR RECORDS PERTAINING TO PATIENTS WHO ARE OR HAVE BEEN ENROLLED IN A CHEMICAL DEPENDENCY/SUBSTANCEABUSE PROGRAM, SOME INFORMATION MAY BE OMITTED. This clinical summary was aggregated from multiple sources. Caution should be exercised in using it in the provision of clinical care. This summary normalizes information from multiple sources, and as a consequence, information in this document may materially change the coding, format and clinical context of patient data. In addition, data may be omitted in some cases. CLINICAL DECISIONS SHOULD BE BASED ON THE PRIMARY CLINICAL RECORDS. [facility]. provides no warranty or guarantee of the accuracy or completeness of information in this document.
== END | disposition home or self-care (01) ==
LOC: OPBI 12:27
PROVIDERS: PCP Family Medicine; Referring Provider Family Medicine; Visit Provider Family Medicine
DX: Z12.31 Encounter for screening mammogram for malignant neoplasm of breast (principal)
CPT/HCPCS: 77063; 77067

== ENCOUNTER → 2024-11-10 | Outpatient (CLI) | payer MEDICARE, BC, SELFPAY ==
--- NOTE | 2024-11-10 13:47 | ECHOD_ITS ---
Reason For Study Reason For Study: ATRIAL FIBRILLATION Procedure This was a 2D Doppler, Color Flow transthoracic echocardiogram. Myocardial strain analysis was performed in this exam to aid in the assessment of cardiac function. Exam performed in department. Left Ventricle Normal LV size. The global longitudinal strain = -19.1 % (normal). The left ventricular ejection fraction is 65 %. No regional wall motion abnormalities noted. Right Ventricle Normal RV size. Normal systolic function. Atria Normal left atrium. Normal right atrium. Mitral Valve Normal mitral valve. Tricuspid Valve Normal tricuspid valve. Mild (1+) tricuspid valve insufficiency. Pulmonary artery systolic pressure is 26 mmHg. Aortic Valve Trisinus/trileaflet aortic valve. Pulmonic Valve Normal pulmonic valve. Great Vessels Normal aortic root. The pulmonary artery is normal size. Inferior vena cava collapse with respiration. Pericardium/Pleural No pericardial effusion. MMode/2D Measurements & Calculations LVIDd: 4.9 cm IVSd: 1.1 cm LVOT diam: 2.1 cm LVIDs: 3.1 cm LVPWd: 1.0 cm LVOT area: 3.5 cm2 RVDd: 3.2 cm FS: 37.0 % asc Aorta Diam: 3.6 cm LAV(MOD-bp): 42.7 ml LVAd ap4: 25.0 cm2 LAV(MOD-bp) Indexed: 22.1 ml/m2 LVLd ap4: 7.2 cm LAV(MOD-sp2): 53.6 ml EDV(MOD-sp4): 70.8 ml LAV(MOD-sp4): 34.8 ml EDV(sp4-el): 74.3 ml LVAs ap4: 13.6 cm2 LVLs ap4: 6.3 cm ESV(MOD-sp4): 25.0 ml ESV(sp4-el): 25.3 ml EF(MOD-sp4): 64.6 % EF(sp4-el): 66.0 % LVAd ap2: 22.0 cm2 SV(MOD-sp4): 45.7 ml SV(MOD-sp2): 34.1 ml LVLd ap2: 7.1 cm SI(MOD-sp4): 23.7 ml/m2 SI(MOD-sp2): 17.6 ml/m2 EDV(MOD-sp2): 56.9 ml EDV(sp2-el): 57.4 ml LVAs ap2: 12.7 cm2 LVLs ap2: 5.9 cm ESV(MOD-sp2): 22.8 ml ESV(sp2-el): 23.1 ml EF(MOD-sp2): 59.8 % SV(sp4-el): 49.0 ml Ao sinus diam: 3.[address] Junction: 2.6 cm LA dimension(2D): 3.6 cm LA A4 area: 15.1 cm2 RA A4 area: 12.5 cm2 TAPSE: 1.7 cm Time Measurements MV dec time: 0.16 sec Doppler Measurements & Calculations MV E max luciano: 47.7 cm/sec Lat Peak E' Luciano: 10.3 cm/sec Med Peak E' Luciano: 10.1 cm/sec MV A max luciano: 37.1 cm/sec E/E' lat: 4.6 E/E' med: 4.7 MV E/A: 1.3 MV dec slope: 298.0 cm/sec2 Ao V2 max: 106.0 cm/sec LV V1 max: 75.4 cm/sec Ao max P.5 mmHg LV V1 max P.3 mmHg Ao V2 mean: 80.9 cm/sec LV V1 mean P.4 mmHg Ao mean P.8 mmHg LV V1 mean: 57.7 cm/sec Ao V2 VTI: 23.3 cm LV V1 VTI: 16.5 cm AV (velocity ratio): 0.71 YANNI(I,D): 2.4 cm2 YANNI(V,D): 2.5 cm2 SV(LVOT): 57.1 ml PA V2 max: 62.6 cm/sec PI end-d luciano: 67.8 cm/sec TR max luciano: 244.3 cm/sec TR max P.9 mmHg ECHO/Echo Complete Interpretation Summary Normal LV size. The global longitudinal strain = -19.1 % (normal). The left ventricular ejection fraction is 65 %. Pulmonary artery systolic pressure is 26 mmHg. Structurally normal valves. Ordering Physician: Brennen Cheung Referring Physician: CHERYLE EDUARDO Performed By: Maritza Smith RDCS
== END | disposition home or self-care (01) ==
LOC: CVS 13:47
PROVIDERS: PCP Family Medicine; Referring Provider Internal Medicine Cardiovascular Disease; Visit Provider Internal Medicine Cardiovascular Disease
DX: I48.0 Paroxysmal atrial fibrillation (principal); R00.2 Palpitations
CPT/HCPCS: 93306

== ENCOUNTER 2024-12-10 07:52 | Day surgery (SDC) | payer MEDICARE, BC, SELFPAY ==
--- NOTE | 2024-12-03 18:42 | PAT.ANESEVAL ---
Pre-Assessment Diagnosis/Proposed Procedure Planned Operative Procedure(s): colonoscopy, egd Anesthesia History Anesthesia History - alternative financing specialist: Anesthesia History - alternative financing specialist Hx Hospitalization No 12/03/24 14:55 Any Problems With Anesthesia No 12/03/24 14:55 Cholinesterase deficiency No 12/03/24 14:55 You/Your Family Experience No 12/03/24 14:55 fever (hyperthermia) with Relationship Recent Exposure to Contagious No 05/19/24 09:20 Disease Does patient have nerve No 12/03/24 14:55 stimulator Patient instructed to have device shut off --Does patient have Pacemaker or ICD? When Was Last Pacemaker Check QUESTION #4 FULL TEXT: You/Your Family Experience fever (hyperthermia) with Anesthesia Last Oral Intake Last Oral intake: Last Oral Intake NPO since Meds taken in AM with sips of water? Meds patient instructed to take am of surgery PONV PONV - alternative financing specialist: PONV - alternative financing specialist Female Yes 12/03/24 14:55 HX of Motion Sickness Yes 12/03/24 14:55 HX of N/V After Surgery No 12/03/24 14:55 Non-Smoker Yes 12/03/24 14:55 Duration of Surgery greater No 12/03/24 14:55 than 60 minutes Number of Risk Factors 3 12/03/24 14:55 PONV Score Moderate Risk 12/03/24 14:55 Height & Weight Height & Weight: Anesthesia: Height & Weight Height 5 ft 7 in 09/21/24 08:24 Respiratory Assessment Respiratory Assessment - alternative financing specialist: Respiratory Tract Infection Hx - alternative financing specialist Hx Respiratory Tract Infection No 12/03/24 14:55 STOP Sleep Apnea STOP Sleep Apnea - alternative financing specialist: STOP Sleep Apnea - alternative financing specialist Hx Hypertension Yes: on meds 12/03/24 14:55 Hx Sleep Apnea No 12/03/24 14:55 CPAP No 05/19/24 12:22 BIPAP No 05/05/24 10:22 Do you snore loudly (louder No 12/03/24 14:55 than talking or can be heard Do you often feel tired/ No 12/03/24 14:55 fatigued/ sleepy during daytime? Has anyone observed you stop No 12/03/24 14:55 breathing during sleep? STOP Results Negative 12/03/24 14:55 QUESTION #5 FULL TEXT : Do you snore loudly (louder than talking or can be heard through closed doors)? Tobacco Use History Tobacco Use History - alternative financing specialist: Tobacco Use History - alternative financing specialist Tobacco Use Smoking Status Never smoker 12/03/24 14:55 Hx Tobacco Use No 12/03/24 14:55 Years Smoking Packs Smoked per Day Smoking Cessation Date was within the last 15 years Hx Smoking Cessation Date Hx Smoking Cessation Counseling Hematologic Medial History Hematologic Hx - alternative financing specialist: Hematologic Medical Hx - clinical documentation spec Hx of Blood Transfusion No 12/03/24 14:55 Hx of Transfusion in last 3 No 12/03/24 14:55 Months Date of Last Transfusion (if within last 3 months) Ever experience any problems No 12/03/24 14:55 with transfusion(s)? Specify any problems Hx of Preganancy in last 3 No 12/03/24 14:55 Months Nurse Filling Out Transfusion JZOLLINGE 12/03/24 14:55 & Questions: Date: 12/03/24 12/03/24 14:55 Time: 14:57 12/03/24 14:55 Patient unable to answer at this time (ie. confused, unrespo /Reproduction History /Reproductive History - alternative financing specialist: /Reproductive Hx- alternative financing specialist Hx Now No 12/03/24 14:55 Gestational Age (in weeks): EDC: Hx Hx Para Hx Section SAB No 12/03/24 14:55 PFSH Medical History (Updated 12/03/24 @ 14:55 by Amanda Adams) SVT (supraventricular tachycardia) History of Crohn's disease Wears contact lenses Wears glasses Alcohol use Arthritis Injury of back Gastric reflux Non-smoker History of Holter monitoring History of echocardiogram History of stress test Cardiology follow-up encounter Paroxysmal atrial fibrillation Cervical stenosis of spine Positive [place] (antinuclear antibody) BCC (basal cell carcinoma), face Atrial fibrillation Back pain SBO (small bowel obstruction) Chest pain Palpitations Foreign body in soft tissue Personal history of retained foreign body fully removed (~04/2019) Vasovagal syncope IBD (inflammatory bowel disease) Overweight (BMI 25.0-29.9) Home Medications ?Medication ?Instructions ?Recorded ?Last Taken ?Type cholecalciferol (vitamin D3) 125 125 mcg PO DAILY 08/25/21 07/15/23 History mcg (5,000 unit) capsule aspirin 81 mg capsule 81 mg PO DAILY 07/12/23 07/11/23 History ascorbic acid (vitamin C) 500 mg 500 mg PO DAILY 05/05/24 Unknown History tablet (C-500) calcium 600 mg (as 1 tab PO DAILY 05/05/24 Unknown History carbonate)-vitamin D3 5 mcg (200 unit) tablet (Calcium 600 + D(3)) cyanocobalamin (vitamin B-12) 1,000 mcg PO DAILY 05/05/24 Unknown History 1,000 mcg tablet (Vitamin B-12) atenolol 50 mg tablet 50 mg PO DAILY #90 tabs 08/05/24 Unknown Rx ustekinumab 90 mg/mL subcutaneous 90 mg subcut .Q8 WEEKS #1 mL 08/07/24 Unknown Rx syringe (Stelara) famotidine 20 mg tablet (Acid 40 mg PO DAILY PRN acid reflux 09/21/24 Unknown History Controller) metformin 500 mg tablet,extended 500 mg PO BID 12/03/24 Unknown History release 24 hr Allergy/AdvReac Type Severity Reaction Status Date / Time escitalopram (From Lexapro) Allergy Hives,Sedat Verified 12/03/24 14:48 ion Penicillins Allergy Rash Verified 12/03/24 14:48 meperidine (From Demerol) AdvReac Mild Nausea Verified 12/03/24 14:48 ciprofloxacin AdvReac Dizziness Verified 12/03/24 14:48 venlafaxine (From Effexor) AdvReac Constipatio Verified 12/03/24 14:48 n Family History Father CAD (coronary artery disease) Hypertension Atrial fibrillation Arthritis Mother Heart disease Atrial fibrillation Arthritis Brother Hypertension Surgical History (Updated 12/03/24 @ 14:55 by Amanda Adams) History of esophagogastroduodenoscopy (EGD) Hx of colonoscopy History of left heart catheterization (LHC) (~04/12/21) History of tubal ligation Hx of vein stripping History of right oophorectomy H/O hemorrhoidectomy History of bladder suspension procedure H/O breast biopsy Social History household members: spouse and children housing: house current occupational status: employed current occupation: [employer] de[employer]. Smoking Status: Never smoker alcohol intake: current alcohol intake frequency: 0-2 drinks per day substance use type: does not use caffeine: Yes Type: coffee Number of servings: 3 what type of physical activity do you participate in: walking frequency: daily do you feel safe at home: Yes Audit: Pertinent Findings Pertinent Findings EKG Perinent findings: 05/19/2024. Normal sinus rhythm. Stress test pertinent findings: 08/04/2024. EF is 70%. No significant ischemia or infarction. Echo (EF%) pertinent findings: 11/10/2024. EF of 65%. PASP is 26 mmHg. No aortic stenosis noted. Structurally normal valves. Heart catheterization pertinent findings: April 12, 2021. EF is 70%. Normal coronary arteries. Elevated left ventricular end-diastolic pressure. Consult pertinent findings: 03/17/2024. Erik MUNOZ. 1. Paroxysmal atrial fibrillation-patient has not had any episodes of A-fib. She will continue atenolol and aspirin. If she has recurrence she will need to start anticoagulation. 2. Chest pain-very atypical and likely related to episode of vomiting the night before. Heart cath in 2021 reviewed. Recommendation Anesthesia Recommendation Anesthesia recommendation: OPTIMIZED for anesthesia
--- NOTE | 2024-12-10 08:29 | EKG12_ITS ---
Test Reason : Blood Pressure : */* mmHG Vent. Rate : 137 BPM Atrial Rate : * BPM P-R Int : * ms QRS Dur : 86 ms QT Int : 332 ms P-R-T Axes : * 57 78 degrees QTcB Int : 501 ms Supraventricular tachycardia Abnormal ECG When compared with ECG of 19-May-2024 09:00, Vent. rate has increased by [address] now depressed in Anterolateral leads Nonspecific T wave abnormality now evident in Lateral leads Confirmed by CHARY VERMA, EAMON ([id number]), general expeditor COURTNEY SANCHEZ ([id number]) on 12/14/2024 8:57:08 AM Referred By: Jean Marie De La Fuente Confirmed By: EAMON DIEZ MD
--- NOTE | 2024-12-10 08:47 | NURSING ---
PATIENT ARRIVED TO AC EARLY DUE TO NOT FEELING WELL AND FEELING VERY DIZZY. RN ENTERED ROOM AND PATIENT WAS SUPINE LAYING IN BED. PATIENT APPEARED PALE AND CLAMMY. RN ASSESSED VITALS: P:140, SPO2:98% ON ROOM AIR, RR:18 NON LABORED AND CLEAR, BP: 91/70 TAKEN ON LEFT ARM. RN ASKED ABOUT CHEST PAIN. PATIENT STATED SHE IS HAVING MIDSTERNAL CHEST PAIN 3/10 AND IT IS A PRESSURE FEELING, NON-RADIATING. RN PLACED ON SIDING STAPLER. PATIENT STATED THAT THIS ALL STARTED AT 0500 THIS MORNING. SHE DOES HAVE A HISTORY OF A-FIB AND STATES IT HAS NEVER LASTED THIS LONG. RN IMMEDIATELY CALLED FOR EKG AND NOTIFIED EMIR MYERS. Sarah MYERS STATED PATIENT TO BE CANCELED AND SEND TO ER. IV PLACED VIA 18G IN LEFT AC WITH FLUIDS TO BE RAN OPEN AT A BOLUS. MONITORED VITALS Q5 DUE TO PRESSURES DECREASING. RESPIRATORY ENTERED ROOM TO PERFORM EKG. RN CALLED ER TO NOTIFY PATIENT COMING UP AND GAVE REPORT VIA PHONE TO LUCERO IBARRA. PATIENT TAKEN VIA BED TO ER WITH RN INTO ER ROOM 2. EKG GIVEN TO ER FOR PHYSICIAN REVIEW. PATIENT MOVED OVER TO ER BED VIA DRAW SHEET METHOD. PATIENT REPORT GIVEN TO NURSE AT BEDSIDE FURTHER. DIRECTOR OF AGRICULTURE STATED THAT SHE DID NOT NEED ANYTHING FURTHER. PATIENT CARE TRANSFERRED OVER TO ER NURSING STAFF.
--- NOTE | 2024-12-10 08:52 | PCM.PRE.AN2 ---
ASA Classification* ASA Classification ASA Classification: 3 Assessment & Plan Anesthesia* Anesthesia Assessment Anesthesia Assessment: Discussed sedation and/or anesthesia options, risks, benefits, and alternatives with patient/parents/legal guardian/POA. Questions invited. The patient/parents/legal guardian/POA seems to understand and agrees to proceed with anesthesia plan. Reviewed the physical assessment, medical history, allergy history and patient home medications list prior to surgery/procedure/anesthetic and documented any changes. Performed airway and anesthesia risk assessments. Procedural Plan Procedural Plan:: NOT optimized for anesthesia Add'l anesthesia plan details: Pt in Afib RVR, midsternal chest pain 06/15, procedure cancelled and pt taken to ER. Anesthesia Type Anesthesia Type: MAC Anesthesia Focused Assessment* Airway Assessment Mouth opens: >3 cm Mallampati Score: II Labs Anesthesia Preop lab: CBC WBC 6.5 K/mm3 (4.4-11.0) 11/26/22 16:15 11/26/22 RBC 4.00 M/mm3 (4.2-5.4) L 11/26/22 16:15 11/26/22 Hgb 11.9 g/dL (12.0-15.0) L 11/26/22 16:15 11/26/22 Hct 36.5 % (37-47) L 11/26/22 16:15 11/26/22 Plt Count 295 K/mm3 (150-450) 11/26/22 16:15 11/26/22 CHEMISTRY Potassium 3.9 mmol/L (3.5-5.1) 05/19/24 09:10 05/19/24 Sodium 141 mmol/L (136-145) 05/19/24 09:10 05/19/24 Magnesium 2.3 mg/dL (1.6-2.6) 08/24/22 07:07 08/24/22 BUN 11 mg/dL (7-18) 05/19/24 09:10 05/19/24 Creatinine 0.76 mg/dL (0.55-1.02) 05/19/24 09:10 05/19/24 Glucose 95 mg/dL (74-106) 05/19/24 09:10 05/19/24 TSH 1.47 uIU/mL (0.358-3.74) 07/03/23 16:43 07/03/23 COAG PT 12.4 SECONDS (11.7-14.9) 04/06/21 12:17 04/06/21 Pre-Assessment Diagnosis/Proposed Procedure Planned Operative Procedure(s): colonoscopy, egd Anesthesia History Anesthesia History - legislative correspondent: Anesthesia History - legislative correspondent Hx Hospitalization No 12/03/24 14:55 Any Problems With Anesthesia No 12/03/24 14:55 Cholinesterase deficiency No 12/03/24 14:55 You/Your Family Experience No 12/03/24 14:55 fever (hyperthermia) with Relationship Recent Exposure to Contagious No 05/19/24 09:20 Disease Does patient have nerve No 12/03/24 14:55 stimulator Patient instructed to have device shut off --Does patient have Pacemaker or ICD? When Was Last Pacemaker Check QUESTION #4 FULL TEXT: You/Your Family Experience fever (hyperthermia) with Anesthesia Last Oral Intake Last Oral intake: Last Oral Intake NPO since Meds taken in AM with sips of water? Meds patient instructed to take am of surgery PONV PONV - legislative correspondent: PONV - legislative correspondent Female Yes 12/03/24 14:55 HX of Motion Sickness Yes 12/03/24 14:55 HX of N/V After Surgery No 12/03/24 14:55 Non-Smoker Yes 12/03/24 14:55 Duration of Surgery greater No 12/03/24 14:55 than 60 minutes Number of Risk Factors 3 12/03/24 14:55 PONV Score Moderate Risk 12/03/24 14:55 Height & Weight Height & Weight: Anesthesia: Height & Weight Height 5 ft 7 in 09/21/24 08:24 Respiratory Assessment Respiratory Assessment - legislative correspondent: Respiratory Tract Infection Hx - legislative correspondent Hx Respiratory Tract Infection No 12/03/24 14:55 STOP Sleep Apnea STOP Sleep Apnea - legislative correspondent: STOP Sleep Apnea - legislative correspondent Hx Hypertension Yes: on meds 12/03/24 14:55 Hx Sleep Apnea No 12/03/24 14:55 CPAP No 05/19/24 12:22 BIPAP No 05/05/24 10:22 Do you snore loudly (louder No 12/03/24 14:55 than talking or can be heard Do you often feel tired/ No 12/03/24 14:55 fatigued/ sleepy during daytime? Has anyone observed you stop No 12/03/24 14:55 breathing during sleep? STOP Results Negative 12/03/24 14:55 QUESTION #5 FULL TEXT : Do you snore loudly (louder than talking or can be heard through closed doors)? 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 Specify any problems Hx of Preganancy in last 3 No 12/03/24 14:55 Months Nurse Filling Out Transfusion JZOLLINGE 12/03/24 14:55 & Questions: Date: 12/03/24 12/03/24 14:55 Time: 14:57 12/03/24 14:55 Patient unable to answer at this time (ie. confused, unrespo /Reproduction History /Reproductive History - legislative correspondent: /Reproductive Hx- legislative correspondent Hx Now No 12/03/24 14:55 Gestational Age (in weeks): EDC: Hx Hx Para Hx Section SAB No 12/03/24 14:55 Active Medications Active Medications: Current Medications Generic Name Dose Route Start Last Admin Trade Name Freq PRN Reason Stop Dose Admin Lactated Ringer's 1,000 mls @ 15 mls/hr 12/10/24 08:00 IV .Q48H ALLISON PFSH Medical History (Updated 12/10/24 @ 08:39 by Bertha Graham) Afib SVT (supraventricular tachycardia) History of Crohn's disease Wears contact lenses Wears glasses Alcohol use Arthritis Injury of back Gastric reflux Non-smoker History of Holter monitoring History of echocardiogram History of stress test Cardiology follow-up encounter Paroxysmal atrial fibrillation Cervical stenosis of spine Positive [place]EN[place] (antinuclear antibody) BCC (basal cell carcinoma), face Atrial fibrillation Back pain SBO (small bowel obstruction) Chest pain Palpitations Foreign body in soft tissue Personal history of retained foreign body fully removed (~04/2019) Vasovagal syncope IBD (inflammatory bowel disease) Overweight (BMI 25.0-29.9) Home Medications ?Medication ?Instructions ?Recorded ?Last Taken ?Type cholecalciferol (vitamin D3) 125 125 mcg PO DAILY 08/25/21 07/15/23 History mcg (5,000 unit) capsule aspirin 81 mg capsule 81 mg PO DAILY 07/12/23 07/11/23 History ascorbic acid (vitamin C) 500 mg 500 mg PO DAILY 05/05/24 Unknown History tablet (C-500) calcium 600 mg (as 1 tab PO DAILY 05/05/24 Unknown History carbonate)-vitamin D3 5 mcg (200 unit) tablet (Calcium 600 + D(3)) cyanocobalamin (vitamin B-12) 1,000 mcg PO DAILY 05/05/24 Unknown History 1,000 mcg tablet (Vitamin B-12) atenolol 50 mg tablet 50 mg PO DAILY #90 tabs 08/05/24 Unknown Rx ustekinumab 90 mg/mL subcutaneous 90 mg subcut .Q8 WEEKS #1 mL 08/07/24 Unknown Rx syringe (Stelara) famotidine 20 mg tablet (Acid 40 mg PO DAILY PRN acid reflux 09/21/24 Unknown History Controller) metformin 500 mg tablet,extended 500 mg PO BID 12/03/24 Unknown History release 24 hr Allergy/AdvReac Type Severity Reaction Status Date / Time escitalopram (From Lexapro) Allergy Hives,Sedat Verified 12/10/24 08:38 ion Penicillins Allergy Rash Verified 12/10/24 08:38 meperidine (From Demerol) AdvReac Mild Nausea Verified 12/10/24 08:38 ciprofloxacin AdvReac Dizziness Verified 12/10/24 08:38 venlafaxine (From Effexor) AdvReac Constipatio Verified 12/10/24 08:38 n Family History Father CAD (coronary artery disease) Hypertension Atrial fibrillation Arthritis Mother Heart disease Atrial fibrillation Arthritis Brother Hypertension Surgical History History of esophagogastroduodenoscopy (EGD) Hx of colonoscopy History of left heart catheterization (LHC) (~04/12/21) History of tubal ligation Hx of vein stripping History of right oophorectomy H/O hemorrhoidectomy History of bladder suspension procedure H/O breast biopsy Social History household members: spouse and children housing: house current occupational status: employed current occupation: [employer] de[employer]. Smoking Status: Never smoker alcohol intake: current alcohol intake frequency: 0-2 drinks per day substance use type: does not use caffeine: Yes Type: coffee Number of servings: 3 what type of physical activity do you participate in: walking frequency: daily do you feel safe at home: Yes Review of Systems (Anesthesia) ROS Narrative System reviewed and no additional complaints, except as documented.
== END 2024-12-10 10:00 | disposition home or self-care (01) ==
LOC: EN 07:53 → AC 07:56
PROVIDERS: PCP Family Medicine; Referring Provider Family Medicine; Visit Provider Internal Medicine Gastroenterology
DX: Z00.00 Encounter for general adult medical examination without abnormal findings (principal)
CPT/HCPCS: 93005

== ENCOUNTER 2024-12-10 08:35 | Emergency (ER) | payer MEDICARE, BC, SELFPAY ==
[2024-12-10] VITALS (13 sets, daily range): BP systolic 73–124; BP diastolic 54–85; PULSE 72–140; RESP 14–21; TEMP 36.6–36.8; O2SAT 96–100; BMI 29.7
[2024-12-10] MEDS: 0.9% Normal Saline (1000mL) 1,000 ML 999 ML IV (08:47)
--- NOTE | 2024-12-10 08:51 | EX.ED.DYSGE1 ---
HPI History of Present Illness Chief Complaint: Chest Pain Narrative Narrative: Patient is a 69-year-old female with past medical history of small bowel obstruction, positive [place], GERD who presents to the emergency department with a chief complaint of palpitations and not feeling well. States that she was getting a upper and lower scope today and notes that she did the prep yesterday. States that around 5 AM this morning she noted that she felt very clammy had chest pressure and felt like she was going to pass out. States that she had to lay down and notes that every single time she tried to sit up she felt like she was in a pass out. She notes that she had a Holter monitor recently and they discovered that she is not in atrial fibrillation and she is in paroxysmal SVT and notes that she is on atenolol and flecainide which she states that she took those medications this morning. States that she is following up with a physician at [facility] and notes that she is to have an ablation in the near future. She states that in September they reached out and they were told that it will be several months before the ablation can be performed. States that lately she felt like she has had increased episodes. [facility] Medical History Afib SVT (supraventricular tachycardia) History of Crohn's disease Wears contact lenses Wears glasses Alcohol use Arthritis Injury of back Gastric reflux Non-smoker History of Holter monitoring History of echocardiogram History of stress test Cardiology follow-up encounter Paroxysmal atrial fibrillation Cervical stenosis of spine Positive [place]OEN[place] (antinuclear antibody) BCC (basal cell carcinoma), face Atrial fibrillation Back pain SBO (small bowel obstruction) Chest pain Palpitations Foreign body in soft tissue Personal history of retained foreign body fully removed (~04/2019) Vasovagal syncope IBD (inflammatory bowel disease) Overweight (BMI 25.0-29.9) Home Medications ?Medication ?Instructions ?Recorded ?Last Taken ?Type cholecalciferol (vitamin D3) 125 125 mcg PO DAILY 08/25/21 07/15/23 History mcg (5,000 unit) capsule aspirin 81 mg capsule 81 mg PO DAILY 07/12/23 07/11/23 History ascorbic acid (vitamin C) 500 mg 500 mg PO DAILY 05/05/24 Unknown History tablet (C-500) calcium 600 mg (as 1 tab PO DAILY 05/05/24 Unknown History carbonate)-vitamin D3 5 mcg (200 unit) tablet (Calcium 600 + D(3)) cyanocobalamin (vitamin B-12) 1,000 mcg PO DAILY 05/05/24 Unknown History 1,000 mcg tablet (Vitamin B-12) atenolol 50 mg tablet 50 mg PO DAILY #90 tabs 08/05/24 Unknown Rx ustekinumab 90 mg/mL subcutaneous 90 mg subcut .Q8 WEEKS #1 mL 08/07/24 Unknown Rx syringe (Stelara) famotidine 20 mg tablet (Acid 40 mg PO DAILY PRN acid reflux 09/21/24 Unknown History Controller) metformin 500 mg tablet,extended 500 mg PO BID 12/03/24 Unknown History release 24 hr Allergy/AdvReac Type Severity Reaction Status Date / Time escitalopram (From Lexapro) Allergy Hives,Sedat Verified 12/10/24 08:38 ion Penicillins Allergy Rash Verified 12/10/24 08:38 meperidine (From Demerol) AdvReac Mild Nausea Verified 12/10/24 08:38 ciprofloxacin AdvReac Dizziness Verified 12/10/24 08:38 venlafaxine (From Effexor) AdvReac Constipatio Verified 12/10/24 08:38 n Family History Father CAD (coronary artery disease) Hypertension Atrial fibrillation Arthritis Mother Heart disease Atrial fibrillation Arthritis Brother Hypertension Surgical History History of esophagogastroduodenoscopy (EGD) Hx of colonoscopy History of left heart catheterization (LHC) (~04/12/21) History of tubal ligation Hx of vein stripping History of right oophorectomy H/O hemorrhoidectomy History of bladder suspension procedure H/O breast biopsy Social History household members: spouse and children housing: house current occupational status: employed current occupation: [employer] dept. Smoking Status: Never smoker alcohol intake: current alcohol intake frequency: 0-2 drinks per day substance use type: does not use caffeine: Yes Type: coffee Number of servings: 3 what type of physical activity do you participate in: walking frequency: daily do you feel safe at home: Yes ROS ROS ED ROS Narrative Constitutional: Denies any fevers or chills, headaches Eyes: Denies double vision Cardiovascular: Complains of palpitations and chest pressure as noted above Respiratory: Denies coughing wheezing shortness of breath Abdomen: Denies abdominal pain nausea vomit diarrhea : Denies any urinary symptoms Neurological: Denies any numbness, weakness, tingling Musculoskeletal: Denies any back pain Skin: Denies any rashes or lesions EXAM Physical Exam Narrative Exam Narrative: General: Patient was sitting in bed rest comfortably did not appear to be in acute distress Head: Atraumatic, normocephalic Eyes: PERRL bilaterally, EOMI bilateral, no conjunctival injection noted Neck: Soft, supple, trachea midline Cardiovascular: Patient tachycardic with a regular rhythm Respiratory: Clear to auscultation bilaterally Abdomen: Soft, nondistended, nontender to palpation Extremities: +5/5 strength noted in the bilateral upper and lower extremities, radial pulses +2/4 in bilateral extremities, no pedal edema exam Neurological: Patient likely has new that she was at [facility] year is 2024 Skin: Warm, dry, intact no rashes or lesions noted Const Vital Signs: 12/10/24 08:35 12/10/24 08:39 12/10/24 08:43 Temperature 98.3 F Temperature Source Oral Pulse Rate 140 H Respiratory Rate 15 Respiratory Effort Normal Non-Labored Blood Pressure 110/80 Blood Pressure Mean 90 Pulse Ox 98 100 Oxygen Delivery Method Room Air Room Air 12/10/24 09:28 12/10/24 09:38 12/10/24 09:47 Temperature Temperature Source Pulse Rate 131 H 132 H 82 Respiratory Rate 20 H 18 21 H Respiratory Effort Blood Pressure 88/64 L 84/63 L 73/54 L Blood Pressure Mean 72 70 60 Pulse Ox 96 98 100 Oxygen Delivery Method 12/10/24 09:51 12/10/24 09:59 12/10/24 10:00 Temperature Temperature Source Pulse Rate 75 77 78 Respiratory Rate 17 20 H 20 H Respiratory Effort Blood Pressure 110/73 111/66 111/66 Blood Pressure Mean 85 81 81 Pulse Ox 98 100 100 Oxygen Delivery Method 12/10/24 11:00 12/10/24 11:59 12/10/24 13:00 Temperature Temperature Source Pulse Rate 80 81 74 Respiratory Rate 14 17 14 Respiratory Effort Blood Pressure 119/71 123/72 H 111/73 Blood Pressure Mean 87 89 85 Pulse Ox 99 98 98 Oxygen Delivery Method Room Air Room Air Room Air MDM MDM MDM Narrative Medical decision making narrative: Patient is a 61-year-old female who presented to the emergency department chief complaint of palpitations, lightheadedness, near syncope. On the differential diagnosis includes but not limited to SVT, atrial flutter, anemia, electrolyte abnormality. Once the workup is obtained and reviewed she will be reevaluated. Patient will be given IV fluids. Vasovagal was performed and the patient's heart rate remained in the 140s therefore I am suspicious that she is in atrial flutter at this point in time and not SVT. Patient's echocardiogram from November 10, 2024 was reviewed which showed ejection fraction of 65% with no regional wall abnormalities.Patient's stress test from August 04, 2024 reviewed as well which she had the exercise stress test discontinued due to target heart rate achieving she had shortness of breath however no chest pain with this. Patient CBC reviewed showed no evidence leukocytosis white blood count 8.9, he was 12.5, platelet count 289. Patient INR normal at 1, PT of 13.5. Patient sodium was 141, potassium normal at 4.5, creatinine normal at 0.94. Patient's troponin was 16, delta troponin of 30. Patient's EKG showed a rate of 137 bpm narrow complex with rate dependent changes likely noted in the leads V3 through V6. Patient proBNP normal. Patient CTA of the chest reviewed which showed no evidence of pulmonary embolism mild linear atelectasis and/or scarring at the lung bases. Patient chest x-ray reviewed by myself by radiology showed no acute cardiopulmonary processes. Patient was becoming more symptomatic with worsening chest discomfort and her blood pressure was dropping therefore I reached out to on-call tearoom host/hostess Dr. Bose. Also repeated EKG which showed narrow complex tachycardia with a rate of 135 bpm as well with a QTc of 498. He is recommending before cardioversion attempting adenosine to see the underlying rhythm and if this is SVT this could potentially break the rhythm. Patient was given 6 mg of adenosine and a EKG was obtained during this time which showed PVCs multiple of them. Patient ultimately then cardioverted to sinus rhythm with PACs noted with a rate of 87 bpm with a QTc of 510. Patient states that she is feeling much better at this point time. I reach out to her capsule inspector Dr. Cheung who is requesting the EKGs be faxed to him for his review. These were faxed. They called back and he states that he does not want any medication adjustments at this point in time and she can be discharged home. He states that he will move up her ablation. I discussed this plan with the patient she got up and ambulated multiple times here in the emergency department and feels back to her baseline would like to go home. She is advised to return with worsening symptoms or concerns. She is agreeable this plan all course concerns answered she was discharged home in stable condition. Critical care time: 57 minutes Lab Data Labs: Laboratory Results - last 24 hr 12/10/24 12/10/24 12/10/24 08:43 10:25 10:47 WBC 8.9 RBC 4.21 Hgb 12.5 Hct 38.6 MCV 91.7 MCH 29.7 MCHC 32.4 RDW Std Deviation 46.1 H RDW Coeff of Charles 13.6 Plt Count 289 MPV 10.8 Immature Gran % (Auto) 0.500 Neut % (Auto) 81.2 H Lymph % (Auto) 13.0 L [place] % (Auto) 4.6 Eos % (Auto) 0.5 Baso % (Auto) 0.2 Absolute Neuts (auto) 7.2 Absolute Lymphs (auto) 1.15 Nucleated RBC % 0 PT 13.5 INR 1.0 APTT 26.4 Sodium 141 Potassium 4.5 Chloride 109 H Carbon Dioxide 20.2 L Anion Gap 11 BUN 15 Creatinine 0.94 Estim Creat Clear Calc 64.60 Est GFR (MDRD) Non-Af 66 BUN/Creatinine Ratio 15.7 Glucose 166 H Calcium 9.1 Magnesium 2.2 Troponin T High Sens 16 H Troponin T Hi Sens 2 Hr 30 H NT pro BNP II 600 TSH 2.420 Free T4 1.10 Free T3 pg/dL 2.8 Urine Color Yellow Urine Clarity Clear Urine pH 6.0 Ur Specific [place] 1.010 Urine Protein 30 H Urine Glucose (UA) Normal Urine Ketones 15 H Urine Occult Blood Negative Urine Nitrite Negative Urine Bilirubin Negative Urine Urobilinogen Normal Ur Leukocyte Esterase Negative Urine RBC 0 SEEN Urine WBC 0 SEEN Ur Squamous Epith Cells 0 SEEN Urine Bacteria 0 SEEN Urine Mucus 0 SEEN Radiography Diagnostic Testing: Clinical Impression(s) from Imaging Studies Chest X-Ray 12/10/24 08:55 IMPRESSION: No acute cardiopulmonary process Reading Location: [id number] Chest CTA 12/10/24 10:10 IMPRESSION: No evidence of pulmonary embolism. Mild linear atelectasis and/or scarring at the lung bases. [id number] Chief Complaint: Chest Pain ED Provider: Wiley Swenson Dx/Rx/DC Orders Clinical Impression: Chest pain, Palpitations, SVT (supraventricular tachycardia) Prescriptions: No Action cholecalciferol (vitamin D3) 125 mcg (5,000 unit) capsule 125 mcg PO DAILY metformin 500 mg tablet extended release 24 hr 500 mg PO BID aspirin 81 mg capsule 81 mg PO DAILY calcium carbonate-vitamin D3 [Calcium 600 + D(3)] 600 mg-5 mcg (200 unit) tablet 1 tab PO DAILY ascorbic acid (vitamin C) [C-500] 500 mg tablet 500 mg PO DAILY cyanocobalamin (vitamin B-12) [Vitamin B-12] 1,000 mcg tablet 1,000 mcg PO DAILY famotidine [Acid Controller] 20 mg tablet 40 mg PO DAILY PRN (Reason: acid reflux) atenolol 50 mg tablet 50 mg PO DAILY Qty: 90 3RF Stelara 90 mg/mL syringe 90 mg subcut .Q8 WEEKS Qty: 1 6RF Patient Comments: LAST DOSE 12-01-24 Primary Care Provider: Jean Marie De La Fuente Referrals: Jean Marie De La Fuente MD [Primary Care Provider] - Activity Restrictions/Additional Instructions: Follow-up with your capsule inspector at [facility] As we discussed here. Return for worsening symptoms or any concerns. Take medications as prescribed as they do not want to make any changes to your medications today. Print Language: Bahraini Disposition Disposition: Home, Self Care
--- NOTE | 2024-12-10 08:55 | RAD_ITS ---
PROCEDURE: CHEST PA AND LATERAL 12/10/2024 REASON FOR EXAM: CHEST PAIN TECHNIQUE: Procedure Code: RADCXR Modality: DX Procedure: CHEST PA AND LATERAL COMPARISON: April 06, 2021 FINDINGS: Hardware: EKG leads Heart: Normal Mediastinum: Normal Lungs: Clear. Bones: Mild curvature thoracic and thoracolumbar spine. RAD/Chest PA and Lateral IMPRESSION: No acute cardiopulmonary process Reading Location: [id number]
[2024-12-10 08:59] LABS: Hematocrit 38.6 % (37-47); Hemoglobin 12.5 g/dL (12.0-15.0); Immature Granulocytes Count 0.040 X10^3/uL (0.0-0.0); Mean Corp Hgb Conc 32.4 g/dL (32-36); Mean Corpuscular Volume 91.7 fL (81-99); Mean Platelet Vol. 10.8 fl (6.2-12.0); NRBC Flagged by Analyzer 0 % (0-5); Platelet Count 289 K/mm3 (150-450); RBC Distribution Width CV 13.6 % (11.6-14.6); RBC Distribution Width SD 46.1 fl (35.1-43.9); Red Blood Count 4.21 M/mm3 (4.2-5.4); White Blood Count 8.9 K/mm3 (4.4-11.0)
[2024-12-10 09:09] LABS: Prothrombin Time (Protime)PT. 13.5 SECONDS (11.7-14.9)
[2024-12-10 09:10] LABS: Partial Thromboplast Time 26.4 Seconds (24.1-36.2)
--- NOTE | 2024-12-10 09:15 | EKG12_ITS ---
Test Reason : ADENOSINE Blood Pressure : */* mmHG Vent. Rate : 66 BPM Atrial Rate : 48 BPM P-R Int : 128 ms QRS Dur : 90 ms QT Int : 418 ms P-R-T Axes : 67 52 36 degrees QTcB Int : 438 ms sinus bradycardia with PVC's Nonspecific ST and T wave abnormality Abnormal ECG Confirmed by CHARY VERMA, EAMON ([id number]), assistant editor COURTNEY SANCHEZ ([id number]) on 12/14/2024 8:59:58 AM Referred By: Confirmed By: EAMON DIEZ MD
[2024-12-10 09:19] LABS: Troponin T High Sensitivity 16 ng/L (<=14)
[2024-12-10] MEDS: 0.9% Normal Saline (1000mL) 1,000 ML 15 ML IV (09:30)
[2024-12-10 09:34] LABS: Anion Gap 11 (5-15); BUN 15 mg/dL (4-19); BUN/Creat Ratio 15.7 RATIO (10-20); Calcium,Total 9.1 mg/dL (7.6-11.0); Carbon Dioxide 20.2 mmol/L (21.0-32.0); Chloride 109 mmol/L (98-108); Estimated Creatinine Clearance 64.60 ml/min (50-250); Free T3 2.8 pg/mL (2.18-3.98); Glucose 166 mg/dL (70-99); Magnesium 2.2 mg/dL (1.5-2.2); Potassium 4.5 mmol/L (3.3-5.1); Pro- Brain NATRIURETIC PEPTIDE 600 pg/mL (<=900)
--- NOTE | 2024-12-10 09:35 | EKG12_ITS ---
Test Reason : ADENOSINE Blood Pressure : */* mmHG Vent. Rate : 87 BPM Atrial Rate : 87 BPM P-R Int : 158 ms QRS Dur : 88 ms QT Int : 424 ms P-R-T Axes : 44 58 33 degrees QTcB Int : 510 ms Sinus rhythm with Premature atrial complexes Nonspecific ST and T wave abnormality Prolonged QT Abnormal ECG Confirmed by CHARY VERMA, EAMON ([id number]), editorial project manager COURTNEY SANCHEZ ([id number]) on 12/14/2024 8:59:31 AM Referred By: Confirmed By: EAMON DIEZ MD
[2024-12-10] MEDS: Adenosine 6 MG/2 ML Syringe IV (09:44)
--- NOTE | 2024-12-10 10:10 | CT_ITS ---
PROCEDURE: CTA CHEST W/WO CONTRAST 12/10/2024 REASON FOR EXAM: SOB Chest pressure. TECHNIQUE: Procedure Code: [id number] Modality: CT Procedure: CTA CHEST W/WO CONTRAST Multiplanar Sagittal and Coronal images were obtained. 3D post processing was performed CONTRAST: Isovue 370 VOLUME: 100 mL One or more dose reduction techniques were used (e.g., Automated exposure control, adjustment of the mA and/or kV according to patient size, use of iterative reconstruction technique). RADIATION DOSE SUMMARY: CTDlvol: 13.9 mGy DLP: 476.06 mGycm COMPARISON: Prior chest radiograph done earlier in the day. FINDINGS: Hardware: None Lymph nodes: Unremarkable Heart: No coronary artery calcification is seen. Thoracic Aorta: No thoracic aortic aneurysm or dissection. Pulmonary Vessels: No evidence of pulmonary embolism. Lungs and Airways: Mild increased markings at the lung bases suggestive of either linear scarring and/or atelectasis. Pleura: No pleural effusion. Upper Abdomen: Unremarkable Bones: Degenerative changes of the thoracic spine. Loss of height of a mid dorsal vertebrae. CT/CTA Chest W/WO Contrast IMPRESSION: No evidence of pulmonary embolism. Mild linear atelectasis and/or scarring at the lung bases. Reading Location: [id number]
[2024-12-10 10:56] LABS: Mucous, Urine 0 SEEN /hpf (<or=2+); Red Blood Cells-Urine 0 SEEN /hpf (0-5); Squamous Epithelial Cells - UA 0 SEEN /hpf (5-10)
[2024-12-10 11:02] LABS: Glucose, Dipstick Normal (Normal); Ketone-Dipstick 15 mg/dl (Negative); Leukocyte Esterase-Dipstick Negative /ul (Negative); Nitrite-Dipstick Negative (Negative); Occult Blood-Urine Negative /ul (Negative); Protein-Dipstick 30 mg/dl (Negative); Specific Gravity, Urine 1.010 (1.002-1.030); Urine Bilirubin Dipstick Negative (Negative)
[2024-12-10 11:11] LABS: Color, Urine Yellow (Yellow)
[2024-12-10 11:21] LABS: Troponin T High Sens 2 HR 30 ng/L (<=14)
[2024-12-10 13:30] LABS: Troponin T High Sens 4 HR 104 ng/L (<=14)
== END 2024-12-10 13:45 | disposition home or self-care (01) ==
PROVIDERS: Emergency Provider Emergency Medicine; PCP Family Medicine; Visit Provider Emergency Medicine
DX: R07.89 Other chest pain (principal); I47.10 Supraventricular tachycardia, unspecified; I49.3 Ventricular premature depolarization; R00.2 Palpitations; R42 Dizziness and giddiness; Z79.899 Other long term (current) drug therapy
CPT/HCPCS: 71046; 71275; 80048; 81001; 83735; 83880; 84439; 84443; 84481; 84484; 85025; 85610; 85730; 93005; 96361; 96374; 96375; 99283; Q9967; A4216; J0153; J2405

== ENCOUNTER 2024-12-22 16:00 | Outpatient (RCR) | payer MEDICARE, BC, SELFPAY ==
--- NOTE | 2024-11-17 17:47 | HP.PTEVAL ---
Patient's Visit Information Visit Information Visit Information: NOHEMI LAGUNA is a 69 year old F referred to Physical Therapy by Dr. Jean Marie De La Fuente MD with a diagnosis of L hip OA. Date of Evaluation: 11/17/24 Physical Therapist: Jean Marie Lozano, DPT, OCS, CSCS Visit Plan Frequency: 2x /Week Duration: 4-6 Weeks Plan: 2x/week for 2-6 weeks as needed for...(2 to start) IE HEP: piriformis stretch, ITB streetch 30" 4x L 2x/day, sleeping position with pillow b/w knees or under knees, avoid aggravating activities. Treat with.. 1. MH and STM to L piriformis area and lateral posterior hip, stretch piriformis, ITB and HS. mat based strength of hip stabs and core to HEP consider more aggressive strength once improved. Keep eye on back ROM as possible exacerbator Subjective Subjective: L hip pain in butt, several months, insidious onset. Has OP and Crohns and on Stellara which can give her weakness. Did feel L thigh weakness prior. L buttock pain is more frequent, wakes her up at night and stiff and sore in am. better if moves around. Getting more constant. Nothing further down leg. H/o vein stripping on that leg. 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 Basic ADLs all I. No LB history, no numbness or tingling in leg. no regular exercises Pain L buttock.: Pain Intensity (Out of 10): 4 Pain Intensity Range: 0 and 7 Objective Objective: L buttock area painful and tender over priformis and into ITB laterally minimally but defintieively vs R. Walking well without antalgia, toe, heel walk, march, butt kicks without increased pain. - BALWINDER, - FADDIR, - instability spine.Max tight itb L and mod tight piriformisL, actually B. Lumb ar aROM ext painful slight increase, flexion adn SB are WNL. hip knee and ankle AROM WFL and without increased pain. - SI testing. - SLR, - Slump strength hip 3+ abd and ext without pain, 4- flexion, knee 4, ankles 4, nothing increasees her pain today. Balance/Special Test Scores Lower Extremity Functional Score: 75 Goals Goal 1:: Pain in L buttock are 75% better adn 1/10 at worst and manageable Goal Time Frame: 4-6 Weeks Goal 2:: I appropriate HEP stretch adn strength to limit future problems Goal Time Frame: 4-6 Weeks Goal 3:: wake up in am with no stiffness or soreness. Goal Time Frame: 4-6 Weeks Rehabilitation Potential Physical Therapy Diagnosis: soft tissue tenderness L hip, pain making function uncomfortable. Rehabilitation Potential: Good Anticipated Interventions Patient/Client Instruction: Educate patient on: Condition and Plan of Care For the Purpose of:: To decrease pain, To improve nutrient delivery to tissue, To improve muscle performance and motor function, To increase tolerance to activity/condition/position and To improve ability of physical actions for home/community/work/leisure Therapeutic Exercise to Include: Strength training, Postural training, Flexibilty training, Passive ROM and Active ROM For the Purpose of:: To decrease pain, To increase ROM, To improve nutrient delivery to tissue, To improve muscle performance and motor function, To increase tolerance to activity/condition/position, To improve ability of physical actions for home/community/work/leisure and To improve gait and locomotor functions Manual Therapy Techniques to Include: Mobilization, Passive ROM and Soft tissue mobilization For the Purpose of:: To decrease pain, To increase ROM, To improve nutrient delivery to tissue, To improve muscle performance and motor function and To increase tolerance to activity/condition/position Thermo therapy (hot pack): Yes For the Purpose of:: To improve nutrient delivery to tissue Text: Thank you for the opportunity to evaluate your patient. For Medicare and Medicare HMO plans, please review the plan of care and approve it. It will need to be FAXED BACK to us at [phone] for Medicare purposes. For Medicare only, by signing this I certify the plan of care. Please let me know if there are questions or concerns regarding this plan of care. Physician Signature: Date:
--- NOTE | 2024-12-03 10:30 | HP.PTREVAL ---
Re-Evaluation Intro: Dr. Jean Marie De La Fuente MD, It has been my pleasure to treat NOHEMI LAGUNA over the last 6 visits for L hip OA. Please see the progress note below for an update on the physical therapy plan of care! Subjective Subjective: No diffeerent than 3 weks ago. Avoiding sleeping on R side. Doing home stretch adn streengthen 1x/day and using massage gun. Treatment not helping any. Activities at home normal. Pain this week up to 09/15 if doesn't move around too much. Mostly 07/16. Limps a little upon arising. F/U Dr. De La Fuente in January. Objective Objective/Function: LB ROM limited in extension and reporduces post hip pain L. SB and flexion are OK. Hip still testing well, loosening adn - FABEER and FADDIR. Subjective not improving. Plan Plan Plan: Will change focus to NS core strength via HEP and pt to contact doctor regarding possible other next steps for possible lumbar involvement/diagnostics while we go through strength adn ROM Please treat with mat to standing core strength via HEP and progression of lumbar ROM to yoga stretches. Balance/Gait/Functional tests Balance/Special Test Scores Lower Extremity Functional Score: 75 Goals Goals Goal 1:: Pain in L buttock are 75% better adn 1/10 at worst and manageable Goal Time Frame: 4-6 Weeks Goal Progress: Not Progressing Goal 2:: I appropriate HEP stretch adn strength to limit future problems Goal Time Frame: 4-6 Weeks Goal Progress: Goal Met Goal 3:: wake up in am with no stiffness or soreness. Goal Time Frame: 4-6 Weeks Goal Progress: Not Progressing Anticipated Interventions Anticipated Interventions Patient/Client Instruction: Educate patient on: Condition and Plan of Care For the Purpose of:: To decrease pain, To improve nutrient delivery to tissue, To improve muscle performance and motor function, To increase tolerance to activity/condition/position and To improve ability of physical actions for home/community/work/leisure Therapeutic Exercise to Include: Strength training, Postural training, Flexibilty training, Passive ROM and Active ROM For the Purpose of:: To decrease pain, To increase ROM, To improve nutrient delivery to tissue, To improve muscle performance and motor function, To increase tolerance to activity/condition/position, To improve ability of physical actions for home/community/work/leisure and To improve gait and locomotor functions Manual Therapy Techniques to Include: Mobilization, Passive ROM and Soft tissue mobilization For the Purpose of:: To decrease pain, To increase ROM, To improve nutrient delivery to tissue, To improve muscle performance and motor function and To increase tolerance to activity/condition/position Thermo therapy (hot pack): Yes For the Purpose of:: To improve nutrient delivery to tissue Re-Evaluation Ending Re-evaluation ending: Please do not hesitate to contact me at [phone] by phone or if you have questions or concerns regarding this new plan of care! Sincerely, Jean Marie Lozano, DPT, OCS, CSCS
--- NOTE | 2024-12-22 16:41 | HP.PTDCSUM ---
Discharge Summary D/C summary: It has been my pleasure to treat NOHEMI LAGUNA referred by Dr. Jean Marie De La Fuente MD, with the diagnosis of L hip OA for a total of 10 visit(s). Discharge Date: 12/22/24 Please see the following information for a summary of their discharge status. Subjective Subjective: I think getting better. It is not real bad. Pain this week 3/10 at worst and was lying in bed in middle of night. Activitiy normal.Stiff after sitting for a while. Ready to bee done and will continue via HEP. Pain L buttock.: Pain Intensity (Out of 10): 0 Overall Improvement % Improvement: 70 Objective Objective/Function: walsk without antalgia, exits chair without pain or hesitancy. Back moving well without pain and no unusual tenderness in l glut area today. Goals Goal 1:: Pain in L buttock are 75% better adn 1/10 at worst and manageable Goal Progress: 70% Goal 2:: I appropriate HEP stretch adn strength to limit future problems Goal Progress: Goal Met Goal 3:: wake up in am with no stiffness or soreness. Goal Progress: Not Progressing Plan Plan: d/c to HEP D/C Information d/c sentence: If there are questions or concerns regarding this patient's physical therapy, please feel free to call me at [phone]. Thank you for the referral of this patient. Sincerely, Jean Marie Lozano, DPT, OCS, CSCS Balance/Gait/Functional tests Balance/Special Test Scores Lower Extremity Functional Score: 73 Improvement % Improvement: 70
== END 2024-12-22 19:00 | disposition home or self-care (01) ==
LOC: PT 16:00
PROVIDERS: PCP Family Medicine; Referring Provider Family Medicine; Visit Provider Family Medicine
DX: M16.12 Unilateral primary osteoarthritis, left hip (principal)
CPT/HCPCS: 97110; 97161; 97164; 97530

== ENCOUNTER 2025-01-23 11:17 | Emergency (ER) | payer MEDICARE, BC, SELFPAY ==
[2025-01-23 11:18] VITALS: BP 134/83; PULSE 187; RESP 18; TEMP 36.1; O2SAT 100; BMI 29.3
--- OUTSIDE RECORDS SUMMARY | 2025-01-23 11:45 | XMS RPT_ITS | CCD ---
Author Organization [facility] CliniSywy Care Team Providers Care Mattress Specialist Name Role Phone Gordon BOWMANWesley Unavailable Dr. Cheryle De La Fuente Primary Care Provider Dr. Cheryle De La Fuente Referring Provider Hitesh BREAUX, WILLAC Beatriz Attending Provider Cheryle De La Fuente MD Primary Care Provider Dr. Cheryle De La Fuente Primary Care Provider Dr. Cheryle De La Fuente Referring Provider Erik PA, PA Richelle Mesa Attending Provider Richelle Valencia (Pa) Unavailable Cheryle De La Fuente MD Primary Care Provider [phone] Cheryle De La Fuente Referring Provider [phone] Dr. Jun Marin Attending Provider FriendDr. Barahona Other Provider Dr. Cheryle De La Fuente Primary Care Provider Dr. Cheryle De La Fuente MD Primary Care Provider Dr. Cheryle De La Fuente MD Referring Provider [phone] Telma Doan Attending Provider Willie VERMA, Dr. Bernard Attending Provider Dr. Marco Antonio Tapia MD Referring Provider Dr. Eduard Maravilla MD Attending Provider Skip VERMA, Dr. Bello Referring Provider Erki PA, Richelle Mesa Attending Provider Erik PA, Richelle M Referring Provider Erik MALDONADO, Richelle Mesa Other Provider Lidya VERMA, Dr. Jenkins Attending Provider Dr. hCeryle De La Fuente MD Primary Care Provider Dr. Eduard Maravilla MD Attending Provider Richelle Isidro Referring Provider Sudhakar VERMA, Dr. Aj Referring Provider Tomas BOWMAN, Dr. Barahona Attending Provider Tomas BOWMAN, Dr. Barahona Referring Provider Erik MUNOZ, Richelle Goldman Unavailable Cheryle De La Fuente MD Primary Care Provider Eduard Maravilla Unavailable Dr. Cheryle De La Fuente MD Attending Provider Dr. Jose Garcia MD Attending Provider Dr. Jose Garcia MD Referring Provider Dr. Mohan Le MD Attending Provider Dr. Cheryle De La Fuente MD Primary Care Provider Richelle Isidro Attending Provider Richelle Isidro Referring Provider Dr. Cheryle De La Fuente MD Primary Care Provider Dr. Wiley Swenson DO Emergency Provider MOHAN LE Referring Unavailable JOSE GARCIA Attending Unavailable CHERYLE DE LA FUENTE Primary Care Unavailable Sudhakar VERMA, Dr. Aj Primary Care Physician Tomas BOWMAN, Dr. Barahona Attending Physician [phone] Dr. Cheryle De La Fuente MD Attending Physician [phone] Jose Garcia MD Attending Physician Rey VERMA, Dr. Preston Attending Physician Lidya VERMA, Dr. Jenkins Attending Physician Leela BOWMAN, Dr. Jama Attending Physician Leela BOWMAN, Dr. Jama Emergency Department Physic kayli De La Fuente, Cheryle Primary Care Unavailable Richelle Valencia Referring Unavailabl Eduard Altman Attending Unavailable De La Fuente, Cheryle Primary Care Unavailable Mohan Le Attending Unavailable De La Fuente, Cheryle Primary Care Unavailable De La Fuente, Cheryle Referring Unavailable De La Fuente, Cheryle Attending Unavailable De La Fuente, Cheryle Primary Care Unavailable Friend, Jun Referring Unavailable Friend, Jun Attending Unavailable De La Fuente, Cheryle Primary Care Unavailable Eduard Maravilla Attending Unavailable Ace Valdivia Referring Unavailable De La Fuente, Cheryle Primary Care Unavailable Richelle Valencia Referring Unavailabl e Gregory Bose Attending Unavailabl e De La Fuente, Cheryle Attending Unavailable De La Fuente, Cheryle Primary Care Unavailable De La Fuente, Cheryle Referring Unavailable De La Fuente, Cheryle Primary Care Unavailable Wiley Swenson Attending Unavailable Marco Antonio Tapia Referring Unavailabl Marco Antonio Spears Attending Unavailabl e De La Fuente, Cheryle Primary Care Unavailable Richelle Valencia Attending Unavailabl e Friend, Jun Attending Unavailable De La Fuente, Cheryle Referring Unavailable De La Fuente, Cheryle Primary Care Unavailable Friend, Jun Attending Unavailable De La Fuente, Cheryle Primary Care Unavailable Friend, Jun Referring Unavailable De La Fuente, Cheryle Primary Care Unavailable Richelle Valencia Attending Unavailabl Richelle Kiser Referring Unavailabl e De La Fuente, Cheryle Attending Unavailable De La Fuente, Cheryle Referring Unavailable De La Fuente, Cheryle Primary Care Unavailable De La Fuente, Cheryle Primary Care Unavailable Jose Garcia Referring Unavailable Jose Garcia Attending Unavailable De La Fuente, Cheryle Primary Care Unavailable Richelle Valencia Referring Unavailabl e Gregory Bose Attending Unavailabl Richelle Kiser Consulting Unavailabl e De La Fuente, Cheryle Primary Care Unavailable De La Fuente, Cheryle Referring Unavailable Friend, Jun Attending Unavailable De La Fuente, Cheryle Primary Care Unavailable De La Fuente, Cheryle Referring Unavailable Telma Tran Attending Unavailable De La Fuente, Cheryle Primary Care Unavailable De La Fuente, Cheryle Referring Unavailable Richelle Valencia Attending Unavailvimal patel Friend, Jun Attending Unavailable Cheryle De La Fuente Primary Care Unavailable Cheryle De La Fuente Referring Unavailable Allergies Allergy Classification Reported Allergen(s) Allergy Type Date of Onset Reaction(s) Facility (1 source) penicillin drug allergy 08-20-19 18 [facility] Work Phone: (1 source) TREE; Translations: [TREE] allergy to substance 08-20-19 [facility] Work Phone: (1 source) HAY FEVER; Translations: [HAY FEVER] allergy to substance 08-20-19 [facility] Work Phone: (1 source) PLANT POLLEN; Translations: [PLANT POLLEN] allergy to substance 08-20-19 [facility] Work Phone: (20 sources) Ciprofloxacin Drug Allergy 03-20-20 21 Other: See Comments [facility] (20 sources) Escitalopram Drug Allergy 03-20-20 21 Other: See Comments [facility] (20 sources) Penicillins; Translations: [PENICILLINS] Allergy to substance 11-24-19 05 Rash [facility] (20 sources) venlafaxine Drug Allergy 03-20-20 21 Drug-induced constipation with proper administration, Other: See Comments [facility] (10 sources) Meperidine Drug Allergy 07-16-19 24 Nausea [facility] (1 source) Ciprofloxacin Drug Allergy 12-11-19 25 [facility] (1 source) Escitalopram Drug Allergy 12-11-19 25 [facility] (1 source) Meperidine Drug Allergy 12-11-19 25 [facility] (1 source) venlafaxine Drug Allergy 12-11-19 25 [facility] Medications Current Medications Medication Drug Class(es) Dates Sig (Normalized) Sig (Original) amoxicillin 875 mg oral tablet (3 sources) Penicillin-class Antibacterial Start: 10-06-2024 take 1 tablet by mouth twice daily amoxicillin (AMOXIL) 875 mg tablet Take 875 mg by mouth two times a day. 10/06/2024 Active ascorbic acid 500 mg oral tablet (9 sources) Vitamin C Start: 05-05-2024 take 1 tablet by mouth once daily aspirin 81 mg oral tablet (20 sources) Nonsteroidal Anti-inflammatory Drug Start: 07-12-2023 take 1 capsule by mouth once daily Start: 06-01-2020 End: 10-08-2024 take 325 mg by mouth once daily Aspirin Active 325 MG PO DAILY June 01, 2020 1:00am Start: 08-19-2017 End: 11-05-2022 ASPIRIN LOW DOSE 81 MG TABS 1 tablet daily ASPIRIN [id number] Tana Davidsonro FITTER WELDER Start: 12-02-2013 End: 04-23-2019 take 1 tablet [...] take 1 tablet by mouth once daily Start: 09-27-2022 End: 10-07-2024 take 1 tablet by mouth once daily Atenolol 25 mg tablet Discontinued 25 mg PO DAILY 90 3 November 27, 2023 11:42am August 05, 2024 5:02pm Comment on above: Take 25 mg by mouth once daily. calcium carbonate 1500 mg / cholecalciferol 200 unt oral tablet (9 sources) Vitamin D Start: 05-05-2024 calcium citrate 950 mg oral tablet (3 sources) take 950 mg by mouth once daily CALCIUM CITRATE PO Take 950 mg by mouth once daily. Active cholecalciferol 0.125 mg oral capsule (19 sources) Vitamin D Start: 08-25-2021 take 1 capsule by mouth once daily Start: 08-19-2017 VITAMIN D3 CAP S 2 capsules daily CHOLECALCIFEROL CAPS [id number] Tana Anshusaro FITTER WELDER famotidine 20 mg oral tablet (20 sources) Histamine-2 Receptor Antagonist Start: 05-05-2024 End: 09-21-2024 Start: 01-08-2024 End: 05-05-2024 take 1 tablet by mouth once daily Famotidine 20 mg tablet Discontinued 20 mg PO daily March 17, 2024 1:00am May 05, 2024 11:14am flecainide acetate 50 mg oral tablet (1 source) Antiarrhythmic Start: 12-02-2024 take 1 tablet by mouth every twelve hours flecainide (TAMBOCOR) 50 mg tablet Indications: Paroxysmal atrial fibrillation (HCC) , Palpitations Take 1 tablet by mouth every 12 hours. 180 tablet 3 12/02/2024 Active fluocinolone acetonide 0.1 mg/ml topical oil (3 sources) Corticosteroid Start: 10-06-2024 Fluocinolone-Shower Cap 0.01 % oil 10/06/2024 Active iron,carbonyl/ascor bic acid (VITRON-C PO) (3 sources) take 1000 mg by mouth once daily iron,carbonyl/ascor bic acid (VITRON-C PO) Take 1,000 mg by mouth once daily. Active ketoconazole 20 mg/ml topical cream (3 sources) Azole Antifungal Start: 10-06-2024 ketoconazole (NIZORAL) [...] administer with a meal 24 hr metFORMIN hydrochlorid e 500 mg extended release oral tablet (6 sources) Biguanide Start: 12-03-2024 take 1 tablet by jada th twice daily Start: 10-06-2024 take 1 tablet by jada th once daily at breakfast metFORMIN ER (GLUCOPHAGE XR) 500 mg 24 hr tablet Take 1,000 mg by mouth daily with breakfast. 10/06/2024 Active triamcinolone acetonide 1 mg/ml topical cream (3 sources) Corticosteroid Start: 10-06-2024 triamcinolone acetonide (KENALOG) 0.1 % cream 10/06/2024 Active 1 ml ustekinumab 90 mg/ml prefilled syringe (20 sources) Interleukin-12 Antagonist, Interleukin-23 Antagonist Start: 05-05-2024 End: 08-07-2024 Start: 07-25-2023 End: 05-05-2024 take 390 mg intravenously once Ustekinumab (Stelara) 1 30 mg/26 mL solution Discontinued 390 mg IV ONE TIME July 25, 2023 12:00am May 05, 2024 11:16am 390 mg intravenously; Infuse 390mg by IV route one time vitamin b12 1 mg oral tablet (20 sources) Vitamin B12 Start: 05-05-2024 take 1 tablet by jada th once daily Start: 07-12-2023 End: 03-17-2024 take 1 tablet by mouth once daily Cyanocobalamin (Vitamin B-12) (Vitamin B-12) 50 mcg tablet Discontinued 50 ug PO DAILY July 12, 2023 12:00am March 17, 2024 10:05am Cyanocobalamin 1 ,000 mcg subl Dissolve 1 tablet under the tongue daily at bedtime. Active Completed/Discontinued Medications Medication Drug Class(es) Dates Sig (Normalized) Sig (Original) acetaminophen 500 mg oral tablet (20 sources) Start: 10-10-2014 End: 03-29-2020 take 1 tablet by mouth every six hours as needed for pain Acetaminophen 500 MG tablet Discontinued 500 mg PO EVERY 6 HOURS NEEDED as needed for Pain 20 0 October 10, 2014 12:00am March 29, 2020 12:02pm acetaminophen 325 mg / HYDROcodone bitartrate 5 mg oral tablet (20 sources) Opioid Agonist Start: 10-11-2020 End: 01-26-2021 [...] / oxyCODONE hydrochloride 2.5 mg oral tablet (20 sources) Opioid Agonist Start: 10-10-2014 End: 04-23-2019 [...] 10:46am alendronic acid 70 mg oral tablet (20 sources) Bisphosphonate Start: 11-01-2022 End: 10-07-2024 take [...] (1 source) Thiazide-like Diuretic, beta-Adrenergic Vivienne Start: 023 End: Atenolol-Chlorthali done 100-25 mg per tablet azithromycin 250 mg oral tablet (9 sources) Macrolide Antimicrobial Start: 025 End: Azithromycin 250 mg tablet Discontinued 0 PO .COMPLEX 6 0 April 18, 2024 1:00am May 05, 2024 11:15am For 250 mg dose pack: take 500 mg today (day 1), then 250 mg for 4 days (days 2-5) PO budesonide 3 mg delayed release oral capsule (20 sources) Corticosteroid Start: 024 End: 12-10-2 024 take 2 capsules by mouth once daily [...] cap doxycycline hyclate 100 mg oral capsule (20 sources) Tetracycline-class Drug Start: 01-26-2021 End: 02-23-2021 [...] propionate 0.05 mg/actuat metered dose nasal spray (20 sources) Corticosteroid Start: 03-29-2020 End: 03-31-2020 take [...] 10:47am Lactobacillus Combination No.4 1 EACH capsule (9 sources) Start: 12-02-2013 End: 04-23-2019 take 1 [...] 50+ TABS 1 tablet daily MULTIPLE VITAMINS-MINERALS [id number] Tana Corsaro FITTER WELDER Multivitamins,Therap eutic (20 sources) Start: 12-02-2013 End: 03-29-2020 take 1 [...] 1 capsule daily OMEGA-3 FATTY ACIDS CAPS [id number] Tana Corsaro FITTER WELDER Nabb-3 Fatty Acids-Fish Oil (11 sources) Start: 12-02-2013 End: 04-23-2019 Nabb-3 Fatty Acids-Fish Oil Discontinued 1 EACH PO DAILY December 02, 2013 1:47pm April 23, 2019 10:46am Start: 12-02-2013 End: 04-23-2019 Nabb-3 Fatty Acids-Fish Oil Discontinued 1 EACH PO DAILY December 02, 2013 12:00am April 23, 2019 10:46am Nabb-3 Fatty Acids-Fish Oil 1 EACH capsule (9 sources) Start: 12-02-2013 End: 04-23-2019 Nabb-3 Fatty Acids-Fish Oil 1 EACH capsule Discontinued 1 NMA PO DAILY December 02, 2013 12:00am April 23, 2019 10:46am oxyCODONE hydrochloride 5 mg oral tablet (20 sources) Opioid Agonist Start: 01-26-2021 End: 02-23-2021 [...] [Paroxysmal atrial fibrillation] Onset: 11-02-2022 02-08-2021 Chronic Noninfectious gastroenteritis (20 sources) Enteritis of small intestine; Translations: [Noninfective gastroenteritis and colitis, unspecified] Onset: 07-02-2011 10-11-2020 Episodic Nonspecific chest pain (20 sources) Chest pain; Translations: [Chest pain, unspecified] Onset: 08-24-2024 03-31-2020 Episodic Osteoarthritis (1 source) Unilateral primary osteoarthritis, left hip; Translations: [Unilateral primary osteoarthritis, left hip] Onset: 10-13-2024 Chronic Other fractures (20 sources) Compression fracture of thoracic spine; Translations: [Wedge compression fracture of unspecified thoracic vertebra, initial encounter for closed fracture] 03-03-2021 Episodic Other gastrointestinal disorders (16 sources) History of Crohns disease; Translations: [Personal history of other diseases of the digestive system] 09-21-2024 Episodic Other screening for suspected conditions (not mental disorders or infectious disease) (1 source) Encounter for screening mammogram for malignant neoplasm of breast; Translations: [Encounter for screening mammogram for malignant neoplasm of breast] Onset: 11-25-2024 Episodic Residual codes; unclassified (20 sources) H/O: Peripheral vascular disease procedure; Translations: [Other specified postprocedural states] 02-08-2021 Episodic Unclassified (5 sources) Reflux; Translations: [Reflux] 02-16-2014 Past or Other Problems Problem Classification Problem Date Documented Da te Episodic/Chronic Abdominal pain (20 sources) Abdominal pain; Translations: [Unspecified abdominal pain] Onset: 03-10-2024 10-12-2020 Episodic Cardiac dysrhythmias (20 sources) Palpitations; Translations: [Palpitations] Onset: 11-02-2022 03-29-2020 Episodic Chronic obstructive pulmonary disease and bronchiectasis (11 sources) Bronchitis; Translations: [Bronchitis, not specified as acute or chronic] Onset: 04-18-2024 04-18-2024 Episodic Gastrointestinal hemorrhage (4 sources) Rectal hemorrhage; Translations: [Hemorrhage of anus and rectum] Onset: 01-07-2009 Resolved: 11-02-2022 01-07-2009 Episodic Genitourinary symptoms and ill-defined conditions (3 sources) Female stress incontinence; Translations: [Stress incontinence (female) (male)] Onset: 06-29-2008 Resolved: 04-24-2010 04-24-2010 Chronic Intestinal obstruction without hernia (5 sources) Partial obstruction of small bowel; Translations: [Partial intestinal obstruction, unspecified as to cause] Onset: 10-12-2014 10-12-2014 Episodic Menstrual disorders (4 sources) Irregular periods; Translations: [Irregular menstruation, unspecified] Onset: 06-29-2008 Resolved: 11-02-2022 06-29-2008 Chronic Other and unspecified benign neoplasm (5 sources) History of polyp of colon; Translations: [Personal history of colonic polyps] Onset: 06-08-2011 06-08-2011 Episodic Other diseases of bladder and urethra (3 sources) Other specified disorders of urethra; Translations: [Urethrocele] Onset: 08-02-2009 Resolved: 04-24-2010 04-24-2010 Episodic Other female genital disorders (4 sources) 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; Translations: [Benign endometrial hyperplasia] Onset: 06-29-2008 Resolved: 11-02-2022 06-29-2008 Chronic Other gastrointestinal disorders (1 source) Personal history of other diseases of the digestive system; Translations: [Personal history of other diseases of the digestive system] Onset: 09-21-2024 Episodic Other non-epithelial cancer of skin (11 sources) Basal cell carcinoma of ear; Translations: [Basal cell carcinoma of skin of unspecified ear and external auricular canal] Onset: 06-02-2024 05-19-2024 Episodic Other skin disorders (4 sources) Sebaceous cyst of skin; Translations: [Sebaceous cyst] Onset: 04-09-2009 Resolved: 11-02-2022 04-09-2009 Episodic Residual codes; unclassified (7 sources) Other specified personal risk factors, not elsewhere classified; Translations: [Other specified personal history presenting hazards to health] Onset: 11-02-2022 11-02-2022 Episodic Spondylosis; intervertebral disc disorders; other back problems (5 sources) Spinal stenosis in cervical region; Translations: [Spinal stenosis, cervical region] Onset: 08-22-2017 08-22-2017 Episodic Unclassified (1 source) Problem Results Test Name Value Interpretation Reference Range Facility PT D/C Summary (1)on 025 PT D/C Summary (1) [facility] Therapy [facility] [place] [id number] / REHABILITATION SERVICES DISCHARGE SUMMARY MR#: [id number] Acct: [id number] Name: KADIE LAGUNA Rep #: [id number] : 1955 69 From: Cheryle Lozano DPT, OCS, CSCS Referring Dr.: Dr. Cheryle De La Fuente MD Status: REG R CR Insurance: MEDICARE PART A B [facility] Discharge Summary D/C summary: It has been my pleasure to treat KADIE LAGUNA referred by Dr. Cheryle De La Fuente MD, with the diagnosis of L hip OA for a total of 10 visit(s). Discharge Date: 12/22/24 Please see the following information for a summary of their discharge status. Subjective Subjective: I think getting better. It is not real bad. Pain this week 3/10 at worst and was lying in bed in middle of night. Activitiy normal.Stiff after sitting for a while. Ready to bee done and will continue via HEP. Pain L buttock.: Pain Intensity (Out of 10): 0 Overall Improvement % Improvement: 70 Objective Objective/Function: walsk without antalgia, exits chair without pain or hesitancy. Back moving well without pain and no unusual tenderness in l glut area today. Goals Goal 1:: Pain in L buttock are 75% better adn 1/10 at worst and manageable Goal Progress: 70% Goal 2:: I appropriate HEP stretch adn strength to limit future problems Goal Progress: Goal Met Goal 3:: wake up in am with no stiffness or soreness. Goal Progress: Not Progressing Plan Plan: d/c to HEP D/C Information d/c sentence: If there are questions or concerns regarding this patient's physical therapy, please feel free to call me at [phone]. Thank you for the referral of this patient. Sincerely, Cheryle Lozano, DPT, OCS, CSCS Balance/Gait/Functional tests Balance/Special Test Scores Lower Extremity Functional Score: 73 Improvement % Improvement: 70 12/22/24 1641 CC: Dr. Cheryle De La Fuente MD EBG Signed Normal [facility] 12 Lead EKGon 12-10-2024 12 Lead EKG [facility] [address] [place] [address] 12 Lead EKG 12/10/24 0947 MR#: [id number] Acct: [id number] Name: KADIE LAGUNA MEAGHAN Rep #: [id number] : 1955 69 From: Gregory Bose MD Attending Dr: Status: DEP ER Ordering Dr: Wiley Swenson DO Date: 12/10/24 Location: ED Sex: F C Admitted: Test Reason : ADENOSINE Blood Pressure : */* mmHG Vent. Rate : 87 BPM Atrial Rate : 87 BPM P-R Int : 158 ms QRS Dur : 88 ms QT Int : 424 ms P-R-T Axes : 44 58 33 degrees QTcB Int : 510 ms Sinus rhythm with Premature atrial complexes Nonspecific ST and T wave abnormality Prolonged QT Abnormal ECG Confirmed by EAMON BOSE MD ([id number]), technical writer and editor COURTNEY SANCHEZ ([id number]) on 12/14/2024 8:59:31 AM Referred By: Confirmed By: EAMON BOSE MD 12/14/24 0859 Date Gregory Bose MD CC: Dr. Cheryle De La Fuente MD; Dr. Wiley Swenson DO Signed [facility] 12 Lead EKG [facility] [address] [place] [address] 12 Lead EKG 12/10/24 0944 MR#: [id number] Acct: [id number] Name: KADIE LAGUNA Rep #: [id number] : 1955 69 From: Gregory Bose MD Attending Dr: Status: DEP ER Ordering Dr: Wiley Swenson DO Date: 12/10/24 Location: ED Sex: F C Admitted: Test Reason : ADENOSINE Blood Pressure : */* mmHG Vent. Rate : 66 BPM Atrial Rate : 48 BPM P-R Int : 128 ms QRS Dur : 90 ms QT Int : 418 ms P-R-T Axes : 67 52 36 degrees QTcB Int : 438 ms sinus bradycardia with PVC's Nonspecific ST and T wave abnormality Abnormal ECG Confirmed by EAMON BOSE MD ([id number]), technical writer and editor COURTNEY SANCHEZ ([id number]) on 12/14/2024 8:59:58 AM Referred By: Confirmed By: EAMON BOSE MD 12/14/24 0900 Date Gregory Bose MD CC: Dr. Cheryle De La Fuente MD; Dr. Wiley Swenson DO Signed [facility] 12 Lead EKG [facility] [address] [place] [address] 12 Lead EKG 12/10/2424 MR#: [id number] Acct: [id number] Name: KADIE LAGUNA Rep #: [id number] : 1955 69 From: Gregory Bose MD Attending Dr: Jun Marin DO Status: DEP CT C Ordering Dr: Ace Valdivia MD Date: 12/10/24 Location: EN Sex: F C Admitted: Test Reason : Blood Pressure : */* mmHG Vent. Rate : 137 BPM Atrial Rate : * BPM P-R Int : * ms QRS Dur : 86 ms QT Int : 332 ms P-R-T Axes : * 57 78 degrees QTcB Int : 501 ms Supraventricular tachycardia Abnormal ECG posterior infarct, age undetermined Reconfirmed by LIDYA VERMA, EAMON ([id number]), technical writer and editor COURTNEY SANCHEZ ([id number]) on 12/14/2024 9:01:35 AM Referred By: Cheryle De La Fuente Confirmed By: EAMON BOSE MD 12/14/24 09 Date Gregory Bose MD CC: Dr. Ace Valdivia MD; Dr. Cheryle De La Fuente MD; Jun Marin, Signed Normal [facility] Absolute lymphocyte countOrd ered By: Wiley Swenson on 12-10-2024 Lymphocytes Auto (Unsp spec) [#/Vol] 1.15 10*3/uL 0.83-4.51 [facility] Absolute neutrophil countOrd ered By: Wiley Swenson on 12-10-2024 Neutrophils (Bld) [#/Vol] 7.2 10*3/uL 2.0-7.7 [facility] Activated partial thrombopla stin time (aPTT) in platelet poor plasma by coagulation aOrdered By: Wiley Swenson on 12-10-2024 aPTT Coag (PPP) [Time] 26.4 s 24.1-36.2 [facility] Anion gap in Serum or Plasma Ordered By: Wiley Swenson on 12-10-2024 Anion gap [Moles/Vol] 11 mmol/L 5-15 [facility] Automated lymphocyte count a s percentage of total leukocytesOrdered By: Wiley Swenson on 12-10-2024 Lymphocytes/100 WBC Auto (Unsp spec) 13.0 % Low 19-41 [facility] BUN/creatinine ratioOrdered By: Wiley Swenson on 12-10-2024 Urea nitrogen/Creatinine [Mass ratio] 15.7 mg/mg 10- [facility] Basic Metabolic Profile (BMP )on 12-10-2024 BUN/CRE 15.7 RATIO Normal - [facility] Comment on above: Performed By: #### L 501.9520, L501.55238, L500.2500, L503.7505, L501.5200, L506.0400 #### [facility] [address] [place], [address] Calcium [Mass/Vol] 9.1 mg/dL Normal 7.6-11.[address] [facility] Comment on above: Performed By: #### L 501.9520, L501.77976, L500.2500, L503.7505, L501.5200, L506.0400 #### [facility] [address] [place], [address] Chloride [Moles/Vol] 109 mmol/L High 98-108 [facility] Comment on above: Performed By: #### L 501.9520, L501.71521, L500.2500, L503.7505, L501.5200, L506.0400 #### [facility] [address] [place], [address] CO2 [Moles/Vol] 20.2 mmol/L Low 21.0-32.0 [facility] Comment on above: Performed By: #### L 501.9520, L501.15464, L500.2500, L503.7505, L501.5200, L506.0400 #### [facility] [address] [place], [address] Creatinine [Mass/Vol] 0.94 mg/dL Normal 0.70-1.20 [facility] Comment on above: Performed By: #### L 501.9520, L501.00768, L500.2500, L503.7505, L501.5200, L506.0400 #### [facility] [address] [place], [address] ECRCL 64.60 ml/min Normal 50-250 [facility] Comment on above: Performed By: #### L 501.9520, L501.64516, L500.2500, L503.7505, L501.5200, L506.0400 #### [facility] [address] [place], [address] GAP 11 Normal 5-15 [facility] Comment on above: Performed By: #### L 501.9520, L501.20073, L500.2500, L503.7505, L501.5200, L506.0400 #### [facility] [address] [place], [address] GFR/1.73 sq M.predicted among non-blacks MDRD (S/P/Bld) [Vol rate/Area] 66 mL/min/{1.73_m2} Normal >60 [facility] Comment on above: Result Comment: mL/m in/1.73m2 CKD-EPI Creatinine Equation (2020) Performed By: #### L 501.9520, L501.02175, L500.2500, L503.7505, L501.5200, L506.0400 #### [facility] [address] [place], [address] Glucose [Mass/Vol] 166 mg/dL High 70-[address] [facility] Comment on above: Performed By: #### L 501.9520, L501.26343, L500.2500, L503.7505, L501.5200, L506.0400 #### [facility] [address] [place], [address] Potassium [Moles/Vol] 4.5 mmol/L Normal 3.3-5.1 [facility] Comment on above: Performed By: #### L 501.9520, L501.49208, L500.2500, L503.7505, L501.5200, L506.0400 #### [facility] [address] [place], [address] Sodium [Moles/Vol] 141 mmol/L Normal 133-[address] [facility] Comment on above: Performed By: #### L 501.9520, L501.46620, L500.2500, L503.7505, L501.5200, L506.0400 #### [facility] [address] [place], [address] Urea nitrogen [Mass/Vol] 15 mg/dL Normal 4-19 [facility] Comment on above: Performed By: #### L 501.9520, L501.58887, L500.2500, L503.7505, L501.5200, L506.0400 #### [facility] [address] [place], [address] Basophil percentageOrdered B y: Wiley Swenson on 12-10-2024 Basophils/100 WBC (Bld) 0.2 % 0-1 [facility] Bilirubin Test strip Ql (U)O rdered By: Wiley Swenson on 12-10-2024 Bilirubin Ql (U) Negative Negative [facility] CBC W/Diff, Automatedon Absolute Lymph 1.15 X10 3/uL Normal 0.83-4.51 [facility] Comment on above: Performed By: #### L 300.4310, L100.0100, L501.4021, L300.3900 ####[facility] [address] [place], [address] Absolute Neut 7.2 X10 3/uL Normal 2.0-7.7 [facility] Comment on above: Performed By: #### L 300.4310, L100.0100, L501.4021, L300.3900 ####[facility] [address] [place], [address] Basophils/100 WBC (Bld) 0.2 % Normal 0-1 [facility] Comment on above: Performed By: #### L 300.4310, L100.0100, L501.4021, L300.3900 ####[facility] [address] [place], [address] Eosinophils/100 WBC (Bld) 0.5 % Normal 0-5 [facility] Comment on above: Performed By: #### L 300.4310, L100.0100, L501.4021, L300.3900 ####[facility] [address] [place], [address] Erythrocyte distribution width (RBC) [Ratio] 13.6 % Normal 11.6-14.6 [facility] Comment on above: Performed By: #### L 300.4310, L100.0100, L501.4021, L300.3900 ####[facility] [address] [place], [address] Hematocrit (Bld) [Volume fraction] 38.6 % Normal 37-47 [facility] Comment on above: Performed By: #### L 300.4310, L100.0100, L501.4021, L300.3900 ####[facility] [address] [place], [address] Hemoglobin (Bld) [Mass/Vol] 12.5 g/dL Normal 12.0-15.0 [facility] Comment on above: Performed By: #### L 300.4310, L100.0100, L501.4021, L300.3900 ####[facility] [address] [place], [address] IG% 0.500 Normal 0.0-0.9 [facility] Comment on above: Result Comment: IG% - Immature Granulocytes (promyelocytes, myelocytes and metamyelocytes) > 1% indicates that a LEFT SHIFT is Present. Performed By: #### L 300.4310, L100.0100, L501.4021, L300.3900 ####[facility] [address] [place], [address] Lymphocytes/100 WBC (Bld) 13.0 % Low 19-41 [facility] Comment on above: Performed By: #### L 300.4310, L100.0100, L501.4021, L300.3900 ####[facility] [address] [place], [address] MCH (RBC) [Entitic mass] 29.7 pg Normal 27.0-32.0 [facility] Comment on above: Performed By: #### L 300.4310, L100.0100, L501.4021, L300.3900 ####[facility] [address] [place], [address] MCHC (RBC) [Mass/Vol] 32.4 g/dL Normal 32-36 [facility] Comment on above: Performed By: #### L 300.4310, L100.0100, L501.4021, L300.3900 ####[facility] [address] [place], [address] MCV (RBC) [Entitic vol] 91.7 fL Normal 81-99 [facility] Comment on above: Performed By: #### L 300.4310, L100.0100, L501.4021, L300.3900 ####[facility] [address] [place], [address] Monocytes/100 WBC (Bld) 4.6 % Normal 0-10 [facility] Comment on above: Performed By: #### L 300.4310, L100.0100, L501.4021, L300.3900 ####[facility] [address] [place], [address] Neutrophils/100 WBC (Bld) 81.2 % High 47-70 [facility] Comment on above: Performed By: #### L 300.4310, L100.0100, L501.4021, L300.3900 ####[facility] [address] [place], [address] Nucleated RBC (Bld) [#/Vol] 0 10*3/uL Normal 0-5 [facility] Comment on above: Performed By: #### L 300.4310, L100.0100, L501.4021, L300.3900 ####[facility] [address] [place], [address] Platelet mean volume (Bld) [Entitic vol] 10.8 fL Normal 6.2-12.0 [facility] Comment on above: Performed By: #### L 300.4310, L100.0100, L501.4021, L300.3900 ####[facility] [address] [place], [address] Platelets (Bld) [#/Vol] 289 10*3/uL Normal 150-450 [facility] Comment on above: Performed By: #### L 300.4310, L100.0100, L501.4021, L300.3900 ####[facility] [address] [place], [address] RBC (Bld) [#/Vol] 4.21 10*6/uL Normal 4.2-5.4 [facility] Comment on above: Performed By: #### L 300.4310, L100.0100, L501.4021, L300.3900 ####[facility] [address] [place], [address] RDW SD 46.1 fl High 35.1-43.9 [facility] Comment on above: Performed By: #### L 300.4310, L100.0100, L501.4021, L300.3900 ####[facility] [address] [place], [address] WBC (Bld) [#/Vol] 8.9 10*3/uL Normal 4.4-11.[address] [facility] Comment on above: Performed By: #### L 300.4310, L100.0100, L501.4021, L300.3900 ####[facility] [address] [place], [address] [facility] ([facility]) -------- KADIE LAGUNA ([id number]) 1955 F Date Time Provider Department 12/10/24 JOSE GARCIA During your visit today, we recorded the following information about you: Jose Garcia MD 12/10/2024 11:23 AM [facility] Received call from [place] Transfer office that [facility] ED had called to report Ms. Laguna had presented with SVT, did not terminate with vagal maneuvers but evidently did terminate with IV adenosine. She was highly symptomatic and blood pressure in 70s mmHg range during the SVT. Reportedly EKG post conversion showed QTc > 500 ms. I asked for EKG to be fax'd to the office for me to review, to determine if it is still safe for her to take flecainide. Also we can work on getting her ablation procedure prioritized to a sooner date. She likely does not require hospitalization but I need to review the EKG first before making final decision in that regard. Jose Garcia MD December 10, 2024 11:23 AM Jose Garcia MD 12/10/2024 12:54 PM Signed [facility] General Electrophysiology (EP) Reviewed EKGs. Conduction intervals and QTc are ok for flecainide to be continued. Sent message back to [facility] (via Transfer Office) that she can be discharged on same medications. We will work on expediting her ablation procedure. Jose Garcia MD December 10, 2024 12:54 PM Allergies As of Date: 12/10/2024 Noted Allergy Reaction CIPROFLOXACIN 05/19/2024 14 - Other: See Comments ESCITALOPRAM 05/19/2024 14 - Other: See Comments PENICILLINS 11/23/2004 2 - Rash VENLAFAXINE 05/19/2024 14 - Other: See Comments Date Reviewed: 10/08/2024 Reviewed by: Jose Garcia MD - Fully Assessed Reason for Visit: Treatment Planning [881] Patient Update [1234] Prescriptions as of 12/10/2024 - flecainide (TAMBOCOR) 50 mg tablet Take 1 tablet by mouth every 12 hours. 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02] 08/22/2017 Diagnosed: 11/02/2022 Paroxysmal atrial fibrillation (HCC) [I48.0] 11/02/2022 At risk for stroke [Z91.89] 11/02/2022 Encounter Status:Closed by JOSE GARCIA on 12/10/24 [facility] CTA Chest W/WO Contraston CTA Chest W/WO Contrast [facility] Imaging Services [address] [place] [address] [id number] CTA Chest W/WO Contrast MR#: [id number] Acct: [id number] Name: KADIE LAGUNA MEAGHAN Rep #: [id number] : 1955 F 69 From: Romeo paiz MD PCP: Dr. Cheryle De La Fuente MD Status: [facility] Study: CTA Chest W/WO Contrast Date of Exam: 12/10/24 Exam# [id number] Ordering Dr: Wiley Swenson DO PROCEDURE: CTA CHEST W/WO CONTRAST 12/10/2024 REASON FOR EXAM: SOB Chest pressure. TECHNIQUE: Procedure Code: CTCTACHWW Modality: CT Procedure: CTA CHEST W/WO CONTRAST Multiplanar Sagittal and Coronal images were obtained. 3D post processing was performed CONTRAST: Isovue 370 VOLUME: 100 mL One or more dose reduction techniques were used (e.g., Automated exposure control, adjustment of the mA and/or kV according to patient size, use of iterative reconstruction technique). RADIATION DOSE SUMMARY: CTDlvol: 13.9 mGy DLP: 476.06 mGycm COMPARISON: Prior chest radiograph done earlier in the day. FINDINGS: Hardware: None Lymph nodes: Unremarkable Heart: No coronary artery calcification is seen. Thoracic Aorta: No thoracic aortic aneurysm or dissection. Pulmonary Vessels: No evidence of pulmonary embolism. Lungs and Airways: Mild increased markings at the lung bases suggestive of either linear scarring and/or atelectasis. Pleura: No pleural effusion. Upper Abdomen: Unremarkable Bones: Degenerative changes of the thoracic spine. Loss of height of a mid dorsal vertebrae. CT/CTA Chest W/WO Contrast IMPRESSION: No evidence of pulmonary embolism. Mild linear atelectasis and/or scarring at the lung bases. Reading [id number] CC: Dr. Cheryle De La Fuente MD; Dr. Wiley Swenson DO Patient Care Nursing Assistant: Signed Normal [facility] Carbon dioxide, total [Moles /volume] in Central venous bloodOrdered By: Wiley Swenson on 12-10-2024 CO2 [Moles/Vol] 20.2 mmol/L Low 21.0-32.0 [facility] Chest PA and Lateralon 12-10 Chest PA and Lateral [facility] Imaging Services [address] [place], [place] [id number] Chest PA and Lateral MR#: [id number] Acct: [id number] Name: KADIE LAGUNA Rep #: [id number] : 1955 F 69 From: Vaibhav Nam MD PCP: Dr. Cheryle De La Fuente MD Status: [facility] ER Study: Chest PA and Lateral Date of Exam: 12/10/24 Exam# [id number] Ordering Dr: Wiley Swenson DO PROCEDURE: CHEST PA AND LATERAL 12/10/2024 REASON FOR EXAM: CHEST PAIN TECHNIQUE: Procedure Code: RADCXR Modality: DX Procedure: CHEST PA AND LATERAL COMPARISON: April 06, 2021 FINDINGS: Hardware: EKG leads Heart: Normal Mediastinum: Normal Lungs: Clear. Bones: Mild curvature thoracic and thoracolumbar spine. RAD/Chest PA and Lateral IMPRESSION: No acute cardiopulmonary process Reading Location: [id number] CC: Dr. Cheryle De La Fuente MD; Dr. Wiley Swenson DO Patient Care Nursing Assistant: Signed Normal [facility] Chloride assayOrdered By: Doug Swenson on 12-10-2024 Chloride [Moles/Vol] 109 mmol/L High 98-108 [facility] Emergency Department Summary on 12-10-2024 Emergency Department Summary [facility] Medical Records Department [address] [place] [address] Emergency Department Summary 12/10/24 MR#: [id number] Acct: [id number] Name: KADIE LAGUNA Rep #: [id number] : 1955 69 From: Wiley Swenson DO PCP: Dr. Cheryle De La Fuente MD Status:[facility] ER Location: ED ADDENDUM by Dr. Wiley Swenson DO on 12/10/24 at 1334 They felt that her elevated troponins were secondary to her elevated heart rate as she is completely asymptomatic after converting back to sinus rhythm and do not feel that she warrants any further cardiac evaluation. She recently had a stress test and a echocardiogram that were normal. 12/10/24 1334 Cosigner Signature (if applicable): cc: Dr. Cheryle De La Fuente MD * Signed HPI History of Present Illness Chief Complaint: Chest Pain Narrative Narrative: Patient is a 69-year-old female with past medical history of small bowel obstruction, positive [place], GERD who presents to the emergency department with a chief complaint of palpitations and not feeling well. States that she was getting a upper and lower scope today and notes that she did the prep yesterday. States that around 5 AM this morning she noted that she felt very clammy had chest pressure and felt like she was going to pass out. States that she had to lay down and notes that every single time she tried to sit up she felt like she was in a pass out. She notes that she had a Holter monitor recently and they discovered that she is not in atrial fibrillation and she is in paroxysmal SVT and notes that she is on atenolol and flecainide which she states that she took those medications this morning. States that she is following up with a physician at [facility] [place] and notes that she is to have an ablation in the near future. She states that in September they reached out and they were told that it will be several months before the ablation can be performed. States that lately she felt like she has had increased episodes. [facility] Medical History Afib SVT (supraventricular tachycardia) History of Crohn's disease [...] mg capsule 81 mg PO DAILY 07/12/23 07/11/23 H istory ascorbic acid (vitamin C) 500 mg 500 mg PO DAILY 05/05/24 Unknown H istory tablet (C-500) calcium 600 mg (as 1 tab PO DAILY 05/05/24 Unknown Hi story carbonate)-vitamin D3 5 mcg (200 unit) tablet (Calcium 600 + D(3)) cyanocobalamin (vitamin B-12) 1,000 mcg PO DAILY 05/05/24 Unknow n History 1,000 mcg tablet (Vitamin B-12) atenolol 50 mg tablet 50 mg PO DAILY #90 tabs 08/05/24 U nknown Rx ustekinumab 90 mg/mL subcutaneous 90 mg subcut .Q8 WEEKS #1 mL 06/02 Unknown Rx syringe (Stelara) famotidine 20 mg tablet (Acid 40 mg PO DAILY PRN acid reflux Unknown History Controller) metformin 500 mg tablet,extended 500 mg PO BID 12/03/24 Unknown His tory release 24 hr Allergy/AdvReac Type Severity Reaction Status Date / Time escitalopram (From Lexapro) Allergy Hives,Sedat Verified 12/10/24 08:38 ion Penicillins Allergy Rash Verified 12/10/24 08:38 meperidine (From Demerol) AdvReac Mild Nausea Verified 12/10/24 08:38 ciprofloxacin AdvReac Dizziness Verified 12/10/24 08:38 venlafaxine (From Effexor) AdvReac Constipatio Verified 12/10/24 08:38 n Family History Father CAD (coronary artery disease) Hypertension Atrial fibrillation Arthritis Mother Heart disease Atrial fibrillation Arthritis Brother Hypertension Surgical History History of esophagogastroduodenosco py (EGD) Hx of colonoscopy History of left heart catheterization (LHC) ( 04/12/21) History of tubal ligation Hx of vein stripping History of right oophorectomy H/O hemorrhoidectomy History of bladder suspension procedure H/O breast biopsy Social History house (more content not included)... Normal [facility] Eosinophil percentageOrdered By: Wiley Swenson on 12-10-2024 Eosinophils/100 WBC (Bld) 0.5 % 0-5 [facility] Erythrocyte distribution wid th ratioOrdered By: Wiley Swenson on 12-10-2024 Erythrocyte distribution width (RBC) [Ratio] 13.6 % 11.6-14.6 [facility] Erythrocyte distribution wid th standard deviationOrdered By: Wiley Swenson on 12-10-2024 Erythrocyte distribution width (RBC) [Ratio] 46.1 fl High 35.1-43.9 [facility] Free T3on 12-10-2024 Free T3 [Mass/Vol] 2.8 pg/mL Normal 2.18-3.[address] [facility] Comment on above: Performed By: #### L 501.9520, L501.50042, L500.2500, L503.7505, L501.5200, L506.0400 #### [facility] [address] [place], [address] Free [id number] By: Wiley miles on 12-10-2024 Free T3 [Mass/Vol] 2.8 pg/mL 2.18-3.[address] [facility] Glomerular filtration rate ( GFR) estimation/1.73 sq m using serum, plasma, or whole bOrdered By: Wiley Swenson on 12-10-2024 GFR/1.73 sq M.predicted among non-blacks MDRD (S/P/Bld) [Vol rate/Area] 66 mL/min/{1.73_m2} >60 [facility] Comment on above: mL/min/1.73m2 CKD-EP I Creatinine Equation (2020) Hematocrit Auto (Bld) [Volum e fraction]Ordered By: Wiley Swenson on 12-10-2024 Hematocrit (Bld) [Volume fraction] 38.6 % 37-47 [facility] Hemoglobin measurementOrdere d By: Wiley Swenson on 12-10-2024 Hemoglobin (Bld) [Mass/Vol] 12.5 g/dL 12.0-15.0 [facility] Immature granulocytes/100 WB C Auto (Bld)Ordered By: Wiley Swenson on 12-10-2024 Immature granulocytes/100 WBC (Bld) 0.500 % 0.0-0.9 [facility] Comment on above: IG% - Immature Granu locytes (promyelocytes, myelocytes and metamyelocytes) > 1% indicates that a LEFT SHIFT is Present. International normalized rat io (INR) calculationOrdered By: Wiley Swenson on 12-10-2024 INR Coag (Bld) [Relative time] 1.0 {INR} [facility] Ketones Test strip Ql (U)Ord ered By: Wiley Swenson on 12-10-2024 Ketones Ql (U) 15 mg/dl High Negative [facility] L501.4021on 12-10-2024 Trop T High Sen 16 ng/L High <=14 [facility] Comment on above: Performed By: #### L 300.4310, L100.0100, L501.4021, L300.3900 ####[facility] [address] [place], [address] MCV (mean corpuscular volume ) determinationOrdered By: Wiley Swenson on 12-10-2024 MCV (RBC) [Entitic vol] 91.7 fL 81-99 [facility] Magnesiumon 12-10-2024 Magnesium [Mass/Vol] 2.2 mg/dL Normal 1.5-2.2 [facility] Comment on above: Performed By: #### L 501.9520, L501.45890, L500.2500, L503.7505, L501.5200, L506.0400 #### [facility] [address] [place], [address] Magnesium measurement (mass/ volume)Ordered By: Wiley Swenson on 12-10-2024 Magnesium (Unsp spec) [Mass/Vol] 2.2 mg/dL 1.5-2.2 [facility] Mean corpuscular hemoglobin (MCH) determinationOrdered By: Wiley Swenson on 12-10-2024 MCH (RBC) [Entitic mass] 29.7 pg 27.0-32.0 [facility] Mean corpuscular hemoglobin concentration (MCHC) determinationOrdered By: Wiley Swenson on 12-10-2024 MCHC (RBC) [Mass/Vol] 32.4 g/dL 32-36 [facility] Mean platelet volume determi nationOrdered By: Wiley Swenson on 12-10-2024 Platelet mean volume (Bld) [Entitic vol] 10.8 fL 6.2-12.0 [facility] Microscopic analysis of urin e for red blood cells (RBC)Ordered By: Wiley Swenson on 12-10-2024 Microscopic analysis of urine for red blood cells (RBC) 0 SEEN /hpf 0-5 [facility] Monocyte percentageOrdered B y: Wiley Swenson on 12-10-2024 Monocytes/100 WBC (Bld) 4.6 % 0-10 [facility] Mucus LM Ql (Urine sed)Order ed By: Wiley Swenson on 12-10-2024 Mucus Ql (Urine sed) 0 SEEN /hpf [facility] Natriuretic peptide.B prohor lexi N-Terminal [Mass/volume] in Serum or PlasmaOrdered By: Wiley Swenson on 12-10-2024 Natriuretic peptide.B prohormone N-Terminal [Mass/Vol] 600 pg/mL <900 [facility] Comment on above: Heart Failure Unlike ly: < 300 pg/mLHeart Failure Likely< 50 Years: > 450 pg/mL50-75 Years: > 900 pg/mL>75 Years: > 1800 pg/mL Neutrophil percentageOrdered By: Wiley Swenson on 12-10-2024 Neutrophils/100 WBC (Bld) 81.2 % High 47-70 [facility] Nitrite Test strip Ql (U)Ord ered By: Wiley Swenson on 12-10-2024 Nitrite Ql (U) Negative Negative [facility] Nucleated red blood cell per centageOrdered By: Wiley Swenson on 12-10-2024 Nucleated RBC/100 WBC (Bld) [Ratio] 0 % 0-5 [facility] Partial Thromboplast Timeon 12-10-2024 aPTT Coag (Bld) [Time] 26.4 s Normal 24.1-36.2 [facility] Comment on above: Performed By: #### L 300.4310, L100.0100, L501.4021, L300.3900 ####[facility] [address] [place], [address] Platelet countOrdered By: Doug Swenson on 12-10-2024 Platelets (Bld) [#/Vol] 289 10*3/uL 150-450 [facility] Potassium measurement (mass/ volume)Ordered By: Wiley Swenson on 12-10-2024 Potassium (Unsp spec) [Mass/Vol] 4.5 mmol/L 3.3-5.1 [facility] Pro- Brain NATRIURETIC PEPTI Lewis 12-10-2024 Natriuretic peptide B (Bld) [Mass/Vol] 600 pg/mL Normal <=900 [facility] Comment on above: Result Comment: Hear t Failure Unlikely: < 300 pg/mL Heart Failure Likely < 50 Years: > 450 pg/mL 50-75 Years: > 900 pg/mL >75 Years: > 1800 pg/mL Performed By: #### L 501.9520, L501.52567, L500.2500, L503.7505, L501.5200, L506.0400 #### [facility] [address] [place], [address] Protein Test strip Ql (U)Ord ered By: Wiley Swenson on 12-10-2024 Protein Ql (U) 30 mg/dl High Negative [facility] Prothrombin Time w/INRon INR Coag (PPP) [Relative time] 1.0 {INR} Normal [facility] Comment on above: Performed By: #### L 300.4310, L100.0100, L501.4021, L300.3900 ####[facility] [address] [place], [address] PT Coag (PPP) [Time] 13.5 s Normal 11.7-14.9 [facility] Comment on above: Performed By: #### L 300.4310, L100.0100, L501.4021, L300.3900 ####[facility] [address] [place], [address] Prothrombin timeOrdered By: Wiley Swenson on 12-10-2024 PT Coag (PPP) [Time] 13.5 s 11.7-14.9 [facility] RBC Auto (Bld) [#/Vol]Ordere d By: Wiley Swenson on 12-10-2024 RBC (Bld) [#/Vol] 4.21 10*6/uL 4.2-5.4 [facility] Serum creatinine measurement (mass/volume)Ordered By: Wiley Swenson on 12-10-2024 Creatinine [Mass/Vol] 0.94 mg/dL 0.70-1.20 [facility] Serum glucose measurement (m ass/volume)Ordered By: Wiley Swenson on 12-10-2024 Glucose [Mass/Vol] 166 mg/dL High 70-[address] [facility] Serum or plasma calcium blair urement (mass/volume)Ordered By: Wiley Swenson on 12-10-2024 Calcium [Mass/Vol] 9.1 mg/dL 7.6-11.[address] [facility] Serum or plasma urea nitroge n measurement (mass/volume)Ordered By: Wiley Swenson on 12-10-2024 Urea nitrogen [Mass/Vol] 15 mg/dL 4-19 [facility] Sodium levelOrdered By: Aman Swenson on 12-10-2024 Sodium [Moles/Vol] 141 mmol/L 133-[address] [facility] Squamous epithelial cells de tection in urine sediment by light microscopyOrdered By: Wiley Swenson on 12-10-2024 Epithelial cells.squamous LM Ql (Urine sed) 0 SEEN /hpf 5-10 [facility] T4 Free Directon 12-10-2024 T4 FREE DIRECT 1.10 ng/dL Normal 0.76-1.46 [facility] Comment on above: Performed By: #### L 501.9520, L501.11653, L500.2500, L503.7505, L501.5200, L506.0400 #### [facility] [address] [facility] [place], [address] T4 freeOrdered By: Wiley miles on 12-10-2024 Free T4 [Mass/Vol] 1.10 ng/dL 0.76-1.[address] [facility] TSH DL <= 0.005 mIU/L QnOrde red By: Wiley Swenson on 12-10-2024 TSH Qn 2.420 uIU/mL 0.300-4.20 0 [facility] Thyroid Stim Hormone (TSH)on 12-10-2024 TSH 2.420 uIU/mL Normal 0.300-4.20 0 [facility] Comment on above: Performed By: #### L 501.9520, L501.82061, L500.2500, L503.7505, L501.5200, L506.0400 #### [facility] [address] [place], [address] Troponin T HS 2 HRon 025 Trop T High Sen 30 ng/L High <=14 [facility] Comment on above: Performed By: #### L 499.0042 ####[facility] [address] [place], [address] Troponin T HS 4 HRon 025 Trop T High Sen 104 ng/L Invalid Interpretation Code <=14 [facility] Comment on above: Result Comment: Crit ical Result(s) Called at 1330: by: HIL[facility] GLEZ [facility]??Results read back by same. Performed By: #### L 499.0043 #### [facility] [address] [place], [address] Troponin T.cardiac [Mass/vol ume] in Serum or Plasma by High sensitivity methodOrdered By: Wiley Swenson on 12-10-2024 Troponin T.cardiac High sensitivity method [Mass/Vol] 104 ng/L Critically high <14 [facility] Comment on above: Critical Result(s) C alled at 1330: by: HILARY GLEZ TO [facility]. Results read back by same. Troponin T.cardiac High sensitivity method [Mass/Vol] 30 ng/L High <14 [facility] Troponin T.cardiac High sensitivity method [Mass/Vol] 16 ng/L High <14 [facility] Urinalysis, Completeon 12-10 BACTERIA 0 SEEN Normal None Seen [facility] Comment on above: Order Comment: CLEAN CATCH Performed By: #### L 400.0001 ####[facility] [address] [place], [address] EPI,SQUAMOUS 0 SEEN Normal 5-10 [facility] Comment on above: Order Comment: CLEAN CATCH Performed By: #### L 400.0001 ####[facility] [address] [place], [address] Mucus Ql (Urine sed) 0 SEEN Normal [facility] Comment on above: Order Comment: CLEAN CATCH Performed By: #### L 400.0001 ####[facility] [address] [place], [address] RBC 0 SEEN Normal 0-5 [facility] Comment on above: Order Comment: CLEAN CATCH Performed By: #### L 400.0001 ####[facility] [address] [place], [address] WBC 0 SEEN Normal 0-5 [facility] Comment on above: Order Comment: CLEAN CATCH Performed By: #### L 400.0001 ####[facility] [address] [place], [place], [id number] Urine clarityOrdered By: Chani Swenson on 12-10-2024 Clarity (U) Clear Clear [facility] Urine color determinationOrd ered By: Wiley Swenson on 12-10-2024 Color (U) Yellow Yellow [facility] Urine glucose detectionOrder ed By: Wiley Swenson on 12-10-2024 Glucose Ql (U) Normal mg/dl Normal [facility] Urine leukocyte esterase det ection by dipstickOrdered By: Wiley Swenson on 12-10-2024 Leukocyte esterase Test strip Ql (U) Negative Negative [facility] Urine pHOrdered By: Wiley carvalho on 12-10-2024 pH (U) 6.0 [pH] 5.0 - 8.0 [facility] Urine sediment bacteria coun t by microscopy (number/high power field)Ordered By: Wiley Swenson on 12-10-2024 Bacteria LM.HPF (Urine sed) [#/Area] 0 /[HPF] None Seen [facility] Urine specific gravity measu rementOrdered By: Wiley Swenson on 12-10-2024 Specific gravity (U) [Rel density] 1.010 1.002-1.03 0 [facility] Urine urobilinogen measureme ntOrdered By: Wiley Swenson on 12-10-2024 Urobilinogen Ql (U) Normal mg/dl Normal [facility] White blood cell (WBC) count Ordered By: Wilye Swenson on 12-10-2024 WBC (Bld) [#/Vol] 8.9 10*3/uL 4.4-11.[address] [facility] White blood cell countOrdere d By: Wiley Swenson on 12-10-2024 White blood cell count 0 SEEN /hpf 0-5 [facility] MR/PAT.IMANIon 12-03-2024 MR/PAT.ANE [facility] Medical Records Department [address] [place] [address] PAT - Anesthesia 12/03/24 1842 MR#: [id number] Acct: [id number] Name: KADIE LAGUNA Rep #: [id number] : 1955 69 From: Ace Valdivia MD PCP: Dr. 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 When Was Last Pacemaker Check QUESTION #4 FULL TEXT: You/Your Family Experience fever (hyperthermia) with Anesthesia Last Oral Intake Last Oral intake: Last Oral Intake NPO since Meds taken in AM with sips of water? Meds patient instructed to take am of surgery PONV PONV - second chef: PONV - second chef Female Yes 12/03/24 14:55 HX of Motion Sickness Yes 12/03/24 14:55 HX of N/V After Surgery No 12/03/24 14:55 Non-Smoker Yes 12/03/24 14:55 Duration of Surgery greater No 12/03/24 14:55 than 60 minutes Number of Risk Factors 3 12/03/24 14:55 PONV Score Moderate Risk 12/03/24 14:55 Height Weight Height Weight: Anesthesia: Height Weight Height 5 ft 7 in 09/21/24 08:24 Respiratory Assessment Respiratory Assessment - second chef: Respiratory Tract Infection Hx - second chef Hx Respiratory Tract Infection No 12/03/24 14:55 STOP Sleep Apnea STOP Sleep Apnea - second chef: STOP Sleep Apnea - second chef Hx Hypertension Yes: on meds 12/03/24 14:55 Hx Sleep Apnea No 12/03/24 14:55 CPAP No 05/19/24 12:22 BIPAP No 05/05/24 10:22 Do you snore loudly (louder No 12/03/24 14:55 than talking or can be heard Do you often feel tired/ No 12/03/24 14:55 fatigued/ sleepy during daytime? Has anyone observed you stop No 12/03/24 14:55 breathing during sleep? STOP Results Negative 12/03/24 14:55 QUESTION #5 FULL TEXT : Do you snore loudly (louder than talking or can be heard through closed doors)? 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 Specify any problems Hx of Preganancy in last 3 No 12/03/24 14:55 Months Nurse Filling Out Transfusion CURTIS 12/03/24 14:55 Questions: Date: 12/03/24 12/03/24 14:55 Time: 14:57 12/03/24 14:55 Patient unable to answer at this time (ie. confused, unrespo /Reproduction History /Reproductive History - second chef: /Reproductive Hx- second chef Hx Now No 12/03/24 14:55 Gestational Age (in weeks): EDC: Hx Hx Para Hx Section SAB No 12/03/24 14:55 [facility] Medical History (Updated 12/03/24 @ 14:55 by Amanda Adams) SVT (supraventricular tachycardia) History of Crohn's disease [...] PO DAILY 08/25/21 07/15/23 History mcg (5,000 (more content not included)... Normal [facility] Re-Evaluation - PT (1)on Re-Evaluation - PT (1) [facility] Physical Therapy [facility] [address] [place] [address] [address] [place] [address] / REEVALUATION / MEDICARE RECERTIFICATION PHYSICAL THERAPY MR#: [id number] Acct: [id number] Name: KADIE LAGUNA Rep #: [id number] : 1955 69 From: Cheryle Lozano DPT, OCS, CSCS Referring Dr.: Dr. Cheryle De La Fuente MD Status:REG RCR Insurance: MEDICARE PART A B [facility] Re-Evaluation Intro: Dr. Cheryle De La Fuente MD, It has been my pleasure to treat KADIE LAGUNA over the last 6 visits for L hip OA. Please see the progress note below for an update on the physical therapy plan of care! Subjective Subjective: No diffeerent than 3 weks ago. Avoiding sleeping on R side. Doing home stretch adn streengthen 1x/day and using massage gun. Treatment not helping any. Activities at home normal. Pain this week up to 6/10 if doesn't move around too much. Mostly 4/10. Limps a little upon arising. F/U Dr. De La Fuente in January. Objective Objective/Function: LB ROM limited in extension and reporduces post hip pain L. SB and flexion are OK. Hip still testing well, loosening adn - FABEER and FADDIR. Subjective not improving. Plan Plan Plan: Will change focus to NS core strength via HEP and pt to contact doctor regarding possible other next steps for possible lumbar involvement/diagnostics while we go through strength adn ROM Please treat with mat to standing core strength via HEP and progression of lumbar ROM to yoga stretches. Balance/Gait/Functional tests Balance/Special Test Scores Lower Extremity Functional Score: 75 Goals Goals Goal 1:: Pain in L buttock are 75% better adn 1/10 at worst and manageable Goal Time Frame: 4-6 Weeks Goal Progress: Not Progressing Goal 2:: I appropriate HEP stretch adn strength to limit future problems Goal Time Frame: 4-6 Weeks Goal Progress: Goal Met Goal 3:: wake up in am with no stiffness or soreness. Goal Time Frame: 4-6 Weeks Goal Progress: Not Progressing Anticipated Interventions Anticipated Interventions Patient/Client Instruction: Educate patient on: Condition and Plan of Care For the Purpose of:: To decrease pain, To improve nutrient delivery to tissue, To improve muscle performance and motor function, To increase tolerance to activity/condition/posit ion and To improve ability of physical actions for home/community/work/leis ure Therapeutic Exercise to Include: Strength training, Postural training, Flexibilty training, Passive ROM and Active ROM For the Purpose of:: To decrease pain, To increase ROM, To improve nutrient delivery to tissue, To improve muscle performance and motor function, To increase tolerance to activity/condition/posit ion, To improve ability of physical actions for home/community/work/leis ure and To improve gait and locomotor functions Manual Therapy Techniques to Include: Mobilization, Passive ROM and Soft tissue mobilization For the Purpose of:: To decrease pain, To increase ROM, To improve nutrient delivery to tissue, To improve muscle performance and motor function and To increase tolerance to activity/condition/posit ion Thermo therapy (hot pack): Yes For the Purpose of:: To improve nutrient delivery to tissue Re-Evaluation Ending Re-evaluation ending: Please do not hesitate to contact me at [phone] by phone or if you have questions or concerns regarding this new plan of care! Sincerely, Cheryle Lozano DPT, OCS, CSCS 12/03/24 1030 CC: Dr. Cheryle De La Fuente MD EBG Signed For Medicare only, by signing this I certify the plan of care. ____ Physicians Signature Date Normal [facility] Inital Evaluation (1) - PTon 11-17-2024 Inital Evaluation (1) - PT [facility] [address] [facility] [facility] [place] [address] / REHABILITATION SERVICES INITIAL EVALUATION MR#: [id number] Acct: [id number] Name: KADIE LAGUNA Rep #: [id number] : 1955 69 From: Cheryle Lozano DPT, OCS, CSCS Referring Dr.: Dr. Cheryle De La Fuente MD Status: REG R CR Insurance: MEDICARE PART A B [facility] Patient's Visit Information Visit Information Visit Information: KADIE LAGUNA is a 69 year old F referred to Physical Therapy by Dr. Cheryle De La Fuente MD with a diagnosis of L hip OA. Date of Evaluation: 11/17/24 Physical Therapist: Cheryle Lozano DPT, OCS, CSCS Visit Plan Frequency: 2x /Week Duration: 4-6 Weeks Plan: 2x/week for 2-6 weeks as needed for...(2 to start) IE HEP: piriformis stretch, ITB streetch 30 4x L 2x/day, sleeping position with pillow b/w knees or under knees, avoid aggravating activities. Treat with.. 1. MH and STM to L piriformis area and lateral posterior hip, stretch piriformis, ITB and HS. mat based strength of hip stabs and core to HEP consider more aggressive strength once improved. Keep eye on back ROM as possible exacerbator Subjective Subjective: L hip pain in butt, several months, insidious onset. Has OP and Crohns and on Stellara which can give her weakness. Did feel L thigh weakness prior. L buttock pain is more frequent, wakes her up at night and stiff and sore in am. better if moves around. Getting more constant. Nothing further down leg. H/o vein stripping on that leg. 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 Basic ADLs all I. No LB history, no numbness or tingling in leg. no regular exercises Pain L buttock.: Pain Intensity (Out of 10): 4 Pain Intensity Range: 0 and 7 Objective Objective: L buttock area painful and tender over priformis and into ITB laterally minimally but defintieively vs R. Walking well without antalgia, toe, heel walk, march, butt kicks without increased pain. - BALWINDER, - FADDIR, - instability spine.Max tight itb L and mod tight piriformisL, actually B. Lumb ar aROM ext painful slight increase, flexion adn SB are WNL. hip knee and ankle AROM WFL and without increased pain. - SI testing. - SLR, - Slump strength hip 3+ abd and ext without pain, 4- flexion, knee 4, ankles 4, nothing increasees her pain today. Balance/Special Test Scores Lower Extremity Functional Score: 75 Goals Goal 1:: Pain in L buttock are 75% better adn 1/10 at worst and manageable Goal Time Frame: 4-6 Weeks Goal 2:: I appropriate HEP stretch adn strength to limit future problems Goal Time Frame: 4-6 Weeks Goal 3:: wake up in am with no stiffness or soreness. Goal Time Frame: 4-6 Weeks Rehabilitation Potential Physical Therapy Diagnosis: soft tissue tenderness L hip, pain making function uncomfortable. Rehabilitation Potential: Good Anticipated Interventions Patient/Client Instruction: Educate patient on: Condition and Plan of Care For the Purpose of:: To decrease pain, To improve nutrient delivery to tissue, To improve muscle performance and motor function, To increase tolerance to activity/condition/posit ion and To improve ability of physical actions for home/community/work/leis ure Therapeutic Exercise to Include: Strength training, Postural training, Flexibilty training, Passive ROM and Active ROM For the Purpose of:: To decrease pain, To increase ROM, To improve nutrient delivery to tissue, To improve muscle performance and motor function, To increase tolerance to activity/condition/posit ion, To improve ability of physical actions for home/community/work/leis ure and To improve gait and locomotor functions Manual Therapy Techniques to Include: Mobilization, Passive ROM and Soft tissue mobilization For the Purpose of:: To decrease pain, To increase ROM, To improve nutrient delivery to tissue, To improve muscle performance and motor function and To increase tolerance to activity/c ondition/position Thermo therapy (hot pack): Yes For the Purpose of:: To improve nutrient delivery to tissue Text: Thank you for the opportunity to evaluate your patient. For Medicare and Medicare HMO plans, please review the plan of care and approve it. It will need to be FAXED BACK to us at [phone] for Medicare purposes. For Medicare only, by signing this I certify the plan of care. Please let me know if there are questions or concerns regarding this plan of care. Physician Signature: Date: ____ 11/17/24 1747 CC: Dr. Cheryle De La Fuente MD EBG Signed Normal [facility] Echo Completeon 11-10-2024 Echo Complete [facility] Cardiovascular Services [address] [place] [address] Echo Complete 11/10/24 1404 MR#: [id number] Acct: [id number] Name: KADIE LAGUNA MEAGHAN Rep #: [id number] : 1955 69 From: Mohan Le MD Attending Dr: Dr. Jose Garcia MD Status: REG CLI Ordering Dr: Jose Garcia MD Date: 11/10/24 Location: [facility] Sex: F C Admitted: Reason For Study Reason For Study: ATRIAL FIBRILLATION Procedure This was a 2D Doppler, Color Flow transthoracic echocardiogram. Myocardial strain analysis was performed in this exam to aid in the assessment of cardiac function. Exam performed in department. Left Ventricle Normal LV size. The global longitudinal strain = -19.1 % (normal). The left ventricular ejection fraction is 65 %. No regional wall motion abnormalities noted. Right Ventricle Normal RV size. Normal systolic function. Atria Normal left atrium. Normal right atrium. Mitral Valve Normal mitral valve. Tricuspid Valve Normal tricuspid valve. Mild (1+) tricuspid valve insufficiency. Pulmonary artery systolic pressure is 26 mmHg. Aortic Valve Trisinus/trileaflet aortic valve. Pulmonic Valve Normal pulmonic valve. Great Vessels Normal aortic root. The pulmonary artery is normal size. Inferior vena cava collapse with respiration. Pericardium/Pleural No pericardial effusion. MMode/2D Measurements Calculations LVIDd: 4.9 cm IVSd: 1.1 cm LVOT diam: 2.1 cm LVIDs: 3.1 cm LVPWd: 1.0 cm LVOT area: 3.5 cm2 RVDd: 3.2 cm FS: 37.0 % _ asc Aorta Diam: 3.6 cm LAV(MOD-bp): 42.7 ml LVAd ap4: 25.0 cm2 LAV(MOD-bp) Indexed: 22.1 ml/m2 LVLd ap4: 7.2 cm LAV(MOD-sp2): 53.6 ml EDV(MOD-sp4): 70.8 ml LAV(MOD-sp4): 34.8 ml EDV(sp4-el): 74.3 ml LVAs ap4: 13.6 cm2 LVLs ap4: 6.3 cm ESV(MOD-sp4): 25.0 ml ESV(sp4-el): 25.3 ml EF(MOD-sp4): 64.6 % EF(sp4-el): 66.0 % _ LVAd ap2: 22.0 cm2 SV(MOD-sp4): 45.7 ml SV(MOD-sp2): 34.1 ml LVLd ap2: 7.1 cm SI(MOD-sp4): 23.7 ml/m2 SI(MOD-sp2): 17.6 ml/m2 EDV(MOD-sp2): 56.9 ml EDV(sp2-el): 57.4 ml LVAs ap2: 12.7 cm2 LVLs ap2: 5.9 cm ESV(MOD-sp2): 22.8 ml ESV(sp2-el): 23.1 ml EF(MOD-sp2): 59.8 % _ SV(sp4-el): 49.0 ml Ao sinus diam: 3.[address] Junction: 2.6 cm _ LA dimension(2D): 3.6 cm LA A4 area: 15.1 cm2 RA A4 area: 12.5 cm2 _ TAPSE: 1.7 cm Time Measurements MV dec time: 0.16 sec Doppler Measurements Calculations MV E max akbar: 47.7 cm/sec Lat Peak E' Akbar: 10.3 cm/sec Med Peak E' Akbar: 10.1 cm/sec MV A max akbar: 37.1 cm/sec E/E' lat: 4.6 E/E' med: 4.7 MV E/A: 1.3 _ MV dec slope: 298.0 cm/sec2 Ao V2 max: 106.0 cm/sec LV V1 max: 75.4 cm/sec Ao max P.5 mmHg LV V1 max P.3 mmHg Ao V2 mean: 80.9 cm/sec LV V1 mean P.4 mmHg Ao mean P.8 mmHg LV V1 mean: 57.7 cm/sec Ao V2 VTI: 23.3 cm LV V1 VTI: 16.5 cm AV (velocity ratio): 0.71 YANNI(I,D): 2.4 cm2 YANNI(V,D): 2.5 cm2 _ SV(LVOT): 57.1 ml PA V2 max: 62.6 cm/sec PI end-d akbar: 67.8 cm/sec _ TR max akbar: 244.3 cm/sec TR max P.9 mmHg ECHO/Echo Complete Interpretation Summary Normal LV size. The global longitudinal strain = -19.1 % (normal). The left ventricular ejection fraction is 65 %. Pulmonary artery systolic pressure is 26 mmHg. Structurally normal valves. Ordering Physician: Jose Garcia Referring Physician: CHERYLE DE LA FUENTE Performed By: Maritza Smith RDCS 11/10/24 560 Date Mohan Le MD CC: Dr. Cheryle De La Fuente MD; Dr. Jose Garcia MD Date Dictated: 11/10/241403 Date Transcribed: 11/10/241638 Patient Care Nursing Assistant: Signed Normal [facility] Echocardiogram study reportO rdered By: Mohan Le on 11-10-2024 Study report [facility] Cardi[facility] [address] [place] [address] Echo Complete 11/10/241403 MR#: [id number] Acct: [id number] Name: KADIE LAGUNA MEAGHAN Rep #:[id number] : 1955 69 From: Mohan Rocha Attending Dr: Dr. Jose Garcia MD Status: REG CLI Ordering Dr: Jose Garcia MD Date : 11/10/24 Location: [facility] Sex: F C Admitted: Reason For Study Reason For Study: ATRIAL FIBRILLATION Procedure This was a 2D Doppler, Color Flow transthoracic echocardiogram. Myocardial strain analysis was performed in this exam to aid in the assessment of cardiac function. Exam performed in department. Left Ventricle Normal LV size. The global longitudinal strain = -19.1 % (normal). The left ventricular ejection fraction is 65 %. No regional wall motion abnormalities noted. Right Ventricle Normal RV size. Normal systolic function. Atria Normal left atrium. Normal right atrium. Mitral Valve Normal mitral valve. Tricuspid Valve Normal tricuspid valve. Mild (1+) tricuspid valve insufficiency. Pulmonary artery systolic pressure is 26 mmHg. Aortic Valve Trisinus/trileaflet aortic valve. Pulmonic Valve Normal pulmonic valve. Great Vessels Normal aortic root. The pulmonary artery is normal size. Inferior vena cava collapse with respiration. Pericardium/Pleural No pericardial effusion. MMode/2D Measurements & Calculations LVIDd: 4.9 cm IVSd: 1.1 cm LVOT diam: 2.1 cm LVIDs: 3.1 cm LVPWd: 1.0 cm LVOT area: 3.5 cm2 RVDd: 3.2 cm FS: 37.0 % __ asc Aorta Diam: 3.6 cm LAV(MOD-bp): 42.7 ml LVAd ap4: 25.0 cm2 LAV(MOD-bp) Indexed: 22.1 ml/m2 LVLd ap4: 7.2 cm LAV(MOD-sp2): 53.6 ml EDV(MOD-sp4): 70.8 ml LAV(MOD-sp4): 34.8 ml EDV(sp4-el): 74.3 ml LVAs ap4: 13.6 cm2 LVLs ap4: 6.3 cm ESV(MOD-sp4): 25.0 ml ESV(sp4-el): 25.3 ml EF(MOD-sp4): 64.6 % EF(sp4-el): 66.0 % _ LVAd ap2: 22.0 cm2 SV(MOD-sp4): 45.7 ml SV(MOD-sp2): 34.1 ml LVLd ap2: 7.1 cm SI(MOD-sp4): 23.7 ml/m2 SI(MOD-sp2): 17.6 ml/m2 EDV(MOD-sp2): 56.9 ml EDV(sp2-el): 57.4 ml LVAs ap2: 12.7 cm2 LVLs ap2: 5.9 cm ESV(MOD-sp2): 22.8 ml ESV(sp2-el): 23.1 ml EF(MOD-sp2): 59.8 % SV(sp4-el): 49.0 ml Ao sinus diam: 3.[address] Junction: 2.6 cm LA dimension(2D): 3.6 cm LA A4 area: 15.1 cm2 RA A4 area: 12.5 cm2 TAPSE: 1.7 cm Time Measurements MV dec time: 0.16 sec Doppler Measurements & Calculations MV E max akbar: 47.7 cm/sec Lat Peak E' Akbar: 10.3 cm/sec Med Peak E' Akbar: 10.1 cm/sec MV A max akbar: 37.1 cm/sec E/E' lat: 4.6 E/E' med: 4.7 MV E/A: 1.3 MV dec slope: 298.0 cm/sec2 Ao V2 max: 106.0 cm/sec LV V1 max: 75.4 cm/sec Ao max P.5 mmHg LV V1 max P.3 mmHg Ao V2 mean: 80.9 cm/sec LV V1 mean P.4 mmHg Ao mean P.8 mmHg LV V1 mean: 57.7 cm/sec Ao V2 VTI: 23.3 cm LV V1 VTI: 16.5 cm AV (velocity ratio): 0.71 YANNI(I,D): 2.4 cm2 YANNI(V,D): 2.5 cm2 SV(LVOT): 57.1 ml PA V2 max: 62.6 cm/sec PI end-d akbar: 67.8 cm/sec _ TR max akbar: 244.3 cm/sec TR max P.9 mmHg ECHO/Echo Complete Interpretation Summary Normal LV size. The global longitudinal strain = -19.1 % (normal). The left ventricular ejection fraction is 65 %. Pulmonary artery systolic pressure is 26 mmHg. Structurally normal valves. Ordering Physician: Jose Garcia Referring Physician: CHERYLE DE LA FUENTE Performed By: Maritza Smith RDCS 11/10/24 2919 Date _ Mohan Le MD CC: Dr. Cheryle De La Fuente MD; Dr. Jose Garcia MD ~ Date Dictated: 11/10/24 1404 Date Transcribed: 11/10/24 1639 Patient Care Nursing Assistant: Signed [facility] Work Phone: Breast imaging reportOrdered By: Sally Cosby on 11-04-2024 Study report [facility] Imaging Services [address] [place] [address] SCRN MAMM (CAD)W/BIGG BILAT MR#: [id number] Acct: [id number] Name: KADIE LAGUNA Rep #: [id number] : 1955 F 69 From: Paris Cosby MD PCP: Dr. Cheryle De La Fuente MD Status: [facility] Study:SCRN MAMM (CAD)W/BIGG BILAT Date of Exa m: 11/04/24 Exam# [id number] Ordering Dr: Jeffrey De La Fuente MD EXAM: SCRN MAMM (CAD)W/BIGG BILAT DATE: 11/04/2024 CLINICAL HISTORY: F, Age 69 y/o , ANNUAL SCREENING TECHNIQUE: SCRN MAMM (CAD)W/BIGG BILAT COMPARISON: Prior exam(s) dated 08/26/2023, 02/07/2022, 12/17/2018. FINDINGS: TISSUE DENSITY: The breasts are almost entirely fatty. Bilateral Breast Mammographic Findings: No significant masses, calcifications or other abnormalities are identified. BI/SCRN MAMM (CAD)W/BIGG BILAT IMPRESSION: There is no mammographic evidence of malignancy. OVERALL FINAL ASSESSMENT BI-RADS 1: NEGATIVE. RECOMMENDATION: Routine annual follow-up in 1 Year A letter with findings and recommendations will be mailed to the patient. Reading Location: [id number]-DQ CC: Dr. Cheryle De La Fuente MD ~ Patient Care Nursing Assistant: Signed [facility] SCRN MAMM (CAD)W/BIGG BILATo n 11-04-2024 SCRN MAMM (CAD)W/BIGG BILAT [facility] Imaging Services [address] [place] [address] SCRN MAMM (CAD)W/BIGG BILAT MR#: [id number] Acct: [id number] Name: KADIE LAGUNA Rep #: [id number] : 1955 F 69 From: Sally Cosby MD PCP: Dr. Cheryle De La Fuente MD Status: [facility] Study: SCRN MAMM (CAD)W/BIGG BILAT Date of Exam: 10/08 Exam# [id number] Ordering Dr: Cheryle De La Fuente MD EXAM: SCRN MAMM (CAD)W/BIGG BILAT DATE: 11/04/2024 CLINICAL HISTORY: F, Age 69 y/o , ANNUAL SCREENING TECHNIQUE: SCRN MAMM (CAD)W/BIGG BILAT COMPARISON: Prior exam(s) dated 08/26/2023, 02/07/2022, 12/17/2018. FINDINGS: TISSUE DENSITY: The breasts are almost entirely fatty. Bilateral Breast Mammographic Findings: No significant masses, calcifications or other abnormalities are identified. BI/SCRN MAMM (CAD)W/BIGG BILAT IMPRESSION: There is no mammographic evidence of malignancy. OVERALL FINAL ASSESSMENT BI-RADS 1: NEGATIVE. RECOMMENDATION: Routine annual follow-up in 1 Year A letter with findings and recommendations will be mailed to the patient. Reading Location: [facility] CC: Dr. Cheryle De La Fuente MD Patient Care Nursing Assistant: Signed 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 Nicci stated she is not due [...] she stated she had recent echocardiogram with [facility]. Cannot find that in the records sent. Can you contact [facility] and ask for the echocardiogram report to be sent? If she has not had one in the past year then I need one completed. I do have the recent cardiac stress test, but I need the echocardiogram to determine if she has substantial LVH that would contraindicate treatment with flecainide that we are considering. Thanks Jose Oscar MD 10/13/2024 12:42 PM Signed [facility] General Electrophysiology (EP) Order placed for echocardiogram. Jose Garcia MD October 13, 2024 12:40 PM Bertha Marks 10/13/2024 2:11 PM Signed Spoke with patient and informed her about the echo order. Patient will call and schedule at [facility] and have results faxed Summer Marie RN 11/26/2024 2:05 PM Signed Kadie Laguna called to ask if Dr. Garcia made recommendations based on her 11/10/24 echo from [facility]. Document is available under scanned documents. LUCERO Solis Robert A, MD 12/01/2024 6:59 PM Signed [facility] General Electrophysiology (EP) The echocardiogram confirmed that it would be safe to prescribe flecainide. We would start with 50 mg twice daily. If she is agreeable then we can either prescribe or the [facility] can prescribe. Jose Garcia MD December 01, 2024 6:59 PM Iliana Austin LPN 12/02/2024 10:36 AM Signed Left message for Ms. Laguna to call [facility] for recommendations. [facility] phone number provided. CHET Lorenzo Taylor, LPN 12/02/2024 11:34 AM Signed Spoke with Kadiemarkel Fierroport on December 02, 2024. Informed of instructions as stated above. Patient voiced understanding at this time. Patient is agreeable to taking flecainide medication at this time. Patient wanted to know if she should continue taking atenolol along with Flecainide when it is started or if she should stop taking it. CHET Lorenzo Taylor, LPN 12/02/2024 11:34 AM Signed Addended by: ILIANA AUSTIN on: 12/02/2024 11:34 AM Modules accepted: Orders Jose Garcia MD 12/02/2024 12:49 PM Signed [facility] General Electrophysiology (EP) RX for flecainide signed. Yes, she should continue with the atenolol and in fact this is essential to continue with the flecainide. Jose Garcia MD December 02, 2024 12:49 PM Jose Garcia MD 12/02/2024 12:49 PM Signed Addended by: JOSE GARCIA on: 12/02/2024 12:49 PM Modules accepted: Orders Allergies As of Date: 10/13/2024 Noted Allergy Reaction PENICILLINS 11/23/2004 2 - Rash Date Reviewed: 10/08/2024 Reviewed by: Jose Garcia MD - Fully Assessed Reason for Visit: Treatment Planning [881] Primary Visit Diagnosis:Paroxysmal atrial fibrillation (HCC) [I48.0] Other Visit Diagnosis:Palpitations [R00.2] Order(s):ECHO [340688] Order #: [id number]: 1 FUTURE flecainide (TAMBOCOR) 50 mg tabletTake 1 tablet by mouth every 12 hours.Disp: 180 tabletRfl: 3 Prescriptions as of 12/02/2024 - flecainide (TAMBOCOR) 50 mg tablet Take 1 tablet by mouth every 12 hours. - aspirin, enteric coated (ASPIRIN, ENTERIC COATED) [...] 0.1 % cream Problem List As Of (more content not included)... Normal [facility] CNOVon 10-08-2024 CNOV Office Visit (AGCARD POB) -------- KADIE LAGUNA ([id number]) 1955 F Date Time Provider Department 10/08/24 9:00 AM JOSE GARCIA AGCARDPOB During your visit today, we recorded the following information about you: Pulse Blood pressure Weight Height 66/minute 127/77 83.5 kg 1.676 m Jose Garcia MD 10/08/2024 8:53 PM Signed PRIMARY CARE PHYSICIAN: Cheryle De La Fuente ([facility]) [address] [place] [address] Patient Care Team: Cheryle De La Fuente MD as PCP - General (Family Medicine) Richelle Valencia PA-C as Physician Esl Instructor (Pulmonary and Critical Care Medicine) Eduard Maravilla as Specialty Signal Integrity Engineer (Cardiology) CHIEF COMPLAINT: Follow up for arrhythmia HISTORY OF PRESENT ILLNESS: Ms. Laguna is a 69 year old female who presents today for a cardiovascular medicine follow-up visit. Recording using ambient AI software for draft documentation of the visit was discussed with the patient/authorized factory representative; all questions welcomed and answered. Patient/authorized factory representative agreed to proceed History from previous notes, edited as needed and/or generated by dictation with use of AI.: Patient Overview: Ms. Laguna has a history of intermittent palpitations that began in 2020. She was referred to Dr. Garcia of [facility] in October 2022 for evaluation of [...] around 2020. She was referred to an farm equipment technician in October 2022 for evaluation. At that [...] Interpretation and review of laboratory results Normal [facility] Sinus bradycardia 55 bpm; normal conduction intervals (WY 132 ms, QRS 88 ms); QTc 411 ms [facility] HIP, UNI W/ Pelvis 2-3 Views on 10-07-2024 HIP, UNI W/ Pelvis 2-3 Views [facility] Imaging Services [address] [place], [place] [address] HIP, UNI W/ Pelvis 2-3 Views MR#: [id number] Acct: [id number] Name: KADIE LAGUNA Rep #: [id number] : 1955 F 69 From: Adebayo Thakkar MD PCP: Dr. Cheryle De La Fuente MD Status: REG CLI Study: HIP, UNI W/ Pelvis 2-3 Views Date of Exam: 06/02 Exam# [id number] Ordering Dr: Cheryle De La Fuente MD [...] degenerative changes, no acute findings Reading Location: [id number]-[id number]-KT CC: Dr. Cheryle De La Fuente MD Patient Care Nursing Assistant: Signed Normal [facility] L3410.9992on 10-02-2024 [facility] Misc. COMMENT Normal . [facility] Comment on above: Order Comment: 35183 4Stelera levels Result Comment: Test Ordered: [id number] Ustekinumab Drug + Antibody Ustekinumab 6.3 ug/mL [...] in 4-6% of patients.(6) References: 1. Dashawn HERNANDES, et al. Gastroenterology 2016;150(4):S408. 2. Dashawn Lerner et al. P007 Exposure-Response to SC Ustekinumab in Moderate - Severe Crohn's Disease: Results from the IM-UNITI Maintenance Study. Advances in AIBD. January 2017. 3. Cosmo R, et al. Clin Gastroenterol Hepatol 2017;15: 8629-1179. 4. Dee SP, et al. Br J Dermatol;2015:173;855-857. 5. Lindsay H, et al. PLOS ONE DOI;10:1371/journal.pone.3216606. 6. Jesus Brooks et al. Br J Dermatol 2014;170:261-273. These tests were developed and their performance characteristics determined by [employer]. They have not been cleared or approved by the Food and Drug Administration. However, both drug and anti-drug antibody assays have been developed and validated in accordance with FDA Guidance for Industry documents: Bioanalytical Method Validation (2013) and Assay Development and Validation for Immunogenicity Testing of Therapeutic Protein Products (2016). Performed at: [facility] [address] [place] [id number] Contact Center Rep: Javed Pritchard MD, Phone: [phone] Performed at: [address] [id number] Contact Center Rep: Toni Whitt PhD, Phone: [phone] Performed By: #### L 3410.9992 ####[facility] [address] [place], [address] Gastroenterology Visit Repor ton 09-21-2024 Gastroenterology Visit Report [facility] Gastroenterology [address] [place] [address] OFFICE VISIT Date of Service: 09/21/24 MR#: [id number] Acct: [id number] Name: KADIE LAGUNA MEAGHAN Rep #: [id number] : 1955 Provider: Jun Marin DO Age/Sex: 69/F [place] [facility] Status: Signed Intake Vital Signs 03/17/24 09:02 [...] house current occupational status: employed 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 Smoking Status: Never smoker alcohol [...] cryptitis and early granulation of impending ulcer [employer] ED 7.09.26 with abdominal pain ??? concern for SBO that was r/o with radiology. Recommend OV with surgeon. ?CT abd/pel 7.08.26???hepatic cyst; multiple small bowel loops with wall thickening and edema, likely enteritis [facility] OV 7.10.26 recommending establishment with GI. ?Sma ll bowel Xray 7.9.21???without acute/chronic finding *BGI established 9.10.21 for further investigation of IBD with history of multiple abdominal surgeries and ED visits for abdominal pain. Autocad Detailer workup up lupus erythematosus versus discoid lupus without positive diagnosis of either. ? (more content not included)... Normal [facility] Cardiovascular stress test r eportOrdered By: Gregory Bose on 08-05-2024 Study report [facility] Cardiovascular Services [address] [place] [address] MR#: [id number] Acct: [id number] Name: KADIE LAGUNA Rep #: [id number] : 1955 69 From: Gregory colmenares MD Primary Care: Dr. Cheryle De La Fuente MD Status: REG I Referring Dr: Richelle Valencia Sex : F [...] than 70%. This note was generated with Gu[employer] Songsation software. It may contain incorrectwords, spelling, and punctuation that were not noted in checking the note beforesigning. 08/05/24 1403 Date _ Gregory Bose MD CC: Dr. Cheryle De La Fuente MD; JOEL Silva ~ Date Dictated: 08/05/24 1346 Date Transcribed: 08/05/241345 Patient Care Nursing Assistant: NN Signed [facility] Work Phone: Stress Reporton 08-05-2024 Stress Report [facility] Cardiovascular Services [address] [place] [address] MR#: [id number] Acct: [id number] Name: KADIE LAGUNA MEAGHAN Rep #: [id number] : 1955 69 From: Gregory Bose MD Primary Care: Dr. Cheryle De La Fuente MD Status: Kali OSMAN Referring Dr: Richelle Valencia Sex: F C [...] than 70%. This note was generated with Guess Your Songsation software. It may contain incorrect words, spelling, and punctuation that were not noted in checking the note before signing. 08/05/24 1403 Date Gregory Bose MD CC: Dr. Cheryle De La Fuente MD; JOEL Silva Date Dictated: 08/05/24 1346 Date Transcribed: 08/05/241345 Patient Care Nursing Assistant: JOHNSON Signed Normal [facility] 12 Lead EKGon 05-19-2024 12 Lead EKG [facility] Cardiovascular Services [address] [place] [address] 12 Lead EKG 05/19/24 0900 MR#: [id number] Acct: [id number] Name: KADIE LAGUNA Rep #: [id number] : 1955 69 From: Eduard Maravilla MD Attending Dr: Dr. Marco Antonio Tapia MD Statu s: DEP [place] Ordering Dr: Ace Valdivia MD Date: 05/19/24 Location: [facility] Sex: F C Admitted: Test Reason : [...] was found Confirmed by Eduard Maravilla ([id number]), technical writer and editor DAVID VÁZQUEZ ([id number]) on 05/21/2024 8:01:52 AM Referred By: Marco Antonio Tapia Confirmed By: Eduard Maravilla 05/21/24 0801 Date Eduard Maravilla MD CC: Dr. Ace Valdivia MD; Dr. Marco Antonio Tapia MD; Dr. Cheryle De La Fuente MD Signed Normal [facility] Basic Metabolic Profile (BMP )on 05-19-2024 BUN/CRE 14.5 RATIO Normal 10-20 [facility] Comment on above: Performed By: #### L 500.2500 ####[facility] [address] [place], [address] CA,Total 9.2 mg/dL Normal 8.5-10.1 [facility] Comment on above: Performed By: #### L 500.2500 ####[facility] [address] [place], [address] Chloride [Moles/Vol] 109 mmol/L High 98-107 [facility] Comment on above: Performed By: #### L 500.2500 ####[facility] [address] [place], [address] CO2 [Moles/Vol] 29.0 mmol/L Normal 21.0-32.0 [facility] Comment on above: Performed By: #### L 500.2500 ####[facility] [address] [place], [address] Creatinine [Mass/Vol] 0.76 mg/dL Normal 0.55-1.02 [facility] Comment on above: Result Comment: The validity of the calculated GFR GFRAA in patients over 70 years has not been determined. Clinical correlation is essential. Performed By: #### L 500.2500 ####[facility] [address] [place], [address] ECRCL 75.40 ml/min Normal [facility] Comment on above: Performed By: #### L 500.2500 ####[facility] [address] [place], [address] EST GFR - AA 98 mL/min Normal >60 [facility] Comment on above: Result Comment: Afri can Tuvaluan GFR Calc Performed By: #### L 500.2500 ####[facility] [address] [place], [address] GAP 2 Low 5-15 [facility] Comment on above: Performed By: #### L 500.2500 ####[facility] [address] [place], [address] GFR/1.73 sq M.predicted among non-blacks MDRD (S/P/Bld) [Vol rate/Area] 81 mL/min/{1.73_m2} Normal >60 [facility] Comment on above: Result Comment: Non- GFR Calc Performed By: #### L 500.2500 ####[facility] [address] [place], [address] Glucose [Mass/Vol] 95 mg/dL Normal 74-[address] [facility] Comment on above: Performed By: #### L 500.2500 ####[facility] [address] [place], [address] Potassium [Moles/Vol] 3.9 mmol/L Normal 3.5-5.1 [facility] Comment on above: Performed By: #### L 500.2500 ####[facility] [address] [place] [place], [address] Sodium [Moles/Vol] 141 mmol/L Normal 136-[address] [facility] Comment on above: Performed By: #### L 500.2500 ####[facility] [address] [place], [address] Urea nitrogen [Mass/Vol] 11 mg/dL Normal 7-18 [facility] Comment on above: Performed By: #### L 500.2500 ####[facility] [address] [place], [address] Blood urea nitrogen (BUN)/cr eatinine ratioOrdered By: Marco Antonio Tapia on 05-19-2024 Urea nitrogen/Creatinine [Mass ratio] 14.5 mg/mg 10-20 [facility] Carbon dioxide measurementOr dered By: Marco Antonio Tapia on 05-19-2024 CO2 [Moles/Vol] 29.0 mmol/L 21.0-32.0 [facility] Chloride measurementOrdered By: Marco Antonio Tapia on 05-19-2024 Chloride [Moles/Vol] 109 mmol/L High 98-107 [facility] Discharge Instructionon 05-09 Discharge Instruction [facility] Medical Records Department [address] [place] [address] Instructions for Home/Discharge Instructions 05/19/24 1059 MR#: [id number] Acct: [id number] Name: KADIE LAGUNA Rep #: [id number] : 1955 69 From: Marco Antonio Tapia MD PCP: Dr. Cheryle De La Fuente MD Status:REG SDC Discharge Instructions Diet Discharge Diet: No restrictions [...] Cheryle De La Fuente Instructions Print Language: Polish Discharge Orders/Prescriptions Prescriptions: No Action cholecalciferol (vitamin [...] Cheryle De La Fuente MD Signed Normal [facility] Frozen Section (charge)on Frozen Section (charge) -------- Patient Age/Sex Location Account Attending Physician LUZ ELENAKADIEMAZIN HARDING 69/F [facility] [id number] Moshe Patton Specimen: [id number] Received: 05/19/24 Status: MARIELY Cazaresshannon Num: [id number] Spec Type: Lesion Subm Dr: Dr. Marco [...] Wood who concurs with the above diagnosis. IDC:FA CHRISTIANA.mr 05/19/2024 MICROSCOPIC DIAGNOSIS Left ear mass, excisional biopsy: Negative for carcinoma. Dermal chronic inflammation and changes consistent with previous biopsy site. CHRISTIANA.mr 05/20/2024 MICROSCOPIC DESCRIPTION Slides are reviewed. GROSS DESCRIPTION Received fresh for frozen section diagnosis labeled with the patient's name is a specimen designated Left ear mass. The specimen consists of a round piece of west-white skin measuring 0.5 x 0.5 x 0.1cm. The specimen is inked, bisected and submitted for frozen section diagnosis in one cassette. CHRISTIANA. 05/19/2024 TC:3 CPT:24505,95031 Patient Age/Sex Location Account Attending Physician KADIE LAGUNA 69/F [facility] [facility] [id number] Moshe Patton Signed (signature on file) Dr. Larry Mustafa MD 05/20/24 1050 Normal [facility] Comment on above: Performed By: #### P FSC ####[facility] [address] [place], [address] Glomerular filtration rate ( GFR) estimationOrdered By: Marco Antonio Tapia on 05-19-2024 GFR/1.73 sq M.predicted among non-blacks MDRD (S/P/Bld) [Vol rate/Area] 81 mL/min/{1.73_m2} >60 [facility] Comment on above: Non- GFR Calc Glucose measurementOrdered B y: Marco Antonio Tapia on 05-19-2024 Glucose [Mass/Vol] 95 mg/dL 74-[address] [facility] MR/POSTOP.ANEon 05-19-2024 MR/POSTOP.[facility] Medical Records Department [address] [place] [address] Anesthesia Postop Eval I 05/19/24 122 MR#: [id number] Acct: [id number] Name: KADIE LAGUNA MEAGHAN Rep #: [id number] : 1955 69 From: Francisca Concepcion PCP: Dr. Cheryle De La Fuente MD Status:REG [facility] [facility] Y Race: C Location: [place] [address] Anesthesia: Postop Eval I Current Vital Signs [...] Anesthesia document: Postop Eval 1 completed: Yes 02/11/1222 Francisca Villegas Signature: Date CC: Signed Normal [facility] MR/OWFEUQWE3ut 05-19-2024 MR/POSTOPAN2 [facility] Medical Records Department [address] [place] [address] Anesthesia Postop Eval II 05/19/24 1321 MR#: [id number] Acct: [id number] Name: KADIE LAGUNA Rep #: [id number] : 1955 69 From: Ace Valdivia MD PCP: Dr. Cheryle De La Fuente MD Status:REG [facility] Y Race: C Location: [place] [address] Anesthesia Postop Eval I Sum Postop Eval Completion status Anesthesia document: Postop Eval 1 completed: Yes Anesthesia Postop Eval I Summary Anesthesia Postop Eval I Summary: Anesthesia Postop Eval I: Assessment Summary Airway patent Yes 05/19/24 12:23 PROJECT PRODUCT MANAGER.GDOTT Spontaneous unlabored Yes 05/19/24 12:23 PROJECT PRODUCT MANAGER.GDOTT respirations Mental status Awake,Calm 05/19/24 12:23 PROJECT PRODUCT MANAGER.GDOTT nausea No 05/19/24 12:23 PROJECT PRODUCT MANAGER.GDOTT Vomiting No 05/19/24 12:23 PROJECT PRODUCT MANAGER.GDOTT Anesthesia Postop Eval I: Fluid Summary Crystalloid volume administer 1,000 05/19/24 12:23 PROJECT PRODUCT MANAGER.GDOTT (ml) Colloids volume administered ( ml) Blood Product volume administered (ml) Total IV fluid infused 1,000 05/19/24 12:23 PROJECT PRODUCT MANAGER.GDOTT Anesthesia Postop Eval I: Summary Notes Anesthesia Complication No 05/19/24 12:23 PROJECT PRODUCT MANAGER.GDOTT Anesthesia Complication Comment: Post-operative progress note Anesthesia: Postop Eval II Evaluation Mental status: Awake and Calm Pain Level: 1 nausea: No Vomiting: No Complications Anesthesia Complication: No 02/11/25 1322 Date Ace Villegas Signature: Date CC: Signed Normal [facility] Operative Reporton 5 Operative Report [facility] Medical Records Department [address] [place] [address] Operative Report 05/19/24 1101 MR#: [id number] Acct: [id number] Name: KADIE LAGUNA Rep #: [id number] : 1955 69 From: Marco Antonio Tapia MD PCP: Dr. Cheryle De La Fuente MD Status:[facility] Location: [place] [address] Problems Associated Problem List Diagnoses (1) Basal cell carcinoma, ear: Operative Report (Standard) Operative Information Date of Procedure: 05/19/24 Pre-Operative Diagnosis: basal cell carcinoma, left pinna Post-Operative Diagnosis: basal cell carcinoma, left pinna Surgery/Procedure Performed: 1. excision left ear basal cell carcinoma, 1x1 cm 2. full thickness skin graft, neck; 1x1 cm hat brim curler: No Type of Anesthesia: General RN Documented [...] lesion was excised in full with a paskenta blade. this was sent for frozen section. this was an area of previous biopsy-proven basal cell carcinoma. pathologic analysis was reportedly negative for any carcinoma. given this, additional margins were not taken. the defect was 1cm x 1cm. the left neck was injected with lidocaine/epinephrine, and a 1 x 1 cm elliptical graft was taken with a paskenta blade. the surrounding tissue was undermined with [...] Cheryle De La Fuente MD Signed Normal [facility] Potassium measurementOrdered By: Marco Antonio Tapia on 05-19-2024 Potassium [Moles/Vol] 3.9 mmol/L 3.5-5.1 [facility] Serum anion gap measurementO rdered By: Marco Antonio Tapia on 05-19-2024 Anion gap [Moles/Vol] 2 mmol/L Low 5-15 [facility] Serum or plasma calcium blair urement (mass/volume)Ordered By: Marco Antonio Tapia on 05-19-2024 Calcium [Mass/Vol] 9.2 mg/dL 8.5-10.[address] [facility] Serum or plasma creatinine m easurement (mass/volume)Ordered By: Marco Antonio Tapia on 05-19-2024 Creatinine [Mass/Vol] 0.76 mg/dL 0.55-1.02 [facility] Comment on above: The validity of the calculated GFR & GFRAA in patients over 70 years has not been determined. Clinical correlation is essential. Serum or plasma urea nitroge n measurement (mass/volume)Ordered By: Marco Antonio Tapia on 05-19-2024 Urea nitrogen [Mass/Vol] 11 mg/dL 7-18 [facility] Sodium levelOrdered By: Radha Tapia on 05-19-2024 Sodium [Moles/Vol] 141 mmol/L 136-145 [facility] [facility] MR/PAT.Lizzy 05-05-2024 MR/PAT.[facility] Medical Records Department [address] [place] [address] PAT - Anesthesia 05/05/242020 MR#: [id number] Acct: [id number] Name: KADIE LAGUNA Rep #: [id number] : 1955 69 From: Ace Valdivia MD PCP: Dr. Cheryle De La Fuente MD Status:PRE SDC Y Race: C Location: [facility] [place] Pre-Assessment Diagnosis/Proposed Procedure Planned Operative Procedure(s): (L) Excision, Lesion Left Ear, frozen section with skin graft Anesthesia History Anesthesia History - second chef: Anesthesia History - second chef Hx Hospitalization No 05/05/24 10:22 Any Problems [...] take am of surgery PONV PONV - second chef: PONV - second chef Female Yes 05/05/24 10:22 HX of Motion [...] 04/18/24 11:45 Respiratory Assessment Respiratory Assessment - second chef: Respiratory Tract Infection Hx - second chef Hx Respiratory Tract Infection No 05/05/24 10:22 STOP Sleep Apnea STOP Sleep Apnea - second chef: STOP Sleep Apnea - second chef Hx Hypertension No 05/05/24 10:22 Hx Sleep [...] Tobacco Use History Tobacco Use History - second chef: Tobacco Use History - second chef Tobacco Use Smoking Status Never smoker 05/05/24 10:22 Hx Tobacco Use No 05/05/24 10:22 Years Smoking Packs Smoked per Day Smoking Cessation Date was within the last 15 years Hx Smoking Cessation Date Hx Smoking Cessation Counseling Hematologic Medial History Hematologic Hx - second chef: 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 Normal [facility] Urgent Care Visit Reporton 0 04-18-2024 Urgent Care Visit Report [facility] [address], [address] [place] [address] OFFICE VISIT Date of Service: 04/18/24 MR#: [id number] Acct: [id number] Name: LAGUNAKADIE MEAGHAN Rep #: [id number] : 1955 Provider: YAHAIRA Tran Age/Sex: 69/F [place] [facility] [place] Status: Signed Intake Vital Signs 03/17/24 09:02 [...] Visit Reasons: Cough Chief Complaint: cough, drainage Supervisor Tunnel Heading Required: No Is patient in pain?: No [...] BA, fever, ST. cough worse at noc. [facility] Medical History Wears contact lenses Wears glasses [...] house current occupational status: employed 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 Smoking Status: Never smoker alcohol [...] oropharynx normal, (more content not included)... Normal [facility] Gastroenterology Visit Repor ton 04-06-2024 Gastroenterology Visit Report [facility] Gastroenterology [address] [place] [address] OFFICE VISIT Date of Service: 04/06/24 MR#: [id number] Acct: [id number] Name: KADIE LAGUNA MEAGHAN Rep #: [id number] : 1955 Provider: Jun Marin DO Age/Sex: 69/F [place] [facility] [place] Status: Signed Intake Vital Signs 10/03/23 08:53 [...] house current occupational status: employed 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 Smoking Status: Never smoker alcohol [...] cryptitis and early granulation of impending ulcer [employer] ED 7.09.26 with abdominal pain ??? concern [...] surgeries and ED visits for abdominal pain. Autocad Detailer workup up lupus erythematosus versus discoid lupus without positive diagnosis of either. ?Bio [employer] 12.21.20???IBD WNL ?CT abd/pel 01.06.21 (PCP)???without acute/chronic finding ?MRE nterography 01.10.21???without acute/chronic finding OV 01.26.21 with ongoing loose stools without urgency of incontinence. Recommend capsule endoscopy with preceding agile capsule.???Start doxycycline OV 07.03.23- Pt stat (more content not included)... Normal [facility] Cardiology Visit Reporton Cardiology Visit Report [facility] [address] [place], [place] [address] OFFICE VISIT Date of Service: 03/17/24 MR#: [id number] Acct: [id number] Name: KADIE LAGUNA MEAGHAN Rep #: [id number] : 1955 Provider: JOEL Dowd Age/Sex: 69/F Location: [facility] [place] Status: Signed HPI HPI History of Present [...] 99 98 Intake Visit Reasons: 6 M Supervisor Tunnel Heading Required: No Is patient in pain?: No [...] house current occupational status: employed 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 Smoking Status: Never smoker alcohol [...] for blo (more content not included)... Normal [facility] Miscellaneous Lab Procedureo n 03-02-2024 [facility] [place] [facility] Comment on above: Order Comment: Comme nts: Stelara levels [facility] [id number] Stelara levels SER/FZ Result Comment: Scan yair image report available in EMR Performed By: #### L [id number] ####[facility] [address] [place], [address] Giardia lamblia ag stool EIA Ordered By: Jun Marin on 07-04-2023 G. lamblia Ag IA Ql (Stl) Negative Negative [facility] Comment on above: Performed at: [facility] - [facility] [address] [id number] Director: Conor Velez MD, Phone: [phone] at: - [facility] [address] [id number] Director: Toni Whitt PhD, Phone: [phone] No Panel InformationOrdered By: Jun Marin on 07-04-2023 Stool Calprotectin 304 ug/g 0-[address] [facility] Comment on above: Concentration Interp retation Follow-Up< 5 - 50 ug/g Normal None>50 -120 ug/g Borderline Re-evaluate in 4-6 weeks >120 ug/g Abnormal Repeat as clinically indicatedPerformed at: [place] - [facility] [address] [id number] Director: Conor Velez MD, Phone: [phone] Stool lactoferrin detection by immunoassayOrdered By: Jun Marin on 07-04-2023 Lactoferrin IA Ql (Stl) [facility] Stool pancreatic elastase me asurement (mass/mass)Ordered By: Jun Marin on 07-04-2023 Elastase.pancreatic (Stl) [Mass/Mass] 144 >200 [facility] Comment on above: Result Units: ug Suzy st./g Severe Pancreatic Insufficiency: <100 Moderate Pancreatic Insufficiency: 100 - 200 Normal: >200 Albumin Elph [Mass/Vol]Order ed By: Jun Marin on 07-03-2023 Albumin [Mass/Vol] 3.4 g/dL 2.9-4.[address] [facility] Basophil percentageOrdered B y: Jun Marin on 07-03-2023 Bilirubin [Mass/Vol] 0.40 mg/dL 0.20-1.00 [facility] Comment on above: For patients on eltr ombopag therapy, use of Dimension [place] TBIL is not recommended. Chloride [Moles/Vol] 105 mmol/L 98-107 [facility] Glucose [Mass/Vol] 94 mg/dL 74-[address] [facility] LDH [Catalytic activity/Vol] 171 U/L 84-246 [facility] Potassium [Moles/Vol] 3.8 mmol/L 3.5-5.1 [facility] Protein [Mass/Vol] 6.6 g/dL 6.4-8.[address] [facility] Sodium [Moles/Vol] 139 mmol/L 136-[address] [facility] Chitobioside IgA antibody as sayOrdered By: Jun Marin on 07-03-2023 Chitobioside IgA IA Qn 25 units 0-90 [facility] Comment on above: Negative: <80 Equivo maribeth: 80-90 Positive: >90 Chocolate IgE serumOrdered B y: Jun Marin on 07-03-2023 Chocolate IgE Qn (S) <0.10 kU/L Class 0 [facility] Erythrocyte sedimentation ra teOrdered By: Jun Marin on 07-03-2023 ESR (Bld) [Velocity] 5 mm/h 0-30 [facility] Interpretation of serum or p lasma protein pattern by immunofixation (narrative resultOrdered By: Jun Marin on 07-03-2023 Protein Fractions Immunofixation Srini [Interp] Not Observed g/dL Not Observed [facility] Laboratory - Chemistry and C hemistry - challengeOrdered By: Jun Marin on 07-03-2023 Albumin/Globulin [Mass ratio] 1.1 {ratio} 0.9-2.4 [facility] ALP [Catalytic activity/Vol] 71 U/L 45-117 [facility] ALT [Catalytic activity/Vol] 21 U/L 13-56 [facility] CO2 [Moles/Vol] 28.0 mmol/L 21.0-32.0 [facility] Ferritin [Mass/Vol] 27 ng/mL 8-252 [facility] Globulin (S) [Mass/Vol] 3.1 g/dL 2.2-4.2 [facility] Urea nitrogen/Creatinine [Mass ratio] 14.9 mg/mg 10-20 [facility] Laboratory - Miscellaneous t estsOrdered By: Jun Marin on 07-03-2023 Laboratory comment Srini (Report) Comment . [facility] Comment on above: Pattern is not sugge stive of Inflammatory Bowel Disease Service comment (Unsp spec) [Interp] Comment . [facility] Comment on above: Levels of Specific [...] Laminaribioside IgG IA Qn 7 units 0-60 [facility] Comment on above: Negative:<55 Equivoc al: 55-60 Positive: >60 No Panel InformationOrdered By: Jun Marin on 07-03-2023 Addendum Document Comment . [facility] Comment on above: Protein electrophore sis scan will follow via computer,mail, or mlt delivery. Atypical p-ANCA <1:20 titer Neg:<1:20 [facility] Comment on above: *Additional results available. Contact laboratory/see report*The atypical pANCA pattern has been observed in asignificant percentage of patients with ulcerative colitis,primary sclerosing cholangitis and autoimmune hepatitis. C-Reactive Protein Extended Range 3.63 mg/L 0.0-3.0 [facility] Comment on above: C-Reactive Protein ( CRP) provides useful information for thediagnosis, therapy and monitoring of inflammatory processesand associated diseases. For the evaluation of Relative Riskfor Cardiovascular Disease, a High Sensitivity CRP (HSCRP)should be ordered. Endomysial IgA Antibody Negative Negative [facility] Estimated GFR (MDRD) Amer 101 mL/min >60 [facility] Comment on above: GFR Calc Estimated GFR (MDRD) Non-Af Amer 84 mL/min >60 [facility] Comment on above: Non- GFR Calc Free Triiodothyronine (T3) pg/dL 2.1 pg/mL 2.18-3.98 [facility] Immunoglobulin E 15 IU/mL 6-495 [facility] Immunoglobulin G4 11 mg/dL 2-96 [facility] Immunoglobulin M 86 mg/dL 26-217 [facility] Intrinsic Factor Antibody 1.0 AU/mL 0.0-1.1 [facility] Mussel Allergen IgE Antibody <0.10 kU/L Class 0 [facility] Saccharomyces cerevisiae (Sarahi)IgG 13 units 0-50 [facility] Comment on above: Negative: <45 Equivo maribeth: 45-50 Positive: >50 Shrimp Allergen <0.10 kU/L Class 0 [facility] Total Iron Binding Capacity 310 ug/dL 250-450 [facility] Qualitative QuantiFERON-TB g old in tube testOrdered By: Jun Marin on 07-03-2023 M. tuberculosis tuberculin stim IFN-g Ql (Bld) 0.06 IU/mL . [facility] Serum IgG subclass 1 measure ment (mass/volume)Ordered By: Jun Marin on 07-03-2023 IgG subclass 1 (S) [Mass/Vol] 528 mg/dL 248-810 [facility] Serum IgG subclass 2 measure ment (mass/volume)Ordered By: Jun Marin on 07-03-2023 IgG subclass 2 (S) [Mass/Vol] 235 mg/dL 130-555 [facility] Serum IgG subclass 3 measure ment (mass/volume)Ordered By: Jun Marin on 07-03-2023 IgG subclass 3 (S) [Mass/Vol] 43 mg/dL 15-102 [facility] Serum [id number] measu rement by electrophoresisOrdered By: Jun Marin on 07-03-2023 Alpha 1 globulin Elph [Mass/Vol] 0.2 g/dL 0.0-0.4 [facility] Alpha 1 globulin Elph [Mass/Vol] 0.7 g/dL 0.4-1.0 [facility] Serum beef IgE antibody assa y (units/volume)Ordered By: Jun Marin on 07-03-2023 Beef IgE Qn (S) <0.10 kU/L Class 0 [facility] Serum classic neutrophil cyt oplasmic antibody assay (units/volume)Ordered By: Jun Marin on 07-03-2023 Neutrophil cytoplasmic Ab.classic Qn (S) <1:20 titer Neg:<1:20 [facility] Serum codfish IgE antibody a ssay (units/volume)Ordered By: Jun Marin on 07-03-2023 Codfish IgE Qn (S) <0.10 kU/L Class [address] [facility] Serum corn IgE antibody assa y (units/volume)Ordered By: Jun Marin on 07-03-2023 [place] IgE Qn (S) <0.10 kU/L Class 0 [facility] Serum cow milk IgE antibody assay (units/volume)Ordered By: Jun Marin on 07-03-2023 Cow milk IgE Qn (S) <0.10 kU/L Class 0 [facility] Serum globulin measurement ( mass/volume)Ordered By: Jun Marin on 07-03-2023 Globulin (S) [Mass/Vol] 2.8 g/dL 2.2-3.9 [facility] Serum or plasma IgA measurem ent (mass/volume)Ordered By: Jun Marin on 07-03-2023 IgA [Mass/Vol] 151 mg/dL 87-352 [facility] Serum or plasma IgG measurem ent (mass/volume)Ordered By: Jun Marin on 07-03-2023 IgG [Mass/Vol] 887 mg/dL 586-1602 [facility] IgG [Mass/Vol] Not Reportable [facility] Serum or plasma beta globuli n measurement by electrophoresis (mass/volume)Ordered By: Jun Marin on 07-03-2023 Beta globulin Elph [Mass/Vol] 1.0 g/dL 0.7-1.3 [facility] Serum or plasma calcium blair urement (mass/volume)Ordered By: Jun Marin on 07-03-2023 Calcium [Mass/Vol] 9.0 mg/dL 8.5-10.[address] [facility] Serum or plasma creatinine m easurement (mass/volume)Ordered By: Jun Marin on 07-03-2023 Creatinine [Mass/Vol] 0.74 mg/dL 0.55-1.02 [facility] Comment on above: The validity of the calculated GFR & GFRAA in patients over 70 years has not been determined. Clinical correlation is essential. Serum or plasma estrogen karol surement (mass/volume)Ordered By: Jun Marin on 07-03-2023 Estrogen [Mass/Vol] 71 pg/mL 40-244 [facility] Comment on above: Prepubertal < 40 Fem pia Cycle: 1-10 Days 16 - 328 11-20 Days 34 - 501 21-30 Days 48 - 350 Post-Menopausal 40 - 244Performed at: [facility] [id number] Director: Toni Whitt PhD, Phone: [phone] at: [facility] [id number] Director: Conor Velez MD, Phone: [phone] Serum or plasma gamma globul in measurement by electrophoresis (mass/volume)Ordered By: Jun Marin on 07-03-2023 Gamma globulin Elph [Mass/Vol] 0.8 g/dL 0.4-1.8 [facility] Serum or plasma gastrin blair urement (mass/volume)Ordered By: Jun Marin on 07-03-2023 Gastrin [Mass/Vol] 16 pg/mL 0-[address] [facility] Comment on above: Siemens Immulite 200 0 Immunochemiluminometric assay (ICMA)Values obtained with different assay methods or kits cannotbe used interchangeably. Results cannot be interpreted asabsolute evidence of the presence or absence of malignantdisease. Serum or plasma immunoelectr ophoresis interpretation (nominal result)Ordered By: Jun Marin on 07-03-2023 Interpretation IEP [Interp] Comment . [facility] Comment on above: No monoclonality det ected. Serum or plasma mannobioside IgG antibody assay by immunoassay (units/volume)Ordered By: Jun Marin on 07-03-2023 Mannobioside IgG IA Qn 8 units 0-100 [facility] Comment on above: Negative: <90 Equivo maribeth: 90-100 Positive: >100 This test was developed and its performance characteristics determined by [employer]. It has not been cleared or approved by the Food and Drug Administration. The FDA has determined that such clearance or approval is not necessary. Serum or plasma progesterone measurement (mass/volume)Ordered By: Jun Marin on 07-03-2023 Progesterone [Mass/Vol] ng/mL See Comment [facility] Comment on above: Progesterone Referen ce [...] on 07-03-2023 TSH Qn 1.47 uIU/mL 0.358-3.74 [facility] Serum or plasma urea nitroge n measurement (mass/volume)Ordered By: Jun Marin on 07-03-2023 Urea nitrogen [Mass/Vol] 11 mg/dL 7-18 [facility] Serum parietal cell antibody assay (units/volume)Ordered By: Jun Marin on 07-03-2023 Parietal cell Ab Qn (S) 2.1 Units 0.0-20.0 [facility] Comment on above: Negative 0.0 - 20.0 Equivocal 20.1 - 24.9 Positive >24.9Parietal Cell Antibodies are found in 90% of patientswith pernicious anemia and 30% of first degreerelatives with pernicious anemia. Serum peanut IgE antibody as say (units/volume)Ordered By: Jun Marin on 07-03-2023 Peanut IgE Qn (S) <0.10 kU/L Class 0 [facility] Serum perinuclear neutrophil cytoplasmic antibody titer by immunofluorescenceOrdered By: Jun Marin on 07-03-2023 Neutrophil cytoplasmic Ab.perinuclear IF (S) [Titer] <1:20 titer Neg:<1:20 [facility] Comment on above: The presence of posi tive fluorescence exhibiting P-ANCA orC-ANCA patterns alone is not specific for the diagnosis ofWegener's Granulomatosis (WG) or microscopic polyangiitis.Decisions about treatment should not be based solely onANCA IFA results. The International ANCA Group Consensusrecommends follow up testing of positive sera with both WY-3 and MPO-ANCA enzyme immunoassays. As many as 5% serumsamples are positive only by EIA. Ref. AM J Clin [id number];111:[id number]. Serum pork IgE antibody assa y (units/volume)Ordered By: Jun Marin on 07-03-2023 Pork IgE Qn (S) <0.10 kU/L Class 0 [facility] Serum salmon IgE antibody as say (units/volume)Ordered By: Jun Marin on 07-03-2023 [place] IgE Qn (S) <0.10 kU/L Class 0 [facility] Serum soybean IgE antibody a ssay (units/volume)Ordered By: Jun Marin on 07-03-2023 Soybean IgE Qn (S) <0.10 kU/L Class [address] [facility] Serum tissue transglutaminas e IgA antibody assay (units/volume)Ordered By: Jun Marin on 07-03-2023 tTG IgA Qn (S) <2 U/mL 0-3 [facility] Comment on above: Negative 0 - 3 Weak Positive 4 - 10 Positive >10 Tissue Transglutaminase (tTG) has been identified as the endomysial antigen. Studies have demonstr- ated that endomysial IgA antibodies have over 99% specificity for gluten sensitive enteropathy. Serum tuna IgE antibody assa y (units/volume)Ordered By: Jun Marin on 07-03-2023 Tuna IgE Qn (S) <0.10 kU/L Class 0 [facility] Serum wheat IgE antibody ass ay (units/volume)Ordered By: Jun Marin on 07-03-2023 Wheat IgE Qn (S) <0.10 kU/L Class 0 [facility] Serum whole egg IgE antibody assay (units/volume)Ordered By: Jun Marin on 07-03-2023 Whole Egg IgE Qn (S) <0.10 kU/L Class 0 [facility] Comment on above: Performed at: [facility] [address] [place], [place] [id number] Director: Conor Velez MD, Phone: [phone] Thin prep Papanicolaou smear with manual screeningOrdered By: Jun Marin on 07-03-2023 Thin prep Papanicolaou smear with manual screening 3.5 g/dL 3.2-5.0 [facility] Thin prep Papanicolaou smear with manual screening 16 U/L 15-37 [facility] Thin prep Papanicolaou smear with manual screening 6 5-15 [facility] Thin prep Papanicolaou smear with manual screening 1.31 ng/dL 0.76-1.46 [facility] Thin prep Papanicolaou smear with manual screening 44.5 ng/mL 0.0-101.8 [facility] Comment on above: Chromogranin A perfo rmed by [employer] KRYPTORmethodologyValues obtained with different assay methods or kits cannotbe used interchangeably. Thin prep Papanicolaou smear with manual screening 1.3 0.7-1.7 [facility] Thin prep Papanicolaou smear with manual screening Comment . [facility] Comment on above: QuantiFERON-TB Gold Plus [...] smear with manual screening 0.05 IU/mL . [facility] Thin prep Papanicolaou smear with manual screening 0.06 IU/mL . [facility] Thin prep Papanicolaou smear with manual screening > 10.00 IU/mL . [facility] Thin prep Papanicolaou smear with manual screening Negative Negative [facility] Comment on above: No response to [...] on 07-03-2023 Protein [Mass/Vol] 6.2 g/dL 6.0-8.[address] [facility] No Panel InformationOrdered By: Cheryle De La Fuente on 11-30-2022 Homocysteine 9.9 umol/L 3.2-10.7 [facility] Serum or plasma methylmalona te measurement (moles/volume)Ordered By: Cheryle De La Fuente on 11-30-2022 Methylmalonate [Moles/Vol] 142 nmol/L 0-378 [facility] Comment on above: Performed at: [address] [id number] Director: Conor Velez MD, Phone: [phone] Absolute lymphocyte countOrd ered By: Cheryle De La Fuente on 11-26-2022 Lymphocytes Auto (Unsp spec) [#/Vol] 2.43 10*3/uL 0.83-4.51 [facility] Basophil percentageOrdered B y: Cheryle De La Fuente on 11-26-2022 Basophils/100 WBC (Bld) 0.3 % 0-1 [facility] Bilirubin [Mass/Vol] 0.30 mg/dL 0.20-1.00 [facility] Comment on above: For patients on eltr ombopag therapy, use of Dimension [place] TBIL is not recommended. Chloride [Moles/Vol] 106 mmol/L 98-107 [facility] Eosinophils/100 WBC (Bld) 1.7 % 0-5 [facility] Glucose [Mass/Vol] 82 mg/dL 74-[address] [facility] Neutrophils (Bld) [#/Vol] 3.3 10*3/uL 2.0-7.7 [facility] Neutrophils/100 WBC (Bld) 51.3 % 47-70 [facility] Potassium [Moles/Vol] 3.5 mmol/L 3.5-5.1 [facility] Protein [Mass/Vol] 6.9 g/dL 6.4-8.[address] [facility] Sodium [Moles/Vol] 138 mmol/L 136-[address] [facility] WBC (Bld) [#/Vol] 6.5 10*3/uL 4.4-11.[address] [facility] Blood erythrocytes count (nu mber/volume)Ordered By: Cheryle De La Fuente on 11-26-2022 RBC (Bld) [#/Vol] 4.00 10*6/uL 4.2-5.4 [facility] Blood hemoglobin measurement (mass/volume)Ordered By: Cheryle De La Fuente on 11-26-2022 Hemoglobin (Bld) [Mass/Vol] 11.9 g/dL 12.0-15.0 [facility] Blood lymphocytes/100 leukoc ytesOrdered By: Cheryle De La Fuente on 11-26-2022 Lymphocytes/100 WBC (Bld) 37.6 % 19-41 [facility] Blood monocytes/100 leukocyt esOrdered By: Cheryle De La Fuente on 11-26-2022 Monocytes/100 WBC (Bld) 8.8 % 0-10 [facility] Blood platelet mean volumeOr dered By: Cheryle De La Fuente on 11-26-2022 Platelet mean volume (Bld) [Entitic vol] 9.8 fL 6.2-12.0 [facility] Determination of erythrocyte mean corpuscular volume (MCV)Ordered By: Cheryle De La Fuente on 11-26-2022 MCV (RBC) [Entitic vol] 91.3 fL 81-99 [facility] Hematocrit Auto (Bld) [Volum e fraction]Ordered By: Cheryle De La Fuente on 11-26-2022 Hematocrit (Bld) [Volume fraction] 36.5 % 37-47 [facility] Laboratory - Chemistry and C hemistry - challengeOrdered By: Cheryle De La Fuente on 11-26-2022 Albumin [Mass/Vol] 3.5 g/dL 2.9-4.[address] [facility] ALP [Catalytic activity/Vol] 100 U/L 45-117 [facility] ALT [Catalytic activity/Vol] 102 U/L 13-56 [facility] CO2 [Moles/Vol] 28.0 mmol/L 21.0-32.0 [facility] Cobalamin (Vitamin B12) [Mass/Vol] 270 pg/mL 211-911 [facility] Globulin (S) [Mass/Vol] 3.5 g/dL 2.2-4.2 [facility] Urea nitrogen/Creatinine [Mass ratio] 13.4 mg/mg 10-20 [facility] Laboratory - Hematology and Cell countsOrdered By: Cheryle De La Fuente on 11-26-2022 Erythrocyte distribution width (RBC) [Entitic vol] 46.8 fL 35.1-43.9 [facility] Erythrocyte distribution width (RBC) [Ratio] 13.9 % 11.6-14.6 [facility] Immature granulocytes/100 WBC (Bld) 0.300 % 0.0-0.9 [facility] Comment on above: IG% - Immature Granu locytes (promyelocytes, myelocytes and metamyelocytes) > 1% indicates that a LEFT SHIFT is Present. MCH (RBC) [Entitic mass] 29.8 pg 27.0-32.0 [facility] Nucleated RBC/100 WBC (Bld) [Ratio] 0 % 0-5 [facility] MCHC Auto (RBC) [Mass/Vol]Or dered By: Cheryle De La Fuente on 11-26-2022 MCHC (RBC) [Mass/Vol] 32.6 g/dL 32-36 [facility] No Panel InformationOrdered By: Cheryle De La Fuente on 11-26-2022 Addendum Document Comment . [facility] Comment on above: The SPE pattern appe ars unremarkable. Evidence ofmonoclonal protein is not apparent.Performed at: [facility] [employer] [id number] Director: Toni Whitt PhD, Phone: [phone] Vicoc-2-Aqqlrdmqp 0.3 g/dL 0.0-0.4 [facility] Tasgz-9-Mkvqaucny 0.8 g/dL 0.4-1.0 [facility] Estimated GFR (MDRD) Amer 100 mL/min >60 [facility] [facility] Comment on above: GFR Calc Estimated GFR (MDRD) Non-Af Amer 83 mL/min >60 [facility] Comment on above: Non- GFR Calc Gamma Globulins 0.8 g/dL 0.4-1.8 [facility] Platelets bldOrdered By: Torri De La Fuente on 11-26-2022 Platelets (Bld) [#/Vol] 295 10*3/uL 150-450 [facility] Protein Fractions Elph [Inte rp]Ordered By: Cheryle De La Fuente on 11-26-2022 Protein Fractions [Interp] Comment . [facility] Comment on above: Protein electrophore sis scan will follow via computer,mail, or mlt delivery. Serum albumin to globulin ra dylon by protein electrophoresisOrdered By: Cheryle De La Fuente on 11-26-2022 Albumin/Globulin Elph [Mass ratio] 1.2 0.7-1.7 [facility] Serum globulin measurement ( mass/volume)Ordered By: Cheryle De La Fuente on 11-26-2022 Globulin (S) [Mass/Vol] 2.9 g/dL 2.2-3.9 [facility] Serum or plasma albumin blair urement (mass/volume)Ordered By: Cheryle De La Fuente on 11-26-2022 Albumin [Mass/Vol] 3.4 g/dL 3.2-5.[address] [facility] Serum or plasma albumin/glob ulin mass ratioOrdered By: Cheryle De La Fuente on 11-26-2022 Albumin/Globulin [Mass ratio] 1.0 {ratio} 0.9-2.4 [facility] Serum or plasma beta globuli n measurement by electrophoresis (mass/volume)Ordered By: Cheryle De La Fuente on 11-26-2022 Beta globulin Elph [Mass/Vol] 1.0 g/dL 0.7-1.3 [facility] Serum or plasma calcium blair urement (mass/volume)Ordered By: Cheryle De La Fuente on 11-26-2022 Calcium [Mass/Vol] 8.9 mg/dL 8.5-10.[address] [facility] Serum or plasma creatinine m easurement (mass/volume)Ordered By: Cheryle De La Fuente on 11-26-2022 Creatinine [Mass/Vol] 0.75 mg/dL 0.55-1.02 [facility] Comment on above: The validity of the calculated GFR & GFRAA in patients over 70 years has not been determined. Clinical correlation is essential. Serum or plasma ferritin karol surement (mass/volume)Ordered By: Cheryle De La Fuente on 11-26-2022 Ferritin [Mass/Vol] 53 ng/mL 8-252 [facility] Serum or plasma folate measu rement (mass/volume)Ordered By: Cheryle De La Fuente on 11-26-2022 Folate [Mass/Vol] 10.40 ng/mL 3.1-55.[address] [facility] Serum or plasma urea nitroge n measurement (mass/volume)Ordered By: Cheryle De La Fuente on 11-26-2022 Urea nitrogen [Mass/Vol] 10 mg/dL 7-18 [facility] Thin prep Papanicolaou smear with manual screeningOrdered By: Cheryle De La Fuente on 11-26-2022 Thin prep Papanicolaou smear with manual screening 44 U/L 15-37 [facility] Thin prep Papanicolaou smear with manual screening 4 5-15 [facility] Thin prep Papanicolaou smear with manual screening See comment [facility] Comment on above: NOT OBSERVED Total protein bloodOrdered B y: Cheryle De La Fuente on 11-26-2022 Protein [Mass/Vol] 6.4 g/dL 6.0-8.[address] [facility] Absolute lymphocyte countOrd ered By: Dr. De La Fuente on 08-24-2022 Lymphocytes Auto (Unsp spec) [#/Vol] 2.45 10*3/uL 0.83-4.51 [facility] Basophil percentageOrdered B y: Dr. De La Fuente on 08-24-2022 Basophils/100 WBC (Bld) 0.5 % 0-1 [facility] Bilirubin [Mass/Vol] 0.30 mg/dL 0.20-1.00 [facility] Comment on above: For patients on eltr ombopag therapy, use of Dimension [place] TBIL is not recommended. Chloride [Moles/Vol] 111 mmol/L 98-107 [facility] Cholesterol [Mass/Vol] 190 mg/dL <200 [facility] Comment on above: <200 mg/dL Desirable 200-240 mg/dL Borderline >240 mg/dL High Risk Eosinophils/100 WBC (Bld) 2.6 % 0-5 [facility] Glucose [Mass/Vol] 97 mg/dL 74-[address] [facility] Neutrophils (Bld) [#/Vol] 2.9 10*3/uL 2.0-7.7 [facility] Neutrophils/100 WBC (Bld) 47.3 % 47-70 [facility] Potassium [Moles/Vol] 4.3 mmol/L 3.5-5.1 [facility] Protein [Mass/Vol] 6.3 g/dL 6.4-8.[address] [facility] Sodium [Moles/Vol] 142 mmol/L 136-[address] [facility] Triglyceride [Mass/Vol] 46 mg/dL <199 [facility] Comment on above: The drugs N-Acetylcy steine and Metamizole may falsely depress this assay.Serum Triglycerides Reference Interval Normal <150 mg/dL Borderline high 150 - 199 mg/dL High 200 - 499 mg/dL Very High > or = 500 mg/dL WBC (Bld) [#/Vol] 6.1 10*3/uL 4.4-11.[address] [facility] Blood erythrocytes count (nu mber/volume)Ordered By: Dr. De La Fuente on 08-24-2022 RBC (Bld) [#/Vol] 4.00 10*6/uL 4.2-5.4 [facility] Blood hemoglobin measurement (mass/volume)Ordered By: Dr. De La Fuente on 08-24-2022 Hemoglobin (Bld) [Mass/Vol] 11.8 g/dL 12.0-15.0 [facility] Blood lymphocytes/100 leukoc ytesOrdered By: Dr. De La Fuente on 08-24-2022 Lymphocytes/100 WBC (Bld) 40.5 % 19-41 [facility] Blood monocytes/100 leukocyt esOrdered By: Dr. De La Fuente on 08-24-2022 Monocytes/100 WBC (Bld) 8.9 % 0-10 [facility] Blood platelet mean volumeOr dered By: Dr. De La Fuente on 08-24-2022 Platelet mean volume (Bld) [Entitic vol] 10.1 fL 6.2-12.0 [facility] Determination of erythrocyte mean corpuscular volume (MCV)Ordered By: Dr. De La Fuente on 08-24-2022 MCV (RBC) [Entitic vol] 91.0 fL 81-99 [facility] Hematocrit Auto (Bld) [Volum e fraction]Ordered By: Dr. De La Fuente on 08-24-2022 Hematocrit (Bld) [Volume fraction] 36.4 % 37-47 [facility] Laboratory - Chemistry and C hemistry - challengeOrdered By: Dr. De La Fuente on 08-24-2022 ALP [Catalytic activity/Vol] 70 U/L 45-117 [facility] ALT [Catalytic activity/Vol] 31 U/L 13-56 [facility] CO2 [Moles/Vol] 27.0 mmol/L 21.0-32.0 [facility] Globulin (S) [Mass/Vol] 3.1 g/dL 2.2-4.2 [facility] Magnesium [Mass/Vol] 2.3 mg/dL 1.6-2.6 [facility] Urea nitrogen/Creatinine [Mass ratio] 21.5 mg/mg 10-20 [facility] Laboratory - Hematology and Cell countsOrdered By: Dr. De La Fuente on 08-24-2022 Erythrocyte distribution width (RBC) [Entitic vol] 48.2 fL 35.1-43.9 [facility] Erythrocyte distribution width (RBC) [Ratio] 14.2 % 11.6-14.6 [facility] Immature granulocytes/100 WBC (Bld) 0.200 % 0.0-0.9 [facility] Comment on above: IG% - Immature Granu locytes (promyelocytes, myelocytes and metamyelocytes) > 1% indicates that a LEFT SHIFT is Present. MCH (RBC) [Entitic mass] 29.5 pg 27.0-32.0 [facility] Nucleated RBC/100 WBC (Bld) [Ratio] 0 % 0-5 [facility] MCHC Auto (RBC) [Mass/Vol]Or dered By: Dr. De La Fuente on 08-24-2022 MCHC (RBC) [Mass/Vol] 32.4 g/dL 32-36 [facility] No Panel InformationOrdered By: Dr. De La Fuente on 08-24-2022 Estimated GFR (MDRD) Amer 100 mL/min >60 [facility] Comment on above: GFR Calc Estimated GFR (MDRD) Non-Af Amer 83 mL/min >60 [facility] Comment on above: Non- GFR Calc Platelets bldOrdered By: Dr. De La Fuente on 08-24-2022 Platelets (Bld) [#/Vol] 271 10*3/uL 150-450 [facility] Serum or plasma albumin blair urement (mass/volume)Ordered By: Dr. De La Fuente on 08-24-2022 Albumin [Mass/Vol] 3.2 g/dL 3.2-5.[address] [facility] Serum or plasma albumin/glob ulin mass ratioOrdered By: Dr. De La Fuente on 08-24-2022 Albumin/Globulin [Mass ratio] 1.0 {ratio} 0.9-2.4 [facility] Serum or plasma calcium blair urement (mass/volume)Ordered By: Dr. De La Fuente on 08-24-2022 Calcium [Mass/Vol] 8.9 mg/dL 8.5-10.[address] [facility] Serum or plasma cholesterol in HDL measurement (mass/volume)Ordered By: Dr. De La Fuente on 08-24-2022 Cholesterol in HDL [Mass/Vol] 87 mg/dL >40 [facility] Comment on above: The drugs N-Acetylcy steine and Metamizole may falsely depress this assay. Reference Range HDL <40 mg/dL Low HDL Cholesterol HDL >or= 60 mg/dL High HDL Cholesterol Serum or plasma cholesterol in VLDL measurement (mass/volume)Ordered By: Dr. De La Fuente on 08-24-2022 Cholesterol in VLDL [Mass/Vol] 9 mg/dL 5-40 [facility] Serum or plasma creatinine m easurement (mass/volume)Ordered By: Dr. De La Fuente on 08-24-2022 Creatinine [Mass/Vol] 0.74 mg/dL 0.55-1.02 [facility] Comment on above: The validity of the calculated GFR & GFRAA in patients over 70 years has not been determined. Clinical correlation is essential. Serum or plasma low density lipoprotein (LDL) cholesterol measurement (mass/volume)Ordered By: Dr. De La Fuente on 08-24-2022 Cholesterol in LDL [Mass/Vol] 94 mg/dL 0-130 [facility] Serum or plasma urea nitroge n measurement (mass/volume)Ordered By: Dr. De La Fuente on 08-24-2022 Urea nitrogen [Mass/Vol] 16 mg/dL 7-18 [facility] Thin prep Papanicolaou smear with manual screeningOrdered By: Dr. De La Fuente on 08-24-2022 Thin prep Papanicolaou smear with manual screening 25 U/L 15-37 [facility] Thin prep Papanicolaou smear with manual screening 4 5-15 [facility] Absolute lymphocyte counton 08-21-2021 Lymphocytes Auto (Unsp spec) [#/Vol] 2.30 10*3/uL 0.83-4.51 [facility] Work Phone: Basophil percentageon 2021 Basophils/100 WBC (Bld) 0.5 % 0-1 [facility] Work Phone: Chloride [Moles/Vol] 105 mmol/L 98-107 [facility] Work Phone: Eosinophils/100 WBC (Bld) 1.8 % 0-5 [facility] Work Phone: Glucose [Mass/Vol] 137 mg/dL 74-[address] [facility] Work Phone: Comment on above: Fasting Glucose resu lt greater than or equal to 126 mg/dL suggests DIABETES MELLITUS per A.D.A. criteria. Neutrophils (Bld) [#/Vol] 3.7 10*3/uL 2.0-7.7 [facility] Work Phone: Neutrophils/100 WBC (Bld) 55.0 % 47-70 [facility] Work Phone: Potassium [Moles/Vol] 3.6 mmol/L 3.5-5.1 [facility] Work Phone: Sodium [Moles/Vol] 139 mmol/L 136-[address] [facility] Work Phone: WBC (Bld) [#/Vol] 6.6 10*3/uL 4.4-11.[address] [facility] Work Phone: Blood erythrocytes count (nu mber/volume)on 08-21-2021 RBC (Bld) [#/Vol] 4.22 10*6/uL 4.2-5.4 [facility] Work Phone: Blood hemoglobin measurement (mass/volume)on 08-21-2021 Hemoglobin (Bld) [Mass/Vol] 12.1 g/dL 12.0-15.0 [facility] Work Phone: Blood lymphocytes/100 leukoc yteson 08-21-2021 Lymphocytes/100 WBC (Bld) 34.7 % 19-41 [facility] Work Phone: Blood monocytes/100 leukocyt eson 08-21-2021 Monocytes/100 WBC (Bld) 7.5 % 0-10 [facility] Work Phone: Blood platelet mean volumeon 08-21-2021 Platelet mean volume (Bld) [Entitic vol] 10.7 fL 6.2-12.0 [facility] Work Phone: Determination of erythrocyte mean corpuscular volume (MCV)on 08-21-2021 MCV (RBC) [Entitic vol] 90.0 fL 81-99 [facility] Work Phone: Hematocrit Auto (Bld) [Volum e fraction]on 08-21-2021 Hematocrit (Bld) [Volume fraction] 38.0 % 37-47 [facility] Work Phone: Laboratory - Chemistry and C hemistry - challengeon 08-21-2021 CO2 [Moles/Vol] 28.0 mmol/L 21.0-32.0 [facility] Work Phone: [phone] Magnesium [Mass/Vol] 2.1 mg/dL 1.6-2.6 [facility] Work Phone: [phone] Urea nitrogen/Creatinine [Mass ratio] 15.1 mg/mg 10-20 [facility] Work Phone: Laboratory - Hematology and Cell countson 08-21-2021 Erythrocyte distribution width (RBC) [Entitic vol] 46.8 fL 35.1-43.9 [facility] Work Phone: [phone] Erythrocyte distribution width (RBC) [Ratio] 14.2 % 11.6-14.6 [facility] Work Phone: Immature granulocytes/100 WBC (Bld) 0.500 % 0.0-0.9 [facility] Work Phone: Comment on above: IG% - Immature Granu locytes (promyelocytes, myelocytes and metamyelocytes) > 1% indicates that a LEFT SHIFT is Present. MCH (RBC) [Entitic mass] 28.7 pg 27.0-32.0 [facility] Work Phone: Nucleated RBC/100 WBC (Bld) [Ratio] 0 % 0-5 [facility] Work Phone: [phone] MCHC Auto (RBC) [Mass/Vol]on 08-21-2021 MCHC (RBC) [Mass/Vol] 31.8 g/dL 32-36 [facility] Work Phone: No Panel Informationon 08-21 Estimated GFR (MDRD) Amer 93 mL/min >60 [facility] Work Phone: Comment on above: GFR Calc Estimated GFR (MDRD) Non-Af Amer 77 mL/min >60 [facility] Work Phone: Comment on above: Non- GFR Calc Vitamin D 25-Hydroxy 52.9 ng/mL [facility] Work Phone: Comment on above: Vitamin D 25(OH) Sta tus Range Deficiency <20 ng/mL (50nmol/L) Insufficiency 20 - 30 ng/mL (50 - 75 nmol/L) Sufficiency 30 - 100 ng/mL (75 - 250 nmol/L) Toxicity >100 ng/mL (>250 nmol/L) Platelets bldon 08-21-2021 Platelets (Bld) [#/Vol] 288 10*3/uL 150-450 [facility] Work Phone: [phone] Serum or plasma calcium blair urement (mass/volume)on 08-21-2021 Calcium [Mass/Vol] 8.9 mg/dL 8.5-10.[address] [facility] Work Phone: [phone] Serum or plasma creatinine m easurement (mass/volume)on 08-21-2021 Creatinine [Mass/Vol] 0.80 mg/dL 0.55-1.02 [facility] Work Phone: [phone] Comment on above: The validity of the calculated GFR & GFRAA in patients over 70 years has not been determined. Clinical correlation is essential. Serum or plasma urea nitroge n measurement (mass/volume)on 08-21-2021 Urea nitrogen [Mass/Vol] 12 mg/dL 7-18 [facility] Work Phone: Thin prep Papanicolaou smear with manual screeningon 08-21-2021 Thin prep Papanicolaou smear with manual screening 6 5-15 [facility] Work Phone: Basophil percentageon 2021 Chloride [Moles/Vol] 109 mmol/L 98-107 [facility] Work Phone: [phone] Cholesterol [Mass/Vol] 201 mg/dL <200 [facility] Work Phone: Comment on above: <200 mg/dL Desirable 200-240 mg/dL Borderline >240 mg/dL High Risk Glucose [Mass/Vol] 98 mg/dL 74-[address] [facility] Work Phone: Potassium [Moles/Vol] 3.9 mmol/L 3.5-5.1 [facility] Work Phone: Sodium [Moles/Vol] 141 mmol/L 136-[address] [facility] Work Phone: [phone] Triglyceride [Mass/Vol] 53 mg/dL [facility] Work Phone: Comment on above: The drugs N-Acetylcy steine and Metamizole may falsely depress this assay.Serum Triglycerides Reference Interval Normal <150 mg/dL Borderline high 150 - 199 mg/dL High 200 - 499 mg/dL Very High > or = 500 mg/dL Laboratory - Chemistry and C hemistry - challengeon 08-09-2021 CO2 [Moles/Vol] 27.0 mmol/L 21.0-32.0 [facility] Work Phone: Urea nitrogen/Creatinine [Mass ratio] 13.8 mg/mg 10-20 [facility] Work Phone: No Panel Informationon 08-09 Estimated GFR (MDRD) Amer 84 mL/min >60 [facility] Work Phone: Comment on above: GFR Calc Estimated GFR (MDRD) Non-Af Amer 69 mL/min >60 [facility] Work Phone: Comment on above: Non- GFR Calc Serum or plasma calcium blair urement (mass/volume)on 08-09-2021 Calcium [Mass/Vol] 8.5 mg/dL 8.5-10.[address] [facility] Work Phone: Serum or plasma cholesterol in HDL measurement (mass/volume)on 08-09-2021 Cholesterol in HDL [Mass/Vol] 87 mg/dL [facility] Work Phone: Comment on above: The drugs N-Acetylcy steine and Metamizole may falsely depress this assay. Reference Range HDL <40 mg/dL Low HDL Cholesterol HDL >or= 60 mg/dL High HDL Cholesterol Serum or plasma cholesterol in VLDL measurement (mass/volume)on 08-09-2021 Cholesterol in VLDL [Mass/Vol] 11 mg/dL 5-40 [facility] Work Phone: Serum or plasma creatinine m easurement (mass/volume)on 08-09-2021 Creatinine [Mass/Vol] 0.87 mg/dL 0.55-1.02 [facility] Work Phone: Comment on above: The validity of the calculated GFR & GFRAA in patients over 70 years has not been determined. Clinical correlation is essential. Serum or plasma low density lipoprotein (LDL) cholesterol measurement (mass/volume)on 08-09-2021 Cholesterol in LDL [Mass/Vol] 103 mg/dL 0-130 [facility] Work Phone: Serum or plasma urea nitroge n measurement (mass/volume)on 08-09-2021 Urea nitrogen [Mass/Vol] 12 mg/dL 7-18 [facility] Work Phone: [phone] Thin prep Papanicolaou smear with manual screeningon 08-09-2021 Thin prep Papanicolaou smear with manual screening 5 5-15 [facility] Work Phone: [phone] CNOVon 07-01-2020 CNOV Office Visit (RHEUST ) -------- KADIE LAGUNA ([id number]) 1955 F Date Time Provider Department 07/01/20 2:00 PM PAUL PERRIN During your visit today, we recorded the following information about you: Temperature Pulse Blood pressure Weight 98.2 degrees 61/minute 121/76 79.4 kg Height 1.702 m Paul Perrin MD 07/01/2020 3:08 PM Signed On 07/01/2020, I had the pleasure of seeing Kadie Laguna at the [facility]. Kadie Laguna was referred by Dr. Cheryle De La Fuente for an opinion and advice regarding positive [place]. My findings and final recommendations will be communicated to the requesting health care provider by way of the shared medical record for internal providers or letter via the [employer] for external providers. Chief complaint: [...] back sae cyst - S TVT DEVICE [id number] 12/30/2009 Bladder sling - STAB PHLEBECTOMY VARICOSE [...] disease per patient SOCIAL HISTORY: Lives in [place] with spouse. 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 Son and daughter live in [place] Tobacco use: None Alcohol use: 1 drink/week [...] the ches (more content not included)... Normal [facility] Clinical Summary: HMSPatient IDon 08-22-2017 OOP Invalid Interpretation Code [facility] Work Phone: Clinical Summary: Scanned RO S Summaryon 08-22-2017 endocrine ROS Denies Invalid Interpretation Code [facility] Work Phone: genitourinary review of systems, E&M Denies Invalid Interpretation Code [facility] Work Phone: Lymphocytes Denies Invalid Interpretation Code [facility] Work Phone: Review of Systems Neurologic comment Numbness,Tingling Invalid Interpretation Code [facility] Work Phone: ROS cardiovascular E&M Denies Invalid Interpretation Code [facility] Work Phone: ROS ENT E&M Denies Invalid Interpretation Code [facility] Work Phone: ROS gastrointestinal E&M Denies Invalid Interpretation Code [facility] Work Phone: ROS general E&M Denies Invalid Interpretation Code [facility] Work Phone: ROS Musculoskeletal comments Pain,Stiffness Invalid Interpretation Code [facility] Work Phone: ROS musculoskeletal E&M Complains Invalid Interpretation Code [facility] Work Phone: ROS neurological E&M Complains Invalid Interpretation Code [facility] Work Phone: ROS psychiatric E&M Denies Invalid Interpretation Code [facility] Work Phone: ROS pulmonary E&M Denies Invalid Interpretation Code [facility] Work Phone: ROS skin E&M Denies Invalid Interpretation Code [facility] Work Phone: Office Visit: New - visi t with practice, Rm: 41on 08-22-2017 NEGATED: Highlighted rowDocumentation of current medications (procedure) Done Invalid Interpretation Code [facility] Work Phone: NEGATED: Highlighted rowMRI (magnetic resonance imaging) history of the neck on 07/22/2017 at [facility] Invalid Interpretation Code [facility] Work Phone: ECG B/O W INTERP (MED OFFICE ) [facility] Vital Signs Date Time Vital Sign Value Performing Clinician Facility 12-10-2024 13:35-0400 Body temperature 97.9 [degF] Dr. Cheryle De La Fuente MD Work Phone: [facility] 12-10-2024 13:35-0400 Diastolic blood pressure 85 mm[Hg] Dr. Cheryle De La Fuente MD Work Phone: [facility] 12-10-2024 13:35-0400 Heart rate 72 /min Dr. Cheryle De La Fuente MD Work Phone: [facility] 12-10-2024 13:35-0400 Respiratory rate 15 /min Dr. Cheryle De La Fuente MD Work Phone: [facility] 12-10-2024 13:35-0400 SaO2% (BldA) [Mass fraction] 100 % Dr. Cheryle De La Fuente MD Work Phone: [facility] 12-10-2024 13:35-0400 Systolic blood pressure 124 mm[Hg] Dr. Cheryle De La Fuente MD Work Phone: [facility] 12-10-2024 08:35-0400 Body height 170.[address] Cheryle De La Fuente MD Work Phone: [facility] 12-10-2024 08:35-0400 Body mass index (BMI) [Ratio] 29.7 kg/m2 Dr. Cheryle De aL Fuente MD Work Phone: [facility] 12-10-2024 08:35-0400 Body weight 86.[address] Cheryle De La Fuente MD Work Phone: [facility] 10-08-2024 09:01-0400 Body height 167.6 cm Jose Garcia MD Work Phone: [facility] 10-08-2024 09:01-0400 Body mass index (BMI) [Ratio] 29.7 kg/m2 Jose Garcia MD Work Phone: [facility] 10-08-2024 09:01-0400 Body weight 83.46 kg Jose Garcia MD Work Phone: [facility] 10-08-2024 09:01-0400 Diastolic blood pressure 77 mm[Hg] Jose Garcia MD Work Phone: [facility] 10-08-2024 09:01-0400 Heart rate 66 /min Jose Garcia MD Work Phone: [facility] 10-08-2024 09:01-0400 SaO2% (BldA) [Mass fraction] 96 % Jose Garcia MD Work Phone: [facility] 10-08-2024 09:01-0400 Systolic blood pressure 127 mm[Hg] Jose Garcia MD Work Phone: [facility] 09-21-2024 08:24-0400 Body height 170.[address] Cheryle De La Fuente MD Work Phone: [facility] 09-21-2024 08:24-0400 Body mass index (BMI) [Ratio] 29.5 kg/m2 Dr. Cheryle De La Fuente MD Work Phone: [phone] [place] [address] 09-21-2024 08:24-0400 Body weight 85.[address] Cheryle De La Fuente MD Work Phone: [phone] [place] [address] 05-19-2024 12:45-0500 Body temperature 96.5 [degF] Dr. Cheryle De La Fuente MD Work Phone: [phone])505-824160 [place] [address] 05-19-2024 12:45-0500 Diastolic blood pressure 73 mm[Hg] Dr. Cheryle De La Fuente MD Work Phone: [phone])664-422260 [place] [address] 05-19-2024 12:45-0500 Heart rate 70 /min Dr. Cheryle De La Fuente MD Work Phone: [phone])613-816760 [place] [address] 05-19-2024 12:45-0500 Respiratory rate 16 /min Dr. Cheryle De La Fuente MD Work Phone: [phone])356-563560 [place] [address] 05-19-2024 12:45-0500 SaO2% (BldA) [Mass fraction] 99 % Dr. Cheryle De La Fuente MD Work Phone: 1([phone] [place] [address] 05-19-2024 12:45-0500 Systolic blood pressure 122 mm[Hg] Dr. Cheryle De La Fuente MD Work Phone: 0([phone] [place] [address] 05-19-2024 09:20-0500 Body height 170.[address] Cheryle De La Fuente MD Work Phone: [phone] [place] [address] 05-19-2024 09:20-0500 Body mass index (BMI) [Ratio] 29.3 kg/m2 Dr. Cheryle De La Fuente MD Work Phone: [phone] [place] [address] 05-19-2024 09:20-0500 Body weight [address] Cheryle De La Fuente MD Work Phone: [phone] [place] [address] 04-18-2024 11:45-0500 Body mass index (BMI) [Ratio] 29.6 kg/m2 Dr. Cheryle De La Fuente MD Work Phone: [phone] [place] [address] 04-18-2024 11:45-0500 Body temperature 98.3 [degF] Dr. Cheryle De La Fuente MD Work Phone: [facility] 04-18-2024 11:45-0500 Body weight 85.[address] Cheryle De La Fuente MD Work Phone: [facility] 04-18-2024 11:45-0500 Diastolic blood pressure 80 mm[Hg] Dr. Cheryle De La Fuente MD Work Phone: [phone] [place] [address] 04-18-2024 11:45-0500 Heart rate 84 /min Dr. Cheryle De La Fuente MD Work Phone: [phone] [place] [address] 04-18-2024 11:45-0500 Respiratory rate 16 /min Dr. Cheryle De La Fuente MD Work Phone: [phone] [place] [address] 04-18-2024 11:45-0500 Systolic blood pressure 128 mm[Hg] Dr. Cheryle De La Fuente MD Work Phone: [phone] [address] 07-16-2023 13:59-0400 Body temperature 98.4 [degF] Dr. Cheryle De La Fuente Work Phone: [facility] 07-16-2023 13:59-0400 Diastolic blood pressure 55 mm[Hg] Dr. Cheryle De La Fuente Work Phone: [phone])[phone] [address] 07-16-2023 13:59-0400 Heart rate 58 /min Dr. Cheryle De La Fuente Work Phone: [facility] 07-16-2023 13:59-0400 Respiratory rate 16 /min Dr. Cheryle De La Fuente Work Phone: [facility] 07-16-2023 13:59-0400 SaO2% (BldA) [Mass fraction] 97 % Dr. Cheryle De La Fuente Work Phone: [facility] 07-16-2023 13:59-0400 Systolic blood pressure 93 mm[Hg] Dr. Cheryle De La Fuente Work Phone: [facility] 07-16-2023 12:36-0400 Body height 167.[address] Cheryle De La Fuente Work Phone: [facility] 07-16-2023 12:36-0400 Body mass index (BMI) [Ratio] 29.2 kg/m2 Dr. Cheryle De La Fuente Work Phone: [facility] 07-16-2023 12:36-0400 Body weight [address] Cheryle De La Fuente Work Phone: [facility] 11-05-2022 15:04-0400 Body height 167.6 cm Jose Garcia MD Work Phone: [facility] 11-05-2022 15:04-0400 Body weight 81.65 kg Jose Garcia MD Work Phone: [facility] 11-05-2022 15:04-0400 Diastolic blood pressure 79 mm[Hg] Jose Garcia MD Work Phone: [facility] 11-05-2022 15:04-0400 Heart rate 57 /min Jose Garcia MD Work Phone: [facility] 11-05-2022 15:04-0400 Respiratory rate 18 /min Jose Garcia MD Work Phone: [facility] 11-05-2022 15:04-0400 SaO2% (BldA) [Mass fraction] 99 % Jose Garcia MD Work Phone: [facility] 11-05-2022 15:04-0400 Systolic blood pressure 125 mm[Hg] Jose Garcia MD Work Phone: [facility] 09-27-2022 11:27-0400 Body height 170.[address] Cheryle De La Fuente Work Phone: [facility] 09-27-2022 11:26-0400 Body mass index (BMI) [Ratio] 28 kg/m2 Dr. Cheryle De La Fuente Work Phone: [facility] 09-27-2022 11:26-0400 Body weight 81.[address] Cheryle De La Fuente Work Phone: [facility] 09-27-2022 11:26-0400 Diastolic blood pressure 81 mm[Hg] Dr. Cheryle De La Fuente Work Phone: [facility] 09-27-2022 11:26-0400 Heart rate 80 /min Dr. Cheryle De La Fuente Work Phone: [facility] 09-27-2022 11:26-0400 Respiratory rate 18 /min Dr. Cheryle De La Fuente Work Phone: [facility] 09-27-2022 11:26-0400 SaO2% (BldA) [Mass fraction] 100 % Dr. Cheryle De La Fuente Work Phone: [facility] 09-27-2022 11:26-0400 Systolic blood pressure 134 mm[Hg] Dr. Cheryle De La Fuente Work Phone: [facility] 12-27-2021 15:10-0400 Body height 170.[address] Cheryle De La Fuente Work Phone: [facility] Work Phone: NEGATED: Highlighted [id number] 13:27-0400 BMI (Body Mass Index) 26.41 kg/m2 Pamella Leonestine FITTER WELDER [facility] Work Phone: NEGATED: Highlighted [id number] 13:27-0400 BP Diastolic 85 mm[Hg] Pamella Winklestine FITTER WELDER [facility] Work Phone: NEGATED: Highlighted [id number] 13:27-0400 BP Systolic 135 mm[Hg] Pamella Winklestine FITTER WELDER [facility] Work Phone: NEGATED: Highlighted [id number] 13:27-0400 Height 170.18 cm Pamella Winklestine FITTER WELDER [facility] Work Phone: NEGATED: Highlighted [id number] 13:27-0400 Height 170 cm Pamella Winklestine FITTER WELDER [facility] Work Phone: NEGATED: Highlighted [id number] 13:27-0400 Pulse (Heart Rate) 63 /min Pamella Winklestine FITTER WELDER [facility] Work Phone: NEGATED: Highlighted [id number] 13:27-0400 Weight 76.2 kg Pamella Cleaning LPN [facility] Work Phone: NEGATED: Highlighted [id number] 13:27-0400 Weight 76 kg Pamella Cleaning FITTER WELDER [facility] Work Phone: Encounters Encounter Date Encounter Type Care Provider Facility Start: 01-04-2025 Encounter for genera l adult medical examination without abnormal findings [facility] Start: 12-22-2024 End: 12-22-[address] Cheryle De La Fuente MD Work Phone: -Physical Therapy Start: 12-22-2024 End: 12-22-[address] Cheryle De La Fuente MD -Physical Therapy Work Phone: Start: 12-10-2024 End: 12-10-2024 Telephone encounter Jose Garcia MD Work Phone: [facility] Comment on above: Treatment Planning; Patient Update Start: 12-10-2024 End: 12-10-2024 Emergency department patient visit Dr. Cheryle De La Fuente MD Work Phone: -Emergency Department Work Phone: Start: 12-10-2024 Non-patient / Non-visit Dr. Gregory Bose MD -[facility] Work Phone: Start: 12-10-2024 End: 12-10-2024 [facility] Work Phone: Start: 12-10-2024 End: 12-10-[address] Cheryle De La Fuente MD Work Phone: -Endoscopy Start: 12-08-[address] Cheryle De La Fuente MD -Physical Therapy Work Phone: Start: 11-24-[address] Cheryle De La Fuetne MD -Physical Therapy Work Phone: Start: 11-19-[address] Cheryle De La Fuente MD -Physical Therapy Work Phone: Start: 11-10-2024 Non-patient / Non-visit Dr. Mohan Le MD -[facility] Start: 11-10-2024 End: 11-10-[address] Cheryle De La Fuente MD Work Phone: -Cardiovascular Services Start: 11-10-2024 End: 11-10-[address] Jose Garcia MD -Cardiovascular Services Work Phone: Start: 11-10-2024 End: 11-10-2024 ambulatory Cheryle De La Fuente Facility:[facility] Start: 11-04-2024 End: 11-04-[address] Cheryle De La Fuente MD Work Phone: -Outpatient Breast Imaging Start: 11-04-2024 End: 11-04-[address] Cheryle De La Fuente MD -Outpatient Breast Imaging Work Phone: Start: 11-04-2024 End: 11-04-2024 ambulatory Cheryle De La Fuente Facility:[facility] Start: 10-13-2024 End: 10-13-2024 Telephone encounter Jose Garcia MD Work Phone: [facility] Comment on above: Treatment Planning Start: 10-08-2024 End: 10-08-2024 Office outpatient visit 25 minutes Jose Garcia MD Work Phone: [facility] [place] Comment on above: Paroxysmal atrial fi brillation (HCC) (Primary Dx); At risk for stroke; Palpitations; Supraventricular tachycardia (HCC) Start: 10-08-2024 End: 10-08-2024 ambulatory MOHAN LE Facility:[facility] Start: 10-07-2024 End: 10-07-[address] Cheryle De La [place] MD Work Phone: -Radiology [facility] Start: 10-07-2024 End: 10-07-[address] Cheryle De La [place] MD -Radiology [facility] Work Phone: Start: 10-07-2024 End: 10-07-2024 ambulatory Cheryle [place] Facility:[facility] Start: 09-25-2024 End: 09-25-[address] Cheryle De La Fu[place] MD Work Phone: -Laboratory Start: 09-25-2024 End: 09-25-2024 Patient encounter procedure Jun Marin DO -Laboratory Work Phone: Start: 09-25-2024 End: 09-25-2024 ambulatory Jun Marin Facility:[facility] Start: 09-21-2024 End: 09-21-2024 Patient encounter procedure Jun Marin DO -[facility] Work Phone: Start: 09-21-2024 End: 09-21-[address] Cheryle De La Fuente MD Work Phone: [facility] Work Phone: Start: 08-05-2024 ambulatory Cheryle De La Fuente Facility:[facility] Start: 08-05-2024 Non-patient / Non-visit Dr. Gregory Bose MD -[facility] Start: 08-04-2024 End: 08-04-[address] Cheryle De La Fuente MD Work Phone: [facility] Work Phone: Start: 08-04-2024 End: 08-04-2024 Patient encounter procedure Richelle MALDONADO -Cardiovascular Services Work Phone: Start: 08-04-2024 End: 08-04-2024 ambulatory Cheryle Sudhakar Facility:[facility] Start: 07-23-2024 Registered Referred Richelle MALDONADO -Cardiovascular Services Work Phone: Start: 07-23-2024 ambulatory Cheryle De La Fuente Facility:[facility] Start: 07-23-2024 Non-patient / Non-visit Dr. Eduard Maravilla MD -[facility] Work Phone: Start: 05-19-2024 End: 05-19-2024 Non-patient / Non-visit Dr. Eduard Maravilla MD -[facility] Work Phone: Start: 05-19-2024 End: 05-19-2024 Admission to same day surgery center Dr. Marco Antonio Tapia MD -Surgical Day Care Start: 05-19-2024 End: 05-19-2024 ambulatory Marco Antonio Tapia Facility:[facility] Start: 04-18-2024 End: 04-18-2024 Patient encounter procedure Telma Tran ASSISTANT MEDIA PLANNERMadihaC [facility] Work Phone: Start: 04-18-2024 End: 04-18-2024 ambulatory Cheryle De La Fuente Facility:[facility] Start: 04-06-2024 End: 04-06-2024 ambulatory Cheryle De [place] Facility:[facility] Start: 03-17-2024 End: 03-17-2024 ambulatory Cheryle De [place] Facility:[facility] Start: 02-10-2024 End: 02-10-2024 ambulatory Cheryle De [place] Facility:[facility] Start: 07-16-2023 Non-patient / Non-visit Dr. Cheryle De La Fuente Work Phone: [facility] Start: 07-16-2023 End: 07-16-2023 Admission to same day surgery center Dr. Cheryle De La Fuente Work Phone: [facility]-Endoscopy Work Phone: Start: 07-16-2023 End: 07-16-[address] Cheryle De La Fuente Work Phone: [facility] Work Phone: Start: 07-04-2023 End: 07-04-[address] Cheryle De La Fuente Work Phone: [facility] Work Phone: Start: 07-04-2023 End: 07-04-[address] Cheryle De La Fuente Work Phone: [facility]-Laboratory, Specimen Work Phone: Start: 07-03-2023 End: 07-03-[address] Cheryle De La Fuente Work Phone: [facility] Work Phone: Start: 07-03-2023 End: 07-03-[address] Cheryle De La [place]ente [facility] Start: 07-03-2023 End: 07-03-[address] Cheryle De La Fuente Work Phone: [facility] Work Phone: Start: 11-30-2022 End: 11-30-[address] Cheryle De La Fuente Work Phone: [facility] Work Phone: Start: 11-30-2022 End: 11-30-[address] Cheryle De La Fuente [facility] Start: 11-26-2022 End: 11-26-[address] Cheryle De La Fuente Work Phone: [facility] Work Phone: Start: 11-26-2022 End: 11-26-[address] Cheryle De La Fuente [facility] Start: 11-05-2022 End: 11-05-2022 Patient encounter procedure Jose Garcia MD Work Phone: [facility] Card[facility] [place] Comment on above: Paroxysmal atrial fi brillation (HCC) (Primary Dx); At risk for stroke; Palpitations Start: 10-04-2022 Chart abstracting Vijaya Tello MA [facility] [place] Start: 09-27-2022 End: 09-27-[address] Cheryle De La Fuente Work Phone: [facility] Work Phone: Start: 08-24-2022 End: 08-24-[address] Cheryle De La Fuente Work Phone: [facility] Work Phone: Start: 08-24-2022 End: 08-24-2022 Patient encounter procedure [facility]-Laboratory Start: 08-22-2022 End: 08-22-2022 ambulatory [facility] Work Phone: Start: 08-22-2022 End: 08-22-2022 Patient encounter procedure [facility]-Cat Scan, [facility] Start: 08-15-2022 End: 08-15-2022 ambulatory [facility] Work Phone: Start: 08-15-2022 End: 08-15-2022 Patient encounter procedure [facility]-Cat Scan, [facility] Start: 12-27-2021 End: 12-27-[address] Cheryle De La Fuente Work Phone: [facility] Work Phone: Start: 12-27-2021 End: 12-27-[address] Cheryle De La Fuente Work Phone: [facility]-Laboratory, Specimen Start: 12-27-2021 End: 12-27-[address] Cheryle De La Fuente Work Phone: [facility] Start: 08-21-2021 End: 08-21-2021 Patient encounter procedure [facility]-Laboratory Start: 08-09-2021 End: 08-09-2021 Patient encounter procedure [facility]-Outpatient Bone Densitometry Start: 08-22-2017 End: 08-27-2017 Patient encounter procedure Wesley Leyva DO Work Phone: [facility] Work Phone: Procedures Date Procedure Procedure Detail Performing Clinician Start: 12-10-2024 Urnls dip stick/tablet reagent auto microscopy Dr. Cheryle De [place] MD Work Phone: Start: 12-10-2024 CT angiography of chest with contrast Dr. Cheryle De La [place] MD Work Phone: Start: 12-10-2024 X-ray of chest, PA and lateral views Dr. Cheryle De La [place] MD Work Phone: Start: 12-10-[address] Cheryle De La Fuente MD Work Phone: Start: 11-04-[address] Cheryle De La Fuente MD Work Phone: Start: 10-08-2024 Ecg routine ecg w/least 12 lds w/i&r Jose Garcia MD Work Phone: Start: 10-07-2024 Plain x-ray of pelvis and lower extremity Dr. Cheryle De La Fuente MD Work Phone: Start: 09-25-[address] Cheryle De La Fuente MD Work Phone: Comment on above: Test Ordered: [id number] Ustekinumab Drug + AntibodyUstekinumab 6.3 ug/mL ES [...] antibodies occurred in 4-6% of patients.(6)References:1. Dashawn HERNANDES, et al. Gastroenterology 2016;150(4):S408.2. Dashawn Lerner et al. P007 Exposure-Response to SC Ustekinumab in Moderate - Severe Crohn's Disease: Results from the IM-UNITI Maintenance Study. Advances in AIBD. January 2017.3. Cosmo R, et al. Clin Gastroenterol Hepatol 2017;15: 8352-2478.4. Soloing SP, et al. Br J Dermatol;2015:173;855-857.5. Lindsay H, et al. PLOS ONE DOI;10:1371/journal.pone.4331235.6. Jesus L, et al. Br J Dermatol 2014;170:261-273.These tests were developed and their performancecharacteristics determined by [employer]. They have not beencleared or approved by the Food and Drug Administration.However, both drug and anti-drug antibody assays have beendeveloped and validated in accordance with FDA Guidance forIndustry documents: Bioanalytical Method Validation (2013)and Assay Development and Validation for ImmunogenicityTesting of Therapeutic Protein Products (2016).Performed at: [facility] [id number] [place], [place] [id number] Director: Javed Pritchard MD, Phone: [phone] at: CB - [facility] [id number] [place], [place] [id number] Director: Toni Whitt PhD, Phone: [phone] Start: 08-04-2024 Radionuclide imaging of perfusion of [...] End: 08-22-2017 CERVICAL COLLAR SERPENTINE (BREG) Wesley Rocha Leyva DO Work Phone: Start: 08-22-2017 End: [...] Detail Author Start: 01-30-2027 [facility] Start: 02-24-2025 Subsequent hospital visit by physician 02/24/2025 Hospital Encounter [facility] [address] [place] [address] Jose Garcia MD [address] [place] [address] Paroxysmal atrial fibrillation (HCC) [I48.0], Supraventricular tachycardia (HCC) [I47.10] [facility] Comment on above: Paroxysmal atrial fibrillation (HCC) [I4 8.0], Supraventricular tachycardia (HCC) [I47.10] Start: 12-11-2024 Patient discharge [facility] Start: 12-10-2024 [facility] Start: 12-10-2024 Colonoscopy Colonoscopy,EGD (Not Applicable) [facility] Start: 12-10-2024 Oxygen therapy [facility] Start: 12-10-2024 [facility] Start: 12-07-2024 Influenza vaccination Influenza Vaccine (#1) [facility] Start: 05-19-2024 Anesthesia external middle & inner ear w/bx nos ANESTH EAR SURGERY [facility] Start: 05-19-2024 Excision soft tis lesion external auditory canal REMOVE EAR CANAL LESION(S) [facility] Start: 05-19-2024 Fth/gft free w/direct closure n/e/e/l 20 sq cm/< FTH/GFT FR N/E/E/L 20 SQCM/< [facility] Start: 05-19-2024 Patient discharge [facility] Start: 04-08-2024 Advance Directive Discussion Advance Directive Discussion [facility] Start: 12-08-2023 Covid-19 Vaccine ( season) Covid-19 Vaccine () [facility] Start: 07-16-2023 Patient discharge [facility] Start: 07-04-2023 Elastase.pancreatic [Presence] in Stool [facility] Start: 07-04-2023 Giardia lamblia Ag [Presence] in Stool by Immunoassay [facility] Start: 07-03-2023 Antibody to gastric parietal cell measurement [facility] Start: 07-03-2023 Celiac disease screen [facility] Start: 07-03-2023 Estrogen [Mass/volume] in Serum or Plasma [facility] Start: 07-03-2023 Gastrin [Mass/volume] in Serum or Plasma [facility] Start: 07-03-2023 IgG subclass panel [Mass/volume] - Serum [facility] Start: 07-03-2023 Immunoglobulin measurement [facility] Start: 07-03-2023 In-vitro immunologic test [facility] Start: 07-03-2023 Intrinsic factor blocking Ab [Units/volume] in Serum [facility] Start: 07-03-2023 Serum immunofixation [facility] Start: 07-03-2023 [facility] Start: 12-07-2022 Influenza vaccination [facility] Start: 11-30-2022 Methylmalonate measurement [facility] Start: 09-27-2022 Patient referral [facility] Work Phone: Start: 04-08-2022 ADVANCE DIRECTIVE DISCUSSION ADVANCE DIRECTIVE DISCUSSION [facility] Start: 04-08-2022 DEPRESSION ASSESSMENT DEPRESSION ASSESSMENT [facility] Start: 12-27-2021 Liquid based cervical cytology screening [facility] Work Phone: Start: 04-05-2021 COVID-19 VACCINE (4 - Moderna series) COVID-19 VACCINE (4 - Moderna series) [facility] Start: 01-04-2021 BONE DENSITY BONE DENSITY [facility] Start: 01-04-2021 PNEUMOCOCCAL: 65+ (1 - PCV) PNEUMOCOCCAL: 65+ (1 - PCV) [facility] Start: 01-04-2021 Screening for osteoporosis Bone Density Screening [facility] Start: 12-07-2020 Medicare Annual Wellness Visit Medicare Annual Wellness Visit [facility] Start: 06-29-2020 COVID-19 VACCINE (3 - Booster for Moderna series) COVID-19 VACCINE (3 - Booster for Moderna series) [facility] Start: 07-23-2019 Colonoscopy COLONOSCOPY [facility] Start: 07-23-2019 COLORECTAL CANCER SCREENING COLORECTAL CANCER SCREENING [facility] Start: 07-23-2019 Screening for malignant neoplasm of colon [facility] Start: 02-29-2016 Mammography MAMMOGRAM [facility] Start: 02-29-2016 Screening for malignant neoplasm of breast Mammogram Screening [facility] Start: 01-14-2016 DIABETES SCREEN DIABETES SCREEN [facility] Start: 01-14-2016 Diabetes Screening Diabetes Screening [facility] Start: 2016 RSV Vaccine (1 - Risk 60-74 years 1-dose series) RSV Vaccine (1 - Risk 60-74 years 1-dose series) [facility] Start: 11-07-2015 Lipid panel Lipid Screening [facility] Start: 11-07-2015 LIPID SCREEN LIPID SCREEN [facility] Start: 04-24-2011 Screening for malignant neoplasm of cervix Cervical Cancer Screening [facility] Start: 01-04-2006 SHINGRIX VACCINE (1 of 2) SHINGRIX VACCINE (1 of 2) [facility] Start: 01-04-2001 COLOGUARD (FIT-DNA) COLOGUARD (FIT-DNA) [facility] Start: 01-04-[address] COLONOGRAPHY [facility] Start: 01-04-2001 FECAL OCCULT BLOOD FECAL OCCULT BLOOD [facility] Start: 01-04-2001 Screening for malignant neoplasm of colon [facility] Start: 01-04-2001 SIGMOIDOSCOPY SIGMOIDOSCOPY [facility] Start: 01-04-1975 Urine microalbumin profile DTAP,TDAP,TD (1 - Tdap) [facility] Start: 01-04-1974 Anxiety Screening Anxiety Screening [facility] Start: 01-04-1974 Depression Screening Depression Screening [facility] Start: 01-04-1974 HEPATITIS C SCREENING HEPATITIS C SCREENING [facility] Start: 01-04-1974 Hepatitis C screening Hepatitis C Screening [facility] Albumin [Moles/volum e] in Serum or Plasma [facility] Beef IgE Ab [Units/v olume] in Serum [facility] Chocolate IgE Ab [Units/volume] in Serum [facility] Codfish IgE Ab [Units/volume] in Serum [facility] Colonoscopy [facility] Compre electrophysio logic arrhythmia induction (EP STUDY) COM ELECTOPHYS EVAL W INSERT REPO ELEC CATH W INDUC ARHYTHM W RT ATRIAL VENT HIS BUN PACE RECOR Paroxysmal atrial fibrillation (HCC) Supraventricular tachycardia (HCC) [place] [facility] [place] IgE Ab [Units/v olume] in Serum [facility] Cow milk IgE Ab [Units/volume] in Serum [facility] End: 10-13-2025 Echocardiography ECHO Cardiology Routine Paroxysmal atrial fibrillation (HCC) Palpitations 1 Occurrences starting 10/13/2024 until 10/13/2025 [facility] Work Phone: Comment on above: 1 Occurrences starting 10/13/2024 until 10/13/2025 Electrophoresis: [id number] [facility] Electrophoresis: amari ma globulin [facility] Ephys evl trnsptl tx atrial fib isolat pulm vein COMPRE EP EVAL ABLTJ ATR FIB PULM VEIN ISOLATION Paroxysmal atrial fibrillation (HCC) Supraventricular tachycardia (HCC) [facility] Globulin measurement [facility] IgA [Mass/volume] in Serum or Plasma [facility] IgE [Units/volume] i n Serum or Plasma [facility] IgG [Mass/volume] in Serum or Plasma [facility] IgG subclass 1 [Mass/volume] in Serum [facility] IgG subclass 2 [Mass/volume] in Serum [facility] IgG subclass 3 [Mass/volume] in Serum [facility] IgG subclass 4 [Mass/volume] in Serum [facility] IgM [Mass/volume] in Serum or Plasma [facility] Mycobacterium tuberc ulosis tuberculin stimulated gamma interferon [Presence] in Blood [facility] Neutrophil cytoplasm ic Ab.classic [Units/volume] in Serum [facility] P-ANCA measurement [facility] Path report.final Dx Spec [facility] Work Phone: Patient Education Supraventricul ar Tachycardia ED About Arrhythmias [facility] Work Phone: Patient referral [facility] Work Phone: Peanut IgE Ab [Units/volume] in Serum [facility] Pork IgE Ab [Units/v olume] in Serum [facility] Procedure [facility] Protein electrophore sis panel - Serum or Plasma [facility] [place] IgE Ab [Units/volume] in Serum [facility] Shrimp IgE Ab [Units/volume] in Serum [facility] Soybean IgE Ab [Units/volume] in Serum [facility] Tissue transglutamin ase IgA Ab [Units/volume] in Serum [facility] Tuna IgE Ab [Units/v olume] in Serum [facility] Wheat IgE Ab [Units/volume] in Serum [facility] Whole Egg IgE Ab [Units/volume] in Serum [facility] Work Phone: [facility] Immunizations Immunization Date Immunization Notes Care Provider [facility] 01-27-2024 influenza, seasonal, injectable, preservative free Dr. Cheryle [place] MD Work Phone: [facility] 01-27-2024 influenza virus vaccine, unspecified formulation Jose Garcia MD Work Phone: [facility] 01-24-2023 Covid (Spikevax) Dr. Cheryle montalvo Work Phone: [facility] 01-24-2023 influenza, injectabl e, quadrivalent, preservative free Dr. Cheryle De La Fuente Work Phone: [facility] 08-09-2022 pneumococcal (PCV20) vaccine, 20 valent (PREVNAR 20) Jose Garcia MD Work Phone: [facility] Work Phone: 01-08-2022 influenza, injectabl e, quadrivalent, preservative free Dr. Cheryle De La Fuente Work Phone: [facility] 01-08-2022 influenza, seasonal, injectable [facility] 09-08-2021 zoster vaccine recombinant Jose Garcia MD Work Phone: [facility] Work Phone: 06-16-2021 zoster vaccine recombinant Jose Garcia MD Work Phone: [facility] Work Phone: 02-16-2021 influenza, injectabl e, quadrivalent, preservative free Dr. Cheryle De La Fuente Work Phone: [facility] 02-16-2021 influenza, seasonal, injectable [facility] 02-16-2021 influenza, seasonal, injectable, preservative free Jose Garcia MD Work Phone: [facility] Work Phone: 02-08-2021 Covid (Moderna) [facility] 06-08-2020 Human Papillomavirus 9-valent vaccine Jose Garcia MD Work Phone: [facility] Work Phone: 05[facility]04[facility]2020 [facility] 02-29-2020 influenza, injectabl e, quadrivalent, preservative free Dr. Cheryle De La Fuente Work Phone: [facility] 02-29-2020 influenza, seasonal, injectable [facility] 02-29-2020 influenza, seasonal, injectable, preservative free Jose Garcia MD Work Phone: [facility] Work Phone: 06-08-2019 Human Papillomavirus 9-valent vaccine Jose Garcia MD Work Phone: [facility] Work Phone: 01-27-2019 influenza, injectabl e, quadrivalent, preservative free Dr. Cheryle De La Fuente Work Phone: [facility] 01-27-2019 influenza, seasonal, injectable [facility] 01-27-2019 influenza, seasonal, injectable, preservative free Jose Garcia MD Work Phone: [facility] Work Phone: 01-20-2018 influenza, injectabl e, quadrivalent, preservative free Dr. Cheryle De La Fuente Work Phone: [facility] 01-20-2018 influenza, seasonal, injectable [facility] 01-20-2018 influenza, seasonal, injectable, preservative free Jose Garcia MD Work Phone: [facility] Work Phone: 01-30-2017 tetanus toxoid, redu micheal diphtheria toxoid, and acellular pertussis vaccine, adsorbed Jose Garcia MD Work Phone: [facility] Work Phone: 01-24-2017 hepatitis A vaccine, pediatric/adolescent dosage, 2 dose schedule Jose Garcia MD Work Phone: [facility] Work Phone: 01-24-2017 meningococcal polysaccharide (groups A, C, Y and W-135) diphtheria toxoid conjugate vaccine (MCV4P) Jose Garcia MD Work Phone: [facility] Work Phone: 01-21-2017 influenza, injectabl e, quadrivalent, preservative free Dr. Cheryle De La Fuente Work Phone: [facility] 01-21-2017 influenza, seasonal, injectable [facility] 01-21-2017 influenza, seasonal, injectable, preservative free Jose Garcia MD Work Phone: [facility] Work Phone: 12-12-2016 zoster vaccine, live Jose Garcia MD Work Phone: [facility] Work Phone: 01-23-2016 influenza, injectabl e, quadrivalent, preservative free Dr. Cheryle De La Fuente Work Phone: [facility] 01-23-2016 influenza, seasonal, injectable [facility] 01-23-2016 influenza, seasonal, injectable, preservative free Jose Garcia MD Work Phone: [facility] Work Phone: 12-21-2015 hepatitis A vaccine, pediatric/adolescent dosage, 2 dose schedule Jose Garcia MD Work Phone: [facility] Work Phone: 2015 influenza, injectabl e, quadrivalent, preservative free Dr. Cheryle De La Fuente Work Phone: [facility] 2015 influenza, seasonal, injectable [facility] 2015 influenza, seasonal, injectable, preservative free Jose Garcia MD Work Phone: [facility] Work Phone: 12-31-2013 influenza, injectabl e, quadrivalent, preservative free Dr. Cheryle De La Fuente Work Phone: [facility] 12-31-2013 influenza, seasonal, injectable [facility] 12-31-2013 influenza, seasonal, injectable, preservative free Jose Garcia MD Work Phone: [facility] Work Phone: 02-05-2013 Influenza virus vaccine [facility] 02-05-2013 influenza, seasonal, injectable Jose Garcia MD Work Phone: [facility] Work Phone: 02-05-2013 influenza, seasonal, injectable, preservative free Jose Garcia MD Work Phone: [facility] Work Phone: 02-05-2013 influenza-arnol H5 virus vaccine, unspecified formulation Jose Garcia MD Work Phone: [facility] 05-20-2012 measles, mumps and rubella virus vaccine Jose Garcia MD Work Phone: [facility] Work Phone: 03-24-2012 diphtheria, tetanus toxoids and acellular pertussis vaccine Jose Garcia MD Work Phone: [facility] Work Phone: 03-24-2012 measles, mumps and rubella virus vaccine Jose Garcia MD Work Phone: [facility] Work Phone: 03-24-2012 varicella virus vaccine Vinicio Garcia MD Work Phone: [facility] Work Phone: 01-08-2011 varicella virus vaccine Vinicio Garcia MD Work Phone: [facility] Work Phone: 03-24-2010 measles, mumps and rubella virus vaccine Jose Garcia MD Work Phone: [facility] Work Phone: 11-25-2009 diphtheria, tetanus toxoids and acellular pertussis vaccine Jose Garcia MD Work Phone: [facility] Work Phone: 11-25-2009 haemophilus influenz ae type b vaccine, PRP-T conjugate Jose Garcia MD Work Phone: [facility] Work Phone: 11-25-2009 hepatitis B vaccine, pediatric or pediatric/adolescent dosage Jose Garcia MD Work Phone: [facility] Work Phone: 11-25-2009 poliovirus vaccine, inactivated Jose Garcia MD Work Phone: [facility] Work Phone: 11-25-2009 varicella virus vaccine Vinicio Garcia MD Work Phone: [facility] Work Phone: 01-31-2009 novel [id number], preservative-free, injectable Jose Garcia MD Work Phone: [facility] Work Phone: 2006 diphtheria, tetanus toxoids and acellular pertussis vaccine Jose Garcia MD Work Phone: [facility] Work Phone: 2006 haemophilus influenz ae type b vaccine, PRP-T conjugate Jose Garcia MD Work Phone: [facility] Work Phone: 2006 pneumococcal conjuga te vaccine, 13 valent Jose Garcia MD Work Phone: [facility] Work Phone: 2006 poliovirus vaccine, inactivated Jose Garcia MD Work Phone: [facility] Work Phone: 09-27-2005 haemophilus influenz ae type b vaccine, PRP-T conjugate Jose Garcia MD Work Phone: [facility] Work Phone: 09-27-2005 hepatitis B vaccine, pediatric or pediatric/adolescent dosage Jose Garcia MD Work Phone: [facility] Work Phone: 09-27-2005 pneumococcal conjuga te vaccine, 13 valent Jose Garcia MD Work Phone: [facility] Work Phone: 09-27-2005 poliovirus vaccine, inactivated Jose Garcia MD Work Phone: [facility] Work Phone: 07-14-2005 hepatitis B vaccine, pediatric or pediatric/adolescent dosage Jose Garcia MD Work Phone: [facility] Work Phone: No information available. Pamella Cleaning LPN [facility] Work Phone: Payers Date Payer Category Payer Self-pay [id number] 2020 [facility] DICARE SUPPLEMENT [id number] 2020 Medicare [id number] 2020 Unknown ANTHEM ANTHEM ME DICARE SUPPLEMENT [id number] 2020-Present [phone] [address] [place] [address] Indemnity [id number] 2020 Medicare [id number] 2020 Unknown [id number] 2014 Unknown [id number] Unknown [id number]. 462 Unknown [id number] [id number]. 462 Unknown [id number] [id number]. 462 Unknown [id number] [id number]. 462 Unknown [id number] [id number]. 462 Unknown [id number] [id number]. 462 Unknown [id number] [id number]. 462 Unknown [id number] [id number]. 462 Unknown [id number] 2.16.840.1.111810.3.579.2. 462 Unknown [id number] 2.16.840.1.638449.3.579.2. 462 Unknown [id number] 2.16840.1.114861.3.579.2. 462 Unknown [id number] 2.16.840.1.891921.3.579.2. 462 Unknown [id number] 2.16.840.1.308250.3.579.2. 462 Unknown [id number] 2.16.840.1.824476.3.579.2. 462 Unknown [id number] 2.16.840.1.437360.3.579.2. 462 Unknown [id number] 2.16.840.1.121170.3.579.2. 462 Unknown [id number] 2.16.840.1.892198.3.579.2. 462 Unknown [id number] [id number]. 462 Unknown [id number] [id number]. 462 Unknown [id number]. 462 Social History Date Type Detail Facility Start: 04-12-2021 End: 07-12-2023 Assertion Unknown if ever smoked [facility] Work Phone: Start: 12-02-2013 None [facility] Start: 12-02-2013 Spouse/ Signif icant Other [facility] Start: 12-02-2013 Non-smoker [facility] Start: 1955 Sex Assigned At Female [facility] Start: 05-15-2011 End: 12-10-2024 Tobacco smoking status NHIS Never smoked tobacco [facility] Start: 05-15-2011 Tobacco use and exposure Smokeless tobacco non-user [facility] Start: 10-04-2022 End: 10-08-2024 Alcohol intake Current drinker of alcohol (finding) [facility] Start: 10-04-2022 End: 11-05-2022 Alcohol intake [facility] Work Phone: Start: 10-04-2022 Alcohol Comment 0-2 daily [facility] Start: 1955 Sex Assigned At Not on file [facility] Start: 05-01-2020 End: 11-05-2022 Tobacco use panel [facility] Work Phone: Start: 03-09-2012 Adult Depression Screening Assessment 0 [facility] Work Phone: Goals Date Patient Goal Desired Activity /State Personal health goal Functional Status Date Assessment Result Facility 09-07-2014 Are you deaf, or do you have serious difficulty hearing No 09/07/2014 2:57 PM EDT Elena Solis LPN No [facility] 09-07-2014 Are you blind, or do you have serious difficulty seeing, even when wearing glasses No 09/07/2014 2:57 PM EDT Elena Solis LPN No [facility] 09-07-2014 Do you have serious difficulty walking or climbing stairs No 09/07/2014 2:57 PM EDT Elena Solis LPN No [facility] 09-07-2014 Do you have difficul ty dressing or bathing No 09/07/2014 2:57 PM EDT Elena Solis LPN No [facility] 09-07-2014 Because of a physica l, mental, or emotional condition, do you have difficulty doing errands alone such as visiting a physician's office or shopping No 09/07/2014 2:57 PM EDT Elena Solis LPN No [facility] Mental Status Date Assessment Result Facility 12-10-2024 Cognitive function Awake;Alert;A ppropriate;Fo llows Commands [facility] Work Phone: 05-19-2024 Cognitive function Touch/Shaking [facility] Work Phone: 05-19-2024 Cognitive function Patient Orien tation Person;Place;Time [facility] Work Phone: 07-16-2023 Cognitive function Touch/Shaking;Light [place] in [facility] Work Phone: 09-07-2014 Because of a physica l, mental, or emotional condition, do you have serious difficulty concentrating, remembering, or making decisions No 09/07/2014 2:57 PM EDT Elena Solis LPN No [facility] Clinical Notes 08-02-2009 to 12-22-2024 Note Date & Type Note Facility 12-22-2024 Discharge summary Note Date/Time December 22, 2024 7:00pm [facility] [address] [place] [address] / REHABILITATION SERVICES DISCHARGE SUMMARY MR#: [id number] Acct: [id number] Name: KADIE LAGUNA Rep #: [id number] : 1955 69 From: Cheryle DOZIERT, OCS, CSCS Referring Dr.: Dr. Cheryle De La Fuente MD Status: REG RCR Insurance: MEDICARE PART A B ANTH Discharge Summary D/C summary: It has been my pleasure to treat KADIE LAGUNA referred by Dr. Cheryle De La Fuente MD, with the diagnosis of L hip OA for a total of 10 visit(s). Discharge Date: 12/22/24 Please see the following information for a summary of their discharge status. Subjective Subjective: I think getting better. It is not real bad. Pain this week 3/10 at worst and was lying in bed in middle of night. Activitiy normal.Stiff after sitting for a while. Ready to bee done and will continue via HEP. Pain L buttock.: Pain Intensity (Out of 10): 0 Overall Improvement % Improvement: 70 Objective Objective/Function: walsk without antalgia, exits chair without pain or hesitancy. Back moving well without pain and no unusual tenderness in l glut area today. Goals Goal 1:: Pain in L buttock are 75% better adn 1/10 at worst and manageable Goal Progress: 70% Goal 2:: I appropriate HEP stretch adn strength to limit future problems Goal Progress: Goal Met Goal 3:: wake up in am with no stiffness or soreness. Goal Progress: Not Progressing Plan Plan: d/c to HEP D/C Information d/c sentence: If there are questions or concerns regarding this patient's physical therapy, please feel free to call me at [phone]. Thank you for the referral of thispatient. Sincerely, Cheryle Lozano, TASIAT, OCS, CSCS Balance/Gait/Functional tests Balance/Special Test Scores Lower Extremity Functional Score: 73 Improvement % Improvement: 70 <Electronically signed by Cheryle Lozano DPT, OCS, CSCS> 12/22/24 1641 CC: Dr. Cheryle De La Fuente MD ~ EBG Signed [facility] Work Phone: 1(435) 101-822309-16-2025 Discharge summary [facility] [place] [address] / REHABILITATION SERVICES DISCHARGE SUMMARY MR#: [id number] Acct: [id number] Name: KADIE LAGUNA Rep #: [id number] : 1955 69 From: Cheryle Lozano DPT, OCS, CSCS Referring Dr.: Dr. Cheryle De La Fuente MD Status: REG RCR Insurance: MEDICARE PART A B ANTHEM Discharge Summary D/C summary: It has been my pleasure to treat KADIE LAGUNA referred by Dr. Cheryle De La Fuente MD, with the diagnosis of L hip OA for a total of 10 visit(s). Discharge Date: 12/22/24 Please see the following information for a summary of their discharge status. Subjective Subjective: I think getting better. It is not real bad. Pain this week 3/10 at worst and was lying in bed in middle of night. Activitiy normal.Stiff after sitting for a while. Ready to bee done and will continue via HEP. Pain L buttock.: Pain Intensity (Out of 10): 0 Overall Improvement % Improvement: 70 Objective Objective/Function: walsk without antalgia, exits chair without pain or hesitancy. Back moving wellwithout pain and no unusual tenderness in l glut area today. Goals Goal 1:: Pain in L buttock are 75% better adn 1/10 at worst and manageable Goal Progress: 70% Goal 2:: I appropriate HEP stretch adn strength to limit future problems Goal Progress: Goal Met Goal 3:: wake up in am with no stiffness or soreness. Goal Progress: Not Progressing Plan Plan: d/c to HEP D/C Information d/c sentence: If there are questions or concerns regarding this patient's physical therapy, please feel free to call me at [phone]. Thank you for the referral of thispatient. Sincerely, Cheryle Lozano, DPT, OCS, CSCS Balance/Gait/Functional tests Balance/Special Test Scores Lower Extremity Functional Score: 73 Improvement % Improvement: 70 12/22/24 1641 CC: Dr. Cheryle De La Fuente MD ~ EBG Signed [facility]09-04-2025 Discharge summary [facility] Medical Records Department [address] [place] [address] Emergency Department Summary 12/10/24 MR#: [id number] Acct: [id number] Name: KADIE LAGUNA Rep #:[id number] : 1955 69 From: Wiley Swenson DO PCP: Dr. Cheryle De La Fuente MD Status:REG ER Location: ED ADDENDUM by Dr. Wiley Swenson DO on 12/10/24 at 1334 They felt that her elevated troponins were secondary to her elevated heart rate as she is completely asymptomatic after converting back to sinus rhythm and do not feel that she warrants any further cardiac evaluation. She recently had a stress test and a echocardiogram that were normal. 12/10/24 1334 Cosigner Signature (if applicable): cc: Dr. Cheryle De La Fuente MD ~* Signed HPI History of Present Illness Chief Complaint: Chest Pain Narrative Narrative: Patient is a 69-year-old female with past medical history of small bowel obstruction, positive [place],GERD who presents to the emergency department with a chief complaint of palpitations and not feeling well. States that she was getting a upper and lower scope today and notes that she did the prep yesterday. States that around 5 AM this morning she noted that she felt very clammy had chest pressureand felt like she was going to pass out. States that she had to lay down and notes that every single time she tried to sit up she felt like she was in a pass out. She notes that she had a Holter monitor recently and they discovered that she is not in atrial fibrillation and she is in paroxysmal SVT and notes that she is on atenolol and flecainide which she states that she took those medications this morning. States that she is following up with a physician at [facility] [place] and notes that she is to have an ablation in the near future. She states that in September they reached out and they were told that it will be several months before the ablation can be performed. States that latelyshe felt likeshe has had increased episodes. [facility] Medical History Afib SVT (supraventricular tachycardia) History of Crohn's disease [...] history of retained foreign body fully removed (~04/2019) Vasovagal syncope IBD (inflammatory bowel disease) Overweight (BMI 25.0-29.9) Home Medications ?Medication ?Instructions ?Recorded ?Last Taken ?Type cholecalciferol (vitamin D3) 125 125 mcg PO DAILY 08/0707/15/23 History mcg (5,000 unit) capsule aspirin 81 mg capsule 81 mg PO DAILY 07/12/2307/30 History ascorbic acid (vitamin C) 500 mg 500 mg PO DAILY 05/05 Unknown History tablet (C-500) calcium 600 mg (as 1 tab PO DAILY 05/05/24 Unkn own History carbonate)-vitamin D3 5 mcg (200 unit) tablet (Calcium 600 + D(3)) cyanocobalamin (vitamin B-12) 1,000 mcg PO DAILY 05/05 Unknown History 1,000 mcg tablet (Vitamin B-12) atenolol 50 mg tablet 50 mg PO DAILY #90 tabs 07/09 Unknown Rx ustekinumab 90 mg/mL subcutaneous 90 mg subcut .Q8 WEE [place] #1 mL 08/07/24 Unknown Rx syringe (Stelara) famotidine 20 mg tablet (Acid 40 mg PO DAILY PRN acid reflux 09/21/24 Unknown History Controller) metformin 500 mg tablet,extended 500 mg PO BID 5 Unknown History release 24 hr Allergy/AdvReac Type Severity Reaction Status Date / Time escitalopram (From Lexapro) Allergy Hives,Sedat Verified 12/10/24 08:38 ion Penicillins Allergy Rash Verified 12/10/24 08:38 meperidine (From Demerol) AdvReac Mild Nausea Verified 12/10/24 08:38 ciprofloxacin AdvReac Dizziness Verified 12/10/24 08:38 venlafaxine (From Effexor) AdvReac Constipatio Verified 12/10/24 08:38 n Family History Father CAD (coronary artery disease) Hypertension Atrial fibrillation Arthritis Mother Heart disease Atrial fibrillation Arthritis Brother Hypertension Surgical History History of esophagogastroduodenoscopy (EGD) Hx of colonoscopy History of left heart catheterization (LHC) (~04/12/21) History of tubal ligation Hx of vein stripping History of right oophorectomy H/O hemorrhoidectomy History of bladder suspension procedure H/O breast biopsy Social History household members: spouse and children housing: house current occupational status: employed 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 Smoking Status: Never smoker alcohol intake: current alcohol intake frequency: 0-2 drinks per day substance use type: does not use caffeine: Yes Type: coffee Number of servings: 3 what type of physical activity do you participate in: walking frequency: daily do you feel safe at home: Yes ROS ROS ED ROS Narrative Constitutional: Denies any fevers or chills, headaches Eyes: Denies double vision Cardiovascular: Complains of palpitations and chest pressure as noted above Respiratory: Denies coughing wheezing shortness of breath Abdomen: Denies abdominal pain nausea vomit diarrhea : Denies any urinary symptoms Neurological: Denies any numbness, weakness, tingling Musculoskeletal: Denies any back pain Skin: Denies any rashes or lesions EXAM Physical Exam Narrative Exam Narrative: General: Patient was sitting in bed rest comfortably did not appear to be in acute distress Head: Atraumatic, normocephalic Eyes: PERRL bilaterally, EOMI bilateral, no conjunctival injection noted Neck: Soft, supple, trachea midline Cardiovascular: Patient tachycardic with a regular rhythm Respiratory: Clear to auscultation bilaterally Abdomen: Soft, nondistended, nontender to palpation Extremities: +5/5 strength noted in the bilateral upper and lower extremities, radial pulses +2/4 in bilateral extremities, no pedal edema exam Neurological: Patient likely has new that she was at [facility] year is 2024 Skin: Warm, dry, intact no rashes or lesions noted Const Vital Signs: 12/10/24 08:35 12/10/24 08:39 12/10/24 08:43 Temperature 98.3 F Temperature Source Oral Pulse Rate 140 H Respiratory Rate 15 Respiratory Effort Normal Non-Labored Blood Pressure 110/80 Blood Pressure Mean 90 Pulse Ox 98 100 Oxygen Delivery Method Room Air Room Air 12/10/24 09:28 12/10/24 09:38 12/10/24 09:47 Temperature Temperature Source Pulse Rate 131 H 132 H 82 Respiratory Rate 20 H 18 21 H Respiratory Effort Blood Pressure 88/64 L 84/63 L 73/54 L Blood Pressure Mean 72 70 60 Pulse Ox 96 98 100 Oxygen Delivery Method 12/10/24 09:51 12/10/24 09:59 12/10/24 10:00 Temperature Temperature Source Pulse Rate 75 77 78 Respiratory Rate 17 20 H 20 H Respiratory Effort Blood Pressure 110/73 111/66 111/66 Blood Pressure Mean 85 81 81 Pulse Ox 98 100 100 Oxygen Delivery Method 12/10/24 11:00 12/10/24 11:59 12/10/24 13:00 Temperature Temperature Source Pulse Rate 80 81 74 Respiratory Rate 14 17 14 Respiratory Effort Blood Pressure 119/71 123/72 H 111/73 Blood Pressure Mean 87 89 85 Pulse Ox 99 98 98 Oxygen Delivery Method Room Air Room Air Room Air MDM MDM MDM Narrative Medical decision making narrative: Patient is a 61-year-old female who presented to the emergency department chief complaint of palpitations, lightheadedness, near syncope. On the differential diagnosis includes but not limited to SVT, atrial flutter, anemia, electrolyte abnormality. Once the workup is obtained and reviewed she willbe reevaluated. Patient will be given IV fluids. Vasovagal was performed and the patient's heart rate remained in the 140s therefore I am suspiciousthat she is in atrial flutter at this point in time and not SVT. Patient's echocardiogram from November 10, 2024 was reviewed which showed ejection fraction of 65% with no regional wall abnormalities.Patient's stress test from August 04, 2024 reviewed as well which she had the exercise stress test discontinued due to target heart rate achieving she had shortness of breath however no chest pain with this. Patient CBC reviewed showed no evidence leukocytosis white blood count 8.9, he was 12.5, platelet count 289. Patient INR normal at 1, PT of 13.5. Patient sodium was 141, potassium normal at 4.5, creatinine normal at 0.94. Patient's troponin was 16, delta troponin of 30. Patient's EKG showed a rate of 137 bpm narrow complex with rate dependent changes likely noted in the leads V3 through V6. Patient proBNP normal. Patient CTA of the chest reviewed which showed no evidence of pulmonary embolism mild linear atelectasis and/or scarring at the lung bases. Patient chest x-ray reviewed by myself by radiology showed no acutecardiopulmonary processes. Patient was becoming more symptomatic with worsening chest discomfort and her blood pressure was dropping therefore I reached out to on-call gear setter Dr. Bose. Also repeated EKG which showednarrow complex tachycardia with a rate of 135 bpm as well with a QTc of 498. He is recommending before cardioversion attempting adenosine to see the underlying rhythm and if this is SVT this could potentially break the rhythm. Patient was given 6 mg of adenosine and a EKG was obtained during this time which showed PVCs multiple of them. Patient ultimately then cardioverted to sinus rhythm with PACs noted with a rate of 87 bpm with a QTc of 510. Patient states that she is feeling much better at this point time. I reach out to her farm equipment technician Dr. Garcia who is requesting the EKGsbe faxed to him forhis review. These were faxed. They called back and he states that he does not want any medication adjustments at this point in time and she can be discharged home. He states that he will move up her ablation. I discussed this plan with the patient she got up and ambulated multiple times here in the emergency department and feels back to her baseline would like to gohome. She is advised to return with worsening symptoms or concerns. She is agreeable this plan all course concerns answered she was discharged home in stable condition. Critical care time: 57 minutes Lab Data Labs: Laboratory Results - last 24 hr 12/10/24 12/10/24 12/10/24 08:43 10:25 10:47 WBC 8.9 RBC 4.21 Hgb 12.5 Hct 38.6 MCV 91.7 MCH 29.7 MCHC 32.4 RDW Std Deviation 46.1 H RDW Coeff of Charles 13.6 Plt Count 289 MPV 10.8 Immature Gran % (Auto) 0.500 Neut % (Auto) 81.2 H Lymph % (Auto) 13.0 L Cooper % (Auto) 4.6 Eos % (Auto) 0.5 Baso % (Auto) 0.2 Absolute Neuts (auto) 7.2 Absolute Lymphs (auto) 1.15 Nucleated RBC % 0 PT 13.5 INR 1.0 APTT 26.4 Sodium 141 Potassium 4.5 Chloride 109 H Carbon Dioxide 20.2 L Anion Gap 11 BUN 15 Creatinine 0.94 Estim Creat Clear Calc 64.60 Est GFR (MDRD) Non-Af 66 BUN/Creatinine Ratio 15.7 Glucose 166 H Calcium 9.1 Magnesium 2.2 Troponin T High Sens 16 H Troponin T Hi Sens 2 Hr 30 H NT pro BNP II 600 TSH 2.420 Free T4 1.10 Free T3 pg/dL 2.8 Urine Color Yellow Urine Clarity Clear Urine pH 6.0 Ur Specific [place] 1.010 Urine Protein 30 H Urine Glucose (UA) Normal Urine Ketones 15 H Urine Occult Blood Negative Urine Nitrite Negative Urine Bilirubin Negative Urine Urobilinogen Normal Ur Leukocyte Esterase Negative Urine RBC 0 SEEN Urine WBC 0 SEEN Ur Squamous Epith Cells 0 SEEN Urine Bacteria 0 SEEN Urine Mucus 0 SEEN Radiography Diagnostic Testing: Clinical Impression(s) from Imaging Studies Chest X-Ray 12/10/24 08:55 IMPRESSION: No acute cardiopulmonary process Reading Location: [id number] Chest CTA 12/10/24 10:10 IMPRESSION: No evidence of pulmonary embolism. Mild linear atelectasis and/or scarring at the lung bases. Reading [id number] Triage Chief Complaint: Chest Pain ED Provider: Wiley Swenson Dx/Rx/DC Orders Clinical Impression: Chest pain, Palpitations, SVT (supraventricular tachycardia) Prescriptions: No Action cholecalciferol (vitamin D3) 125 mcg (5,000 unit) capsule 125 mcg PO DAILY metformin 500 mg tablet extended release 24 hr 500 mg PO BID aspirin 81 mg capsule 81 mg PO DAILY calcium carbonate-vitamin D3 [Calcium 600 + D(3)] 600 mg-5 mcg (200 unit) tablet 1 tab PO DAILY ascorbic acid (vitamin C) [C-500] 500 mg tablet 500 mg PO DAILY cyanocobalamin (vitamin B-12) [Vitamin B-12] 1,000 mcg tablet 1,000 mcg PO DAILY famotidine [Acid Controller] 20 mg tablet 40 mg PO DAILY PRN (Reason: acid reflux) atenolol 50 mg tablet 50 mg PO DAILY Qty: 90 3RF Stelara 90 mg/mL syringe 90 mg subcut .Q8 WEEKS Qty: 1 6RF Patient Comments: LAST DOSE 12-01-24 Primary Care Provider: Cheryle De La Fuente Referrals: Cheryle De La Fuente MD [Primary Care Provider] - Activity Restrictions/Additional Instructions: Follow-up with your farm equipment technician at [facility] As we discussed here. Return for worseningsymptoms or any concerns. Take medications as prescribed as they do not want to make any changes toyour medications today. Print Language: Polish Disposition Disposition: Home, Self Care What to do if you have Problems For any increased pain, shortness of breath, bleeding, nausea or vomiting, chestpain, or any unexpected problems, contact your Primary Care Provider. Call [facility] ([phone]) or report tothe closest Emergency Room. Call 911 if necessary. 12/10/24 1330 Cosigner Signature (if applicable): CC: Dr. Cheryle De La Fuente MD ~ Signed [facility]09-04-2025 Telephone encounter Note* Telephone Encounter - Jose Garcia MD - 12/10/2024 12:53 PM EDT [facility] Electrophysiology (EP) Reviewed EKGs. Conduction intervals and QTc are ok for flecainide to be continued. Sent message back to [facility] (via Transfer Office) that she can be discharged on same medications. We will work on expediting her ablation procedure. Jose Garcia MD December 10, 2024 12:54 PM [facility]09-04-2025 Miscellaneous Notes* Telephone Encounter - Jose Garcia MD - 12/10/2024 12:53 PM EDT [facility] [place] [facility] Electrophysiology (EP) Reviewed EKGs. Conduction intervals and QTc are ok for flecainide to be continued. Sent message back to [facility] (via Transfer Office) that she can be discharged on same medications. We will work on expediting her ablation procedure. Jose Garcia MD December 10, 2024 12:54 PM * Telephone Encounter - Jose Garcia MD - 12/10/2024 11:20 AM EDT [facility] General Electrophysiology (EP) Received call from [place] Transfer office that [facility] ED had called to report Ms. Laguna had presented with SVT, did not terminate with vagal maneuvers but evidently did terminate with IVadenosine. She was highly symptomatic and blood pressure in 70s mmHg range during the SVT. Reportedly EKG post conversion showed QTc > 500 ms. I asked for EKG to be fax'd to the office for me to review, to determine if it is still safe for her to take flecainide. Also we can work on getting her ablation procedure prioritized to a sooner date. She likely does not require hospitalization but I need to review the EKG first before making final decision in that regard. Jose Garcia MD December 10, 2024 11:23 AM [facility] Telephone encounter Note * Telephone Encounter - Jose Garcia MD - 12/10/2024 11:20 AM EDT [facility] [place] [facility] Electrophysiology (EP) Received call from [place] Transfer office that [facility] ED had called to report Ms. Laguna had presented with SVT, did not terminate with vagal maneuvers but evidently did terminate with IVadenosine. She was highly symptomatic and blood pressure in 70s mmHg range during the SVT. Reportedly EKG post conversion showed QTc > 500 ms. I asked for EKG to be fax'd to the office for me to review, to determine if it is still safe for her to take flecainide. Also we can work on getting her ablation procedure prioritized to a sooner date. She likely does not require hospitalization but I need to review the EKG first before making final decision in that regard. Jose Garcia MD December 10, 2024 11:23 AM [facility]09-04-2025 Consult note Author Bk Concepcion [facility] Note Date/Time December 10, 2024 8:53am [facility] Medical Records Department [address] [place] [address] Pre-Anesthesia Evaluation 12/10/24 0852 MR#: [id number] Acct: [id number] Name: KADIE LAGUNA MEAGHAN Rep #:[id number] : 1955 69 From: Bk ADAMS PCP: Dr. Cheryle De La Fuente MD Status:[facility] [place] Y Race: C Location: [place] [address] ASA Classification* ASA Classification ASA Classification: 3 Assessment & Plan Anesthesia* Anesthesia Assessment Anesthesia Assessment: Discussed sedation and/or anesthesia options, risks, benefits, and alternatives with patient/parents/legal guardian/POA. Questions invited. The patient/parents/legal guardian/POA seems to understand and agrees to proceedwith anesthesia plan. Reviewed the physical assessment, medical history, allergy history and patient home medications list prior to surgery/procedure/anesthetic and documented any changes. Performed airway and anesthesia risk assessments. Procedural Plan Procedural Plan:: NOT optimized for anesthesia Add'l anesthesia plan details: Pt in Afib RVR, midsternal chest pain /, procedure cancelled and pt taken to ER. Anesthesia Type Anesthesia Type: MAC Anesthesia Focused Assessment* Airway Assessment Mouth opens: >3 cm Mallampati Score: II Labs Anesthesia Preop lab: CBC WBC 6.5 K/mm3 (4.4-11.0) 11/26/22 16:15 11/26/22 RBC 4.00 M/mm3 (4.2-5.4) L 11/26/22 16:15 11/26/22 Hgb 11.9 g/dL (12.0-15.0) L 11/26/22 16:15 3 Hct 36.5 % (37-47) L 11/26/22 16:15 11/26/22 Plt Count 295 K/mm3 (150-450) 11/26/22 16:15 11/26/22 CHEMISTRY Potassium 3.9 mmol/L (3.5-5.1) 05/19/24 09:10 05/19/24 Sodium 141 mmol/L (136-145) 05/19/24 09:10 05/19/24 Magnesium 2.3 mg/dL (1.6-2.6) 08/24/22 07:07 08/24/22 BUN 11 mg/dL (7-18) 05/19/24 09:10 05/19/24 Creatinine 0.76 mg/dL (0.55-1.02) 05/19/24 09:10 05/19/24 Glucose 95 mg/dL (74-106) 05/19/24 09:10 05/19/24 TSH 1.47 uIU/mL (0.358-3.74) 07/03/23 16:43 COAG PT 12.4 SECONDS (11.7-14.9) 04/06/21 12:17 Pre-Assessment Diagnosis/Proposed Procedure Planned Operative Procedure(s): colonoscopy, egd Anesthesia History 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 When Was Last Pacemaker Check QUESTION #4 FULL TEXT: You/Your Family Experience fever (hyperthermia) with Anesthesia Last Oral Intake Last Oral intake: Last Oral Intake NPO since Meds taken in AM with sips of water? Meds patient instructed to take am of surgery PONV PONV - second chef: PONV - second chef Female Yes 12/03/24 14:55 HX of Motion Sickness Yes 12/03/24 14:55 HX of N/V After Surgery No 12/03/24 14:55 Non-Smoker Yes 12/03/24 14:55 Duration of Surgery greater No 12/03/24 14:55 than 60 minutes Number of Risk Factors 3 12/03/24 14:55 PONV Score Moderate Risk 12/03/24 14:55 Height & Weight Height & Weight: Anesthesia: Height & Weight Height 5 ft 7 in 09/21/24 08:24 Respiratory Assessment Respiratory Assessment - second chef: Respiratory Tract Infection Hx - second chef Hx Respiratory Tract Infection No 12/03/24 14:55 STOP Sleep Apnea STOP Sleep Apnea - second chef: STOP Sleep Apnea - second chef Hx Hypertension Yes: on meds 12/03/24 14:55 Hx Sleep Apnea No 12/03/24 14:55 CPAP No 05/19/24 12:22 BIPAP No 05/05/24 10:22 Do you snore loudly (louder No 12/03/24 14:55 than talking or can be heard Do you often feel tired/ No 12/03/24 14:55 fatigued/ sleepy during daytime? Has anyone observed you stop No 12/03/24 14:55 breathing during sleep? STOP Results Negative 12/03/24 14:55 QUESTION #5 FULL TEXT : Do you snore loudly (louder than talking or can be heard through closed doors)? 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 Specify any problems Hx of Preganancy in last 3 No 12/03/24 14:55 Months Nurse Filling Out Transfusion CURTIS 12/03/24 14:55 & Questions: Date: 12/03/24 12/03/24 14:55 Time: 14:57 12/03/24 14:55 Patient unable to answer at this time (ie. confused, unrespo /Reproduction History /Reproductive History - second chef: /Reproductive Hx- second chef Hx Now No 12/03/24 14:55 Gestational Age (in weeks): EDC: Hx Hx Para Hx Section SAB No 12/03/24 14:55 Active Medications Active Medications: Current Medications Generic Name Dose Route Start Last Admin Trade Name Freq PRN Reason Stop Dose Admin Lactated Ringer's 1,000 mls @ 15 mls/hr 12/10/24 08:00 IV .Q48H ALLISON PFSH Medical History (Updated 12/10/24 @ 08:39 by Bertha Graham) Afib SVT (supraventricular tachycardia) History of Crohn's disease [...] history of retained foreign body fully removed (~04/2019) Vasovagal syncope IBD (inflammatory bowel disease) Overweight (BMI 25.0-29.9) Home Medications ?Medication ?Instructions ?Recorded ?Last Taken ?Type cholecalciferol (vitamin D3) 125 125 mcg PO DAILY 08/0707/15/23 History mcg (5,000 unit) capsule aspirin 81 mg capsule 81 mg PO DAILY 07/12/2307/30 History ascorbic acid (vitamin C) 500 mg 500 mg PO DAILY 05/05 Unknown History tablet (C-500) calcium 600 mg (as 1 tab PO DAILY 05/05/24 Unkn own History carbonate)-vitamin D3 5 mcg (200 unit) tablet (Calcium 600 + D(3)) cyanocobalamin (vitamin B-12) 1,000 mcg PO DAILY 05/05 Unknown History 1,000 mcg tablet (Vitamin B-12) atenolol 50 mg tablet 50 mg PO DAILY #90 tabs 07/09 Unknown Rx ustekinumab 90 mg/mL subcutaneous 90 mg subcut .Q8 SAIMA HA #1 mL 08/07/24 Unknown Rx syringe (Stelara) famotidine 20 mg tablet (Acid 40 mg PO DAILY PRN acid reflux 09/21/24 Unknown History Controller) metformin 500 mg tablet,extended 500 mg PO BID 5 Unknown History release 24 hr Allergy/AdvReac Type Severity Reaction Status Date / Time escitalopram (From Lexapro) Allergy Hives,Sedat Verified 12/10/24 08:38 ion Penicillins Allergy Rash Verified 12/10/24 08:38 meperidine (From Demerol) AdvReac Mild Nausea Verified 12/10/24 08:38 ciprofloxacin AdvReac Dizziness Verified 12/10/24 08:38 venlafaxine (From Effexor) AdvReac Constipatio Verified 12/10/24 08:38 n Family History Father CAD (coronary artery disease) Hypertension Atrial fibrillation Arthritis Mother Heart disease Atrial fibrillation Arthritis Brother Hypertension Surgical History History of esophagogastroduodenoscopy (EGD) Hx of colonoscopy History of left heart catheterization (LHC) (~04/12/21) History of tubal ligation Hx of vein stripping History of right oophorectomy H/O hemorrhoidectomy History of bladder suspension procedure H/O breast biopsy Social History household members: spouse and children housing: house current occupational status: employed 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 Smoking Status: Never smoker alcohol intake: current alcohol intake frequency: 0-2 drinks per day substance use type: does not use caffeine: Yes Type: coffee Number of servings: 3 what type of physical activity do you participate in: walking frequency: daily do you feel safe at home: Yes Review of Systems (Anesthesia) ROS Narrative System reviewed and no additional complaints, except as documented. 12/10/24 0853 <Electronically signed by Bk Concepcion CRNA> Date _ Bk Villegas Signature: Date CC: ~ Signed [facility] Work Phone: 1(194) 723-658809-04-2025 Radiology Diagnostic study note [facility] Imaging Services [address] [place] [address] CTA Chest W/WO Contrast MR#: [id number] Acct: [id number] Name: KADIE LAGUNA Rep #: [id number] : 1955 F 69 From: Wali Brownlee MD PCP: Dr. Cheryle De La Fuente MD Status: [facility] ER Study:CTA Chest W/WO Contrast Date of Exam: 12/10/24 Exam# [id number] Ordering Dr: Cadence Swenson DO PROCEDURE: CTA CHEST W/WO CONTRAST 12/10/2024 REASON FOR EXAM: SOB Chest pressure. TECHNIQUE: Procedure Code: [id number] Modality: CT Procedure: CTA CHEST W/WO CONTRAST Multiplanar Sagittal and Coronal images were obtained. 3D post processing was performed CONTRAST: Isovue 370 VOLUME: 100 mL One or more dose reduction techniques were used (e.g., Automated exposure control, adjustment of the mA and/or kV according to patient size, use of iterative reconstruction technique). RADIATION DOSE SUMMARY: CTDlvol: 13.9 mGy DLP: 476.06 mGycm COMPARISON: Prior chest radiograph done earlier in the day. FINDINGS: Hardware: None Lymph nodes: Unremarkable Heart: No coronary artery calcification is seen. Thoracic Aorta: No thoracic aortic aneurysm or dissection. Pulmonary Vessels: No evidence of pulmonary embolism. Lungs and Airways: Mild increased markings at the lung bases suggestive of either linear scarring and/or atelectasis. Pleura: No pleural effusion. Upper Abdomen: Unremarkable Bones: Degenerative changes of the thoracic spine. Loss of height of a mid dorsal vertebrae. CT/CTA Chest W/WO Contrast IMPRESSION: No evidence of pulmonary embolism. Mild linear atelectasis and/or scarring at the lung bases. Reading Location[id number] CC: Dr. Cheryle De La Fuente MD; Dr. Wiley Swenson DO ~ Patient Care Nursing Assistant: Signed [facility]09-04-2025 Radiology Diagnostic study note [facility] Imaging Services [address] [place] [address] Chest PA and Lateral MR#: [id number] Acct: [id number] Name: KADIE LAGUNA MEAGHAN Rep #: [id number] : 1955 F 69 From: Shyann Nam MD PCP: Dr. Cheryle De La Fuente MD Status: REG ER Study:Chest PA and Lateral Date of Exam: 12/10/24 Exam# [id number] Ordering Dr: Cadence Swenson DO PROCEDURE: CHEST PA AND LATERAL 12/10/2024 REASON FOR EXAM: CHEST PAIN TECHNIQUE: Procedure Code: RADCXR Modality: DX Procedure: CHEST PA AND LATERAL COMPARISON: April 06, 2021 FINDINGS: Hardware: EKG leads Heart: Normal Mediastinum: Normal Lungs: Clear. Bones: Mild curvature thoracic and thoracolumbar spine. RAD/Chest PA and Lateral IMPRESSION: No acute cardiopulmonary process Reading Location: [id number] CC: Dr. Cheryle De La Fuente MD; Dr. Wiley Swenson DO ~ Patient Care Nursing Assistant: Signed [facility]09-04-2025 Consult note [facility] Medical Records Department [address] [place] [address] Pre-Anesthesia Evaluation 12/10/24 0852 MR#: [id number] Acct: [id number] Name: KADIE LAGUNA MEAGHAN Rep #:[id number] : 1955 69 From: Bk ADAMS PCP: Dr. Cheryle De La Fuente MD Status:[facility] [place] Y Race: C Location: [facility] ASA Classification* ASA Classification ASA Classification: 3 Assessment & Plan Anesthesia* Anesthesia Assessment Anesthesia Assessment: Discussed sedation and/or anesthesia options, risks, benefits, and alternatives with patient/parents/legal guardian/POA. Questions invited. The patient/parents/legal guardian/POA seems to understand and agrees to proceedwith anesthesia plan. Reviewed the physical assessment, medical history, allergy history and patient home medications list prior to surgery/procedure/anesthetic and documented any changes. Performed airway and anesthesia risk assessments. Procedural Plan Procedural Plan:: NOT optimized for anesthesia Add'l anesthesia plan details: Pt in Afib RVR, midsternal chest pain 06/15, procedure cancelled and pt taken to ER. Anesthesia Type Anesthesia Type: MAC Anesthesia Focused Assessment* Airway Assessment Mouth opens: >3 cm Mallampati Score: II Labs Anesthesia Preop lab: CBC WBC 6.5 K/mm3 (4.4-11.0) 11/26/22 16:15 11/26/22 RBC 4.00 M/mm3 (4.2-5.4) L 11/26/22 16:15 11/26/22 Hgb 11.9 g/dL (12.0-15.0) L 11/26/22 16:15 3 Hct 36.5 % (37-47) L 11/26/22 16:15 11/26/22 Plt Count 295 K/mm3 (150-450) 11/26/22 16:15 11/26/22 CHEMISTRY Potassium 3.9 mmol/L (3.5-5.1) 05/19/24 09:10 05/19/24 Sodium 141 mmol/L (136-145) 05/19/24 09:10 05/19/24 Magnesium 2.3 mg/dL (1.6-2.6) 08/24/22 07:07 08/24/22 BUN 11 mg/dL (7-18) 05/19/24 09:10 05/19/24 Creatinine 0.76 mg/dL (0.55-1.02) 05/19/24 09:10 05/19/24 Glucose 95 mg/dL (74-106) 05/19/24 09:10 05/19/24 TSH 1.47 uIU/mL (0.358-3.74) 07/03/23 16:43 COAG PT 12.4 SECONDS (11.7-14.9) 04/06/21 12:17 Pre-Assessment Diagnosis/Proposed Procedure Planned Operative Procedure(s): colonoscopy, egd Anesthesia History 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 When Was Last Pacemaker Check QUESTION #4 FULL TEXT: You/Your Family Experience fever (hyperthermia) with Anesthesia Last Oral Intake Last Oral intake: Last Oral Intake NPO since Meds taken in AM with sips of water? Meds patient instructed to take am of surgery PONV PONV - second chef: PONV - second chef Female Yes 12/03/24 14:55 HX of Motion Sickness Yes 12/03/24 14:55 HX of N/V After Surgery No 12/03/24 14:55 Non-Smoker Yes 12/03/24 14:55 Duration of Surgery greater No 12/03/24 14:55 than 60 minutes Number of Risk Factors 3 12/03/24 14:55 PONV Score Moderate Risk 12/03/24 14:55 Height & Weight Height & Weight: Anesthesia: Height & Weight Height 5 ft 7 in 09/21/24 08:24 Respiratory Assessment Respiratory Assessment - second chef: Respiratory Tract Infection Hx - second chef Hx Respiratory Tract Infection No 12/03/24 14:55 STOP Sleep Apnea STOP Sleep Apnea - second chef: STOP Sleep Apnea - second chef Hx Hypertension Yes: on meds 12/03/24 14:55 Hx Sleep Apnea No 12/03/24 14:55 CPAP No 05/19/24 12:22 BIPAP No 05/05/24 10:22 Do you snore loudly (louder No 12/03/24 14:55 than talking or can be heard Do you often feel tired/ No 12/03/24 14:55 fatigued/ sleepy during daytime? Has anyone observed you stop No 12/03/24 14:55 breathing during sleep? STOP Results Negative 12/03/24 14:55 QUESTION #5 FULL TEXT : Do you snore loudly (louder than talking or can be heard through closeddoors)? 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 Specify any problems Hx of Preganancy in last 3 No 12/03/24 14:55 Months Nurse Filling Out Transfusion JZOLLINGE 12/03/24 14:55 & Questions: Date: 12/03/24 12/03/24 14:55 Time: 14:57 12/03/24 14:55 Patient unable to answer at this time (ie. confused, unrespo /Reproduction History /Reproductive History - second chef: /Reproductive Hx- second chef Hx Now No 12/03/24 14:55 Gestational Age (in weeks): EDC: Hx Hx Para Hx Section SAB No 12/03/24 14:55 Active Medications Active Medications: Current Medications Generic Name Dose Route Start Last Admin Trade Name Freq PRN Reason Stop Dose Admin Lactated Ringer's 1,000 mls @ 15 mls/hr 12/10/24 08:00 IV .Q48H ALLISON PFSH Medical History (Updated 12/10/24 @ 08:39 by Bertha Graham) Afib SVT (supraventricular tachycardia) History of Crohn's disease [...] history of retained foreign body fully removed (~04/2019) Vasovagal syncope IBD (inflammatory bowel disease) Overweight (BMI 25.0-29.9) Home Medications ?Medication ?Instructions ?Recorded ?Last Taken ?Type cholecalciferol (vitamin D3) 125 125 mcg PO DAILY 08/0707/15/23 History mcg (5,000 unit) capsule aspirin 81 mg capsule 81 mg PO DAILY 07/12/2307/30 History ascorbic acid (vitamin C) 500 mg 500 mg PO DAILY 05/05 Unknown History tablet (C-500) calcium 600 mg (as 1 tab PO DAILY 05/05/24 Unkn own History carbonate)-vitamin D3 5 mcg (200 unit) tablet (Calcium 600 + D(3)) cyanocobalamin (vitamin B-12) 1,000 mcg PO DAILY 05/05 Unknown History 1,000 mcg tablet (Vitamin B-12) atenolol 50 mg tablet 50 mg PO DAILY #90 tabs 07/09 Unknown Rx ustekinumab 90 mg/mL subcutaneous 90 mg subcut .Q8 [place]EE [place] #1 mL 08/07/24 Unknown Rx syringe (Stelara) famotidine 20 mg tablet (Acid 40 mg PO DAILY PRN acid reflux 09/21/24 Unknown History Controller) metformin 500 mg tablet,extended 500 mg PO BID 5 Unknown History release 24 hr Allergy/AdvReac Type Severity Reaction Status Date / Time escitalopram (From Lexapro) Allergy Hives,Sedat Verified 12/10/24 08:38 ion Penicillins Allergy Rash Verified 12/10/24 08:38 meperidine (From Demerol) AdvReac Mild Nausea Verified 12/10/24 08:38 ciprofloxacin AdvReac Dizziness Verified 12/10/24 08:38 venlafaxine (From Effexor) AdvReac Constipatio Verified 12/10/24 08:38 n Family History Father CAD (coronary artery disease) Hypertension Atrial fibrillation Arthritis Mother Heart disease Atrial fibrillation Arthritis Brother Hypertension Surgical History History of esophagogastroduodenoscopy (EGD) Hx of colonoscopy History of left heart catheterization (LHC) (~04/12/21) History of tubal ligation Hx of vein stripping History of right oophorectomy H/O hemorrhoidectomy History of bladder suspension procedure H/O breast biopsy Social History household members: spouse and children housing: house current occupational status: employed 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 Smoking Status: Never smoker alcohol intake: current alcohol intake frequency: 0-2 drinks per day substance use type: does not use caffeine: Yes Type: coffee Number of servings: 3 what type of physical activity do you participate in: walking frequency: daily do you feel safe at home: Yes Review of Systems (Anesthesia) ROS Narrative System reviewed and no additional complaints, except as documented. 12/10/24 0853 PROJECT PRODUCT MANAGER> Date _ Bk Concepcion PROJECT PRODUCT MANAGER Cosigner Signature: Date CC: ~ Signed [facility]07-08-2025 Telephone encounter Note* Telephone Encounter - Bertha Marks - 10/13/2024 2:09 PM EDT Spoke with patient and informed her about the echo order. Patient will call and schedule at [facility] have results faxed Bertha Marks [facility]07-08-2025 Miscellaneous Notes* Telephone Encounter - Bertha Marks - 10/13/2024 2:09 PM EDT Spoke with patient and informed her about the echo order. Patient will call and schedule at [facility] have results faxed Bertha Marks * Telephone Encounter - Jose Garcia MD - 10/13/2024 12:40 PM EDT [facility] Electrophysiology (EP) Order placed for echocardiogram. Jose Garcia MD October 13, 2024 12:40 PM * Telephone Encounter - Jose Garcia MD - 10/13/2024 12:40 PM EDT ----- Message from Bertha Lerner sent at 10/13/2024 11:44 AM EDT ----- Regarding: RE: echocardiogram She has not had an echo done since 2020, I asked [facility] if they would be willing to order one since she would have it done there (she works there at the [employer]). Nicci stated she is not due to comeback until March for a [address] Maravilla. If you can order the echo, I will let Kadie know and have her schedule it. ----- Message ----- From: Jose Garcia MD Sent: 10/08/2024 8:46 PM EDT To: Bertha Marks Subject: echocardiogram I saw Ms. Laguna today 10/08/2024 and she stated she had recent echocardiogram with [facility]. Cannot find that in the records sent. Can you contact [facility] and ask for the echocardiogram report to be sent? If she has not had one in the past year then I need one completed. I do have the recent cardiac stress test, but I need the echocardiogram to determine if she has substantial LVH that would contraindicate treatment with flecainide that we are considering. Thanks Bernardo [facility] Telephone encounter Note * Telephone Encounter - Jose Garcia MD - 10/13/2024 12:40 PM EDT [facility] Electrophysiology (EP) Order placed for echocardiogram. Jose Garcia MD October 13, 2024 12:40 PM [facility]07-08-2025 Telephone encounter Note* Telephone Encounter - Jose Garcia MD - 10/13/2024 12:40 PM EDT ----- Message from Bertha Lerner sent at 10/13/2024 11:44 AM EDT ----- Regarding: RE: echocardiogram She has not had an echo done since 2020, I asked [facility] if they would be willing to order one since she would have it done there (she works there at the [employer]). Nicci stated she is not due to comeback until March for a [address] Maravilla. If you can order the echo, I will let Kadie know and have her schedule it. ----- Message ----- From: Jose Garcia MD Sent: 10/08/2024 8:46 PM EDT To: Bertha Marks Subject: echocardiogram I saw Ms. Laguna today 10/08/2024 and she stated she had recent echocardiogram with [facility]. Cannot find that in the records sent. Can you contact [facility] and ask for the echocardiogram report to be sent? If she has not had one in the past year then I need one completed. I do have the recent cardiac stress test, but I need the echocardiogram to determine if she has substantial LVH that would contraindicate treatment with flecainide that we are considering. Thanks Bernardo [facility]07-03-2025 Instructions* Patient Instructions* Jose Garcia MD - 10/08/2024 10:11 AM EDT We discussed your heart rhythm concerns: - You have a history of paroxysmal atrial fibrillation and recent episodes of supraventricular tachycardia (SVT), confirmed by cardiac monitoring from July to August 2024. These episodes are now more frequent, prolonged, and severe, with symptoms including dizziness, palpitations, chest pain, and jawpain. - We reviewed treatment options, including: - Ablation procedure: I will place a request to schedule this procedure. It may take several months to be scheduled, and you will be contacted closer to the procedure date. The procedure involvesusing catheters to identify and treat the source of your arrhythmia. It typically requires an overnight hospital stay, with restrictions on heavy lifting or vigorous activity for one week afterward. - Medication: I am considering prescribing flecainide, a heart rhythm medication, to help suppress your arrhythmia. I will review your most recent echocardiogram or request a new one if needed toensure this medication is safe for you. If appropriate, I will prescribe flecainide at a starting dose of 50 mg twice daily. I will communicate with your doctors at the [facility] regarding this plan. - In [...] symptoms. Notify me if your symptoms worsen orif you experience any new concerns. Please contact our office if you have any questions or if your symptoms change. [facility] History of Present illness Narrative* Jose Garcia MD - 10/08/2024 9:00 AM EDT PRIMARY CARE PHYSICIAN: Cheryle A De La Fuente ([facility]) [address] [place] [address] Patient Care Team: Cherlye De La Fuente MD as PCP - General (Family Medicine) Richelle Valencia PA-C as Physician Esl Instructor (Pulmonary and Critical Care Medicine) Eduard Maravilla as Specialty Signal Integrity Engineer (Cardiology) CHIEF COMPLAINT: Follow up for arrhythmia HISTORY OF PRESENT ILLNESS: Ms. Laguna is a 69 year old female who presents today for a cardiovascular medicine follow-up visit. Recording using ambient AI software for draft documentation of the visit was discussed with the patient/authorized factory representative; all questions welcomed and answered. Patient/authorized factory representative agreed to proceed History from previous notes, edited as needed and/or generated by dictation with use of AI.: Patient Overview: Ms. Laguna has a history of intermittent palpitations that began in 2020. She was referred to Dr. Garcia of [facility] in October 2022 for evaluation of [...] detailed discussion about treatment options for her arrhythmiasymptoms took place. She was determined to have [...] around 2020. She was referred to an farm equipment technician in October 2022 for evaluation. At that [...] issues. She is scheduled for a recheck onNovember 12 with upper and lower endoscopies. She has an allergy to penicillin and is currently taking amoxicillin, which she started yesterday. She reports feeling itchy and plans to contact her prescribing clinician. She is also on atenolol 50mg once daily, which was recently increased from [...] upper back sae cyst S TVT DEVICE 47533 12/30/2009 Bladder sling STAB PHLEBECTOMY VARICOSE VEINS [...] Sinus bradycardia 55 bpm; normal conduction intervals (WY 132 ms, QRS 88 ms); QTc 411 ms I have personally reviewed the Electrocardiogram. I spent a total of 50 minutes on the date of the service which included preparing to see the patient, [id number] patient care, completing clinical documentation, obtaining and/or reviewing separately obtained history, performing a medically appropriate examination, counseling and educating the pat ient/family/caregiver, ordering medications, tests, or procedures, communicating with other HCPs (not separately reported), independently interpreting results (not separately reported), communicatingresults to the patient/family/caregiver, and care coordination (not [...] which also would consist of EP study toevaluate for other forms of SVT such as atrial flutter, AVNRT, AVRT. Patient informed about the procedure details, including sedation/anesthesia, catheter insertion, and post-procedure care. - Communicate with Richelle Valencia and the [facility] regarding the treatment plan. 2. [...] EP study to evaluate for inducible SVT thatmight also need to be targeted with ablation. Considering flecainide as short term treatment strategy while she awaits scheduling of the catheterablation procedure. The recent nuclear stress test and also previous cardiac catheterization are reassuring that she is candidate for flecainide from that standpoint, but I need echocardiogram that has been completed in the past year to document she does not have more than moderate degree of LVH that would contraindicate flecainide. Will have my office contact [facility], as patient believes she had echocardiogram recently. If she has not had an echocardiogram recently then I would need for her to have one completed by [facility] as soon as possible. I [...] Level: 4 - Moderate documented in [facility]Gen[facility]25 NoteHNO ID: [id number] Author: JOSE GARCIA MD Service: ? Author Type: Physician Type: Progress Notes Filed: 10/08/2024 20:53 Note Text: PRIMARY CARE PHYSICIAN: Cheryle De La Fuente ([facility]) [address] [facility] [address] [place] [address] Patient Care Team: Cheryle De La Fuente MD as PCP - General (Family Medicine) Erik, Richelle Goldman PA-C as Physician Esl Instructor (Pulmonary and Critical Care Medicine) Eduard Maravilla as Specialty Signal Integrity Engineer (Cardiology) CHIEF COMPLAINT: Follow up for arrhythmia HISTORY OF PRESENT ILLNESS: Ms. Laguna is a 69 year old female who presents today for a cardiovascular medicine follow-up visit. Recording using ambient AI software for draft documentation of the visit was discussed with the patient/authorized factory representative; all questions welcomed and answered. Patient/authorized factory representative agreed to proceed History from previous notes, edited as needed and/or generated by dictation with use of AI.: Patient Overview: Ms. Laguna has a history of intermittent palpitations that began in 2020. She was referred to Dr. Garcia of [facility] in October 2022 for evaluation of [...] around 2020. She was referred to an farm equipment technician in October 2022 for evaluation. At that [...] is currently taking am (more content not included)...[facility]07-02-2025 Radiology Diagnostic study note [facility] Imaging Services [address] [place] [address] HIP, UNI W/ Pelvis 2-3 Views MR#: [id number] Acct: [id number] Name: KADIE LAGUNA Rep #: [id number] : [id number] F 69 From: Tremaine Thakkar MD PCP: Dr. Cheryle De La Fuente MD Status: REG CLI Study:HIP, UNI W/ Pelvis 2-3 Views Date of Ex am: 10/07/24 Exam# [id number] Ordering Dr: Jeffrey De La Fuente MD PROCEDURE: HIP, UNI [...] degenerative changes, no acute findings Reading Location: [id number] CC: Dr. Cheryle De La Fuente MD ~ Patient Care Nursing Assistant: Signed [facility]06-16-2025 Evaluation note* Diagnosis Onset Date Resolution Status Admit Date Abdominal pain acute September 21, 2024 8:02am Enteritis acute September 21 8:02am History of Crohn's disease acute September 21, 2024 8:02am [facility] Work Phone: 1(216) 446-833601-11-2025 Evaluation note* Diagnosis Onset Date Resolution Status Admit Date Bronchitis acute April 18, 2024 11:37am Basal cell carcinoma, ear acute May 19, 2024 8:53am [facility] Work Phone: 1(337) 609-245404-09-2024 History and physical note Author Jun Marin [facility] July 16, 2023 12:34pm Note Date/Time July 16, 2023 12:3 4pm [facility] System Medical Records Department [address] [place] [address] History & Physical Exam 07/16/23 1233 MR#: [id number] Acct: [id number] Name: KADIE LAGUNA MEAGHAN Rep #:[id number] : 1955 68 From: Junozzie Marin DO PCP: Dr. Cheryle De La Fuente MD Status:[facility] Location: [place] [address] History and Physical Date of Admission: 07/16/23 [...] cryptitis and early granulation of impending ulcer [facility] ED 7.. with abdominal pain ? concern for SBO that was r/o with radiology.Recommend OV with surgeon. ?CT abd/pel 7.08.26?hepatic cyst; multiple small bowel loops with wall thickening and edema, likely enteritis WSA OV 7.10.26 recommending establishment with GI. ?Small bowel Xray 7.12.27?without acute/chronic finding *BGI established 12.16.20 for further investigation of IBD with history of multiple abdominal surgeries and ED visits for abdominal pain. Autocad Detailer workup up lupus erythematosus versus discoid lupus without positive diagnosis ofeither. ?Biochemical 9.15.21?IBD WNL ?CT abd/pel 01.06.21 (PCP)?without acute/chronic finding ?MREnterography 01.10.21?without acute/chronic finding [...] Appearance: average body habitus and well nourished [facility] Head: normal to inspection Ears: hearing [...] Affect: normal affect Quality Reporting Tobacco Screening ([facility] 138) Smoking Status: Never smoker Assessment and [...] positive. The patient was seen by a raw mill operator who did not feel that she had joint disorder. the findings suggest focal enteritis with mesenteric thickening this is felt qian consistent with a focal inflammatory change. We will perform an upper and lower endoscopy to evaluate the upper or lower GI tract to see if there are any signs of Crohn's disease. Orders: Orders [place] + Protein Elect, Serum 07/03/23 K52.9 - [...] La Fuente MD; Jun Marin DO~ Signed [facility] Work Phone: 1(144) 363-282004-09-2024 Procedure [facility] 07-16-2023 Procedure [facility]04-09-2024 Procedure note [facility]04-09-2024 Procedure [facility] 11-05-2022 History of Present illness Narrative* Jose Garcia MD - 11/05/2022 3:20 PM EDT PRIMARY CARE PHYSICIAN: Cheryle De La Fuente ([facility]) [address] [place] [address] REFERRING PHYSICIAN: Richelle Valencia, PAC ([facility]) [address] [facility] [id number] Patient Care Team: Cheryle De La Fuente MD as PCP - General (Family Medicine) Richelle Valencia ([place]) as Physician Esl Instructor (Pulmonary and Critical Care Medicine) Mohan Le as Specialty Signal Integrity Engineer (Cardiology) CHIEF COMPLAINT: Evaluation for arrhythmia HISTORY OF PRESENT ILLNESS: Ms. Laguna is a 67 year old female who presents today for evaluation of arrhythmia, referred by [facility]. She began experiencing symptoms suggestive [...] fibrillation, brief episodes. She did wear a potline monitor April 2020, this revealed at least [...] upper back sae cyst S TVT DEVICE 36107 12/30/2009 Bladder sling STAB PHLEBECTOMY VARICOSE VEINS [...] Sinus rhythm 60 bpm; normal conduction intervals (WY 140 ms, QRS 94 ms); QTc 448ms [...] arrhythmia, her risk is intermediate given the [id number] score --- her particular risk factors are [...] care from EP standpoint. Follow up with [facility]. Return if symptoms worsen or fail [...] Level: 4 - Moderate [facility]Gen[facility] Nurse Note* Dale Soria LPN - 11/05/2022 3:08 PM EDT Intermitted chest discomfort, SOB, lightheaded, palpitations. Dale Soria LPN documented in this encounterGenesis Hospital04-13-2021 NoteHNO ID: [id number] Author: Paul Perrin Service: ? Author Type: Physician Type: Progress Notes Filed: 07/19/2020 10:34 AM Note Text: *07/11/20 labs from [facility]- +PHOENIX 1:160 speckled pattern [facility]03-26-2021 NoteHNO ID: [id number] Author: Paul Perrin Service: ? Author Type: Physician Type: Progress Notes Filed: 07/01/2020 3:08 PM Note Text: On 07/01/2020, I had the pleasure of seeing Kadie Fierroport at the [facility]. Kadie Garcia Laguna was referred by Dr. Cheryle De La Fuente for an opinion and advice regarding positive PHOENIX. My findings and final recommendations will be communicated to the requesting health care provider by way of the shared medical record for internal providers or letter via the [employer] for external providers. Chief complaint: [...] back sae cyst - S TVT DEVICE 28743 12/30/2009 Bladder sling - STAB PHLEBECTOMY VARICOSE [...] disease per patient SOCIAL HISTORY: Lives in [place] with spouse. 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 Son and daughter live in [place] Tobacco use: None Alcohol use: 1 drink/week [...] scleral icterus or conjunctiv (more content not included)...[facility]04-27-2010 History of Past illness Narrative* Problem Noted Date Resolved Date Urethrocele(618.03) 08/02/2009 04/24/2010 Female stress incontinence 06/29/200804/24 documented as of this encounter (statuses as of 10/05/2022) [facility]04-[facility] History of Past illness Narrative* Problem Noted Date Diagnosed Date Resolved Date Urethrocele(618.03) 08/02/2009 04/24/19 11 Sebaceous cyst 04/09/2009 11/02/2022 Rectal bleeding 01/07/2009 11/02/2022 Simple endometrial hyperplasia without atypia 06/30/19 09 11/02/2022 Female stress incontinence 06/29/2008 0 04/24/2010 Irregular menstrual cycle 06/29/2008 documented as of this encounter (statuses as of 11/13/2022) [facility] Author Wiley Swenson [facility] Note Date/Time December 10, 2024 1:34pm [facility] Medical Records Department [address] [place] [address] Emergency Department Summary 12/10/24 MR#: [id number] Acct: [id number] Name: KADIE LAGUNA MEAGHAN Rep #:[id number] : 1955 69 From: Wiley Swenson DO PCP: Dr. Cheryle De La Fuente MD Status:[facility] ER Location: ED ADDENDUM by Dr. Wiley Swenson DO on 12/10/24 at 1334 They felt that her elevated troponins were secondary to her elevated heart rate as she is completely asymptomatic after converting back to sinus rhythm and do not feel that she warrants any further cardiac evaluation. She recently had a stress test and a echocardiogram that were normal. 12/10/24 1334<Electronically signed by Wiley wSenson DO> Cosigner Signature (if applicable): cc: Dr. Cheryle De La Fuente MD ~* Signed HPI History of Present Illness Chief Complaint: Chest Pain Narrative Narrative: Patient is a 69-year-old female with past medical history of small bowel obstruction, positive PHOENIX, GERD who presents to the emergency department with a chief complaint of palpitations and not feeling well. States that she was getting a upper and lower scope today and notes that she did the prep yesterday. States that around 5 AM this morning she noted that she felt very clammy had chest pressure and felt like she was going to pass out. States that she had to lay down and notes that every single time she tried to sit up she felt like she was in a pass out. She notes that she had a Holter monitor recently and they discovered that she is not in atrial fibrillation and she is in paroxysmal SVT and notes that she is on atenolol and flecainide which she states that she took those medications this morning. States that she is following up with a physician at [facility] [place] and notes that she is to have an ablation in the near future. She states that in September they reached out and they were told that it will be several months before the ablation can be performed. States that latelyshe felt like she has had increased episodes. [facility] Medical History Afib SVT (supraventricular tachycardia) History of Crohn's disease [...] history of retained foreign body fully removed (~04/2019) Vasovagal syncope IBD (inflammatory bowel disease) Overweight (BMI 25.0-29.9) Home Medications ?Medication ?Instructions ?Recorded ?Last Taken ?Type cholecalciferol (vitamin D3) 125 125 mcg PO DAILY 08/0707/15/23 History mcg (5,000 unit) capsule aspirin 81 mg capsule 81 mg PO DAILY 07/12/2307/30 History ascorbic acid (vitamin C) 500 mg 500 mg PO DAILY 05/05 Unknown History tablet (C-500) calcium 600 mg (as 1 tab PO DAILY 05/05/24 Unkn own History carbonate)-vitamin D3 5 mcg (200 unit) tablet (Calcium 600 + D(3)) cyanocobalamin (vitamin B-12) 1,000 mcg PO DAILY 05/05 Unknown History 1,000 mcg tablet (Vitamin B-12) atenolol 50 mg tablet 50 mg PO DAILY #90 tabs 07/09 Unknown Rx ustekinumab 90 mg/mL subcutaneous 90 mg subcut .Q8 WENydia HA #1 mL 08/07/24 Unknown Rx syringe (Stelara) famotidine 20 mg tablet (Acid 40 mg PO DAILY PRN acid reflux 09/21/24 Unknown History Controller) metformin 500 mg tablet,extended 500 mg PO BID 5 Unknown History release 24 hr Allergy/AdvReac Type Severity Reaction Status Date / Time escitalopram (From Lexapro) Allergy Hives,Sedat Verified 12/10/24 08:38 ion Penicillins Allergy Rash Verified 12/10/24 08:38 meperidine (From Demerol) AdvReac Mild Nausea Verified 12/10/24 08:38 ciprofloxacin AdvReac Dizziness Verified 12/10/24 08:38 venlafaxine (From Effexor) AdvReac Constipatio Verified 12/10/24 08:38 n Family History Father CAD (coronary artery disease) Hypertension Atrial fibrillation Arthritis Mother Heart disease Atrial fibrillation Arthritis Brother Hypertension Surgical History History of esophagogastroduodenoscopy (EGD) Hx of colonoscopy History of left heart catheterization (LHC) (~04/12/21) History of tubal ligation Hx of vein stripping History of right oophorectomy H/O hemorrhoidectomy History of bladder suspension procedure H/O breast biopsy Social History household members: spouse and children housing: house current occupational status: employed 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 Smoking Status: Never smoker alcohol intake: current alcohol intake frequency: 0-2 drinks per day substance use type: does not use caffeine: Yes Type: coffee Number of servings: 3 what type of physical activity do you participate in: walking frequency: daily do you feel safe at home: Yes ROS ROS ED ROS Narrative Constitutional: Denies any fevers or chills, headaches Eyes: Denies double vision Cardiovascular: Complains of palpitations and chest pressure as noted above Respiratory: Denies coughing wheezing shortness of breath Abdomen: Denies abdominal pain nausea vomit diarrhea : Denies any urinary symptoms Neurological: Denies any numbness, weakness, tingling Musculoskeletal: Denies any back pain Skin: Denies any rashes or lesions EXAM Physical Exam Narrative Exam Narrative: General: Patient was sitting in bed rest comfortably did not appear to be in acute distress Head: Atraumatic, normocephalic Eyes: PERRL bilaterally, EOMI bilateral, no conjunctival injection noted Neck: Soft, supple, trachea midline Cardiovascular: Patient tachycardic with a regular rhythm Respiratory: Clear to auscultation bilaterally Abdomen: Soft, nondistended, nontender to palpation Extremities: +5/5 strength noted in the bilateral upper and lower extremities, radial pulses +2/4 in bilateral extremities, no pedal edema exam Neurological: Patient likely has new that she was at [facility] year is 2024 Skin: Warm, dry, intact no rashes or lesions noted Const Vital Signs: 12/10/24 08:35 12/10/24 08:39 12/10/24 08:43 Temperature 98.3 F Temperature Source Oral Pulse Rate 140 H Respiratory Rate 15 Respiratory Effort Normal Non-Labored Blood Pressure 110/80 Blood Pressure Mean 90 Pulse Ox 98 100 Oxygen Delivery Method Room Air Room Air 12/10/24 09:28 12/10/24 09:38 12/10/24 09:47 Temperature Temperature Source Pulse Rate 131 H 132 H 82 Respiratory Rate 20 H 18 21 H Respiratory Effort Blood Pressure 88/64 L 84/63 L 73/54 L Blood Pressure Mean 72 70 60 Pulse Ox 96 98 100 Oxygen Delivery Method 12/10/24 09:51 12/10/24 09:59 12/10/24 10:00 Temperature Temperature Source Pulse Rate 75 77 78 Respiratory Rate 17 20 H 20 H Respiratory Effort Blood Pressure 110/73 111/66 111/66 Blood Pressure Mean 85 81 81 Pulse Ox 98 100 100 Oxygen Delivery Method 12/10/24 11:00 12/10/24 11:59 12/10/24 13:00 Temperature Temperature Source Pulse Rate 80 81 74 Respiratory Rate 14 17 14 Respiratory Effort Blood Pressure 119/71 123/72 H 111/73 Blood Pressure Mean 87 89 85 Pulse Ox 99 98 98 Oxygen Delivery Method Room Air Room Air Room Air MDM MDM MDM Narrative Medical decision making narrative: Patient is a 61-year-old female who presented to the emergency department chief complaint of palpitations, lightheadedness, near syncope. On the differential diagnosis includes but not limited to SVT, atrial flutter, anemia, electrolyte abnormality. Once the workup is obtained and reviewed she will be reevaluated. Patient will be given IV fluids. Vasovagal was performed and the patient's heart rate remained in the 140s therefore I am suspicious that she is in atrial flutter at this point in time and not SVT. Patient's echocardiogram from November 10, 2024 was reviewed which showed ejection fraction of 65% with no regional wall abnormalities.Patient's stress test from August 04, 2024 reviewed as well which she had the exercise stress test discontinued due to target heart rate achieving she had shortness of breath however no chest pain with this. Patient CBC reviewed showed no evidence leukocytosis white blood count 8.9, he was 12.5, platelet count 289. Patient INR normal at 1, PT of 13.5. Patient sodium was 141, potassium normal at 4.5, creatinine normal at 0.94. Patient's troponin was 16, delta troponin of 30. Patient's EKG showed a rate of 137 bpm narrow complex with rate dependent changes likely noted in the leads V3 through V6. Patient proBNP normal. Patient CTA of the chest reviewed which showed no evidence of pulmonary embolism mild linear atelectasis and/or scarring at the lung bases. Patient chest x-ray reviewed by myself by radiology showed no acutecardiopulmonary processes. Patient was becoming more symptomatic with worsening chest discomfort and her blood pressure was dropping therefore I reached out to on-call gear setter Dr. Bose. Also repeated EKG which showed narrow complex tachycardia with a rate of 135 bpm as well with a QTc of 498. He is recommending before cardioversion attempting adenosine to see the underlying rhythm and if this is SVT this could potentially break the rhythm. Patient was given 6 mg of adenosine and a EKG was obtained during this time which showed PVCs multiple of them. Patient ultimately then cardioverted to sinus rhythm with PACs noted with a rate of 87 bpm with a QTc of 510. Patient states that she is feeling much better at this point time. I reach out to her farm equipment technician Dr. Garcia who is requesting the EKGsbe faxed to him for his review. These were faxed. They called back and he states that he does not want any medication adjustments at this point in time and she can be discharged home. He states that he will move up her ablation. I discussed this plan with the patient she got up and ambulated multiple times here in the emergency department and feels back to her baseline would like to gohome. She is advised to return with worsening symptoms or concerns. She is agreeable this plan all course concerns answered she was discharged home in stable condition. Critical care time: 57 minutes Lab Data Labs: Laboratory Results - last 24 hr 12/10/24 12/10/24 12/10/24 08:43 10:25 10:47 WBC 8.9 RBC 4.21 Hgb 12.5 Hct 38.6 MCV 91.7 MCH 29.7 MCHC 32.4 RDW Std Deviation 46.1 H RDW Coeff of Charles 13.6 Plt Count 289 MPV 10.8 Immature Gran % (Auto) 0.500 Neut % (Auto) 81.2 H Lymph % (Auto) 13.0 L Cooper % (Auto) 4.6 Eos % (Auto) 0.5 Baso % (Auto) 0.2 Absolute Neuts (auto) 7.2 Absolute Lymphs (auto) 1.15 Nucleated RBC % 0 PT 13.5 INR 1.0 APTT 26.4 Sodium 141 Potassium 4.5 Chloride 109 H Carbon Dioxide 20.2 L Anion Gap 11 BUN 15 Creatinine 0.94 Estim Creat Clear Calc 64.60 Est GFR (MDRD) Non-Af 66 BUN/Creatinine Ratio 15.7 Glucose 166 H Calcium 9.1 Magnesium 2.2 Troponin T High Sens 16 H Troponin T Hi Sens 2 Hr 30 H NT pro BNP II 600 TSH 2.420 Free T4 1.10 Free T3 pg/dL 2.8 Urine Color Yellow Urine Clarity Clear Urine pH 6.0 Ur Specific [place] 1.010 Urine Protein 30 H Urine Glucose (UA) Normal Urine Ketones 15 H Urine Occult Blood Negative Urine Nitrite Negative Urine Bilirubin Negative Urine Urobilinogen Normal Ur Leukocyte Esterase Negative Urine RBC 0 SEEN Urine WBC 0 SEEN Ur Squamous Epith Cells 0 SEEN Urine Bacteria 0 SEEN Urine Mucus 0 SEEN Radiography Diagnostic Testing: Clinical Impression(s) from Imaging Studies Chest X-Ray 12/10/24 08:55 IMPRESSION: No acute cardiopulmonary process Reading Location: [id number] Chest CTA 12/10/24 10:10 IMPRESSION: No evidence of pulmonary embolism. Mild linear atelectasis and/or scarring at the lung bases. [id number] Triage Chief Complaint: Chest Pain ED Provider: Wiley Swenson Dx/Rx/DC Orders Clinical Impression: Chest pain, Palpitations, SVT (supraventricular tachycardia) Prescriptions: No Action cholecalciferol (vitamin D3) 125 mcg (5,000 unit) capsule 125 mcg PO DAILY metformin 500 mg tablet extended release 24 hr 500 mg PO BID aspirin 81 mg capsule 81 mg PO DAILY calcium carbonate-vitamin D3 [Calcium 600 + D(3)] 600 mg-5 mcg (200 unit) tablet 1 tab PO DAILY ascorbic acid (vitamin C) [C-500] 500 mg tablet 500 mg PO DAILY cyanocobalamin (vitamin B-12) [Vitamin B-12] 1,000 mcg tablet 1,000 mcg PO DAILY famotidine [Acid Controller] 20 mg tablet 40 mg PO DAILY PRN (Reason: acid reflux) atenolol 50 mg tablet 50 mg PO DAILY Qty: 90 3RF Stelara 90 mg/mL syringe 90 mg subcut .Q8 WEEKS Qty: 1 6RF Patient Comments: LAST DOSE 12-01-24 Primary Care Provider: Cheryle De La Fuente Referrals: Cheryle De La Fuente MD [Primary Care Provider] - Activity Restrictions/Additional Instructions: Follow-up with your farm equipment technician at [facility] As we discussed here. Return for worsening symptoms or any concerns. Take medications as prescribed as they do not want to make any changes to your medications today. Print Language: Polish Disposition Disposition: Home, Self Care What to do if you have Problems For any increased pain, shortness of breath, bleeding, nausea or vomiting, chestpain, or any unexpected problems, contact your Primary Care Provider. Call [facility] ([phone]) or report to the closest Emergency Room. Call 911 if necessary. 12/10/24 1330 <Electronically signed by Wiley Swenson DO> Cosigner Signature (if applicable): CC: Dr. Cheryle De La Fuente MD ~ Signed [facility] Work Phone: Evaluation noteNo assessment information available [facility] Work Phone: Evpxnfjsbw note* Diagnosis Onset Date Resolution Status Encounter for routine gynecological examination noneactive [facility] Work Phone: evaluation note* Diagnosis Onset Date Resolution Status Paroxysmal atrial fibrillation acute [facility] Work Phone: evaluation note* Diagnosis Paroxysmal atrial fibrillation (HCC)- Primary Atrial fibrillation At risk for stroke Other specified personal history presenting hazards to health [facility]pitations [facility] Diagnosis Onset Date Resolution Status Abdominal pain acute Enteritis acute [facility] Work Phone: evaluation note* Diagnosis Onset Date Resolution Status Admit Date Enteritis acute September 21 8:02am History of Crohn's disease acute September 21, 2024 8:02am [facility] Work Phone: evaluation note* Diagnosis Paroxysmal atrial fibrillation (HCC)- Primary Atrial fibrillation At risk for stroke Other specified personal history presenting hazards to health Palpitations Supraventricular tachycardia (HCC) Other specified cardiac dysrhythmias [facility] [place] [facility]* Diagnosis Paroxysmal atrial fibrillation (HCC)- Primary Atrial fibrillation [facility]* Electrophysiology Location: None Selected [facility] Work Phone: Hospital Discharge instructionsAdditional Instructions Follow-up with your farm equipment technician at [facility] As we discussed here. Return for worsening symptoms or any concerns. Take medications as prescribed as they do not want to make any changes to your medications today.[facility] Work Phone: Reason for referral (narrative)No reason for referral information [facility] Work Phone: Instructions Instruction Description Start Date CompletedPatient advised to follow-up with Primary Care Physician for BMI management. Advance Directives No Advanced Directives Records Found Advance Directive Response Recorded Date/ Time Advance Directives Yes April 12, 2021 8:13am Living Will Yes April 12 8:13am Power of Ditch Tender Yes April 12 8:13am Advance Directive Response Recorded Date/ Time Name of Medical Power of Ditch Tender MILAGRO Vila July 12, 2023 12:02pm Advance Directives Yes April 12, 2021 8:13am Living Will Yes July 12, 2023 12:02pm Power of Ditch Tender Yes July 11 12:02pm Advance Directive Response Recorded Date/ Time Living Will Yes May 05 11:22am Do you have a Healthcare Pow er of Ditch Tender? Yes May 05, 2024 11:22am Name of Medical Power of Ditch Tender MILAGRO Vila May 05, 2024 11:22am Advance Directives Yes April 12, 2021 8:13am Advance Directive Response Recorded Date/ Time Advance Directives Yes April 12, 2021 8:13am Advance Directive Response Recorded Date/ Time Do you have a Healthcare Power of Ditch Tender? Yes December 03, 2024 2:55pm Name of Medical Power of Ditch Tender December 03, 2024 2:55pm Do you have a Healthcare Power of Ditch Tender? 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 RX HERE November 19, 2024 9: 00am Chief Complaint Admit Date PALPITATIONS, CHEST PAIN August 04 6:00am PALPITATIONS, CHEST PAIN August 05 1:46pm 6 M FU September 21, 2024 8:02 am SCREENING November 04, 2024 12:2 7pm PAROXYSMAL ATRIAL FIBRILLATION November 1:47pm LEFT HIP. RX HERE November 24, 2024 2: 30pm Chief Complaint Admit Date 6 M FU September 21, 2024 8:02 am SCREENING November 04, 2024 12:2 7pm PAROXYSMAL ATRIAL FIBRILLATION November 1:47pm LEFT HIP. RX HERE December 08, 2024 3:00pm chest pain December 10, 2024 8:35am Chief Complaint Admit Date 6 M FU September 21, 2024 8:02 am SCREENING November 04, 2024 12:2 7pm PAROXYSMAL ATRIAL FIBRILLATION November 1:47pm EKG December 10, 2024 8:24am chest pain December 10, 2024 8:35am LEFT HIP. RX HERE December 22, 2024 4:00pm Additional Source Comments INFORMATION SOURCE (unrecogn ized section and content) DATE CREATED AUTHOR 05/24/2021 [facility] DATE CREATED AUTHOR AUTHOR'S ORGANIZ ATION 12/12/2024 [facility] DATE CREATED AUTHOR AUTHOR'S ORGANIZ ATION 01/10/2025 [facility] Goals (unrecognized section and content) Goals may [...] Provider Active Start: July 23, 2024 Richelle MADLONADO PA Referring Provider Active Start: July 23, 2024 Team Status: Active Member Role Status Dates Dr. Cheryle De La Fuente MD Primary Care Provider Active Start: July 23, 2024 Richelle MALDONADO PA Attending Provider Active Start: July 23, 2024 Richelle MALDONADO PA Referring Provider Active Start: July 23, 2024 Team Status: Inactive Member Role Status Dates Dr. Cheryle De La Fuente MD Primary Care Provider Active Start: August 04, 2024 End: August 04, 2024 Richelle MALDONADO PA Attending Provider Active Start: August 04, 2024 End: August 04, 2024 Richelle MALDONADO PA Referring Provider Active Start: August 04, 2024 End: August 04, 2024 Team Status: Active Member Role Status Dates Dr. Cheryle De La Fuente MD Primary Care Provider Active Start: August 05, 2024 Richelle MALDONADO, PA Referring Provider Active Start: August 05, 2024 Richelle MALDONADO, PA Other Provider Active Start: August 05, [...] La Fuente MD Primary Care Provider, Attending P rovider Active Cheryle MARTIN MD Referring Provider Active Team Status: Active Member Role Status Dates Dr. Cheryle De La Fuente MD Primary Care Provide r, Attending Provider, Referring Provider Active Mattress Specialist Relationship Specialty Start Date End Date Cheryle De La Fuente MD PCP - General Family Medicine 05/11/11 Team Status: Inactive Member Role Status Dates Dr. Cheryle De La Fuente MD Primary Care Provider, Referring P rovider Active Richelle MALDONADO, PA Attending Provider Active Mattress Specialist Relationship Specialty Start Date End Date Cheryle De La Fuente MD [address] [id number] PCP - General Family Medicine 11/02/22 Richelle Valencia (Pa) [address] [place] [address] [place] [id number] Physician Esl Instructor Pulmonary and Critical Care Medicine 11/02/22 Mohan Le [address] [place] [address] Specialty Signal Integrity Engineer Cardiology 11/05/22 Team Status: Active Member Role [...] September 25, 2024 End: September 25, 2024 Mattress Specialist Relationship Specialty Start Date End Date Cheryle De La Fuente MD [address] [place], [place] [id number] PCP - General Family Medicine 11/02/22 Richelle Valencia PA-C [address] [place] [address] Physician Esl Instructor Pulmonary and Critical Care Medicine 11/02/22 Eduard Maravilla [address] [place] [address] Specialty Signal Integrity Engineer Cardiology 10/08/24 Team Status: Inactive Member Role/Relationship Status Dates Dr. Cheryle De La Fuente MD Primary Care Provider Active Start: October 07, 2024 End: October 07, 2024 Dr. Cheryle De La Fuente MD Attending Provider Active St art: October 07, 2024 End: October 07, 2024 Dr. Cheryle De La Fuente MD Referring Provider Active St art: October 07, 2024 End: October 07, 2024 Mattress Specialist Relationship Specialty Start Date End Date Cheryle De La Fuente MD [address] [place] [address] PCP - General Family Medicine 11/02/22 Richelle Valencia PA-C [address] [place] [address] Physician Esl Instructor Pulmonary and Critical Care Medicine 11/02/22 Eduard Maravilla [address] [place] [address] Specialty Signal Integrity Engineer Cardiology 10/08/24 Team Status: Active Member Role/Relationship Status Dates Dr. Cheryle De La Fuente MD Primary Care Provider Active Start: November 04, 2024 Dr. Cheryle De La Fuente MD Attending Provider Active St art: November 04, 2024 Dr. Cheryle De La Fuente MD Referring Provider Active St art: November 04, 2024 Team Status: Inactive Member Role/Relationship Status Dates Dr. Cheryle De La Fuente MD Primary Care Provider Active Start: November 10, 2024 End: November 10, 2024 Dr. Jose Garcia MD Attending Provider Active Start: November 10, 2024 End: November 10, 2024 Dr. Jose Garcia MD Referring Provider Active Start: November 10, 2024 End: November 10, 2024 Team Status: Active Member Role/Relationship Status Dates Dr. Cheryle De La Fuente MD Primary Care Provider Active Start: November 10, 2024 Dr. Mohan Le MD Attending Provider Active S tart: November 10, 2024 Team Status: Active Member Role/Relationship Status Dates Dr. Cheryle De La Fuente MD Primary Care Provider Active Start: November 19, 2024 Dr. Cheryle De La Fuente MD Attending Provider Active St art: November 19, 2024 Dr. Cheryle De La Fuente MD Referring Provider Active St art: November 19, 2024 Team Status: Inactive Member Role/Relationship Status Dates Dr. Cheryle De La Fuente MD Primary Care Provider Active Start: August 04, 2024 End: August 04, 2024 Richelle MALDONADO PA Attending Provider Active Start: August 04, [...] September 25, 2024 End: September 25, 2024 Team Status: Inactive Member Role/Relationship Status Dates Dr. Cheryle De La Fuente MD Primary Care Provider Active Start: October 07, 2024 End: October 07, 2024 Dr. Cheryle De La Fuente MD Attending Provider Active St art: October 07, 2024 End: October 07, 2024 Dr. Cheryle De La Fuente MD Referring Provider Active St art: October 07, 2024 End: October 07, 2024 Team Status: Inactive Member Role/Relationship Status Dates Dr. Cheryle De La Fuente MD Primary Care Provider Active Start: November 04, 2024 End: November 04, 2024 Dr. Cheryle De La Fuente MD Attending Provider Active St art: November 04, 2024 End: November 04, 2024 Dr. Cheryle De La Fuente MD Referring Provider Active St art: November 04, 2024 End: November 04, 2024 Team Status: Inactive Member Role/Relationship Status Dates Dr. Cheryle De La Fuente MD Primary Care Provider Active Start: November 10, 2024 End: November 10, 2024 Dr. Jose Garcia MD Attending Provider Active Start: November 10, 2024 End: November 10, 2024 Dr. Jose Garcia MD Referring Provider Active Start: November 10, 2024 End: November 10, 2024 Team Status: Active Member Role/Relationship Status Dates Dr. Cheryle De La Fuente MD Primary Care Provider Active Start: November 10, 2024 Dr. Mohan Le MD Attending Provider Active S tart: November 10, 2024 Team Status: Active Member Role/Relationship Status Dates Dr. Cheryle De La Fuente MD Primary Care Provider Active Start: November 24, 2024 Dr. Cheryle De La Fuente MD Attending Provider Active St art: November 24, 2024 Dr. Cheryle De La Fuente MD Referring Provider Active St art: November 24, 2024 Team Status: Inactive Member Role/Relationship Status [...] September 25, 2024 End: September 25, 2024 Team Status: Inactive Member Role/Relationship Status Dates Dr. Cheryle De La Fuente MD Primary Care Provider Active Start: October 07, 2024 End: October 07, 2024 Dr. Cheryle De La Fuente MD Attending Provider Active St art: October 07, 2024 End: October 07, 2024 Dr. Cheryle De La Fuente MD Referring Provider Active St art: October 07, 2024 End: October 07, 2024 Team Status: Inactive Member Role/Relationship Status Dates Dr. Cheryle De La Fuente MD Primary Care Provider Active Start: November 04, 2024 End: November 04, 2024 Dr. Cheryle De La Fuente MD Attending Provider Active St art: November 04, 2024 End: November 04, 2024 Dr. Cheryle De La Fuente MD Referring Provider Active St art: November 04, 2024 End: November 04, 2024 Team Status: Inactive Member Role/Relationship Status Dates Dr. Cheryle De La Fuente MD Primary Care Provider Active Start: November 10, 2024 End: November 10, 2024 Dr. Jose Garcia MD Attending Provider Active Start: November 10, 2024 End: November 10, 2024 Dr. Jose Garcia MD Referring Provider Active Start: November 10, 2024 End: November 10, 2024 Team Status: Active Member Role/Relationship Status Dates Dr. Cheryle De La Fuente MD Primary Care Provider Active Start: November 10, 2024 Dr. Mohan Le MD Attending Provider Active S tart: November 10, 2024 Team Status: Active Member Role/Relationship Status Dates Dr. Cheryle De La Fuente MD Primary Care Provider Active Start: December 08, 2024 Dr. Cheryle De La Fuente MD Attending Provider Active St art: December 08, 2024 Dr. Cheryle De La Fuente MD Referring Provider Active St art: December 08, 2024 Team Status: Active Member Role/Relationship Status Dates Dr. Cheryle De La Fuente MD Primary Care Provider Active Start: December 10, 2024 Dr. Cheryle De La Fuente MD Referring Provider Active St art: December 10, 2024 Dr. Jun Marin DO Attending Provider Active Start: December 10, 2024 Team Status: Inactive Member Role/Relationship Status Dates Dr. Cheryle De La Fuente MD Primary Care Provider Active Start: December 10, 2024 End: December 10, 2024 Dr. Wiley Swenson DO Emergency Provider Active Start: December 10, 2024 End: December 10, 2024 Mattress Specialist Relationship Specialty Start Date End Date Cheryle De La Fuente MD [address] [place], [place] [id number] PCP - General Family Medicine 11/02/22 Richelle Valencia PA-C [address] [place], [place] [id number] Physician Esl Instructor Pulmonary and Critical Care Medicine 11/02/22 Eduard Maravilla [address] [place], [place] [id number] Specialty Signal Integrity Engineer Cardiology 10/08/24 Team Status: Inactive Member Role/Relationship Status Dates Dr. Cheryle De La Fuente MD Primary Care Provider Active Start: December 10, 2024 End: December 10, 2024 Dr. Cheryle De La Fuente MD Referring Provider Active St art: December 10, 2024 End: December 10, 2024 Dr. Jun Marin DO Attending Provider Active Start: December 10, 2024 End: December 10, 2024 Team Status: Active Member Role/Relationship Status Dates Dr. Cheryle De La Fuente MD Primary care physician Active Team Status: Inactive Member Role/Relationship Status Dates Dr. Cheryle De La Fuente MD Primary care physician Active Start: September 21, 2024 End: September 21, 2024 Dr. Cheryle De La Fuente MD Referring Provider Active St art: September 21, 2024 End: September 21, 2024 Dr. Jun Marin DO Attending physician Active Start: September 21, 2024 End: September 21, 2024 Team Status: Inactive Member Role/Relationship Status Dates Dr. Cheryle De La Fuente MD Primary care physician Active Start: September 25, 2024 End: September 25, 2024 Dr. Jun Marin DO Attending physician Active Start: September 25, 2024 End: September 25, 2024 Dr. Jun Marin DO Referring Provider Active Start: September 25, 2024 End: September 25, 2024 Team Status: Inactive Member Role/Relationship Status Dates Dr. Cheryle De La Fuente MD Primary care physician Active Start: October 07, 2024 End: October 07, 2024 Dr. Cheryle De La Fuente MD Attending physician Active S tart: October 07, 2024 End: October 07, 2024 Dr. Cheryle De La Fuente MD Referring Provider Active St art: October 07, 2024 End: October 07, 2024 Team Status: Inactive Member Role/Relationship Status Dates Dr. Cheryle De La Fuente MD Primary care physician Active Start: November 04, 2024 End: November 04, 2024 Dr. Cheryle De La Fuente MD Attending physician Active S tart: November 04, 2024 End: November 04, 2024 Dr. Cheryle De La Fuente MD Referring Provider Active St art: November 04, 2024 End: November 04, 2024 Team Status: Inactive Member Role/Relationship Status Dates Dr. Cheryle De La Fuente MD Primary care physician Active Start: November 10, 2024 End: November 10, 2024 Dr. Jose Garcia MD Attending physician Active Start: November 10, 2024 End: November 10, 2024 Dr. Jose Garcia MD Referring Provider Active Start: November 10, 2024 End: November 10, 2024 Team Status: Active Member Role/Relationship Status Dates Dr. Cheryle De La Fuente MD Primary care physician Active Start: November 10, 2024 Dr. Mohan eL MD Attending physician Active Start: November 10, 2024 Team Status: Inactive Member Role/Relationship Status Dates Dr. Cheryle De La Fuente MD Primary care physician Active Start: December 10, 2024 End: December 10, 2024 Dr. Cheryle De La Fuente MD Referring Provider Active St art: December 10, 2024 End: December 10, 2024 Dr. Jun Marin DO Attending physician Active Start: December 10, 2024 End: December 10, 2024 Team Status: Active Member Role/Relationship Status Dates Dr. Cheryle De La Fuente MD Primary care physician Active Start: December 10, 2024 Dr. Gregory Bose MD Attending physician Active Start: December Dr. Jun Marin DO Referring Provider Active Start: December 10, 2024 Team Status: Inactive Member Role/Relationship Status Dates Dr. Cheryle De La Fuente MD Primary care physician Active Start: December 10, 2024 End: December 10, 2024 Dr. Wiley Swenson DO Attending physician Active Start: December 10, 2024 End: December 10, 2024 Dr. Wiley Swenson DO Emergency Departme nt Physician Active Start: December 10, 2024 End: December 10, 2024 Team Status: Inactive Member Role/Relationship Status Dates Dr. Cheryle De La Fuente MD Primary care physician Active Start: December 22, 2024 End: December 22, 2024 Dr. Cheryle De La Fuente MD Attending physician Active S tart: December 22, 2024 End: December 22, 2024 Dr. Cheryle De La Fuente MD Referring Provider Active St art: December 22, 2024 End: December 22, 2024 Source Comments (unrecognize d section and content) In the event this informatio n is protected by the Federal Confidentiality of Alcohol and Drug Abuse Patient Records regulations: The Federal rules restrict any use of the information to criminally investigate or prosecute any alcohol or drug abuse patient.[facility] the event this information is protected by the Federal Confidentiality of Alcohol and Drug Abuse Patient Records regulations: The Federal rules restrict any use of the information to criminally investigate or prosecute any alcohol or drug abuse patient.[facility] the event this information is protected by the Federal Confidentiality of Alcohol and Drug Abuse Patient Records regulations: The Federal rules restrict any use of the information to criminally investigate or prosecute any alcohol or drug abuse patient.[facility] the event this information is protected by the Federal Confidentiality of Alcohol and Drug Abuse Patient Records regulations: The Federal rules restrict any use of the information to criminally investigate or prosecute any alcohol or drug abuse patient.[facility] the event this information is protected by the Federal Confidentiality of Alcohol and Drug Abuse Patient Records regulations: The Federal rules restrict any use of the information to criminally investigate or prosecute any alcohol or drug abuse patient.[facility] Reason for Visit (unrecogniz ed section and content) Reason Comments New Patient Evaluation PAF Reason Comments Cardiology Follow Up [facility] requests follow up/PAF Reason Onset Date Comments Treatment Planning 10/13/2024 Reason Onset Date Comments Treatment Planning 12/10/2024 Patient Update 12/10/2024 FOR RECORDS PERTAINING TO PATIENTS WHO ARE [...] BE BASED ON THE PRIMARY CLINICAL RECORDS. [facility] [employer] [facility]. provides no warranty or guarantee of the accuracy or completeness of information in this document.
--- NOTE | 2025-01-23 11:50 | EKG12_ITS ---
Test Reason : ARRYTH Blood Pressure : */* mmHG Vent. Rate : 161 BPM Atrial Rate : 359 BPM P-R Int : * ms QRS Dur : 86 ms QT Int : 292 ms P-R-T Axes : * 26 111 degrees QTcB Int : 477 ms Critical Test Result: High HR Atrial flutter Posterior infarct , age undetermined Marked ST abnormality, possible lateral subendocardial injury Abnormal ECG Confirmed by RENALDO PERALTA MD ([id number]), legal editor COURTNEY SANCHEZ ([id number]) on 01/25/2025 6:44:28 AM Referred By: Confirmed By: RENALDO PERALTA MD
--- NOTE | 2025-01-23 11:52 | EX.ED.DYSGE1 ---
HPI History of Present Illness Chief Complaint: Palpitations Narrative Narrative: 70-year-old female past medical history of SVT presents with palpitations and episode of SVT that began approximately an hour and a half ago. 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 She was not doing anything strenuous. No recent illness, no nausea or vomiting or diarrhea. She relates history that she had a history of SVT. This was remotely, and she is waiting for an ablation at [facility] through her chemistry research assistant Dr. Cheung. She states she wore a Holter monitor because initially they thought she had atrial fibrillation, but found out that it was more SVT. She felt heart palpitations suddenly this morning, and put her self on a monitor. She states her heart rate was as high as 170 but usually with these episodes it is anywhere from 150 to 170 bpm. She is experiencing minimal chest discomfort but no shortness of breath. She states the last time she went into SVT, was December 10 and she received adenosine which cardioverted her. [facility] Medical History Afib SVT (supraventricular tachycardia) History of Crohn's disease Wears contact lenses Wears glasses Alcohol use Arthritis Injury of back Gastric reflux Non-smoker History of Holter monitoring History of echocardiogram History of stress test Cardiology follow-up encounter Paroxysmal atrial fibrillation Cervical stenosis of spine Positive [place] (antinuclear antibody) BCC (basal cell carcinoma), face Atrial fibrillation Back pain SBO (small bowel obstruction) Chest pain Palpitations Foreign body in soft tissue Personal history of retained foreign body fully removed (~04/2019) Vasovagal syncope IBD (inflammatory bowel disease) Overweight (BMI 25.0-29.9) Home Medications ?Medication ?Instructions ?Recorded ?Last Taken ?Type cholecalciferol (vitamin D3) 125 125 mcg PO DAILY 08/25/21 07/15/23 History mcg (5,000 unit) capsule aspirin 81 mg capsule 81 mg PO DAILY 07/12/23 07/11/23 History ascorbic acid (vitamin C) 500 mg 500 mg PO DAILY 05/05/24 Unknown History tablet (C-500) calcium 600 mg (as 1 tab PO DAILY 05/05/24 Unknown History carbonate)-vitamin D3 5 mcg (200 unit) tablet (Calcium 600 + D(3)) cyanocobalamin (vitamin B-12) 1,000 mcg PO DAILY 05/05/24 Unknown History 1,000 mcg tablet (Vitamin B-12) atenolol 50 mg tablet 50 mg PO DAILY #90 tabs 08/05/24 Unknown Rx ustekinumab 90 mg/mL subcutaneous 90 mg subcut .Q8 WEEKS #1 mL 08/07/24 Unknown Rx syringe (Stelara) famotidine 20 mg tablet (Acid 40 mg PO DAILY PRN acid reflux 09/21/24 Unknown History Controller) metformin 500 mg tablet,extended 500 mg PO BID 12/03/24 Unknown History release 24 hr Allergy/AdvReac Type Severity Reaction Status Date / Time escitalopram (From Lexapro) Allergy Hives,Sedat Verified 01/23/25 11:18 ion Penicillins Allergy Rash Verified 01/23/25 11:18 meperidine (From Demerol) AdvReac Mild Nausea Verified 01/23/25 11:18 ciprofloxacin AdvReac Dizziness Verified 01/23/25 11:18 venlafaxine (From Effexor) AdvReac Constipatio Verified 01/23/25 11:18 n Family History Father CAD (coronary artery disease) Hypertension Atrial fibrillation Arthritis Mother Heart disease Atrial fibrillation Arthritis Brother Hypertension Surgical History History of esophagogastroduodenoscopy (EGD) Hx of colonoscopy History of left heart catheterization (LHC) (~04/12/21) History of tubal ligation Hx of vein stripping History of right oophorectomy H/O hemorrhoidectomy History of bladder suspension procedure H/O breast biopsy Social History household members: spouse and children housing: house current occupational status: employed current occupation: [employer] de[employer]. Smoking Status: Never smoker alcohol intake: current alcohol intake frequency: 0-2 drinks per day substance use type: does not use caffeine: Yes Type: coffee Number of servings: 3 what type of physical activity do you participate in: walking frequency: daily do you feel safe at home: Yes ROS ROS ED ROS Narrative Review of systems positive for heart palpitations, minor chest discomfort. No nausea or vomiting currently, no diarrhea, no fevers or chills or recent illness. No exacerbating or alleviating factors. EXAM Physical Exam Narrative Exam Narrative: Afebrile. Vital signs noted. Nontoxic-appearing. Cardiovascular examination reveals a regular tachycardia currently in the 160s. Initially heart rate was as high as 187 bpm. Lungs are clear to auscultation bilaterally. Abdomen soft and nontender with normoactive bowel sounds. Neurological examination nonfocal, nonlateralizing. Const Vital Signs: 01/23/25 11:18 01/23/25 11:32 01/23/25 12:02 Temperature 96.9 F L Temperature Source Temporal Pulse Rate 187 H 95 Respiratory Rate 18 18 Respiratory Effort Normal Non-Labored Blood Pressure 134/83 H 146/91 H Blood Pressure Mean 100 109 Pulse Ox 100 100 Oxygen Delivery Method Room Air Room Air 01/23/25 12:57 01/23/25 13:59 Temperature 98.0 F Temperature Source Pulse Rate 93 84 Respiratory Rate 16 18 Respiratory Effort Blood Pressure 106/70 129/84 H Blood Pressure Mean 82 99 Pulse Ox 97 100 Oxygen Delivery Method Room Air MDM MDM MDM Narrative Medical decision making narrative: Differential diagnosis includes but not limited to paroxysmal SVT versus atrial fibrillation versus flutter. EKG was obtained and although it is read as atrial flutter at 161 bpm, it appears more regular as SVT. No acute ST changes. I had a lengthy discussion with the patient. Vagal maneuver was attempted but unsuccessful. She will be placed on pacer pads and given adenosine 6 mg intravenously. After initial adenosine administration, there was no significant change in her heart rate. She was administered an additional 12 mg with resultant cardioversion to normal sinus rhythm at approximately 107 bpm on the monitor. I obtained a second EKG afterwards and interpreted independently as normal sinus rhythm at 88 bpm without ectopy or acute ST changes. No STEMI. I reviewed her laboratory work and she has a normal white count of 7.2 with hemoglobin normal at 12.8 and platelet count normal at 277. Electrolyte panel is grossly unremarkable except for glucose of 121, normal BUN and creatinine. Magnesium normal at 2.2. High-sensitivity troponin is less than 6. I do not feel she requires serial enzymes. She states that her chest discomfort had resolved as soon as she cardioverted. I discussed patient with her chemistry research assistant Dr. Cheung. Patient is on metoprolol 50 mg once a day and flecainide 50 mg twice a day. She states that she is currently on this medication regime. He did not want to alter it. She was instructed to follow-up with him for cardiac ablation. Tentatively she is scheduled for February 16. She is to call the office if she is having increasing episodes of SVT. At this point in time, upon repeat examination she is resting comfortably and feels improved. She is motivated for discharge. I feel she can be discharged to follow-up with her chemistry research assistant. Return instructions to the emergency department were reviewed. Disposition is discharged home in stable condition. History & Record Review Discussion w/independent historian: Patient Additional record(s) reviewed:: Prior ED visit (Had another SVT episode in December of this year.) Lab Data Attestation: I reviewed the patient's lab results. Labs: Laboratory Results - last 24 hr 01/23/25 11:50 WBC 7.4 RBC 4.27 Hgb 12.8 Hct 38.7 MCV 90.6 MCH 30.0 MCHC 33.1 RDW Std Deviation 44.4 H RDW Coeff of Charles 13.4 Plt Count 277 MPV 10.6 Immature Gran % (Auto) 0.300 Neut % (Auto) 46.9 L Lymph % (Auto) 41.7 H [place] % (Auto) 9.5 Eos % (Auto) 1.2 Baso % (Auto) 0.4 Absolute Neuts (auto) 3.5 Absolute Lymphs (auto) 3.07 Nucleated RBC % 0 Sodium 137 Potassium 3.7 Chloride 101 Carbon Dioxide 23.1 Anion Gap 13 BUN 12 Creatinine 0.78 Estim Creat Clear Calc 74.39 Est GFR (MDRD) Non-Af 82 BUN/Creatinine Ratio 15.5 Glucose 121 H Calcium 9.3 Magnesium 2.2 Troponin T High Sens < 6 D Discharge Plan Triage Chief Complaint: Palpitations ED Provider: Conor Mccann Dx/Rx/DC Orders Clinical Impression: SVT (supraventricular tachycardia), Chest pain Instructions: ED Understanding Supraventricular Tachycardia (SVT) Prescriptions: No Action cholecalciferol (vitamin D3) 125 mcg (5,000 unit) capsule 125 mcg PO DAILY metformin 500 mg tablet extended release 24 hr 500 mg PO BID aspirin 81 mg capsule 81 mg PO DAILY calcium carbonate-vitamin D3 [Calcium 600 + D(3)] 600 mg-5 mcg (200 unit) tablet 1 tab PO DAILY ascorbic acid (vitamin C) [C-500] 500 mg tablet 500 mg PO DAILY cyanocobalamin (vitamin B-12) [Vitamin B-12] 1,000 mcg tablet 1,000 mcg PO DAILY famotidine [Acid Controller] 20 mg tablet 40 mg PO DAILY PRN (Reason: acid reflux) atenolol 50 mg tablet 50 mg PO DAILY Qty: 90 3RF Stelara 90 mg/mL syringe 90 mg subcut .Q8 WEEKS Qty: 1 6RF Patient Comments: LAST DOSE 12-01-24 Primary Care Provider: Jean Marie De La Fuente Referrals: Jean Marie De La Fuente MD [Primary Care Provider, [facility]] Activity Restrictions/Additional Instructions: Continue your metoprolol 50 mg daily as well as your flecainide 50 mg twice a day as previously directed. Follow-up with your chemistry research assistant Dr. Cheung. You are tentatively scheduled for cardiac ablation for February 16. They will contact you. Contact your chemistry research assistant with increasing episodes of SVT. Return with new or worsening symptoms. Print Language: Divehi Disposition Disposition: Home, Self Care
[2025-01-23] MEDS: Adenosine 6 MG/2 ML Syringe IV (11:54)
[2025-01-23 12:02] VITALS: BP 146/91; PULSE 95; RESP 18; O2SAT 100
--- NOTE | 2025-01-23 12:02 | EKG12_ITS ---
Test Reason : Blood Pressure : */* mmHG Vent. Rate : 88 BPM Atrial Rate : 88 BPM P-R Int : 148 ms QRS Dur : 96 ms QT Int : 378 ms P-R-T Axes : 42 12 29 degrees QTcB Int : 457 ms Normal sinus rhythm Nonspecific ST and T wave abnormality Abnormal ECG Confirmed by FABIAN VERMA, RENALDO ([id number]), babcock tester COURTNEY SANCHEZ ([id number]) on 01/25/2025 6:44:38 AM Referred By: Confirmed By: RENALDO PERALTA MD
[2025-01-23] MEDS: Adenosine 6 MG/2 ML Syringe 12 MG IV (12:03)
[2025-01-23 12:15] LABS: Hematocrit 38.7 % (37-47); Hemoglobin 12.8 g/dL (12.0-15.0); Immature Granulocytes Count 0.020 X10^3/uL (0.0-0.0); Mean Corp Hgb Conc 33.1 g/dL (32-36); Mean Corpuscular Volume 90.6 fL (81-99); Mean Platelet Vol. 10.6 fl (6.2-12.0); NRBC Flagged by Analyzer 0 % (0-5); Platelet Count 277 K/mm3 (150-450); RBC Distribution Width CV 13.4 % (11.6-14.6); RBC Distribution Width SD 44.4 fl (35.1-43.9); Red Blood Count 4.27 M/mm3 (4.2-5.4); White Blood Count 7.4 K/mm3 (4.4-11.0)
[2025-01-23 12:54] LABS: Anion Gap 13 (5-15); BUN 12 mg/dL (4-19); BUN/Creat Ratio 15.5 RATIO (10-20); Calcium,Total 9.3 mg/dL (7.6-11.0); Carbon Dioxide 23.1 mmol/L (21.0-32.0); Chloride 101 mmol/L (98-108); Estimated Creatinine Clearance 74.39 ml/min (50-250); Glucose 121 mg/dL (70-99); Magnesium 2.2 mg/dL (1.5-2.2); Potassium 3.7 mmol/L (3.3-5.1)
[2025-01-23 12:57] VITALS: BP 106/70; PULSE 93; RESP 16; O2SAT 97
[2025-01-23 13:20] LABS: Troponin T High Sensitivity < 6 ng/L (<=14)
[2025-01-23 13:59] VITALS: BP 129/84; PULSE 84; RESP 18; TEMP 36.7; O2SAT 100
== END 2025-01-23 14:11 | disposition home or self-care (01) ==
PROVIDERS: Emergency Provider Emergency Medicine; PCP Family Medicine; Visit Provider Emergency Medicine
DX: I47.10 Supraventricular tachycardia, unspecified (principal); R07.9 Chest pain, unspecified; K21.9 Gastro-esophageal reflux disease without esophagitis; Z79.899 Other long term (current) drug therapy
CPT/HCPCS: 80048; 83735; 84484; 85025; 93005; 96374; 96376; 99283; A4216; J0153

== ENCOUNTER → 2025-02-08 | Outpatient (CLI) | payer MEDICARE, BC, SELFPAY ==
--- NOTE | 2025-02-08 14:43 | RAD_ITS ---
RAD/Lumbar Spine 2 or 3 Views
== END | disposition home or self-care (01) ==
LOC: RAD 14:39
PROVIDERS: PCP Family Medicine; Referring Provider Family Medicine; Visit Provider Family Medicine
DX: M25.552 Pain in left hip (principal)
CPT/HCPCS: 72100

== ENCOUNTER → 2025-02-10 | Outpatient (CLI) | payer MEDICARE, BC, SELFPAY ==
--- NOTE | 2025-02-10 13:16 | MRI_ITS ---
PROCEDURE: SPINE LUMBAR (ROUTINE) 02/10/2025 REASON FOR EXAM: LEFT HIP PAIN TECHNIQUE: Procedure Code: MRISPL Modality: MR Procedure: SPINE LUMBAR (ROUTINE) COMPARISON: X-ray lumbar spine 02/08/2025. FINDINGS: Vertebrae: Vertebral bodies are preserved in height and signal. Congenital narrowing of the pedicles. Alignment: Normal alignment. Conus Medullaris: Unremarkable. L1-2: Disc bulge. Facet joints arthropathy. Ligamentum flavum hypertrophy. No significant foramina stenosis. Moderate canal stenosis. L2-3: Disc bulge. Facet joint arthropathy. Ligamentum flavum hypertrophy. Moderate bilateral foramina stenosis. Severe canal stenosis. L3-4: Disc bulge. Disc desiccation. Facet joints arthropathy. Moderate bilateral foramina stenosis. Mild canal stenosis. L4-5: Disc bulge. Facet joint arthropathy. Moderate bilateral foramina stenosis. No canal stenosis. L5-S1: Disc bulge. Facet joint arthropathy. Mild bilateral foramina stenosis. No canal stenosis. Sacrum: Unremarkable. 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 Moderate bilateral foramina stenosis at L2-L3, L3-L4 and L4-L5. Reading Location: [id number]
== END | disposition home or self-care (01) ==
LOC: OPMRI 13:14
PROVIDERS: PCP Family Medicine; Referring Provider Family Medicine; Visit Provider Family Medicine
DX: M25.552 Pain in left hip (principal)
CPT/HCPCS: 72148